=== PATIENT | female | born 1960 | race Caucasian/White ===

== ENCOUNTER → 2018-02-08 07:39 | Day surgery (SDC) | payer OTHER, SELFPAY ==
[2018-02-01 17:03] VITALS: BMI 24.2
[2018-02-08] VITALS (11 sets, daily range): BP systolic 112–144; BP diastolic 71–84; PULSE 79–89; RESP 12–20; TEMP 36–36.5; O2SAT 89–97; BMI 24.5
--- NOTE | 2018-02-08 | PATH_ITS ---
[facility] Accession Number: [id number] . 01 Material submitted: . PART A: SENTINAL NODE-RIGHT PART B: RIGHT BREAT MASS . 02 Diagnosis: A. Right [place] Lymph Node, Excision: One lymph node, negative for metastatic carcinoma. . B. Right Breast, Mass, Excision: Invasive ductal carcinoma. Please see Summary Cancer Data below. . . CAP CANCER CASE SUMMARY Procedure: Excision. Specimen Laterality: Right. . Tumor Site: 9 o'clock. Tumor Size: 2 mm. Histologic Type: Invasive carcinoma of no special type (ductal, not otherwise specified). Histologic Grade ([place] Histologic Score) Glandular/Tubular Differentiation: Score 1. Nuclear Pleomorphism: Score 1. Mitotic Rate: Score 1. Overall Grade: Grade 1. Tumor Focality: Single focus of invasive carcinoma. Ductal Carcinoma in Situ: Present in biopsy specimen only, per report, negative for extensive intraductal component. Architectural Patterns: Cribriform, per report. Nuclear Grade: Grade 1, per report. Necrosis: Not identified, per report. Margins Invasive carcinoma margins: Uninvolved by invasive carcinoma. Distance from closest margin: 9 mm, anterior margin. Ductal carcinoma in situ margins: Cannot be assessed, see comment. . Regional Lymph Nodes: Uninvolved by tumor cells. Total number of lymph nodes examined: 1. Number of sentinel lymph nodes examined: 1. . Treatment Effect: No known presurgical therapy. Lymph-Vascular Invasion: Not identified. Dermal Lymph-Vascular Invasion: No skin present. . Pathologic Stage Classification (AJCC, 8th ed.) Primary tumor: pT1. Regional lymph nodes: pN0(sn). . Additional pathologic findings: 1. Biopsy site changes. 2. Fibroadenoma with focal atypical ductal hyperplasia adjacent to biopsy site. . Ancillary studies: Performed Previously at Pathology, [place], [place], [id number]: -Estrogen Receptor (ER) Status: Positive (3+, greater than 95%). -Progesterone Receptor (PgR) Status: Negative (0+, 0%). -HER2 (by immunohistochemistry): Negative (1+). MRV/02/13/2018 . 02 Comment: No DCIS is identified in the excisional specimen; however, a small focus of DCIS is described in the [facility] report of the core needle biopsy ([id number]) and is therefore included in the [facility] Summary Data. . As part of routine quality coordinator, Dr. Estes and Dr. Mittal also reviewed selected slides and agree with the diagnosis. . 02 Electronically signed: . Zahira Edwards MD, Pathologist NPI- [id number] . 01 Gross description: . (A) Received in formalin, labeled 1) [place] node-right, is a lymph node (1.0 x 0.9 x 0.6 cm). Serially sectioned and entirely submitted in cassette A1. (B) Received in formalin, labeled 2) Right breast mass, short=superior, double=anterior, wire lateral, is a piece of breast tissue (3.3 cm AP, 3.9 cm SI, 6.1 cm ML) with no overlying skin. The specimen is oriented with two black sutures (short-superior, double-anterior) and the localization wire is lateral. The specimen is serially sectioned ML into 21 slices with the medial and lateral resection margins in slices #1 and #21, respectively. The breast tissue is densely fibrous and contains a colindres-white firm irregular hemorrhagic mass (1.3 x 1.2 x 1.1 cm) located in slices #13-16. The mass is 0.6 cm from the anterior, 0.6 cm from the posterior, 1.5 cm from the superior, 1.1 cm from the inferior, 3.5 cm from the medial, and 1.4 cm from the lateral resection margins. The surrounding densely fibrous tissue makes it difficult to identify the exact border of the mass. The localization wire was located loosely attached to the lateral side, therefore, the exact tissue involving the tip cannot be identified. A pinpoint hemorrhagic area is identified within slices #11 to #18. No other nodules, masses or lesions are identified. Ink code: purple-anterior; yellow-posterior; black-superior; orange-inferior; green-medial; blue-lateral. 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; (B2) slice #6, bisected SI, inferior half submitted; (B3) slice #7, bisected SI, superior half submitted; (B4) slice #8, entirely submitted; (B5) slice #9, bisected SI, inferior half submitted; (B6) slice #10, bisected SI, inferior half submitted; (B7) slice #11, tissue with hemorrhaging, trisected, middle third submitted; (B8-B9) slice #12, tissue adjacent to mass, bisected and submitted SI, entirely submitted; (B10-B12) slice #13, entirely submitted; (B13-B14) slice #14 entirely submitted; (B15-B17) slice #15 entirely submitted; (B18-B20) slice #16 entirely submitted; (B21-B22) slice #17, tissue adjacent to mass, entirely submitted; (B23-B24) slice #18, tissue with hemorrhaging, entirely submitted; (B25) slice #19, livestock sales representative; (B26) slice #20, livestock sales representative; (B27) lateral resection margin, perpendicularly sectioned, livestock sales representative. Note: Approximate total fixation time in formalin-31 hours 30 minutes calculated using a collection date of 02/08/2018 with no collection time given. ([id number]) /[facility] . 02 Microscopic: . Immunohistochemical stains were performed to characterize cells of interest. All control stains showed appropriate reactivity. . RESULTS: Block B14 p63: Present around the cells of interest. Myosin: Present around the cells of interest. . Block B16 and B19: p63: Absent around the cells of interest. Myosin: Absent around the cells of interest. . INTERPRETATION: The absence of p63 and myosin around the cells of interest is compatible with the diagnosis of invasive carcinoma. The presence of p63 and myosin surrounding cells of interest in block B14 are consistent with sclerosing adenosis. . * This test was developed and its performance characteristics determined by [employer]. It has not been cleared or approved by the U.S. Food and Drug Administration. The FDA has determined that such clearance or approval is not necessary. This test is used for clinical purposes. It should not be regarded as investigational or for research. . 02 Pathologist provided ICD-10: C50.911 . 02 CPT . 753249, 951096, M93827, K60937 Performed at: 01 [facility] [address] [id number] MD Francisco Peacock MD Phone: [phone] Performed at: 02 [facility] [address] [address] [place], [place] [id number] MD Chetan Fuller MD Phone: [phone]
--- NOTE | 2018-02-08 08:00 | DI.NM.S_ITS ---
PROCEDURE: NM SENTINEL NODE W IMAGING RADIOPHARMACEUTICAL: 0.5-1.0 mCi Millipore filtered Tc-99m sulfur colloid. INDICATIONS: 57 year-old female with right breast invasive ductal carcinoma, for sentinel lymph node localization. TECHNIQUE: The area around the nipple was prepped and draped in a sterile fashion. Tc-99m sulfur colloid was injected intra-dermally in the outer edge of the areola in the right breast. Images were obtained subsequently. FINDINGS: There are up to 4 lymph node(s) in the ipsilateral axilla demonstrating tracer uptake, one of which demonstrates initial and more intense tracer uptake consistent with sentinel lymph node. IMPRESSION: Administration of radiotracer into the right breast periareolar region for intra-operative sentinel lymph node localization. Dictated by: Xavi Dickson M.D. on 02/08/2018 at 11:14 Approved by: Xavi Dickson M.D. on 02/08/2018 at 11:17
--- NOTE | 2018-02-08 08:08 | DI.MG.S_ITS ---
PROCEDURE: MM NEEDLE LOC RT COMPARISON: [facility], , ADDITIONAL 1 VIEW, 12/26/2017, 9:34. INDICATIONS: RIGHT BREAST CANCER RIGHT WIRE LOCALIZATION FINDINGS: IMPRESSION: Dictated by: Maikel Blue M.D. on 02/08/2018 at 10:20 Approved by: Maikel Blue M.D. on 02/08/2018 at 10:25
--- NOTE | 2018-02-08 08:08 | DI.MG.S_ITS ---
SPECIMEN: 02/08/2018 CLINICAL: Breast specimen right. Correlation is made to exams dated: [facility]08[facility]2018 [facility]. IMPRESSION: SPECIMEN Post biopsy marker is within the specimen radiograph. This exam was interpreted at Station ID: [id number]. Maikel Blue M.D. cj/:02/08/2018 11:22:40
--- NOTE | 2018-02-08 09:10 | DI.MG.S_ITS ---
Patient Name: ROHAN FAULKNER date: 1960 Sex: F Attending Physician: Yanick Indications: Date: 02/08/2018 09:43 At the request of: JUANITO BARKER Procedure: MM needle loc RT UNILATERAL RIGHT: 02/08/2018 CLINICAL: Pre-op wire localization. Right breast cancer. Comparison is made to exams dated: 01/05/2018 mammogram - [facility], 12/26 mammogram, and 12/08/2017 mammogram - [facility]. The post biopsy marker in the upper outer right breast was identified under mammography and the overlying skin cleaned. 1% lidocaine was infiltrated into the tissues and a 7 cm kopans needle was placed adjacent to the marker. Location was verified with further mammographic images. A kopans wire was was placed via the needle and the needle removed. Post image mammography demonstrates the thick potion of the wire to be adjacent to the biopsy marker. IMPRESSION: Successful wire localization of the upper outer right breast abnormality marked with a post biopsy marker. This exam was interpreted at Station ID: [id number]. NOTE: For mammograms, a report in lay terms will be sent to the patient. Approximately 15% of breast malignancies will not be visualized mammographically. In the management of a palpable breast mass, a negative mammogram must not discourage biopsy of a clinically suspicious lesion. Electronically Signed By: Maikel Blue M.D. cj/:02/09/2018 08:04:56 Entry: - 02/09/2018 08:04:56 ACR BI-RADS Category n/a
[2018-02-08] MEDS: LACTATED RINGERS 1,000 ML 42 ML IV (09:40)
[2018-02-08] MEDS: CEFAZOLIN 2 GM/100 ML FROZ.PIGGY IV (10:24)
[2018-02-08] MEDS: BUPIVACAINE 0.5% (PF) 30 ML VIAL INJ (10:57)
[2018-02-08] MEDS: LIDOCAINE 1% W/EPI INJ 20 ML INJ (10:59)
--- NOTE | 2018-02-08 11:13 | SUR.OPER ---
Supine on padded OR bed, head on pillow, arms secured on padded arm boards at <90 degrees abduction, legs uncrossed, safety belt at thigh, tape over blanket over lower legs.
--- NOTE | 2018-02-08 11:23 | PM.OP.1 ---
Operative Date/Time/Diagnoses - Date of procedure: 02/08/18 Time of procedure: 11:23 Pre-op diagnosis: Biopsy proven right breast cancer Post-op diagnosis: same Procedure & Clinicians Procedure: Right breast lumpectomy and sentinel node biopsy after needle localization and sentinel node mapping Same procedure as scheduled: Yes Indications: Biopsy-proven right breast malignancy Anesthesia Type: General ([place]) and Local Operative Notes Findings: 1. A single sentinel node with a 10 sec count of greater than 20,000 2. Clip, lesion, and wire well centered within the specimen Closure Type: primary Specimen(s): other (1. [place] node, 2. Right breast lump) Estimated Blood Loss (mL): 10 Procedure in detail: After obtaining informed consent, the patient was brought to the operating room and placed in the supine position on the operating table. Following successful induction of general endotracheal anesthesia, appropriate padding of all bony prominences, and placement of appropriate monitors, the right chest and axilla were prepped and draped in the standard surgical fashion. A timeout was held per SCOAP protocol. Following injection of a mixture of local anesthetics into the axillary fold on the right side, an incision was created and carried down through the skin and subcutaneous tissue to enter the axillary fat pad below. The sentinel node was identified with the help of the navigator. All afferent and efferent lymphatics and vasculature were ligated. The sentinel node was then liberated from the surrounding structures. It was noted to have a 10 second count of greater than 20,000. The background in the axilla was less than 10 and background in the room was 0. The wound was carefully checked for hemostasis and aspirated free of all fluid and particulate matter. It was closed in 2 layers with Vicryl and Monocryl suture. We continued with lumpectomy on the right side. A curvilinear incision was created to include the localizing wire in the outer quadrant of the right breast. Using traction and counter-traction the mass and localizing wire carefully dissected free from the underlying muscle, and surrounding breast tissue. The mass was delivered into the field and marked appropriately. It was sent for specimen x-ray. The wound was checked for hemostasis and irrigated with water. The radiologist called back into the room noting that the mass, wire, and clip were all located well within the specimen. The wound was checked once again for hemostasis. It was irrigated copiously with warm water and aspirated free of all fluid. The wound was checked once again for hemostasis and then closed in layers with Vicryl and Monocryl suture. Dermabond was applied to the skin incisions. Fluffs and a breast binder were applied. The patient tolerated the procedure very well. She was allowed to awaken from anesthesia and taken to the post-anesthesia care unit in good condition. Complications: none Condition: stable Disposition: PACU Plan for aftercare: Follow up with [facility] in 2 weeks
--- NOTE | 2018-02-08 11:31 | PM.PREOP ---
Pre-operative Note Interval Note Pre-op Check: History & Physical Reviewed and Exam Performed
[2018-02-08] MEDS: fentaNYL 100 MCG/2 ML INJ 50 MCG IV ×2 (11:45→12:04)
[2018-02-08] MEDS: OXYCODONE/ACETAMINOPHEN 5/325 TABLET 1 TAB PO (12:14)
== END | disposition home or self-care (01) ==
PROVIDERS: Visit Provider Surgery
PROC: (CPT 19301; principal; 2018-02-08 10:00)
DX: C50.911 Malignant neoplasm of unspecified site of right female breast (principal); Z17.0 Estrogen receptor positive status [ER+]; I10 Essential (primary) hypertension; F17.210 Nicotine dependence, cigarettes, uncomplicated
CPT/HCPCS: 19301; 38500; 19281; 76098; 78195; A9541; G0279; J0690; J1100; J2405; J2704; J3010

== ENCOUNTER → 2018-06-19 13:58 | Outpatient (CLI) | payer OTHER, SELFPAY ==
--- NOTE | 2018-06-19 | DI.ECHO.S_ITS ---
[facility] +---------+ : : [address] : : : [place], [place] : : : : [id number] : : : : Phone: [phone]---------+ Echocardiogram Report + + :Name: ROHAN FAULKNER Study Date: 06/19/2018 Height: 65 in : :[facility] Weight: 155 lb : : Gender: Female BSA: 1.8 m2 : :: 1960 Age: 57 yrs BP: 120/76 mmHg: :Reason For Study: Abnormal ECG, Pre-surgical clearance : :Ordering Physician: Skye : :Vern Performed By: Cinda Anaya : + + Interpretation Summary The study quality was technically difficult. A contrast injection of Definity was performed to improve assessment of LV function. The ejection fraction is estimated to be 60-65%. There is no significant valvular heart disease. Procedure: A two-dimensional transthoracic echocardiogram with color flow and Doppler was performed. The study quality was technically difficult. There is no prior echocardiogram noted for this patient. A contrast injection of Definity was performed to improve assessment of LV function. The patient was in normal sinus rhythm during the exam. Left Ventricle: The left ventricle is normal in size. There is normal left ventricular wall thickness. The ejection fraction is estimated to be 60-65%. There are no obvious focal wall motion abnormalities noted but poor endocardial definition reduces the sensitivity for the detection of such. Right Ventricle: The right ventricle grossly appears normal in size with probable normal systolic function. Atria: The left atrium grossly appears normal in size. Right atrium not well visualized. There is no Doppler evidence for an interatrial shunt. Mitral Valve: The mitral valve is normal in structure and function. There is no mitral regurgitation noted. Aortic Valve: The aortic valve is grossly normal. There is no aortic valve stenosis. No aortic regurgitation is present. Tricuspid Valve: The tricuspid valve is not well visualized. Pulmonary artery pressures cannot be estimated because of the lack of a measurable TR jet velocity. Pulmonic Valve: The pulmonic valve is not well visualized. Great Vessels: The aortic root is normal size. The ascending aorta is normal in size. The IVC is of normal diameter and collapses greater than 50% with a sniff. This suggests a low right atrial pressure of 3 mm Hg. Pericardium/ Pleura There is no pericardial effusion. MMode/2D Measurements & Calculations LVIDd: 4.1 cm LVOT diam: 2.1 cm LVIDs: 2.7 cm Ao root diam: 3.0 cm FS: 33.6 % asc Aorta Diam: 3.3 cm IVSd: 0.87 cm LVPWd: 0.92 cm LV leonardo. diameter/BSA (cm/m^2): 2.3 LV sys. diameter/BSA (cm/m^2): 1.5 LA A2 area: 14.5 cm2 IVC diam: 1.1 cm LA A4 area: 15.8 cm2 LA length (vol): 4.8 cm LA vol: 40.5 ml LA vol index: 22.8 ml/m2 TAPSE: 2.1 cm Doppler Measurements & Calculations Ao V2 max: 108.5 cm/sec LVOT Max Eric: 84.1 cm/sec Ao V2 mean: 82.0 cm/sec LV V1 max P.8 mmHg Ao max P.7 mmHg LV V1 VTI: 16.4 cm Ao mean P.9 mmHg SHEYLA(I,D): 2.6 cm2 Ao V2 VTI: 21.8 cm SHEYLA(V,D): 2.7 cm2 sev ratio: 0.75 SHEYLA indexed to BSA (cm^2/m^2): 1.5 MV E max eric: 71.5 cm/sec PA V2 max: 74.6 cm/sec MV A max eric: 77.3 cm/sec PA V2 mean: 56.3 cm/sec MV E/A: 0.93 PA mean P.4 mmHg Med Peak E' Eric: 5.5 cm/sec PA Accel Time: 0.11 sec E/E' med: 13.1 Lat Peak E' Eric: 4.6 cm/sec E/E' lat: 15.4 E/e' average: 14.3 MV dec time: 0.21 sec MV P1/2t: 60.7 msec MV P1/2t max eric: 71.6 cm/sec MVA(P1/2t): 3.6 cm2 Reading Physician:03:52 PM
== END ==
PROVIDERS: Visit Provider Internal Medicine
DX: Z01.810 Encounter for preprocedural cardiovascular examination (principal); R94.31 Abnormal electrocardiogram [ECG] [EKG]
CPT/HCPCS: 93306; Q9957

== ENCOUNTER → 2018-07-03 11:51 | Outpatient (CLI) | payer OTHER, SELFPAY ==
[2018-07-03 12:42] LABS: Add Manual Diff / Slide Review NO; Basophils Percent Auto 0.7 % (0-2); Eosinophils Percent Auto 1.1 % (2-4); Hematocrit 37.2 % (36-46); Hemoglobin 12.7 g/dL (12.0-16.0); Lymphocytes Percent Auto 21.8 % (25-40); Mean Corpuscular Hemoglobin 32.3 PG (26-34); Monocytes Percent Auto 10.3 % (3-14); Neutrophils Absolute Auto 4700 /uL (3000-5900); Neutrophils Percent Auto 66.1 % (50-75); Platelet Count 234 X10^3/uL (150-400); Red Blood Cell Count 3.92 X10^6/uL (4.0-5.2); Red Cell Distribution Width 13.5 % (11.6-14.8); White Blood Cell Count 7.1 X10^3/uL (4.5-11.0)
[2018-07-03 12:58] LABS: Hemoglobin A1C% w Est Avg Glu 5.2 % (4.0-6.0)
[2018-07-03 13:05] LABS: BUN Creatinine Ratio 16.3 (6-22); Blood Urea Nitrogen 13 mg/dL (7-17); Calcium 10.2 mg/dL (8.4-10.2); Carbon Dioxide 34 mmol/L (22-32); Chloride 100 mmol/L (98-107); Estimated Glomerular Filt Rate > 60.0 mL/min (>60); Glucose 102 mg/dL (70-100); HEMOLYSIS < 15 (0-50); Potassium 4.4 mmol/L (3.4-5.1); Sodium 143 mmol/L (137-145)
[2018-07-03 13:17] LABS: Appearance Urine UA CLOUDY; Bilirubin Urine UA NEGATIVE (NEGATIVE); Color Urine UA YELLOW; Glucose Urine UA NEGATIVE (Normal); Ketones Urine UA NEGATIVE (NEGATIVE); Leukocyte Esterase Urine UA 1+ (NEGATIVE); Nitrite Urine UA Negative (Negative); Occult Blood Urine UA 1+ (Negative); Protein Urine UA NEGATIVE (Negative); Urobilinogen Urine UA 0.2 E.U./dL (0.2)
[2018-07-03 14:17] LABS: Bacteria Urine Moderate (10-30); RBC Urine 1-5/HPF (0-5/HPF); Squamous Epithelial Cell Urine 0-1 /HPF; WBC Urine 10-30/HPF (0-5/HPF)
== END ==
PROVIDERS: Visit Provider Orthopaedic Surgery
DX: M16.0 Bilateral primary osteoarthritis of hip (principal)
CPT/HCPCS: 36415; 80048; 81001; 83036; 85025

== ENCOUNTER 2018-07-13 10:02 | Inpatient (IN) | payer OTHER, SELFPAY ==
[2018-06-28 10:47] VITALS: BMI 25.0
[2018-07-13] VITALS (15 sets, daily range): BP systolic 105–140; BP diastolic 59–89; PULSE 73–81; RESP 13–20; TEMP 36.1–36.9; O2SAT 92–96; BMI 25.3
--- NOTE | 2018-07-13 | DI.RAD.S_ITS ---
PROCEDURE: XR HIP W PEL IF DONE LT 2V INDICATIONS: LEFT TOTAL HIP TECHNIQUE: AP pelvis and lateral view of the left hip acquired. COMPARISON: [facility], [place], XR HIP W PEL IF DONE LT 2V, 07/13/2018, 12:27. FINDINGS: Bones: Patient is status post left hip arthroplasty, with hardware components in expected positions. The hip joint appears congruent. The visualized bony structures appear intact. Soft tissues: Overlying postoperative changes are noted. No suspicious soft tissue densities. A right pelvis clip can be seen. IMPRESSION: Normal postoperative examination. Dictated by: Wiley Azar M.D. on 07/13/2018 at 16:04 Approved by: Wiley Azar M.D. on 07/13/2018 at 16:05
--- NOTE | 2018-07-13 09:56 | DI.RAD.S_ITS ---
PROCEDURE: XR HIP W PEL IF DONE LT 2V INDICATIONS: INTEROPERATIVE LEFT TOTAL HIP FINDINGS: 2 limited intraoperative fluoroscopically stored images of the left hip were obtained for intraoperative hardware localization purposes. These images are not meant for diagnostic purposes. Intraoperative findings related to a left hip arthroplasty procedure are present. IMPRESSION: Intraoperative images obtained in the patient's left hip arthroplasty. Dictated by: Colton Kwon M.D. on 07/13/2018 at 15:00 Approved by: Colton Kwon M.D. on 07/13/2018 at 15:01
[2018-07-13] MEDS: LACTATED RINGERS 1,000 ML 42 ML IV ×2 (10:50→15:47)
[2018-07-13] MEDS: ACETAMINOPHEN 325 MG TABLET 975 MG PO ×2 (10:51→20:30)
[2018-07-13] MEDS: PREGABALIN 75 MG CAPSULE PO (10:51)
[2018-07-13] MEDS: MELOXICAM 7.5 MG TABLET 15 MG PO (10:51)
[2018-07-13] MEDS: VANCOMYCIN 1,000 MG/200 ML FROZ.PIGGY 200 MG IV (11:00)
--- NOTE | 2018-07-13 11:26 | PM.PREOP ---
Pre-operative Note Interval Note Pre-op Check: Yes History & Physical Reviewed by Physician and Yes Exam Performed Changes: No
--- NOTE | 2018-07-13 11:28 | P.OP_ITS ---
Operative Date/Time/Diagnoses Date of procedure: 07/13/18 Time of procedure: 12:07 Pre-op diagnosis: Left hip avascular necrosis Post-op diagnosis: same Procedure & Clinicians Procedure: Left total hip arthroplasty Same procedure as scheduled: Yes Indications: The patient has had progressively worsening left hip pain with radiographic changes consistent with arthritis. Non-operative management has failed and the patient has requested total hip replacement. The risks, benefits and alternatives to surgery were discussed with the patient prior to proceeding. Risks discussed included, but were not limited to, failure to relieve pain, leg length discrepancy, dislocation, stiffness, infection, nerve damage, deep venous thrombosis, pulmonary embolism, stroke, coma, heart attack, permanent paralysis and , as well as the potential need for eventual revision of the prosthetic. Surgeon: Rula Suarez Restorative Care Technician: Cuco Mendez Anesthesia Type: General and Spinal Operative Notes Findings: Severe left hip arthritis and avascular necrosis Closure Type: primary Specimen(s): none sent Implants & Drains: [employer] R3 50 cup, a 32 x 50 neutral liner, size 7 standard offset anthology, -3 neck Estimated Blood Loss (mL): 250 Blood products transfused: none Procedure in detail: The patient was brought to the operating room. Patient was carefully positioned in the supine position. Time-out was performed and antibiotics were given. Anesthesia was induced. She was positioned in the on the table in order to allow hyperextension of the hip. Bilateral lower extremities were prepped and draped in a standard sterile fashion. An anterior left hip incision was made 1 fingerbreadth lateral to the anterior superior iliac spine and extended distally towards the greater trochanter. Dissection was carried out through skin and subcutaneous tissues. The skin and subcutaneous tissues were carefully injected with Lidocaine with epi. Superficial hemostasis was achieved. The fascia over the tensor fascia klaudia was defined and incised with a knife. Two Allis clamps were used to grasp the fascia. Tensor fascia klaudia was retracted laterally. A gelpi retractor was placed. Dissection was carried out down along the neck. The circumflex vessels were carefully identified and cauterized with the Aqua Mantis. There was good visualization of the femoral neck. A Cobra was placed superior to the neck and the gluteus fibers were carefully stripped from that superior aspect of the capsule. A 2nd retractor was placed along the inferior aspect of the neck. The rectus insertion along the capsule was partially released. A 3rd retractor that was then gently placed over the rim of the acetabulum under the rectus. Capsule was carefully incised and released from the intertrochanteric line circumferentially superior to the mid sagittal line and inferiorly to the mid sagittal line until the lesser trochanter was palpable. A tag stitch was placed both in the superior and inferior limb of the capsular insertion. Along the acetabulum capsule was also released up to the mid sagittal 12:00 position. A portion of the labrum was resected. A saw was used to perform an osteotomy at the level of the intertrochanteric line and the junction of the superior femoral neck leaving approximately 1 finger breath of residual inferior neck above the lesser trochanter. A 2nd cut was made along the femoral neck at the base of the head and a napkin ring of neck was removed. Corkscrew was placed in the femoral head and the head was removed without difficulty. Retractors were then repositioned around the acetabulum. Residual labrum was resected and additional osteophytes were removed. A reamer that was 4 mm below the templated size was placed by hand in the acetabulum and it was reamed to centralize the acetabulum. It was then reamed up to 2 under the templated size and fluoroscopy was brought in to confirm the position of the reaming and depth of reaming. I reamed 1 under the anticipated size and touched the rim with line to line reaming. A trial cup was placed and noted that it was appropriately sized and fluoroscopy confirmed position and depth. The component was open and inserted without difficulty fluoroscopic imaging was used to confirm that the cup had been adequately seated and was well positioned. Neutral poly trial liner was placed. The cup was tested and noted to be stable. Attention was then directed to the femur. The femur was gently hyperextended additional capsular release was performed as needed in order to allow adequate visualization of the proximal femur with elevation of the femur. Patient was placed in a hyperextended slightly abducted position with maximum external rotation. Box osteotome was used to check for any residual neck as well as sclerotic bone along the trochanter. Neavitt pepper was placed in the femur. Additional broaching was performed. Canal finder was used to determine the alignment of the canal and position. Size 1 broach was placed. The canal was then appropriately broached up to the templated size as long as there was adequate stability of the broach and serial advancement of the broach without excessive impingement. Specific attention was directed at avoiding varus attempting to direct the distal aspect of the broach more anteriorly and avoiding excessive anteversion. Trial reduction showed acceptable range of motion, good stability, no posterior impingement, confucianism of leg length and appropriate lateral shuck. I also hyperflexed the hip and checked that there was no impingement anteriorly and there was good stability with flexion, abduction and internal rotation. Final neutral poly was placed without difficulty. Marcaine and Exparel were injected.. The stem was placed without difficulty. Repeat trial reduction and x-ray showed acceptable overall position, length, and no evidence of the femoral fracture. Final head was placed. Wound was meticulously irrigated with normal saline. The hip was reduced and additional Exparel and Marcaine were injected. The capsule was closed with interrupted nonabsorbable sutures. The fascia of the tensor was closed with interrupted and running Vicryl. No drain was placed. Any tensor fascia klaudia muscle that appeared to be contused or injured which was a minimal amount was carefully resected. Capsule around the tensor was injected with Exparel and Marcaine. The skin was closed with barbed stitches for the subcutaneous tissue and skin. We also used surgical glue. The wound was dressed sterilely. Brief Betadine soak was also used and was meticulously irrigated with normal saline. Patient was transferred to recovery room in satisfactory condition. Complications: none Condition: stable Disposition: Acute Care Plan for aftercare: The patient will be maintained on a standard total hip replacement protocol with weight bearing as tolerated and anterior hip precautions. The patient will receive Aspirin and sequential compression devices for DVT prophylaxis. The patient will be discharged home when safe for the home environment.
[2018-07-13] MEDS: CEFAZOLIN 2 GM/100 ML FROZ.PIGGY IV ×2 (12:20→20:24)
--- NOTE | 2018-07-13 12:51 | SUR.OPER ---
Supine, head on pillow, torso on pink pad positioner. Iliac crest at flex of foot end of table. Gel roll under operative hip. Both arms secured on arm boards <90 degrees abduction. Foam wraps to bilateral arms
[2018-07-13] MEDS: BUPIVACAINE LIPOSOME 266 MG/20 ML VIAL INJ (12:54)
[2018-07-13] MEDS: BUPIVACAINE 0.25% W/ EPI VIAL 50 ML INJ (12:54)
[2018-07-13] MEDS: POVIDONE-IODINE 15 ML, SODIUM CHLORIDE 0.9% 250 ML TOP (12:55)
[2018-07-13] MEDS: LIDOCAINE 1% W/EPI INJ 20 ML INJ (12:55)
--- NOTE | 2018-07-13 15:52 | SUR.PHASEI ---
Report called to Raul Owen on acute care floor. Pt in stable condition, vss. pt sitting up and talking to rn. Pt being transferred to acute care at this time.
--- NOTE | 2018-07-13 16:05 | SUR.PHASEI ---
Bedside report given to Raul Owen on acute care floor. pt at bedside upon arrival to room. Transferred care of pt to raul Owen at that time.
[2018-07-13] MEDS: OXYCODONE IR 5 MG TABLET PO (16:43)
[2018-07-13] MEDS: LACTATED RINGERS 1,000 ML 125 ML IV (17:25)
[2018-07-13] MEDS: IBUPROFEN 200 MG TABLET PO (17:27)
[2018-07-13] MEDS: ALVESCO 1 EACH INHALATION (18:09)
--- NOTE | 2018-07-13 18:22 | PC.NURSE ---
Patient up to floor from PACU, A&OX3, 93% on RA, denies pain during initial assessment. Pain in left hip increased to 3/10 and was medicated as ordered appropriately. Patient oriented to call light and its use, verbalizes will call for help and not try to get out of bed by herself. Patient denies nausea, but after dinner had emesis; patient agreed to sip on viola tracy for now, will continue to reassess. Patient has not voided as of this time, will continue to reassess. Pulses are equal to BLE but are difficult to palpate. Skin color is pink and temperature is warm. Dressing to anterior hip is c/d/i. call light is in reach, BA active, will continue to monitor.
[2018-07-13] MEDS: HYDROMORPHONE 2 MG TABLET PO (19:43)
[2018-07-13] MEDS: hydrOXYzine pamoate 25 MG CAPSULE PO (19:44)
[2018-07-13] MEDS: HYDROMORPHONE 4 MG TABLET PO (20:29)
[2018-07-13] MEDS: ASPIRIN EC 81 MG TABLET PO (20:30)
[2018-07-13] MEDS: TRAZODONE 100 MG TABLET 200 MG PO (20:30)
[2018-07-13] MEDS: DOCUSATE 100 MG CAPSULE PO (20:30)
[2018-07-13] MEDS: SODIUM CHLORIDE 0.9% FLUSH 10 ML IV (20:31)
[2018-07-13] MEDS: ALPRAZolam 0.5 MG TABLET PO (21:32)
[2018-07-14] VITALS (8 sets, daily range): BP systolic 98–141; BP diastolic 50–78; PULSE 82–97; RESP 14–20; TEMP 36.3–37.2; O2SAT 90–96
[2018-07-14] MEDS: hydrOXYzine pamoate 25 MG CAPSULE PO ×2 (00:49→08:32)
[2018-07-14] MEDS: HYDROMORPHONE 2 MG TABLET PO ×2 (00:49→05:37)
[2018-07-14] MEDS: LACTATED RINGERS 1,000 ML 125 ML IV (01:59)
[2018-07-14] MEDS: CEFAZOLIN 2 GM/100 ML FROZ.PIGGY IV (04:03)
[2018-07-14 05:46] LABS: Hemoglobin 9.8 g/dL (12.0-16.0)
[2018-07-14] MEDS: PANTOPRAZOLE 20 MG TABLET PO (05:51)
[2018-07-14] MEDS: ACETAMINOPHEN 325 MG TABLET 975 MG PO ×2 (08:32→20:32)
[2018-07-14] MEDS: TELMISARTAN 40 MG TABLET 80 MG PO (08:33)
[2018-07-14] MEDS: SPIRONOLACTONE 25 MG TABLET PO (08:33)
[2018-07-14] MEDS: ASPIRIN EC 81 MG TABLET PO ×2 (08:34→20:31)
[2018-07-14] MEDS: DOCUSATE 100 MG CAPSULE PO ×2 (08:34→20:31)
[2018-07-14] MEDS: ANASTROZOLE 1 MG TABLET PO (08:35)
[2018-07-14] MEDS: NICOTINE 21 MG PATCH TOP (08:35)
[2018-07-14] MEDS: FLUoxetine 20 MG CAPSULE 80 MG PO (08:35)
[2018-07-14] MEDS: ATORVASTATIN 10 MG TABLET PO (08:35)
[2018-07-14] MEDS: ALVESCO 1 EACH INHALATION ×2 (08:38→20:31)
[2018-07-14] MEDS: HYDROMORPHONE 4 MG TABLET PO (09:34)
--- NOTE | 2018-07-14 10:05 | PC.NURSE ---
Day Shift- report given to PRAMOD Alaniz at 0935.
--- NOTE | 2018-07-14 10:28 | PT.IPTN ---
Current Diagnoses Bilateral primary osteoarthritis of hip (07/13/18) Idiopathic aseptic necrosis of left femur (07/13/18) Other sprain of left hip, initial encounter (07/13/18) Surgery Performed Operation Date: 07/13/18 12:00 Actual Procedures p Left Total Hip Arthroplasty-Anterior Approach(Left) - Rula Suarez MD Physical Therapy Treatment Note M3 PT-IP Subjective Start: 07/14/18 10:27 Freq: NEEDED Status: Active Protocol: Document 07/14/18 10:27 AB (Rec: 07/14/18 10:28 AB [id number]) Subjective Physical Therapy Visit Type Type Patient Refusal Notes pt stated that she has a lot of pain 05/12 and refused PT. educated pt on importance of mobility and pt understood but continues to refused but stated that she can try in the afternoon. nurse present. will f/u in the afternoon.
--- NOTE | 2018-07-14 10:40 | PM.PNPO.1 ---
Subjective Date Patient Seen: 07/14/18 Time Patient Seen: 10:40 Interval history: POD #1 status post left total hip arthroplasty with Dr. Suarez. Patient is having significant pain and is limited. She states she has an allergy to naproxen with hives. She is able to take ibuprofen and aspirin without any reactions. She has no kidney disease, and urine function labs are normal. Exam Vital Signs (past 8 hours): - 07/14/18 04:10 07/14/18 07:34 07/14/18 08:51 Temperature 97.9 F 98.8 F Pulse Rate 82 87 84 Respiratory Rate 18 18 14 Blood Pressure 141/74 H 127/78 Pulse Oximetry 92 91 96 Fraction of Inspired Oxygen 21 Oxygen Delivery Method Room Air Oxygen Flow Rate 0 Narrative Exam Narrative: Patient lying in bed in no acute distress. She is alert and oriented x3. She is having a lot of pain and discomfort. Calves are soft, compressible, nontender bilaterally. Sensation intact light touch throughout bilateral lower extremities. She is able to actively dorsiflex and plantar flex. Objective Labs Result Diagrams: 07/14/18 05:30 Labs: Laboratory Results - last 24 hr 07/14/18 05:30 Hgb 9.8 L Hct 29.0 L Assessment & Plan Post-op (1) Obstructive sleep apnea of adult: Problem details: . Current Visit: No Status: Chronic (2) S/P total hip arthroplasty: Current Visit: Yes Status: Acute Postoperative Procedures Operation Date: 07/13/18 12:00 Actual Procedures Side Surgeon p Left Total Hip Arthroplasty-Anterior Approach Left Rula Suarez MD POD #1 s/p left total hip arthroplasty anterior approach with Dr. Suarez. Patient will likely need Dilaudid 4 mg, Vistaril, Valium for severe muscle spasms, and Lyrica. We will give 1 time dose of Toradol 30 mg IV. Patient will need to mobilize with physical therapy today. Will continue to monitor patient's pain. Plan to discharge in next 1-2 days once mobilizing safely and pain is adequately controlled. Quality VTE Deep Vein Thrombosis/Pulmonary Embolism Present on Admission: No
[2018-07-14] MEDS: KETOROLAC 30 MG/ML VIAL IV (10:42)
[2018-07-14] MEDS: diazePAM 5 MG TABLET PO ×2 (10:45→18:40)
--- NOTE | 2018-07-14 12:49 | PT.IIE ---
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) Other sprain of left hip, initial encounter (07/13/18) Presence of unspecified artificial hip joint (07/13/18) Surgery Performed Operation Date: 07/13/18 12:00 Actual Procedures p Left Total Hip Arthroplasty-Anterior Approach(Left) - Rula Suarez MD Surgical History (Last Updated 06/28/18 @ 11:19 by Simran Kraft RN) H/O colonoscopy (Acute) History of appendectomy (Acute) History of cholecystectomy (Acute) S/P arthroscopy of right shoulder (Acute) Status post arthroscopy of hip (Acute) Medical History (Last Updated 06/28/18 @ 11:39 by Simran Kraft RN) Primary insomnia (Chronic) Nocturnal hypoxemia (Chronic) Obstructive sleep apnea of adult (Chronic) Excessive daytime sleepiness (Chronic) Anxiety (Acute) Breast cancer, right (Acute) COPD (chronic obstructive pulmonary disease) (Acute) 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) Depression (Acute) Edema (Acute) GERD (gastroesophageal reflux disease) (Acute) HTN (hypertension) (Acute) Hyperlipidemia (Acute) Low back pain (Acute) Neck pain (Acute) Osteoarthritis (Acute) Overactive bladder (Acute) Tobacco abuse disorder (Acute) Physical Therapy Inpatient Evaluation/Re-Eval M1 PT/OT-IP Prior Functional Status Start: 07/14/18 10:27 Freq: NEEDED Status: Active Protocol: Document 07/14/18 12:49 AB (Rec: 07/14/18 13:42 AB [id number]) Medical Review Prior Functional Status Medical History Reviewed Yes Communication able to make needs known Mobility and Gait pt stated that she is independent with all mobilities and ambulation using SPC but occasionally ambulated without AD indoors Social History Household Members spouse Living Arrangements House Number of Floors (Floors) One Floor Number of Stairs To Enter/Railing? 2 steps without rails Home Environment Walk in Shower Home Equipment Four Wheel Walker Straight Cane Raised Toilet Seat w/Armrests Shower Seat without Backrest Employment Status Retired Additional Social History Comment stated that spouse is off work until tuesday and can assist her at home but after that, her friend will stay with her to assist her M2 PT-IP Current Condition Start: 07/14/18 10:27 Freq: NEEDED Status: Active Protocol: Document 07/14/18 12:49 AB (Rec: 07/14/18 13:42 AB [id number]) Physical Therapy Current Condition Current Condition Evaluation Date 07/14/18 Treatment Diagnosis s/p L JANE anterior approach; difficulty in walking Onset Date 07/13/18 Precautions Anterior Hip Precautions No Hip Extension No Hip External Rotation Weight Bearing Status Weight Bearing Status Weight Bear as Tolerated M3 PT-IP Subjective Start: 07/14/18 10:27 Freq: NEEDED Status: Active Protocol: Document 07/14/18 12:49 AB (Rec: 07/14/18 13:42 AB [id number]) Subjective Physical Therapy Visit Type Type Initial Evaluation Visit Start Time 12:49 Visit Stop Time 13:09 Total Visit Minutes 20 Number of CREDIT CHARGE AUTHORIZER Visits 0 Physical Therapy Visit Comments Patient Comments pt requesting to go back to bed Patient Goals to go home Therapy Pain Assessment Pain When Pain Assessed At Rest Pain Present Pain Present Pain Reported Location Hip Intensity 5 Scale Used Numeric (1 - 10) Pain Management Techniques Apply Cold Re-positioning Timing of Activity with Medications M4 PT-IP Mobility and Gait Start: 07/14/18 10:27 Freq: NEEDED Status: Active Protocol: Document 07/14/18 12:49 AB (Rec: 07/14/18 13:42 AB [id number]) PT-Bed Mobility Assessment Sit to Supine Sit to Supine Contact Guard Assistance PT-Transfer Assessment Sit to and From Stand Sit to and from Stand Minimal Assistance 1 Person Assistance Use of Upper Extremities Equipment Transfer Assistive Device Gait Belt Front Wheeled Walker Orthotic/Prosthetic Devices or Brace: No Transfers Transfer Destination Bed Transfer Technique pt ambulated to the bed using FWW Comments Mobility Comments pt completed sit to supine CGA ; demontrates difficulty with elevating LLE up to bed and requiring increase time to complete task Gait Assessment Gait Gait Assistance Required: Minimum Assistance Distance (Feet) 12 Able to Maintain Weight Bearing Status Yes During Gait Assistive Devices Assistive Device Gait Belt Front Wheeled Walker Orthotic/Prosthetic Devices or Brace: No Gait Deviations General Gait Pattern Antalgic Decreased Stride Length Decreased Feet Clearance Factors Limiting Gait Function Factors Limiting Gait Function Decreased Activity Tolerance Decreased Strength Limited Range of Motion Pain Poor Balance Poor Safety Awareness Comments Gait Comments pt requires assist with weight shifting and presents with difficulty moving LLE forward during ambulation. PT-Balance Assessment Sitting Balance and Reactions Static Sitting Balance Ability Good Dynamic Sitting Balance Ability Good Standing Balance and Reactions Static Standing Balance Ability Fair Dynamic Standing Balance Ability Fair Device Used FWW M5 PT-IP Objective Assessments Start: 07/14/18 10:27 Freq: NEEDED Status: Active Protocol: Document 07/14/18 12:49 AB (Rec: 07/14/18 13:42 AB [id number]) Orientation Orientation/Cognition Level of Alertness Alert Orientation Name Age Place Situation Safety Awareness Decreased Safety Awareness Strength Lower Extremity Strength Assessment Left Impaired Hip 3-/5 Knee 3+/5 Sensation Assessment Sensation Gross Sensation WNL M6 PT-IP Treatment Start: 07/14/18 10:27 Freq: NEEDED Status: Active Protocol: Document 07/14/18 12:49 AB (Rec: 07/14/18 13:42 AB [id number]) Physical Therapy Treatment Education Education Provided Precautions Weight Bearing Status Post-Op Packet Safety Other Treatments Other Treatment Performed informed pt regarding need for FWW since pt only has a 4WW and SPC for home use and asked if her spouse can obtain one for her. M7 PT-IP Assessment and Plan Start: 07/14/18 10:27 Freq: NEEDED Status: Active Protocol: Document 07/14/18 12:49 AB (Rec: 07/14/18 13:42 AB [id number]) PT Summary Assessment and Plan Potential Rehabilitation Potential Fair Status of Condition at Evaluation Evolving Summary Impairments Pain ROM Strength Balance Coordination Sensation Tone Cognition Bed Mobility Transfers Gait Activity Tolerance Assessment Summary pt with c/o increase pain and unable to tolerate much activity. initially refusing PT but nurse stated that they chaned her pain meds. checked on pt again and requesting to go back to bed and completed but unable to do much activity . will continue to assess. caregiver training and stair training needs to be conducted prior to d/c. Goals Bed Mobility Goal Standby Assistance Transfer Goal Standby Assistance Gait Goal Standby Assistance Gait Distance 150 Other Goals up/down 2 steps without rails CGA using SPC or FWW Days to Meet Goals 3 Frequency of Treatment Frequency Of Treatment Twice a Day Treatment Plan Physical Therapy Treatment Plan Bed Mobility Training Transfer Training Gait Training Therapeutic Exercise Balance Retraining Post Op Education Discharge Planning Hot or Cold Pack Neuromuscular Re-ed Coordination Retraining Manual Therapy Other Recommendations and Next Treatment caregiver training, stair Focus training Recommendations To Nursing Amount of Assist Needed 1 Person Assist Discharge Recommendations PT Discharge Recommendations Home with 24/ Assist Outpatient PT Equipment Needed for Home Before FWW if pt was unable to obtain Discharge one
[2018-07-14] MEDS: HYDROMORPHONE 2 MG TABLET 4 MG PO ×2 (13:44→18:39)
[2018-07-14] MEDS: TRAZODONE 100 MG TABLET 200 MG PO (20:31)
[2018-07-14] MEDS: PREGABALIN 75 MG CAPSULE PO (20:31)
[2018-07-14] MEDS: SODIUM CHLORIDE 0.9% FLUSH 10 ML IV (20:32)
[2018-07-15] VITALS (8 sets, daily range): BP systolic 94–123; BP diastolic 51–64; PULSE 75–92; RESP 14–16; TEMP 36.6–37.6; O2SAT 90–99
[2018-07-15] MEDS: HYDROMORPHONE 2 MG TABLET 4 MG PO ×2 (00:35→05:03)
[2018-07-15] MEDS: diazePAM 5 MG TABLET PO (00:45)
[2018-07-15] MEDS: hydrOXYzine pamoate 25 MG CAPSULE PO (05:05)
[2018-07-15] MEDS: PANTOPRAZOLE 20 MG TABLET PO (05:54)
--- NOTE | 2018-07-15 08:28 | PM.PNPO.1 ---
Subjective Date Patient Seen: 07/15/18 Time Patient Seen: 08:29 Interval history: The patient reports significant increase in pain with physical therapy yesterday. This limited her progress. Exam Vital Signs (past 8 hours): - 07/15/18 04:45 Temperature 99.7 F H Pulse Rate 92 H Respiratory Rate 16 Blood Pressure 123/57 L Pulse Oximetry 90 L Fraction of Inspired Oxygen 21 Oxygen Delivery Method Room Air Oxygen Flow Rate 0 Narrative Exam Narrative: On physical examination the left hip wound is dressed with no significant drainage on the bandage. Calf is soft. Light touch and motion are intact in the left lower extremity. Length and rotation of the left lower extremity appear to be appropriate. Objective Labs Result Diagrams: 07/14/18 05:30 Assessment & Plan Post-op Postoperative Procedures Operation Date: 07/13/18 12:00 Actual Procedures Side Surgeon p Left Total Hip Arthroplasty-Anterior Approach Left Rula Suarez MD Postoperative day: 2 Postoperative status: doing well, marginal pain control and anemia Postoperative status narrative: The patient is stable postoperative day 2 after total hip replacement. She has an acute blood-loss anemia which is within the expected range Of the scarred of surgery. She is having difficulty with mobilization likely due to the long acting numbing medication wearing off. Postoperative plan: routine post-op care and ambulate Time Spent With Patient less than 15 minutes Quality VTE Deep Vein Thrombosis/Pulmonary Embolism Present on Admission: No
--- NOTE | 2018-07-15 09:29 | PT.IPTN ---
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) Other sprain of left hip, initial encounter (07/13/18) Presence of unspecified artificial hip joint (07/13/18) Surgery Performed Operation Date: 07/13/18 12:00 Actual Procedures p Left Total Hip Arthroplasty-Anterior Approach(Left) - Rula Suarez MD Physical Therapy Treatment Note M2 PT-IP Current Condition Start: 07/14/18 10:27 Freq: NEEDED Status: Active Protocol: Document 07/14/18 12:49 AB (Rec: 07/14/18 13:42 AB [id number]) Physical Therapy Current Condition Current Condition Evaluation Date 07/14/18 Treatment Diagnosis s/p L JANE anterior approach; difficulty in walking Onset Date 07/13/18 Precautions Anterior Hip Precautions No Hip Extension No Hip External Rotation Weight Bearing Status Weight Bearing Status Weight Bear as Tolerated M3 PT-IP Subjective Start: 07/14/18 10:27 Freq: NEEDED Status: Active Protocol: Document 07/15/18 09:29 AB (Rec: 07/15/18 13:26 AB [id number]) Subjective Physical Therapy Visit Type Type Treatment Note Visit Start Time 09:29 Visit Stop Time 10:08 Total Visit Minutes 39 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 of 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 0 Physical Therapy Visit Comments Patient Comments pt requested to use the toilet and change her gown Therapy Pain Assessment Pain When Pain Assessed At Rest Pain Present Pain Present Pain Reported Location Hip Intensity 4 Scale Used Numeric (1 - 10) Pain Management Techniques Timing of Activity with Medications M4 PT-IP Mobility and Gait Start: 07/14/18 10:27 Freq: NEEDED Status: Active Protocol: Document 07/15/18 09:29 AB (Rec: 07/15/18 13:26 AB [id number]) PT-Bed Mobility Assessment Supine to Sit Supine to Sit Minimal Assistance PT-Transfer Assessment Sit to and From Stand Sit to and from Stand Contact Guard Assistance Equipment Transfer Assistive Device Gait Belt Front Wheeled Walker Orthotic/Prosthetic Devices or Brace: No Transfers Transfer Destination Toilet Transfer Technique pt ambulated to the toilet Gait Assessment Gait Gait Assistance Required: Contact Guard Assist Distance (Feet) 25 Able to Maintain Weight Bearing Status Yes During Gait Assistive Devices Assistive Device Gait Belt Front Wheeled Walker Orthotic/Prosthetic Devices or Brace: No Gait Deviations General Gait Pattern Antalgic Decreased Stride Length Decreased Feet Clearance Flexed Trunk Factors Limiting Gait Function Factors Limiting Gait Function Decreased Activity Tolerance Decreased Strength Difficulty Following Directions Limited Range of Motion Pain Poor Balance Poor Safety Awareness Comments Gait Comments pt ambulated to the toilet using FWW ~ 25 ft requiring CGA and cues. continues to present with antalgic gait and difficulty advancing LLE. pt completed sit to stand from the toilet using grab bar CGA and cues and ambulated towards the sink using FWW CGA. pt was able to maintain standing bal/joann leaning on counter SBA while completing ADLs. pt agreed to sit up on chair afterwards. Spouse present towards end of tx session anad agreed with caregiver training this afternoon at 130 p.m. M5 PT-IP Objective Assessments Start: 07/14/18 10:27 Freq: NEEDED Status: Active Protocol: Document 07/14/18 12:49 AB (Rec: 07/14/18 13:42 AB [id number]) Orientation Orientation/Cognition Level of Alertness Alert Orientation Name Age Place Situation Safety Awareness Decreased Safety Awareness Strength Lower Extremity Strength Assessment Left Impaired Hip 3-/5 Knee 3+/5 Sensation Assessment Sensation Gross Sensation WNL M6 PT-IP Treatment Start: 07/14/18 10:27 Freq: NEEDED Status: Active Protocol: Document 07/15/18 09:29 AB (Rec: 07/15/18 13:26 AB [id number]) Physical Therapy Treatment Education Education Provided Precautions Safety M7 PT-IP Assessment and Plan Start: 07/14/18 10:27 Freq: NEEDED Status: Active Protocol: Document 07/15/18 09:29 AB (Rec: 07/15/18 13:26 AB [id number]) PT Summary Assessment and Plan Potential Rehabilitation Potential Good Summary Impairments Pain ROM Strength Balance Coordination Cognition Bed Mobility Transfers Gait Activity Tolerance Progress Towards Goals Slow Progress due to Pain Slow Progress due to Activity Tolerance Assessment Summary pt continues to require 1 person assist with mobility. caregiver training set up for this afternoon's session. If spouse will be able to assist pt safely and if pt able to complete stair climbing safely , pt may go home when medically stable. OT eval order also requested and informed insurance case manager. pt has difficulty with putting and managing clothes on and was assisted during toileting. Goals Bed Mobility Goal Standby Assistance Transfer Goal Standby Assistance Gait Goal Standby Assistance Gait Distance 150 Other Goals up/down 2 steps without rails CGA using SPC or FWW Days to Meet Goals 3 Frequency of Treatment Frequency Of Treatment Twice a Day Treatment Plan Physical Therapy Treatment Plan Bed Mobility Training Transfer Training Gait Training Therapeutic Exercise Balance Retraining Post Op Education Discharge Planning Hot or Cold Pack Neuromuscular Re-ed Coordination Retraining Manual Therapy Other Recommendations and Next Treatment caregiver training, stair Focus training Recommendations To Nursing Amount of Assist Needed 1 Person Assist Discharge Recommendations PT Discharge Recommendations Home with 25/04 Assist Outpatient PT Equipment Needed for Home Before FWW if pt was unable to obtain Discharge one
[2018-07-15] MEDS: ALVESCO 1 EACH INHALATION ×2 (10:20→20:06)
[2018-07-15] MEDS: POLYETHYLENE GLYCOL 3350 17 GM POWD.PACK PO (10:39)
[2018-07-15] MEDS: IBUPROFEN 200 MG TABLET PO ×3 (10:39→21:54)
[2018-07-15] MEDS: ACETAMINOPHEN 325 MG TABLET 975 MG PO ×3 (10:41→21:55)
[2018-07-15] MEDS: ASPIRIN EC 81 MG TABLET PO ×2 (10:41→21:55)
[2018-07-15] MEDS: ATORVASTATIN 10 MG TABLET PO (10:41)
[2018-07-15] MEDS: FLUoxetine 20 MG CAPSULE 80 MG PO (10:41)
[2018-07-15] MEDS: PREGABALIN 75 MG CAPSULE PO ×2 (10:41→21:55)
[2018-07-15] MEDS: DOCUSATE 100 MG CAPSULE PO ×2 (10:42→21:55)
[2018-07-15] MEDS: SODIUM CHLORIDE 0.9% FLUSH 10 ML IV ×2 (10:42→21:57)
[2018-07-15] MEDS: ANASTROZOLE 1 MG TABLET PO (10:42)
[2018-07-15] MEDS: CHOLECALCIFEROL (VITAMIN D3) 1,000 UNIT TABLET 1000 UNIT PO (10:42)
[2018-07-15] MEDS: NICOTINE 21 MG PATCH TOP (10:42)
--- NOTE | 2018-07-15 13:40 | PT.IPTN ---
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) Other sprain of left hip, initial encounter (07/13/18) Presence of unspecified artificial hip joint (07/13/18) Surgery Performed Operation Date: 07/13/18 12:00 Actual Procedures p Left Total Hip Arthroplasty-Anterior Approach(Left) - Rula Suarez MD Physical Therapy Treatment Note M2 PT-IP Current Condition Start: 07/14/18 10:27 Freq: NEEDED Status: Active Protocol: Document 07/14/18 12:49 AB (Rec: 07/14/18 13:42 AB [id number]) Physical Therapy Current Condition Current Condition Evaluation Date 07/14/18 Treatment Diagnosis s/p L JANE anterior approach; difficulty in walking Onset Date 07/13/18 Precautions Anterior Hip Precautions No Hip Extension No Hip External Rotation Weight Bearing Status Weight Bearing Status Weight Bear as Tolerated M3 PT-IP Subjective Start: 07/14/18 10:27 Freq: NEEDED Status: Active Protocol: Document 07/15/18 15:40 AB (Rec: 07/15/18 16:25 AB [id number]) Subjective Physical Therapy Visit Type Type Treatment Note Visit Start Time 15:40 Visit Stop Time 16:00 Total Visit Minutes 20 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 spouse present for caregiver training . Therapy Pain Assessment Pain When Pain Assessed During Mobility Pain Present Pain Present Pain Reported Location Hip Intensity 5 Scale Used Numeric (1 - 10) Description With Movement Pain Management Techniques Apply Cold Timing of Activity with Medications M4 PT-IP Mobility and Gait Start: 07/14/18 10:27 Freq: NEEDED Status: Active Protocol: Document 07/15/18 15:40 AB (Rec: 07/15/18 16:25 AB [id number]) PT-Bed Mobility Assessment Supine to Sit Supine to Sit Moderate Assistance Maximum Assistance 1 Person Assistance Sit to Supine Sit to Supine Moderate Assistance Maximum Assistance 1 Person Assistance Scooting Scooting to Edge of Bed Moderate Assistance PT-Transfer Assessment Sit to and From Stand Sit to and from Stand Minimal Assistance 1 Person Assistance Equipment Transfer Assistive Device Gait Belt Front Wheeled Walker Comments Mobility Comments caregiver training conducted. educated spouse on how to use safety belt and how to assist pt with bed mobility and transfers. spouse was able to counter demonstrate and assist pt safely. Gait Assessment Gait Gait Assistance Required: Contact Guard Assist Minimum Assistance Distance (Feet) 50 Able to Maintain Weight Bearing Status Yes During Gait Assistive Devices Assistive Device Gait Belt Front Wheeled Walker Orthotic/Prosthetic Devices or Brace: No Gait Deviations General Gait Pattern Antalgic Decreased Stride Length Decreased Feet Clearance Flexed Trunk Factors Limiting Gait Function Factors Limiting Gait Function Decreased Activity Tolerance Decreased Strength Difficulty Following Directions Pain Poor Balance Poor Safety Awareness Comments Gait Comments caregivr training completed for ambulation training and spouse was able to assist pt safely. pt continues to have difficulty with advancing LLE forwards during ambulation and required assist for weight shifting and cues for techniques. Stair Climbing Assessment Comments Stair Climbing Comments spouse stated that if they go from the garage, they only have one step to enter the house. attempted stair climbing training but pt with c/o lightheadedness during ambulation going towards the stair. BP 91/58. Brought pt back to room and BP checked again after ~ 2 min of rest break. BP: 92/57. informed nurse regarding BP and c/o lightheadedness and stated that pt will be receiving an IV bolus. M5 PT-IP Objective Assessments Start: 07/14/18 10:27 Freq: NEEDED Status: Active Protocol: Document 07/14/18 12:49 AB (Rec: 07/14/18 13:42 AB [id number]) Orientation Orientation/Cognition Level of Alertness Alert Orientation Name Age Place Situation Safety Awareness Decreased Safety Awareness Strength Lower Extremity Strength Assessment Left Impaired Hip 3-/5 Knee 3+/5 Sensation Assessment Sensation Gross Sensation WNL M6 PT-IP Treatment Start: 07/14/18 10:27 Freq: NEEDED Status: Active Protocol: Document 07/15/18 15:40 AB (Rec: 07/15/18 16:25 AB [id number]) Physical Therapy Treatment Education Education Provided Precautions Weight Bearing Status Post-Op Packet Safety M7 PT-IP Assessment and Plan Start: 07/14/18 10:27 Freq: NEEDED Status: Active Protocol: Document 07/15/18 15:40 AB (Rec: 07/15/18 16:25 AB [id number]) PT Summary Assessment and Plan Potential Rehabilitation Potential Good Summary Impairments Pain ROM Strength Balance Coordination Sensation Tone Cognition Bed Mobility Transfers Gait Activity Tolerance Progress Towards Goals Slow Progress due to Pain Slow Progress due to Medical Issues Slow Progress due to Activity Tolerance Assessment Summary caregiver training conducted but will still require further training for stair climbing. pt was unable to tolerate tx session due to c/o lightheadedness with BP of 91/ 58. d/c plan is home with spouse to assist but will need homehealth PT. spouse was able to get a FWW for pt to use at home. Goals Bed Mobility Goal Standby Assistance Transfer Goal Standby Assistance Gait Goal Standby Assistance Gait Distance 150 Other Goals up/down 1 step using FWW Days to Meet Goals 3 Frequency of Treatment Frequency Of Treatment Twice a Day Treatment Plan Physical Therapy Treatment Plan Bed Mobility Training Transfer Training Gait Training Therapeutic Exercise Balance Retraining Post Op Education Discharge Planning Hot or Cold Pack Neuromuscular Re-ed Coordination Retraining Manual Therapy Recommendations To Nursing Amount of Assist Needed 1 Person Assist Discharge Recommendations PT Discharge Recommendations Home with 25/04 Assist Home Health
[2018-07-15] MEDS: SODIUM CHLORIDE 0.9% 500 ML IV (14:36)
--- NOTE | 2018-07-15 15:40 | PT.IPTN ---
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) Other sprain of left hip, initial encounter (07/13/18) Presence of unspecified artificial hip joint (07/13/18) Surgery Performed Operation Date: 07/13/18 12:00 Actual Procedures p Left Total Hip Arthroplasty-Anterior Approach(Left) - Rula Suarez MD Physical Therapy Treatment Note M2 PT-IP Current Condition Start: 07/14/18 10:27 Freq: NEEDED Status: Active Protocol: Document 07/14/18 12:49 AB (Rec: 07/14/18 13:42 AB [id number]) Physical Therapy Current Condition Current Condition Evaluation Date 07/14/18 Treatment Diagnosis s/p L JANE anterior approach; difficulty in walking Onset Date 07/13/18 Precautions Anterior Hip Precautions No Hip Extension No Hip External Rotation Weight Bearing Status Weight Bearing Status Weight Bear as Tolerated M3 PT-IP Subjective Start: 07/14/18 10:27 Freq: NEEDED Status: Active Protocol: Document 07/15/18 15:40 AB (Rec: 07/15/18 16:25 AB [id number]) Subjective Physical Therapy Visit Type Type Treatment Note Visit Start Time 15:40 Visit Stop Time 16:00 Total Visit Minutes 20 Number of DUMB WAITER OPERATOR Visits 0 Physical Therapy Visit Comments Patient Comments pt seems sleepy. spouse present for caregiver training . Therapy Pain Assessment Pain When Pain Assessed During Mobility Pain Present Pain Present Pain Reported Location Hip Intensity 5 Scale Used Numeric (1 - 10) Description With Movement Pain Management Techniques Apply Cold Timing of Activity with Medications M4 PT-IP Mobility and Gait Start: 07/14/18 10:27 Freq: NEEDED Status: Active Protocol: Document 07/15/18 15:40 AB (Rec: 07/15/18 16:25 AB [id number]) PT-Bed Mobility Assessment Supine to Sit Supine to Sit Moderate Assistance Maximum Assistance 1 Person Assistance Sit to Supine Sit to Supine Moderate Assistance Maximum Assistance 1 Person Assistance Scooting Scooting to Edge of Bed Moderate Assistance PT-Transfer Assessment Sit to and From Stand Sit to and from Stand Minimal Assistance 1 Person Assistance Equipment Transfer Assistive Device Gait Belt Front Wheeled Walker Comments Mobility Comments caregiver training conducted. educated spouse on how to use safety belt and how to assist pt with bed mobility and transfers. spouse was able to counter demonstrate and assist pt safely. Gait Assessment Gait Gait Assistance Required: Contact Guard Assist Minimum Assistance Distance (Feet) 50 Able to Maintain Weight Bearing Status Yes During Gait Assistive Devices Assistive Device Gait Belt Front Wheeled Walker Orthotic/Prosthetic Devices or Brace: No Gait Deviations General Gait Pattern Antalgic Decreased Stride Length Decreased Feet Clearance Flexed Trunk Factors Limiting Gait Function Factors Limiting Gait Function Decreased Activity Tolerance Decreased Strength Difficulty Following Directions Pain Poor Balance Poor Safety Awareness Comments Gait Comments caregivr training completed for ambulation training and spouse was able to assist pt safely. pt continues to have difficulty with advancing LLE forwards during ambulation and required assist for weight shifting and cues for techniques. Stair Climbing Assessment Comments Stair Climbing Comments spouse stated that if they go from the garage, they only have one step to enter the house. attempted stair climbing training but pt with c/o lightheadedness during ambulation going towards the stair. BP 91/58. Brought pt back to room and BP checked again after ~ 2 min of rest break. BP: 92/57. informed nurse regarding BP and c/o lightheadedness and stated that pt will be receiving an IV bolus. M5 PT-IP Objective Assessments Start: 07/14/18 10:27 Freq: NEEDED Status: Active Protocol: Document 07/14/18 12:49 AB (Rec: 07/14/18 13:42 AB [id number]) Orientation Orientation/Cognition Level of Alertness Alert Orientation Name Age Place Situation Safety Awareness Decreased Safety Awareness Strength Lower Extremity Strength Assessment Left Impaired Hip 3-/5 Knee 3+/5 Sensation Assessment Sensation Gross Sensation WNL M6 PT-IP Treatment Start: 07/14/18 10:27 Freq: NEEDED Status: Active Protocol: Document 07/15/18 15:40 AB (Rec: 07/15/18 16:25 AB [id number]) Physical Therapy Treatment Education Education Provided Precautions Weight Bearing Status Post-Op Packet Safety M7 PT-IP Assessment and Plan Start: 07/14/18 10:27 Freq: NEEDED Status: Active Protocol: Document 07/15/18 15:40 AB (Rec: 07/15/18 16:25 AB [id number]) PT Summary Assessment and Plan Potential Rehabilitation Potential Good Summary Impairments Pain ROM Strength Balance Coordination Sensation Tone Cognition Bed Mobility Transfers Gait Activity Tolerance Progress Towards Goals Slow Progress due to Pain Slow Progress due to Medical Issues Slow Progress due to Activity Tolerance Assessment Summary caregiver training conducted but will still require further training for stair climbing. pt was unable to tolerate tx session due to c/o lightheadedness with BP of 91/ 58. d/c plan is home with spouse to assist but will need homehealth PT. spouse was able to get a FWW for pt to use at home. Goals Bed Mobility Goal Standby Assistance Transfer Goal Standby Assistance Gait Goal Standby Assistance Gait Distance 150 Other Goals up/down 1 step using FWW Days to Meet Goals 3 Frequency of Treatment Frequency Of Treatment Twice a Day Treatment Plan Physical Therapy Treatment Plan Bed Mobility Training Transfer Training Gait Training Therapeutic Exercise Balance Retraining Post Op Education Discharge Planning Hot or Cold Pack Neuromuscular Re-ed Coordination Retraining Manual Therapy Other Recommendations and Next Treatment caregiver training set up at [facility] 930 am for 07/16/18 Recommendations To Nursing Amount of Assist Needed 1 Person Assist Discharge Recommendations PT Discharge Recommendations Home with 25/04 Assist Home Health
--- NOTE | 2018-07-15 15:53 | PC.NURSE ---
Pt in bed and then up to chair with PT this AM. Arrived in room and pt states she is feeling a little lightheaded sitting up. Checked BP and it was 82/46 HR 91 sitting in chair. Returned pt to bed and rechecked, BP was 81/48 and HR-93 however she stated she was no longer light headed. notified MD and order for 500 ml NS bolus obtained which was given. BP increased to 90s/50s later in the shift. In addition pt states pain is controlled around a 1-2/10. Tolerable when not moving and doing well. Did not give pt any narcotics today, she was comfortable and did not want to make her any more lightheaded. just received sched tylenol and PRN ibuprofen. hourly rounding provided, call light within reach.
--- NOTE | 2018-07-15 16:50 | OT.IP.TRT ---
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) Other sprain of left hip, initial encounter (07/13/18) Presence of unspecified artificial hip joint (07/13/18) Surgery Performed Operation Date: 07/13/18 12:00 Actual Procedures p Left Total Hip Arthroplasty-Anterior Approach(Left) - Rula Suarez MD Occupational Therapy Treatment Note M3 OT- IP Subjective and Pain Start: 07/15/18 16:46 Freq: Status: Active Protocol: Document 07/15/18 16:46 [facility] (Rec: 07/15/18 16:50 [facility] [id number]) OT- Subjective Occupational Therapy Visit Type Type Patient Refusal Notes Attempted OT eval with pt, pt states still feeling very tired BP 104/61 in supine. Pt refusing OT eval at thsi time. Pt also having concerns if OT eval covered by her insurance and wanting to know before being seen as well. Billing not available to ask as the weekend.
[2018-07-15] MEDS: TRAZODONE 100 MG TABLET 200 MG PO (22:03)
--- NOTE | 2018-07-16 01:09 | PC.NURSE ---
Pt. sound asleep when checked @ 0040, will monitor & assess when she wakes up.
[2018-07-16 01:25] VITALS: BP 104/69; PULSE 81; RESP 16; TEMP 36.2; O2SAT 94
[2018-07-16] MEDS: PANTOPRAZOLE 20 MG TABLET PO (05:39)
[2018-07-16 05:40] VITALS: BP 117/71; PULSE 75; RESP 16; TEMP 36.1; O2SAT 97
[2018-07-16 07:24] VITALS: BP 109/68; PULSE 78; RESP 14; TEMP 36.4; O2SAT 96
[2018-07-16 08:45] VITALS: O2SAT 97
[2018-07-16] MEDS: OXYCODONE IR 5 MG TABLET PO (08:53)
[2018-07-16] MEDS: POLYETHYLENE GLYCOL 3350 17 GM POWD.PACK PO (08:53)
[2018-07-16] MEDS: FLUoxetine 20 MG CAPSULE 80 MG PO (08:54)
[2018-07-16] MEDS: CHOLECALCIFEROL (VITAMIN D3) 1,000 UNIT TABLET 1000 UNIT PO (08:54)
[2018-07-16] MEDS: NICOTINE 21 MG PATCH TOP (08:54)
[2018-07-16] MEDS: ASPIRIN EC 81 MG TABLET PO (08:54)
[2018-07-16] MEDS: PREGABALIN 75 MG CAPSULE PO (08:54)
[2018-07-16] MEDS: DOCUSATE 100 MG CAPSULE PO (08:54)
[2018-07-16] MEDS: ANASTROZOLE 1 MG TABLET PO (08:54)
[2018-07-16] MEDS: ATORVASTATIN 10 MG TABLET PO (08:54)
[2018-07-16] MEDS: IBUPROFEN 200 MG TABLET PO (08:54)
[2018-07-16] MEDS: ACETAMINOPHEN 325 MG TABLET 975 MG PO (08:54)
[2018-07-16] MEDS: SODIUM CHLORIDE 0.9% FLUSH 10 ML IV (08:55)
--- NOTE | 2018-07-16 09:34 | PM.DS.1 ---
History of Present Illness Date Patient Seen: 07/16/18 Time Patient Seen: 09:34 Chief complaint: total hip arthroplasty 39063 Narrative: The history of present illness and physical examination is contained in the chart in a previously completed note. Please refer to that note for this information. Discharge Providers Date of admission: 07/13/18 10:02 Primary care physician: Skye Porras MD Consults: 06/28/18 11:38 Consult to Respiratory Therapy Evaluate & Treat Comment: Physician Instructions: Evaluate and treat Consult to Patient Care Secretary Routine Comment: 07/13/18 09:56 Consult to Anesthesiology Routine Comment: Consulting Provider: Anesthesiologist Reason for consultation: Regional block for post operative pain control 07/13/18 11:42 Consult to Respiratory Therapy Evaluate & Treat Comment: Physician Instructions: Evaluate and treat 07/13/18 16:25 Consult to Discharge Planning Routine Comment: Consult to Physical Therapy Evaluate & Treat Comment: Physician Instructions: post op JANE protocol Consult to Respiratory Therapy Evaluate & Treat Comment: Physician Instructions: Evaluate and treat 07/15/18 10:42 Consult to Occupational Therapy Evaluate & Treat Comment: Physician Instructions: Evaluate and treat 07/16/18 09:28 Consult to Home Health Routine Comment: Physical Therapy 3 times weekly for 2-3 weeks Reason For Exam: L total hip Discharge provider: Doe Peralta MD Discharge Date: 07/16/18 Summary Discharge Diagnosis: 1. Left hip avascular necrosis 2. Acute post hemorrhagic anemia Exam Vital Signs (past 8 hours): - 07/16/18 05:40 07/16/18 07:24 07/16/18 08:45 Temperature 97.0 F L 97.5 F L Pulse Rate 75 78 Respiratory Rate 16 14 Blood Pressure 117/71 109/68 Pulse Oximetry 97 96 97 Fraction of Inspired Oxygen 21 Oxygen Delivery Method Room Air Oxygen Flow Rate 2 Narrative Exam Narrative: Left hip wound is dressed with no drainage on the bandage. Calf is soft. Light touch and motion are intact in the right lower extremity. Right lower extremity rotation and length appear appropriate. Objective Labs Result Diagrams: 07/14/18 05:30 Discharge Plan Discharge Plan Patient Disposition: Home Health Service Discharge Med Rec/Prescriptions Prescriptions: New oxycodone 5 mg Tablet 5 mg PO Q3HR PRN (Reason: Pain, Moderate (4-6)) Qty: 60 RF: 0 aspirin 81 mg Tablet,Delayed Release (Dr/Ec) 81 mg PO BID 42 Days Qty: 84 RF: 0 hydroxyzine pamoate 25 mg Capsule 25 mg PO Q4HR PRN (Reason: Nausea) Qty: 60 RF: 0 Continue anastrozole 1 mg Tablet 1 mg PO DAILY RF: 0 ibuprofen 200 mg Capsule 200 mg PO TID-QID PRN (Reason: pain) RF: 0 alprazolam 0.5 mg Tablet 0.5 mg PO DAILY PRN (Reason: Anxiety) RF: 0 varenicline [Chantix] 1 mg Tablet 1 mg PO BID RF: 0 trospium 60 mg Capsule,Extended Release 24hr 60 mg PO BEDTIME RF: 0 fluoxetine 40 mg Capsule 80 mg PO DAILY RF: 0 atorvastatin 10 mg Tablet 10 mg PO DAILY RF: 0 spironolactone 25 mg Tablet 25 mg PO DAILY RF: 0 calcium carbonate [Calcium 600] 600 mg calcium (1,500 mg) Tablet 600 mg PO DAILY RF: 0 telmisartan 80 mg Tablet 80 mg PO DAILY RF: 0 trazodone 300 mg Tablet 200 mg PO BEDTIME RF: 0 omeprazole 20 mg Capsule,Delayed Release(Dr/Ec) 20 mg PO DAILY RF: 0 cholecalciferol (vitamin D3) [Vitamin D3] 1,000 unit Capsule 1,000 unit PO DAILY RF: 0 ciclesonide [Alvesco] 160 mcg/actuation Hfa Aerosol Inhaler 1 puff INHALATION BID RF: 0 No Action nicotine 21 mg Topical DAILY RF: 0 Follow up/Referrals: Rula Suarez MD [Physician] - 2 Weeks Provider Discharge Instructions Diet: Diet as Tolerated and Regular Activity: You may walk as tolerated. We would prefer you walk for short periods of time frequently rather than concentrating all of your walking at 1 time. Cold/Heat Therapy: Apply ice to the left hip for 15 min of every hour as needed. Skin/Wound/Dressing Care Report to your healthcare provider any signs of infection, such as:: chills, fever, night sweats, increased pain and unusual drainage Dressing: Leave the surgical dressing intact until follow-up. If the central strip of the dressing becomes saturated with either water or blood contact the office. You may shower with the dressing in place. Discharge Data Primary Care Provider: Skye Porras Attending Provider: Rula Suarez Admit Date/Time: 07/13/18 10:02 Quality VTE Deep Vein Thrombosis/Pulmonary Embolism Present on Admission: No
[2018-07-16] MEDS: ALVESCO 1 EACH INHALATION (09:41)
[2018-07-16 09:42] VITALS: O2SAT 95
--- NOTE | 2018-07-16 11:35 | PT.IPTN ---
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) Other sprain of left hip, initial encounter (07/13/18) Presence of unspecified artificial hip joint (07/13/18) Surgery Performed Operation Date: 07/13/18 12:00 Actual Procedures p Left Total Hip Arthroplasty-Anterior Approach(Left) - Rula Suarez MD Physical Therapy Treatment Note M2 PT-IP Current Condition Start: 07/14/18 10:27 Freq: NEEDED Status: Active Protocol: Document 07/14/18 12:49 AB (Rec: 07/14/18 13:42 AB [id number]) Physical Therapy Current Condition Current Condition Evaluation Date 07/14/18 Treatment Diagnosis s/p L JANE anterior approach; difficulty in walking Onset Date 07/13/18 Precautions Anterior Hip Precautions No Hip Extension No Hip External Rotation Weight Bearing Status Weight Bearing Status Weight Bear as Tolerated M3 PT-IP Subjective Start: 07/14/18 10:27 Freq: NEEDED Status: Active Protocol: Document 07/16/18 09:59 CLB (Rec: 07/16/18 11:35 CLB [id number]) Subjective Physical Therapy Visit Type Type Treatment Note Visit Start Time 09:59 Visit Stop Time 10:22 Total Visit Minutes 23 Number of STATIONARY STEAM ENGINEER Visits 1 Physical Therapy Visit Comments Patient Comments Pt willing to do caregiver training with . Patient Goals to go home Therapy Pain Assessment Pain When Pain Assessed During Mobility Pain Present Pain Present Pain Reported Location Hip Intensity 2 Scale Used Numeric (1 - 10) Pain Management Techniques Timing of Activity with Medications M4 PT-IP Mobility and Gait Start: 07/14/18 10:27 Freq: NEEDED Status: Active Protocol: Document 07/16/18 09:59 CLB (Rec: 07/16/18 11:35 CLB [id number]) PT-Bed Mobility Assessment Supine to Sit Supine to Sit Minimal Assistance 1 Person Assistance Scooting Scooting to Edge of Bed Standby Assistance PT-Transfer Assessment Sit to and From Stand Sit to and from Stand Contact Guard Assistance Equipment Transfer Assistive Device Gait Belt Front Wheeled Walker Orthotic/Prosthetic Devices or Brace: No Transfers Transfer Destination Toilet Transfer Technique pt ambulated to the toilet Comments Mobility Comments caregiver training to assist pt in/out of bed for safe transfers. was able to successfully assist pt. Gait Assessment Gait Gait Assistance Required: Contact Guard Assist 1 Person Assist Distance (Feet) 100 Able to Maintain Weight Bearing Status Yes During Gait Assistive Devices Assistive Device Gait Belt Front Wheeled Walker Orthotic/Prosthetic Devices or Brace: No Gait Deviations General Gait Pattern Antalgic Decreased Stride Length Decreased Feet Clearance Factors Limiting Gait Function Factors Limiting Gait Function Decreased Activity Tolerance Decreased Strength Pain Comments Gait Comments caregiver training completed for ambulation with assisting pt during ambulation w/FWW/CGA. Pt is able to advance LLE forward and increased ambulation distance. Stair Climbing Assessment Evaluation Level of Assist On Stairs Contact Guard Assistance Devices Stair Climbing Assistive Devices Front Wheel Walker Technique/Endurance Stair Climbing Direction Ascend and Descend Stair Climbing Technique Step to Step Number of Steps Climbed 1 Query Text: Stair Climbing Set # Repetitions (reps) 2 Comments Stair Climbing Comments assisted pt up/down platform stair after demonstration. Pt performed stair training with STATIONARY STEAM ENGINEER for demonstration then with . able to give pt proper cues for sequencing. M5 PT-IP Objective Assessments Start: 07/14/18 10:27 Freq: NEEDED Status: Active Protocol: Document 07/14/18 12:49 AB (Rec: 07/14/18 13:42 AB [id number]) Orientation Orientation/Cognition Level of Alertness Alert Orientation Name Age Place Situation Safety Awareness Decreased Safety Awareness Strength Lower Extremity Strength Assessment Left Impaired Hip 3-/5 Knee 3+/5 Sensation Assessment Sensation Gross Sensation WNL M6 PT-IP Treatment Start: 07/14/18 10:27 Freq: NEEDED Status: Active Protocol: Document 07/16/18 09:59 CLB (Rec: 07/16/18 11:35 CLB [id number]) Physical Therapy Treatment Education Education Provided Precautions Weight Bearing Status Post-Op Packet Safety M7 PT-IP Assessment and Plan Start: 07/14/18 10:27 Freq: NEEDED Status: Active Protocol: Document 07/16/18 09:59 CLB (Rec: 07/16/18 11:35 CLB [id number]) PT Summary Assessment and Plan Summary Impairments Pain ROM Strength Balance Coordination Sensation Tone Cognition Bed Mobility Transfers Gait Activity Tolerance Progress Towards Goals Progressing Toward Goals Assessment Summary caregiver training completed, able to assist pt OOB, CGA with gait and up/down 1 [address] stair[address] able to properly cue pt and will be with pt 25/04. Pt seems able to d/c home with to assist when medically stable. Goals Bed Mobility Goal Standby Assistance Transfer Goal Standby Assistance Gait Goal Standby Assistance Gait Distance 150 Other Goals up/down 1 step using FWW Days to Meet Goals 3 Frequency of Treatment Frequency Of Treatment Twice a Day Treatment Plan Physical Therapy Treatment Plan Bed Mobility Training Transfer Training Gait Training Therapeutic Exercise Balance Retraining Post Op Education Discharge Planning Hot or Cold Pack Neuromuscular Re-ed Coordination Retraining Manual Therapy Other Recommendations and Next Treatment Pt to d/c all training Focus completed. Recommendations To Nursing Amount of Assist Needed 1 Person Assist Discharge Recommendations PT Discharge Recommendations Home with 25/04 Assist Home Health Equipment Needed for Home Before obtained walker Discharge
--- NOTE | 2018-07-16 11:47 | PC.NURSE ---
Discharge pt did c/o pain in left hip this AM and requested pain medication. Provided pt with 5mg oxycodone which is what she has at home for pain. Stated pain went from 3/10 to 2/10 with oxy as well as with tylenol and ibuprofen. PIV removed prior to d/c. D/c instructions provided to pt and her . Notified of f/u apt with MD and to contact MD with any additional questions or concerns. Pt had 2 medications from home, inhaler and pills in pharmacy, which were returned to her. States she took all her belongings with her. Pt has Rx at home already, no additional Rx given to pt. Pt left in w/c with RN [employer] escort.
--- NOTE | 2018-07-16 11:53 | CM.DANOTE ---
DCP/Assessment: Reviewed chart. Patient is a 57yr old female admitted to [facility].. for left JANE performed on 07-13-[address] Suarez. Primary payor is 1)[employer]?. PCP is Dr. Zan Porras. Met with patient explained CM/SW role. Patient alert and oriented at time of visit. Patient seen by therapy throughout hospitalization. Initially, it was thought patient may need SNF. Patient seen today and cleared to return home with supportive family. Patient aware and agreeable to d/c plan. Patient reports that after surgery she felt overmedicated which she believes is why her progress has been slow. Patient feeling much better today and reports being on less medications which she believes has helped. Patient reports that she has all needed DME in the home and plans to call Orthopedic office this upcoming week to get referral for outpatient therapy. No additional needs identified. P: Home today. Discharge Planning/Care Management CM Discharge Assessment Start: 07/16/18 11:50 Freq: Status: Active Protocol: Document 07/16/18 11:50 KJS (Rec: 07/16/18 11:53 KJS [id number]) Discharge Planning Assessment Assigned Battery Technician LENCHO Guillory Contact Information Al Nixon (spouse) [phone] Advance Directives? Yes Advance Directives on File No History Provided By Patient Has Patient been admitted in last 30 No days? Prior Living Arrangements House Household Members spouse Type of transporation used prior to Drives own vehicle admit Independent with ADL's Yes Is patient alert and oriented? Yes Caregiver for Another No DME Already Rented / Owned FWW / Walker Patient/Family Preference OP PT Therapy Barriers to Discharge No Discharge Plan Home Transportation Arrangement Family to provide transportation home. Referrals Initiated None needed Whiteboard Updated in Patient Room with Yes name and ext. # of Battery Technician Review Status In Process Next Review Type Continued Stay Review Pre-Anesthesia Assessment Start: 06/28/18 10:47 Freq: Status: Complete Protocol: Document 06/28/18 10:47 CAB (Rec: 06/28/18 11:37 CAB [id number]) Pre-Anesthesia Assessment Patient Also Known As (AKA) Latanya Patient Information Reviewed Via Phone Assessment Assessment Completed With Patient Lab Results BMP/CMP CBC EKG Urinalysis Primary Care Provider Skye Porras Seen Specialist in Last 12 Months Yes Specialist Seen Oncologist Orthopedist Primary Language Persian Database Report Writer Required No Height 167.64 cm Weight 70.307 kg Body Mass Index (BMI) 25.0 Hearing Ability Normal Visual Assist Glasses Dentition Type Teeth, Natural Present Teeth, Missing Barriers to Learning None Hx Anesthesia Reactions No Hx Family Anesthesia Reaction No Hx Malignant Hyperthermia No Hx Blood Transfusions No Anesthesia Review Requested No Bee Tender No alcohol intake frequency 3 or more drinks per day Smoking Status Current every day smoker Tobacco type cigarettes Smoking cigarettes per day 5 how long ago did patient quit smoking In process of quitting, smoked x 45 years, using Chantix Substance Use Type marijuana Comment Advised not to smoke marijuana 24 hours prior Pain Present Pain Reported Musculoskeletal Symptoms Abnormal Gait Back Pain Difficulty Walking Joint Pain Muscle Spasms Neck Pain History of Falling (Recent or History of No ) Patient is completely paralyzed or No completely immobile Prosthesis or Orthotic Device Cane Mental Status Oriented to own ability Is patient on oxygen? No Does patient have MACIAS/SOB No Hx Sleep Apnea Yes: Second sleep study Will Bring CPAP/BIPAP DOS Yes: Will bring CPAP if available prior to surgery Currently Taking a Beta Tila No Can You Climb a Flight of Stairs Without No SOB Hx Chest Pain No Hx SOB No Hx Syncope or Dizziness No Anti-Coagulant Therapy No Has a Case Finishing Machine Adjuster No Cardiac Testing Yes: ECHO and Stress tests at 2018 Hx Pacemaker/ICD No Pacemaker Rep Required? No Cardiac Clearance Received Not Applicable Diet Type At Home Regular dysphagia No Bladder Pattern Urgency Urinary Catheter Present No Hx Urinary Self Catheterization No Diabetes No Patient No Lactating No Hx Drug Resistant Organism No Presence of External or Internal Medical No Devices Have you traveled outside the [facility] in the last 30 days? Marital Status Lives With spouse Prior Living Arrangements House Number of Floors (Floors) Two Floors Number of Stairs To Enter/Railing? 2 stairs, no railing Support System Child/Children Friend(s) Spouse Does the Patient Have Assistance After Yes Surgery Patient Discharge Plan Description Return Home Comment Pt not advised length of stay per surgeon's office Feels Safe in Current Environment Yes Been Physically Hurt or Threatened By a No Person in Current Environment Do you have thoughts of harming yourself None or others? Are you currently considering suicide? No Do you have a plan to hurt yourself or No Plan others? Do You Have Any Spiritual Beliefs That No May Affect Your HC Choices? Do You Have Any Cultural Practices That No May Affect Your HC Choices? Spiritual Referral None Who Can We Speak to About Patient's Care Family, friends Identifying Code for Release of Patient Declines to issue Information Health Care Proxy/Next of Kin Al () Health Care Proxy Emergency Contact Name Al () Emergency Contact Advance Directives? Yes Advance Directives on File No Requested Patient Bring Advanced Yes Directives DOS Power of Superintendent Oil Field Drilling Yes Power of Superintendent Oil Field Drilling Name Al () Power of Superintendent Oil Field Drilling PAC Instructions Bring CPAP/BIPAP Do not shave/clip surgical site Durable medical equipment Medications to take/avoid Nasal antibiotic No ETOH/petroleum product on skin DOS NPO Post-op transportation Pre-surgical wash Sturdy shoes/comfortable clothes Do not bring valuables and remove jewelry
--- NOTE | 2018-07-21 13:27 | CM.SWNOTE ---
Received call from Kailyn stating she had understood from the nurse on her way out the door on 07.16 that she would received home health PT. This EDGE ROLLER reviewed notes and explained home health could likely still be arranged if she felt she would not be able to make it to an outpt appt. Kailyn was appreciative and had no agency preference, she was concerned her insurance [employer] would not be covered. Placed call to Deb w/ [facility] to check on pt's insurance and availability. parking assistant Arsh and Deb were able to coordinate HH for Kailyn once a signed F2F and HH order were in place. LOUISA
== END 2018-07-16 11:40 | disposition home or self-care (01) | DRG 470 ==
PROVIDERS: Admitting Provider Orthopaedic Surgery; PCP Internal Medicine; Visit Provider Orthopaedic Surgery
PROC: 0SRB02Z Replacement of Left Hip Joint with Metal on Polyethylene Synthetic Substitute, Open Approach (ICD-10-PCS; CPT 27130; principal; 2018-07-13 12:00)
DX: M16.12 Unilateral primary osteoarthritis, left hip (principal); M87.052 Idiopathic aseptic necrosis of left femur; S73.192A Other sprain of left hip, initial encounter; I10 Essential (primary) hypertension; F17.210 Nicotine dependence, cigarettes, uncomplicated; G47.33 Obstructive sleep apnea (adult) (pediatric)
CPT/HCPCS: 36415; 73502; 76001; 85014; 85018; 94640; 94760; 94762; 97116; 97162; 97530; C1776; C9290; J0690; J1885; J2250; J2704; J3010; J3370

== ENCOUNTER 2018-10-10 14:15 | Emergency (ER) | payer OTHER, SELFPAY ==
[2018-07-13 11:43] VITALS: BMI 25.3
[2018-10-10 14:27] VITALS: BP 135/80; PULSE 80; RESP 13; TEMP 36.8; O2SAT 96
--- NOTE | 2018-10-10 14:41 | DI.CT.S_ITS ---
PROCEDURE: CT HEAD/BRAIN WO CON INDICATIONS: fall/ head injury Oct 03, continual headache TECHNIQUE: Noncontrast 4.5 mm thick angled axial sections acquired from the foramen magnum to the vertex, with coronal and sagittal reformats. For radiation dose reduction, the following was used: automated exposure control, adjustment of mA and/or kV according to patient size. COMPARISON: None. FINDINGS: Image quality: Excellent. CSF spaces: Basal cisterns are patent. No extra-axial fluid collections. Ventricles are normal in size and shape. Brain: No midline shift. No intracranial masses or hemorrhage. Aceves-white matter interface is normal. Skull and face: Calvarium and visualized facial bones are intact, without suspicious lesions. Sinuses: Visualized sinuses and mastoids are clear. IMPRESSION: Unremarkable head CT. No acute intracranial hemorrhage. Dictated by: Colton Kwon M.D. on 10/10/2018 at 13:58 Approved by: Colton Kwon M.D. on 10/10/2018 at 13:59
--- NOTE | 2018-10-10 14:41 | PC.NURSE ---
states l thigh pain/ will see primary tomorrow, has appt. is ambulatory/ has artificial hip.
--- NOTE | 2018-10-10 16:10 | ED.HEATRA ---
HPI - Head Injury <Lisa Liu PA-C - Last Filed: 10/10/18 22:17> General Chief complaint: Head Injury Stated complaint: fell, head hit, has headache Time Seen by Provider: 10/10/18 16:09 Source: patient Mode of arrival: ambulatory Limitations: no limitations History of Present Illness HPI Narrative: This 57-year-old female comes to ED due to head contusion that occurred 9 days ago. She states that she was sitting on a barstool, pushing it to move it and the scalp tipped over. She hit her left posterior scalp area on a cabinet, breaking the wood. She iced the area. She states that since then, she has had a constant headache which can get worse with activities where she has to concentrate such as reading. She states that she has not had any acute vision changes, nausea or vomiting. She states that she had a bump on the back of her scalp which is getting smaller. Headaches are not acutely worse, however they are not going away. She finds that Tylenol does help temporarily. She has been going about her usual activities despite the headaches. She does not know of any neck contusion, states her neck muscles are sore but no bone pain. She states that she also hit her tailbone area which is sore, but she is walking fine, denies any weakness or paresthesia in the extremities, denies any bowel or bladder changes. She has had a considerable amount of emotional stress within this time period (her father right around the time she hit her head). Related Data Home Medications Medication Instructions Recorded Confirmed atorvastatin 10 mg PO DAILY 02/01/18 10/10/18 calcium carbonate [Calcium 600] 600 mg PO DAILY 02/01/18 07/13/18 cholecalciferol (vitamin D3) 1,000 unit PO DAILY 02/01/18 07/13/18 [Vitamin D3] ciclesonide [Alvesco] 1 puff INHALATION BID 02/01/18 10/10/18 fluoxetine 80 mg PO DAILY 02/01/18 10/10/18 omeprazole 20 mg PO DAILY 02/01/18 10/10/18 spironolactone 25 mg PO DAILY 02/01/18 10/10/18 telmisartan 80 mg PO DAILY 02/01/18 07/13/18 alprazolam 0.5 mg PO DAILY PRN 06/28/18 07/13/18 anastrozole 1 mg PO DAILY 06/28/18 10/10/18 ibuprofen 200 mg PO TID-QID PRN 06/28/18 07/13/18 trospium 60 mg PO BEDTIME 06/28/18 10/10/18 nicotine 21 mg TOPICAL DAILY 07/13/18 07/13/18 beclomethasone dipropionate [Qvar 1 puff INHALATION DIRECTED 10/10/18 10/10/18 RediHaler] meloxicam 15 mg PO DAILY 10/10/18 10/10/18 trazodone 200 mg PO BEDTIME 10/10/18 10/10/18 Allergies Allergy/AdvReac Type Severity Reaction Status Date / Time naproxen Allergy Severe Hives Verified 10/10/18 13:54 Penicillins Allergy Severe Hives Verified 10/10/18 13:54 Sulfa (Sulfonamide Allergy Severe Hives Verified 10/10/18 13:54 Antibiotics) Review of Systems <Lisa Liu PA-C - Last Filed: 10/10/18 22:17> Review of Systems All systems reviewed & are unremarkable except as noted in HPI and below Exam <Lisa Liu PA-C - Last Filed: 10/10/18 22:17> Narrative Exam Narrative: GENERAL APPEARANCE: Patient sitting comfortably, in no distress. HEENT: Small left posterir parietal hematoma which is mildly tender, PERRL, EOMI, normal ear canals, nasal and oral mucosa NECK: Supple LUNGS: Clear to auscultation bilaterally. HEART: Rate and rhythm regular without murmur, normal S1 and S2, no S3 or S4. NEUROLOGIC: Alert and oriented, normal speech, and coordination. MUSCULOSKELETAL: No point tenderness over the cervical spine. Moderate tenderness over the lateral strap musculature and proximal trapezius insertion, none over the paraspinal musculature. Full Csp AROM Initial Vital Signs Initial Vital Signs: Vital Signs Temperature 98.3 F 10/10/18 14:27 Pulse Rate 80 10/10/18 14:27 Respiratory Rate 13 10/10/18 14:27 Blood Pressure 135/80 10/10/18 14:27 Pulse Oximetry 96 10/10/18 14:27 <Minna Astudillo DO - Last Filed: 10/11/18 07:25> Initial Vital Signs Initial Vital Signs: Vital Signs Temperature 98.3 F 10/10/18 14:27 Pulse Rate 80 10/10/18 14:27 Respiratory Rate 13 10/10/18 14:27 Blood Pressure 135/80 10/10/18 14:27 Pulse Oximetry 96 10/10/18 14:27 Course <Lisa Liu PA-C - Last Filed: 10/10/18 22:17> Orders Ordered: ED Orders 10/10/18 14:41 CT head/brain wo con Stat Vital Signs - 8 hr 10/10/18 14:27 Temperature 98.3 F Pulse Rate 80 Respiratory Rate 13 Blood Pressure 135/80 Pulse Oximetry 96 <Minna Astudillo DO - Last Filed: 10/11/18 07:25> Orders Ordered: ED Orders 10/10/18 14:41 CT head/brain wo con Stat Vital Signs - 8 hr 10/10/18 14:27 Temperature 98.3 F Pulse Rate 80 Respiratory Rate 13 Blood Pressure 135/80 Pulse Oximetry 96 MDM - Head Injury <Lisa Liu PA-C - Last Filed: 10/10/18 22:17> Imaging Data CT scan - head: Radiologist's impression: [place] [address] CT Scan Report Signed Patient: Kailyn Nixon MR#: [id number] : 1960 Acct:[id number] Age/Sex: 57 / F Date of Service: 10/10/18 Loc: ED Accession Number: [id number] Procedure: CT head/brain wo con Ordering Provider: Lisa Liu P.A-C PROCEDURE: CT HEAD/BRAIN WO CON INDICATIONS: fall/ head injury Oct 03, continual headache TECHNIQUE: Noncontrast 4.5 mm thick angled axial sections acquired from the foramen magnum to the vertex, with coronal and sagittal reformats. For radiation dose reduction, the following was used: automated exposure control, adjustment of mA and/or kV according to patient size. COMPARISON: None. FINDINGS: Image quality: Excellent. CSF spaces: Basal cisterns are patent. No extra-axial fluid collections. Ventricles are normal in size and shape. Brain: No midline shift. No intracranial masses or hemorrhage. Aceves-white matter interface is normal. Skull and face: Calvarium and visualized facial bones are intact, without suspicious lesions. Sinuses: Visualized sinuses and mastoids are clear. IMPRESSION: Unremarkable head CT. No acute intracranial hemorrhage. Dictated by: Colton Kwon M.D. on 10/10/2018 at 13:58 Approved by: Colton Kwon M.D. on 10/10/2018 at 13:59 Discharge Plan Departure Patient Disposition: Home Clinical Impression: Post-concussion headache Discharge Date/Time: 10/10/18 16:54 Interventions: ED Discharge Assessment Last Done: 10/10/18 16:54 Instructions: DI for Postconcussion Syndrome Activity Restrictions/Additional Instructions: It is very common to have headaches following a head injury and concussion. Your head scan does not show any acute bleeding or problem today, so I think your headaches are related to this and may take some time to get better. You may need to limit your activities where you need to concentrate, or exposed to a lot of light or noise until you are better. Since you have found Tylenol to be helpful, please try taking Tylenol arthritis strength or 8 hr (650 mg extended release acetaminophen, asked the pharmacist to help find this if you are not able), which is longer lasting and easier to keep up with. Please return as we talked about if you have acutely worsening symptoms, or new symptoms such as vision changes or vomiting. We have scheduled you for a follow-up appointment with Jessica Duff on October 17 at 1030 a.m. she is not able to take you as a permanent patient now since she will be going on maternity leave again, however you may wish to meet Dr. Espinoza who will be joining the clinic in November Prescriptions: No Action anastrozole 1 mg Tablet 1 mg PO DAILY RF: 0 ibuprofen 200 mg Capsule 200 mg PO TID-QID PRN (Reason: pain) RF: 0 alprazolam 0.5 mg Tablet 0.5 mg PO DAILY PRN (Reason: Anxiety) RF: 0 trospium 60 mg Capsule,Extended Release 24hr 60 mg PO BEDTIME RF: 0 nicotine 21 mg Topical DAILY RF: 0 fluoxetine 40 mg Capsule 80 mg PO DAILY RF: 0 atorvastatin 10 mg Tablet 10 mg PO DAILY RF: 0 spironolactone 25 mg Tablet 25 mg PO DAILY RF: 0 calcium carbonate [Calcium 600] 600 mg calcium (1,500 mg) Tablet 600 mg PO DAILY RF: 0 telmisartan 80 mg Tablet 80 mg PO DAILY RF: 0 omeprazole 20 mg Capsule,Delayed Release(Dr/Ec) 20 mg PO DAILY RF: 0 cholecalciferol (vitamin D3) [Vitamin D3] 1,000 unit Capsule 1,000 unit PO DAILY RF: 0 ciclesonide [Alvesco] 160 mcg/actuation Hfa Aerosol Inhaler 1 puff INHALATION BID RF: 0 meloxicam 15 mg tablet 15 mg PO DAILY RF: 0 trazodone 100 mg tablet 200 mg PO BEDTIME RF: 0 beclomethasone dipropionate [Qvar RediHaler] 80 mcg/actuation HFA aerosol breath activated 1 puff Inhalation DIRECTED RF: 0 Referrals: Jessica Duff PA-C [[facility]] - <Minna Astudillo DO - Last Filed: 10/11/18 07:25> Cosign ED Attending Cosignature Attestation: I was immediately available in the department for consultation. This documentation has been reviewed and I agree with assessment and plan. Supervised by Minna Astudillo DO
== END 2018-10-10 16:54 | disposition home or self-care (01) ==
PROVIDERS: Emergency Provider Internal Medicine
DX: G44.309 Post-traumatic headache, unspecified, not intractable (principal)
CPT/HCPCS: 70450; 99282; 99283

== ENCOUNTER → 2018-12-11 10:57 | Outpatient (CLI) | payer OTHER, SELFPAY ==
[2018-07-13 11:43] VITALS: BMI 25.3
--- NOTE | 2018-12-11 | DI.MG.S_ITS ---
BILATERAL DIGITAL SCREENING MAMMOGRAM 3D/2D WITH CAD: 12/11/2018 CLINICAL: Routine screening. Personal history of breast cancer. Family history of breast cancer. Comparison is made to exams dated: 01/05/2018 mammogram - [facility], 12/26/2017 mammogram, 12/08/2017 mammogram - [facility], and 09/29/2016 mammogram - [facility]. The tissue of both breasts is heterogeneously dense. This may lower the sensitivity of mammography. Current study was also evaluated with a Computer Aided Detection (CAD) system. There are benign post operative findings in the right breast. There also are benign calcifications in both breasts. No significant masses, calcifications, or other findings are seen in either breast. There has been no significant interval change. IMPRESSION: There is no mammographic evidence of malignancy. A 1 year screening mammogram is recommended. This exam was interpreted at Station ID: [id number]. NOTE: For mammograms, a report in lay terms will be sent to the patient. Approximately 15% of breast malignancies will not be visualized mammographically. In the management of a palpable breast mass, a negative mammogram must not discourage biopsy of a clinically suspicious lesion. Electronically Signed By: Tj dunbar/jay:12/11/2018 12:50:58 letter sent: Normal Exam ACR BI-RADS Category 2: Benign Finding(s) [id number]
== END ==
PROVIDERS: Visit Provider Surgery
DX: Z12.31 Encounter for screening mammogram for malignant neoplasm of breast (principal); Z85.3 Personal history of malignant neoplasm of breast; Z80.3 Family history of malignant neoplasm of breast
CPT/HCPCS: 77063; 77067

== ENCOUNTER → 2019-02-12 15:19 | Outpatient (CLI) | payer OTHER, SELFPAY ==
[2018-07-13 11:43] VITALS: BMI 25.3
== END ==
PROVIDERS: Visit Provider Internal Medicine Hematology & Oncology
DX: M85.88 Other specified disorders of bone density and structure, other site (principal); Z78.0 Asymptomatic menopausal state; C50.411 Malignant neoplasm of upper-outer quadrant of right female breast; F17.200 Nicotine dependence, unspecified, uncomplicated; Z17.0 Estrogen receptor positive status [ER+]; Z79.811 Long term (current) use of aromatase inhibitors
CPT/HCPCS: 77080; 77081

== ENCOUNTER → 2019-03-16 12:51 | Outpatient (CLI) | payer OTHER, SELFPAY ==
[2018-07-13 11:43] VITALS: BMI 25.3
--- NOTE | 2019-03-16 15:50 | PM.PFT.1 ---
Pulmonary Function Test Referral & Results Date Patient Seen: 03/16/19 Requesting provider: Christy Espinoza Results: The spirometry demonstrates an FVC of 3.40 L which is 97% of predicted. The FEV1 was measured at 2.25 L which is 83% of predicted. The FEV1/FVC ratio was 66 which is 84% of predicted. Following the administration of bronchodilator there was no significant change. Lung volumes show an SVC of 3.27 L which is 102% of predicted. The diffusing capacity was measured at 18.36 which is 69% of predicted. No hemoglobin value was provided, so no correction for potential anemia could be made, if appropriate. The maximum voluntary ventilation was normal Interpretation: This study demonstrates perhaps minimal obstructive lung disease based on very minimal reduction in FEV1. There is no evidence benefit following bronchodilator Lung volumes are normal Diffusing capacity is slightly reduced suggesting an element of disease at the capillary alveolar level Clinical correlation suggested
== END ==
PROVIDERS: PCP Internal Medicine; Visit Provider Internal Medicine
DX: J44.9 Chronic obstructive pulmonary disease, unspecified (principal)
CPT/HCPCS: 94060; 94726; 94729

== ENCOUNTER 2019-05-19 14:54 | Emergency (ER) | payer OTHER, SELFPAY ==
[2018-07-13 11:43] VITALS: BMI 25.3
[2019-05-19 15:00] VITALS: BP 119/78; PULSE 89; RESP 18; TEMP 36.2; O2SAT 98; BMI 26.6
--- NOTE | 2019-05-19 15:43 | ED_ITS ---
HPI - Wound/Laceration <ROCKY Galvan - Last Filed: 05/19/19 22:32> General Chief Complaint: Wound/Laceration Stated Complaint: Surgery 3 wks ago, infection, antib not working Time Seen by Provider: 05/19/19 15:14 Source: patient Mode of arrival: ambulatory Limitations: no limitations History of Present Illness HPI narrative: This is a 58-year-old female, smoker, who presents to ED with right breast pain, swelling, redness, warmth. She has right breast reconstruction surgery on04/25/[address] Clements and [facility]. She has history of breast cancer. She had a follow-up appointment about 10 days ago and she was doing well at this time. However after 2 days later she notice drainage from the surgical site on right breast. She has been taking clindamycin for last 6 days. She reports still continues to have a prulent drainage, chills and night sweats and night, the breast feels warm to touch and painful. She has a follow-up appointment in 2 days with her surgeon. Related Data Home Medications Medication Instructions Recorded Confirmed calcium carbonate [Calcium 600] 600 mg PO DAILY 02/01/18 03/20/19 cholecalciferol (vitamin D3) 1,000 unit PO DAILY 02/01/18 03/20/19 [Vitamin D3] ciclesonide [Alvesco] 1 puff INHALATION BID 02/01/18 03/20/19 omeprazole 20 mg PO DAILY 02/01/18 03/20/19 spironolactone 25 mg PO DAILY 02/01/18 03/20/19 telmisartan 80 mg PO DAILY 02/01/18 03/20/19 alprazolam 0.5 mg PO DAILY PRN 06/28/18 03/20/19 anastrozole 1 mg PO DAILY 06/28/18 03/20/19 ibuprofen 200 mg PO TID-QID PRN 06/28/18 03/20/19 trospium 60 mg PO BEDTIME 06/28/18 03/20/19 nicotine 21 mg TOPICAL DAILY 07/13/18 03/20/19 beclomethasone dipropionate [Qvar 1 puff INHALATION DIRECTED 10/10/18 03/20/19 RediHaler] trazodone 200 mg PO BEDTIME 10/10/18 03/20/19 citalopram 40 mg tablet 40 mg PO DAILY tab 03/20/19 03/20/19 Previous Rx's Medication Instructions Recorded doxycycline monohydrate 100 mg PO BID 7 Days #14 cap 05/19/19 hydrocodone-acetaminophen [[place]] 1 tab PO Q6H PRN #5 tab 05/19/19 Allergies Allergy/AdvReac Type Severity Reaction Status Date / Time naproxen Allergy Severe Hives Verified 05/19/19 15:06 Penicillins Allergy Severe Hives Verified 05/19/19 15:06 Sulfa (Sulfonamide Allergy Severe Hives Verified 05/19/19 15:06 Antibiotics) Review of Systems <ROCKY Galvan - Last Filed: 05/19/19 22:32> Review of Systems General: See HPI HEENT: Denies sinus pain, ear pain, sore throat, difficulty swallowing, dizziness. Respiratory: Denies dyspnea, cough, wheezing, hemoptysis, sputum. Cardiovascular: Denies chest pain, palpitations, orthopnea, edema. Gastrointestinal: Denies nausea, vomiting, abdominal pain, diarrhea, constipation, melena. : Denies dysuria, frequency, incontinence, hematuria, urinary retention. Musculoskeletal: Denies weakness, joint pain or bony pain. Skin: See HPI Neurologic: Denies weakness, headache, numbness, change in speech, confusion, seizures, incoordination. Psychiatric: No concerning psychosocial issues. 12-point review of systems is negative except for those stated above. 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) Depression (Acute) Edema (Acute) GERD (gastroesophageal reflux disease) (Acute) HTN (hypertension) (Acute) Hyperlipidemia (Acute) Low back pain (Acute) Neck pain (Acute) Osteoarthritis (Acute) Overactive bladder (Acute) Tobacco abuse disorder (Acute) Surgical History H/O colonoscopy (Acute) History of appendectomy (Acute) History of cholecystectomy (Acute) S/P arthroscopy of right shoulder (Acute) Status post arthroscopy of hip (Acute) Family History Other Family history non-contributory Social History household members: spouse Smoking Status: Current every day smoker Family History Other Family history non-contributory Social History household members: spouse Smoking Status: Current every day smoker Exam <ROCKY Galvan - Last Filed: 05/19/19 22:32> Narrative Exam Narrative: General appearance: well developed, well nourished, in no acute distress. Head: normocephalic, atraumatic, no scalp lesions, non-tender. Eye: pupil equal, round. EOMI. Nose: nares patent. Oral: mucosa moist. Neck/Thyroid: neck supple, full range of motion, no visible masses. Heart: no clubbing, no cyanosis, no edema. Lungs: Breathing even and unlabored. No stridor. No accessory muscles used. Chest: normal shape and expansion. Abdomen: non-obese, non-distended. Neurologic: alert and oriented. Cognitive exam, TIP LENGTH CHECKER and PNS grossly intact on informal exam. Psych: good eye contact, normal affect. Initial Vital Signs Initial Vital Signs: Vital Signs Temperature 97.1 F L 05/19/19 15:00 Pulse Rate 89 05/19/19 15:00 Respiratory Rate 18 05/19/19 15:00 Blood Pressure 119/78 05/19/19 15:00 Pulse Oximetry 98 05/19/19 15:00 Skin General: erythema, excoriation (R lateral breast, a linear approx 2 cm), No fluctuance, induration and warm Lesions: lesion noted (R lateral breast, diffused erythema, sm light yellow clear liquid drainage) and other (hard lesion felt in R lateral breast. A scar tissue per the patient) <Devang Griffith DO - Last Filed: 05/22/19 23:52> Initial Vital Signs Initial Vital Signs: Vital Signs Temperature 97.1 F L 05/19/19 15:00 Pulse Rate 89 05/19/19 15:00 Respiratory Rate 18 05/19/19 15:00 Blood Pressure 119/78 05/19/19 15:00 Pulse Oximetry 98 05/19/19 15:00 Course <ROCKY Galvan - Last Filed: 05/19/19 22:32> Orders Ordered: Discontinued Medications Hydrocodone Bitart/Acetaminophen ([place] 5/325) 1 tab PO NOW ONE Stop: 05/19/19 15:32 Last Admin: 05/19/19 16:09 Dose: 1 tab Doxycycline Hyclate (Vibramycin) 100 mg PO NOW ONE Stop: 05/19/19 15:38 Last Admin: 05/19/19 16:09 Dose: 100 mg Vital Signs - 8 hr 05/19/19 15:00 05/19/19 16:23 Temperature 97.1 F L Pulse Rate 89 80 Respiratory Rate 18 18 Blood Pressure 119/78 Blood Pressure [Left Arm] 110/78 Pulse Oximetry 98 98 <Devang Griffith DO - Last Filed: 05/22/19 23:52> Orders Ordered: Discontinued Medications Hydrocodone Bitart/Acetaminophen ([place] 5/325) 1 tab PO NOW ONE Stop: 05/19/19 15:32 Last Admin: 05/19/19 16:09 Dose: 1 tab Doxycycline Hyclate (Vibramycin) 100 mg PO NOW ONE Stop: 05/19/19 15:38 Last Admin: 05/19/19 16:09 Dose: 100 mg Vital Signs - 8 hr 05/19/19 15:00 05/19/19 16:23 Temperature 97.1 F L Pulse Rate 89 80 Respiratory Rate 18 18 Blood Pressure 119/78 Blood Pressure [Left Arm] 110/78 Pulse Oximetry 98 98 MDM - Wound/Laceration <ROCKY Galvan - Last Filed: 05/19/19 22:32> Differential Diagnosis Differential diagnosis: Likely abscess and other (cellulitis) Medical Records Attestation: I reviewed the patient's medical records. MDM Narrative Medical decision making narrative: This is a 58 or female presents to ED with right breast pain, swelling, warmth for 1 week. She had right breast reconstruction surgery on 04/25/[address] Clements due to history of right breast cancer. She has been taking clindamycin for last 6 days without much improvement. She had some chills, night sweats, purulent discharge from the site. The patient has follow-up appointment with Dr. Clements on Tuesday. Noticed scant serous drainage from ulcerated area on the right lateral breast. Patient was medicated with [place] 1 tab while in the ED for her pain. She has allergies to naproxen and reports has been taking plain Tylenol at home without much effect. Patient was medicated with doxycycline 100 mg prior DC to home due to her existing allergies to penicillin and sulfa. Prescription was provided for 7 additional days for doxycycline. Patient advised to follow with Dr. Clements, the plastic surgeon on Tuesday as scheduled. Return precautions were discussed with patient. No further questions were expressed by patient and agrees with treatment plan. Discharge Plan Departure Patient Disposition: Home Clinical Impression: Cellulitis Qualifiers: Site of cellulitis: other site Qualified Code(s): L03.818 - Cellulitis of other sites Discharge Date/Time: 05/19/19 16:24 Interventions: ED Discharge Assessment Last Done: 05/19/19 16:24 Instructions: DI for Cellulitis -- Adult Activity Restrictions/Additional Instructions: You have been diagnosed with [right breast cellulitis. Wound culture was obtained today. You will be contacted if we need to change antibiotic medication therapy. Please continue to use warm pack for discomfort and healing.]. What to do: *Take your medications as directed. Please complete a course of antibiotic medication unless this medication give she allergy reaction. Hydrocodone can cause drowsiness so please to not drive, drink alcohol, or operate heavy equipment. Hydrocodone also has 325 mg of Tylenol in a tab. Otherwise he can continue to take [id number] Tylenol as needed. *Follow up with your surgeon on Tuesday as scheduled and with primary care provider in 2-3 days, call for an appointment. Let them know you were seen in the ED and that we asked you to be seen in follow up. *Return to ED if you have any new, worsening, or concerning symptoms, such as [worsening pain, it is spreading redness, worsening fever/chills, warm to touch, nausea/, vomiting, chest pain, breathing difficulty, unable to tolerate fluids, or any acute concerns]. Prescriptions: New hydrocodone-acetaminophen [[place]] 5-325 mg tablet 1 tab PO Q6H PRN (Reason: pain) Qty: 5 RF: 0 doxycycline monohydrate 100 mg capsule 100 mg PO BID 7 Days Qty: 14 RF: 0 No Action anastrozole 1 mg Tablet 1 mg PO DAILY RF: 0 ibuprofen 200 mg Capsule 200 mg PO TID-QID PRN (Reason: pain) RF: 0 alprazolam 0.5 mg Tablet 0.5 mg PO DAILY PRN (Reason: Anxiety) RF: 0 trospium 60 mg Capsule,Extended Release 24hr 60 mg PO BEDTIME RF: 0 nicotine 21 mg Topical DAILY RF: 0 spironolactone 25 mg Tablet 25 mg PO DAILY RF: 0 calcium carbonate [Calcium 600] 600 mg calcium (1,500 mg) Tablet 600 mg PO DAILY RF: 0 telmisartan 80 mg Tablet 80 mg PO DAILY RF: 0 omeprazole 20 mg Capsule,Delayed Release(Dr/Ec) 20 mg PO DAILY RF: 0 cholecalciferol (vitamin D3) [Vitamin D3] 1,000 unit Capsule 1,000 unit PO DAILY RF: 0 ciclesonide [Alvesco] 160 mcg/actuation Hfa Aerosol Inhaler 1 puff INHALATION BID RF: 0 trazodone 100 mg tablet 200 mg PO BEDTIME RF: 0 beclomethasone dipropionate [Qvar RediHaler] 80 mcg/actuation HFA aerosol breath activated 1 puff Inhalation DIRECTED RF: 0 citalopram 40 mg tablet 40 mg PO DAILY RF: 0 Referrals: Christy Espinoza MD [Primary Care Provider] - <Devang Griffith DO - Last Filed: 05/22/19 23:52> Cosign ED Attending Praveen Attestation: I was available for consultation during this patient's emergency department encounter
[2019-05-19] MEDS: HYDROCODONE/ACET 5/325 TABLET 1 TAB PO (16:09)
[2019-05-19] MEDS: DOXYCYCLINE HYCLATE 100 MG TABLET PO (16:09)
[2019-05-19 16:23] VITALS: BP 110/78; PULSE 80; RESP 18; O2SAT 98
== END 2019-05-19 16:24 | disposition home or self-care (01) ==
PROVIDERS: Emergency Provider Nurse Practitioner Family; PCP Internal Medicine
DX: T81.49XA Infection following a procedure, other surgical site, initial encounter (principal)
CPT/HCPCS: 87070; 87075; 87205; 99283

== ENCOUNTER 2019-07-19 21:36 | Emergency (ER) | payer OTHER, SELFPAY ==
[2018-07-13 11:43] VITALS: BMI 25.3
[2019-07-19 21:45] VITALS: BP 110/70; PULSE 68; RESP 18; TEMP 37.1; O2SAT 94
--- NOTE | 2019-07-19 21:49 | ED_ITS ---
HPI - Recheck/Abnormal Lab/Rx General Chief Complaint: Recheck/Abnormal Lab/Rx Stated Complaint: wound vac check Time Seen by Provider: 07/19/19 21:36 Source: patient Mode of arrival: Ambulatory Limitations: no limitations History of Present Illness HPI narrative: 58-year-old female daily smoker with history of breast cancer presents with a chief complaint of a problem with her wound VAC. She had surgery as an outpatient today at [facility] with Dr. Clements to address postoperative infection from a wound revision earlier this year. She was discharged a few hours ago with a wound VAC and after getting home accidentally stepped on the tubing and felt a tug at the right side of her chest. The VAC started making abnormal sounds and did not seem to be working appropriately, as the result she came to see us for evaluation. MD complaint: wound re-check Returns today for: wound recheck Symptoms since prior visit: no new symptoms Associated symptoms: none Related Data Home Medications Medication Instructions Recorded Confirmed calcium carbonate [Calcium 600] 600 mg PO DAILY 02/01/18 03/20/19 cholecalciferol (vitamin D3) 1,000 unit PO DAILY 02/01/18 03/20/19 [Vitamin D3] ciclesonide [Alves[place]] 1 puff INHALATION BID 02/01/18 03/20/19 omeprazole 20 mg PO DAILY 02/01/18 03/20/19 spironolactone 25 mg PO DAILY 02/01/18 03/20/19 telmisartan 80 mg PO DAILY 02/01/18 03/20/19 alprazolam 0.5 mg PO DAILY PRN 06/28/18 03/20/19 anastrozole 1 mg PO DAILY 06/28/18 03/20/19 ibuprofen 200 mg PO TID-QID PRN 06/28/18 03/20/19 trospium 60 mg PO BEDTIME 06/28/18 03/20/19 nicotine 21 mg TOPICAL DAILY 07/13/18 03/20/19 beclomethasone dipropionate [Qvar 1 puff INHALATION DIRECTED 10/10/18 03/20/19 RediHaler] trazodone 200 mg PO BEDTIME 10/10/18 03/20/19 citalopram 40 mg tablet 40 mg PO DAILY tab 03/20/19 03/20/19 Previous Rx's Medication Instructions Recorded hydrocodone-acetaminophen [[place]] 1 tab PO Q6H PRN #5 tab 05/19/19 Allergies Allergy/AdvReac Type Severity Reaction Status Date / Time naproxen Allergy Severe Hives Verified 05/19/19 15:06 Penicillins Allergy Severe Hives Verified 05/19/19 15:06 Sulfa (Sulfonamide Allergy Severe Hives Verified 05/19/19 15:06 Antibiotics) Review of Systems Constitutional Constitutional: Denies chills, Denies fatigue, Denies fever(s), Denies frequent falls, Denies lethargy and Denies weakness Eyes Eyes: Denies change in vision, Denies eye discharge, Denies irritation and Denies loss of vision ENT Ears, Nose, Mouth, and Throat: Denies change in voice, Denies dizziness, Denies neck pain, Denies sore throat and Denies throat swelling Cardiovascular Cardiovascular: Denies chest pain, Denies irregular heart rhythm, Denies lightheadedness, Denies palpitations, Denies dyspnea, Denies dyspnea on exertion and Denies orthopnea Respiratory Respiratory: Denies cough, Denies dyspnea, Denies dyspnea on exertion and Denies wheezing Gastrointestinal Gastrointestinal: Denies abdominal pain, Denies change in bowel habits, Denies diarrhea, Denies nausea and Denies vomiting Genitourinary Genitourinary: Denies hematuria, Denies flank pain, Denies urinary incontinence and Denies urinary urgency Musculoskeletal Musculoskeletal: Denies back pain, Denies muscle weakness, Denies neck pain, Denies numbness and Denies tingling Integumentary/Breasts Skin/Breast: Denies pruritus, Denies erythema, Denies rash and Denies wounds Neurologic Neurologic: Denies behavioral changes, Denies confusion, Denies dizziness, Denies frequent falls, Denies loss of vision, Denies numbness, Denies tingling and Denies weakness Psychiatric Psychiatric: Denies anxiety, Denies behavioral changes, Denies confusion, Denies depression, Denies homicidal ideation and Denies suicidal ideation Endocrine Endocrine: Denies fatigue, Denies flushing and Denies palpitations Hematologic/Lymphatic Hematologic/Lymphatic: Denies easy bruising Allergic/Immunologic Allergic/Immunologic: Denies urticaria, Denies throat swelling and Denies wheezing Patient History Medical History Anxiety (Acute) Breast cancer, right (Acute) COPD (chronic obstructive pulmonary disease) (Acute) 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) Depression (Acute) Edema (Acute) Excessive daytime sleepiness (Chronic) GERD (gastroesophageal reflux disease) (Acute) HTN (hypertension) (Acute) Hyperlipidemia (Acute) Low back pain (Acute) Neck pain (Acute) Nocturnal hypoxemia (Chronic) Obstructive sleep apnea of adult (Chronic) Osteoarthritis (Acute) Overactive bladder (Acute) Primary insomnia (Chronic) Tobacco abuse disorder (Acute) Surgical History H/O colonoscopy (Acute) History of appendectomy (Acute) History of cholecystectomy (Acute) S/P arthroscopy of right shoulder (Acute) Status post arthroscopy of hip (Acute) Family History Other Family history non-contributory Social History household members: spouse Smoking Status: Current every day smoker Family History Other Family history non-contributory Social History household members: spouse Smoking Status: Current every day smoker alcohol intake frequency: 0-2 drinks per day Substance Use Type: marijuana Exam Narrative Exam Narrative: GEN: AOx3 and in mild distress EYES: Pupils are equal, round, and reactive to light and accommodation. Extraoccular muscles are intact bilaterally. There is no subconjunctival hemorrhage or exudate. CHEST: Lungs are clear to auscultation bilaterally and free of wheezes, rales, or rhonchi. Heart rate is regular rhythm, there are no murmurs, clicks, rubs, or gallops. Wound VAC in use with R sided surgical site. No active bleeding or air leak. Wound VAC constantly generating 125mmHg suction with small amount of blood moving through tube. Nursing had reset the device and checked all connections and it is working now. ABD: Abdomen is soft and nontender. There is no guarding or rebound. Bowel sounds are normal in all 4 quadrants. There is no mass or organomegaly. EXT: Full painless ROM of all extremities with no loss of sensation or strength. SKIN: Warm, pink, and dry. No erythema or rash Initial Vital Signs Initial Vital Signs: Vital Signs Temperature 98.7 F 07/19/19 21:45 Pulse Rate 68 07/19/19 21:45 Respiratory Rate 18 07/19/19 21:45 Blood Pressure 110/70 07/19/19 21:45 Pulse Oximetry 94 07/19/19 21:45 Course Consultations Consultation #1: call to Dr. Clements ([phone]) Time: 22:00 Vital Signs Vital signs: Vital Signs - 8 hr 07/19/19 21:45 Temperature 98.7 F Pulse Rate 68 Respiratory Rate 18 Blood Pressure 110/70 Pulse Oximetry 94 Discharge Plan Departure Patient Disposition: Home Clinical Impression: Encounter for management of wound VAC Discharge Date/Time: 07/19/19 22:35 Instructions: DI for Postoperative Pain Activity Restrictions/Additional Instructions: *You have been diagnosed with [visit for Wound Vac ] *What to do: *Take medications as directed *Follow up with Dr. Clements as planned, I called him tonight and he is aware that you were here. *Return to ER if you should have any new, worsening or concerning symptoms Prescriptions: No Action anastrozole 1 mg Tablet 1 mg PO DAILY RF: 0 ibuprofen 200 mg Capsule 200 mg PO TID-QID PRN (Reason: pain) RF: 0 alprazolam 0.5 mg Tablet 0.5 mg PO DAILY PRN (Reason: Anxiety) RF: 0 trospium 60 mg Capsule,Extended Release 24hr 60 mg PO BEDTIME RF: 0 nicotine 21 mg Topical DAILY RF: 0 hydrocodone-acetaminophen [[place]] 5-325 mg tablet 1 tab PO Q6H PRN (Reason: pain) Qty: 5 RF: 0 spironolactone 25 mg Tablet 25 mg PO DAILY RF: 0 calcium carbonate [Calcium 600] 600 mg calcium (1,500 mg) Tablet 600 mg PO DAILY RF: 0 telmisartan 80 mg Tablet 80 mg PO DAILY RF: 0 omeprazole 20 mg Capsule,Delayed Release(Dr/Ec) 20 mg PO DAILY RF: 0 cholecalciferol (vitamin D3) [Vitamin D3] 1,000 unit Capsule 1,000 unit PO DAILY RF: 0 ciclesonide [Alvesco] 160 mcg/actuation Hfa Aerosol Inhaler 1 puff INHALATION BID RF: 0 trazodone 100 mg tablet 200 mg PO BEDTIME RF: 0 beclomethasone dipropionate [Qvar RediHaler] 80 mcg/actuation HFA aerosol breath activated 1 puff Inhalation DIRECTED RF: 0 citalopram 40 mg tablet 40 mg PO DAILY RF: 0 Referrals: Christy Espinoza MD [Primary Care Provider] -
== END 2019-07-19 22:35 | disposition home or self-care (01) ==
PROVIDERS: Emergency Provider Emergency Medicine; PCP Internal Medicine
DX: T81.40XA Infection following a procedure, unspecified, initial encounter (principal); Z51.89 Encounter for other specified aftercare
CPT/HCPCS: 99282

== ENCOUNTER → 2019-08-28 19:20 | Outpatient (ROUT) | payer OTHER, SELFPAY ==
[2018-07-13 11:43] VITALS: BMI 25.3
== END ==
PROVIDERS: PCP Internal Medicine; Visit Provider Internal Medicine
DX: T81.49XA Infection following a procedure, other surgical site, initial encounter (principal)
CPT/HCPCS: 87070; 87075; 87077; 87147; 87186; 87205

== ENCOUNTER → 2019-09-06 18:22 | Outpatient (ROUT) | payer OTHER, SELFPAY ==
[2018-07-13 11:43] VITALS: BMI 25.3
== END ==
PROVIDERS: PCP Internal Medicine; Visit Provider Internal Medicine
DX: T81.89XD Other complications of procedures, not elsewhere classified, subsequent encounter (principal); Z22.322 Carrier or suspected carrier of Methicillin resistant Staphylococcus aureus
CPT/HCPCS: 87797

== ENCOUNTER → 2019-09-12 14:55 | Outpatient (CLI) | payer OTHER, SELFPAY ==
[2018-07-13 11:43] VITALS: BMI 25.3
[2019-09-12 16:27] LABS: Erythrocyte Sedimentation Rate 27 MM/HR (0-20)
== END ==
PROVIDERS: PCP Internal Medicine; Referring Provider Internal Medicine
DX: T14.8XXA Other injury of unspecified body region, initial encounter (principal); L08.9 Local infection of the skin and subcutaneous tissue, unspecified
CPT/HCPCS: 36415; 85651; 86140

== ENCOUNTER → 2019-09-13 13:13 | Outpatient (CLI) | payer OTHER, SELFPAY ==
[2018-07-13 11:43] VITALS: BMI 25.3
== END ==
PROVIDERS: PCP Internal Medicine; Visit Provider Family Medicine
DX: L59.9 Disorder of the skin and subcutaneous tissue related to radiation, unspecified (principal); T66.XXXA Radiation sickness, unspecified, initial encounter; Z85.3 Personal history of malignant neoplasm of breast; S21.301A Unspecified open wound of right front wall of thorax with penetration into thoracic cavity, initial encounter; T81.31XA Disruption of external operation (surgical) wound, not elsewhere classified, initial encounter
CPT/HCPCS: 97597; 99203; 99213

== ENCOUNTER → 2019-09-13 14:53 | Outpatient (CLI) | payer OTHER, SELFPAY ==
[2018-07-13 11:43] VITALS: BMI 25.3
--- NOTE | 2019-09-13 | DI.CT.S_ITS ---
PROCEDURE: CT CHEST W CON INDICATIONS: Chest wound following breast surgery on the right, abscess?, osteomyelitis? TECHNIQUE: After the administration of intravenous contrast, 5 mm thick sections acquired from the pulmonary apices to the posterior costophrenic angles. 1 mm axial lung, 5 mm thick coronal and sagittal reformats and 7 mm axial MIP were acquired. For radiation dose reduction, the following was used: automated exposure control, adjustment of mA and/or kV according to patient size. COMPARISON: None. FINDINGS: Image quality: Excellent. Lungs and pleura: No acute air space opacities. No pleural effusions or pneumothorax. Central and peripheral airways are patent and normal in caliber. Mediastinum: Heart size is normal. No pericardial effusion. No mediastinal or hilar adenopathy by size criteria. Thoracic aorta and central pulmonary arteries are normal in size. Esophagus is normal in caliber. No hiatal hernia. Bones and chest wall: Partially healed, mildly displaced right anterolateral fourth through sixth rib fractures on the right. No definite cortical loss or erosive changes to suggest an underlying destructive process. There is overlying tissue loss from a lateral left chest wound with packing visible. Surgical clips are present. There is thickening and slight edema of the chest wall musculature in this location but no discrete fluid collection or significant pleural thickening. Surgical clips are present in the remaining lateral breast tissue. No vertebral body compression fractures. No axillary or supraclavicular adenopathy by size criteria. Thyroid gland is unremarkable. Abdomen: Mild hepatic steatosis. Visualized upper abdominal solid organs appear otherwise normal. Upper abdominal bowel loops are normal in caliber. IMPRESSION: 1. Right lateral chest wall tissue loss with surgical clips and expected mild muscular changes. No discrete fluid collection. 2. There are 3 underlying right mildly displaced anterolateral rib fractures (fourth through sixth). No CT evidence of osteomyelitis. 3. No CT evidence of underlying lung disease. Dictated by: Kristel Dalton M.D. on 09/13/2019 at 17:15 Approved by: Kristel Dalton M.D. on 09/13/2019 at 17:29
== END ==
PROVIDERS: PCP Internal Medicine; Visit Provider Internal Medicine
DX: T81.41XA Infection following a procedure, superficial incisional surgical site, initial encounter (principal)
CPT/HCPCS: 71260; Q9967

== ENCOUNTER → 2019-09-18 14:39 | Outpatient (CLI) | payer OTHER, SELFPAY ==
[2018-07-13 11:43] VITALS: BMI 25.3
== END ==
PROVIDERS: PCP Internal Medicine; Visit Provider Family Medicine
DX: L59.9 Disorder of the skin and subcutaneous tissue related to radiation, unspecified (principal); T66.XXXA Radiation sickness, unspecified, initial encounter; S21.301A Unspecified open wound of right front wall of thorax with penetration into thoracic cavity, initial encounter; T81.31XA Disruption of external operation (surgical) wound, not elsewhere classified, initial encounter; Z85.3 Personal history of malignant neoplasm of breast; Z72.0 Tobacco use
CPT/HCPCS: 97597; 99213

== ENCOUNTER → 2019-09-25 09:37 | Outpatient (CLI) | payer OTHER, SELFPAY ==
[2018-07-13 11:43] VITALS: BMI 25.3
== END ==
PROVIDERS: PCP Internal Medicine; Visit Provider Family Medicine
DX: S41.101D Unspecified open wound of right upper arm, subsequent encounter (principal)
CPT/HCPCS: 99213

== ENCOUNTER → 2019-10-05 12:59 | Outpatient (CLI) | payer OTHER, SELFPAY ==
[2018-07-13 11:43] VITALS: BMI 25.3
== END ==
PROVIDERS: PCP Internal Medicine; Visit Provider Family Medicine
DX: L59.9 Disorder of the skin and subcutaneous tissue related to radiation, unspecified (principal); S21.301A Unspecified open wound of right front wall of thorax with penetration into thoracic cavity, initial encounter; T81.31XA Disruption of external operation (surgical) wound, not elsewhere classified, initial encounter; Z72.0 Tobacco use; C50.011 Malignant neoplasm of nipple and areola, right female breast
CPT/HCPCS: 11042

== ENCOUNTER → 2019-10-05 18:35 | Outpatient (ROUT) | payer OTHER, SELFPAY ==
[2018-07-13 11:43] VITALS: BMI 25.3
== END ==
PROVIDERS: PCP Internal Medicine; Visit Provider Internal Medicine
DX: T81.89XD Other complications of procedures, not elsewhere classified, subsequent encounter (principal); Z22.322 Carrier or suspected carrier of Methicillin resistant Staphylococcus aureus
CPT/HCPCS: 87070; 87075; 87186; 87205

== ENCOUNTER → 2019-10-10 10:50 | Outpatient (CLI) | payer OTHER, SELFPAY ==
[2018-07-13 11:43] VITALS: BMI 25.3
== END ==
PROVIDERS: PCP Internal Medicine; Visit Provider Family Medicine
DX: S21.301A Unspecified open wound of right front wall of thorax with penetration into thoracic cavity, initial encounter (principal); L59.9 Disorder of the skin and subcutaneous tissue related to radiation, unspecified; T66.XXXA Radiation sickness, unspecified, initial encounter; Z85.3 Personal history of malignant neoplasm of breast; T81.31XA Disruption of external operation (surgical) wound, not elsewhere classified, initial encounter; F40.240 Claustrophobia
CPT/HCPCS: 11042; 99212

== ENCOUNTER → 2019-10-11 08:54 | Outpatient (CLI) | payer OTHER, SELFPAY ==
[2018-07-13 11:43] VITALS: BMI 25.3
== END ==
PROVIDERS: PCP Internal Medicine; Visit Provider Family Medicine
DX: L59.9 Disorder of the skin and subcutaneous tissue related to radiation, unspecified (principal); Z85.3 Personal history of malignant neoplasm of breast; S21.301A Unspecified open wound of right front wall of thorax with penetration into thoracic cavity, initial encounter; T81.31XA Disruption of external operation (surgical) wound, not elsewhere classified, initial encounter; Z72.0 Tobacco use
CPT/HCPCS: 99183; G0277

== ENCOUNTER → 2019-10-12 11:16 | Outpatient (CLI) | payer OTHER, SELFPAY ==
[2018-07-13 11:43] VITALS: BMI 25.3
== END ==
PROVIDERS: PCP Internal Medicine; Referring Provider Internal Medicine; Visit Provider Family Medicine
DX: L59.9 Disorder of the skin and subcutaneous tissue related to radiation, unspecified (principal); Z85.3 Personal history of malignant neoplasm of breast; S21.301A Unspecified open wound of right front wall of thorax with penetration into thoracic cavity, initial encounter; T81.31XA Disruption of external operation (surgical) wound, not elsewhere classified, initial encounter; Z72.0 Tobacco use
CPT/HCPCS: 99183; G0277

== ENCOUNTER → 2019-10-15 08:53 | Outpatient (CLI) | payer OTHER, SELFPAY ==
[2018-07-13 11:43] VITALS: BMI 25.3
== END ==
PROVIDERS: PCP Internal Medicine; Visit Provider Family Medicine
DX: L59.9 Disorder of the skin and subcutaneous tissue related to radiation, unspecified (principal); T66.XXXA Radiation sickness, unspecified, initial encounter; Z85.3 Personal history of malignant neoplasm of breast; S21.301A Unspecified open wound of right front wall of thorax with penetration into thoracic cavity, initial encounter; T81.31XA Disruption of external operation (surgical) wound, not elsewhere classified, initial encounter; Z72.0 Tobacco use
CPT/HCPCS: 99183; G0277

== ENCOUNTER → 2019-10-16 09:09 | Outpatient (CLI) | payer OTHER, SELFPAY ==
[2018-07-13 11:43] VITALS: BMI 25.3
== END ==
PROVIDERS: PCP Internal Medicine; Visit Provider Family Medicine
DX: L59.9 Disorder of the skin and subcutaneous tissue related to radiation, unspecified (principal); Z85.3 Personal history of malignant neoplasm of breast; S21.301A Unspecified open wound of right front wall of thorax with penetration into thoracic cavity, initial encounter; T81.31XA Disruption of external operation (surgical) wound, not elsewhere classified, initial encounter; Z72.0 Tobacco use
CPT/HCPCS: 99183; G0277

== ENCOUNTER → 2019-10-18 08:46 | Outpatient (CLI) | payer OTHER, SELFPAY ==
[2018-07-13 11:43] VITALS: BMI 25.3
== END ==
PROVIDERS: PCP Internal Medicine; Visit Provider Family Medicine
DX: L59.9 Disorder of the skin and subcutaneous tissue related to radiation, unspecified (principal); Z85.3 Personal history of malignant neoplasm of breast; S21.301A Unspecified open wound of right front wall of thorax with penetration into thoracic cavity, initial encounter; T81.31XA Disruption of external operation (surgical) wound, not elsewhere classified, initial encounter; Z72.0 Tobacco use
CPT/HCPCS: 11042; 99183; G0277

== ENCOUNTER → 2019-10-19 09:08 | Outpatient (CLI) | payer OTHER, SELFPAY ==
[2018-07-13 11:43] VITALS: BMI 25.3
== END ==
PROVIDERS: PCP Internal Medicine; Visit Provider Family Medicine
DX: L59.9 Disorder of the skin and subcutaneous tissue related to radiation, unspecified (principal); Z85.3 Personal history of malignant neoplasm of breast; S21.301A Unspecified open wound of right front wall of thorax with penetration into thoracic cavity, initial encounter; T81.31XA Disruption of external operation (surgical) wound, not elsewhere classified, initial encounter; Z72.0 Tobacco use
CPT/HCPCS: 99183; G0277

== ENCOUNTER → 2019-10-22 08:58 | Outpatient (CLI) | payer OTHER, SELFPAY ==
[2018-07-13 11:43] VITALS: BMI 25.3
== END ==
PROVIDERS: PCP Internal Medicine; Visit Provider Family Medicine
DX: L59.9 Disorder of the skin and subcutaneous tissue related to radiation, unspecified (principal); S21.301A Unspecified open wound of right front wall of thorax with penetration into thoracic cavity, initial encounter; T81.31XA Disruption of external operation (surgical) wound, not elsewhere classified, initial encounter; T66.XXXA Radiation sickness, unspecified, initial encounter; Z85.3 Personal history of malignant neoplasm of breast; Z72.0 Tobacco use
CPT/HCPCS: 99183; G0277

== ENCOUNTER → 2019-10-23 08:51 | Outpatient (CLI) | payer OTHER, SELFPAY ==
[2018-07-13 11:43] VITALS: BMI 25.3
== END ==
PROVIDERS: PCP Internal Medicine; Visit Provider Family Medicine
DX: L59.9 Disorder of the skin and subcutaneous tissue related to radiation, unspecified (principal); Z85.3 Personal history of malignant neoplasm of breast; S21.301A Unspecified open wound of right front wall of thorax with penetration into thoracic cavity, initial encounter; Z72.0 Tobacco use; T81.31XA Disruption of external operation (surgical) wound, not elsewhere classified, initial encounter
CPT/HCPCS: 99183; G0277

== ENCOUNTER → 2019-10-24 14:38 | Outpatient (CLI) | payer OTHER, SELFPAY ==
[2018-07-13 11:43] VITALS: BMI 25.3
== END ==
PROVIDERS: PCP Internal Medicine; Visit Provider Family Medicine
DX: L59.8 Other specified disorders of the skin and subcutaneous tissue related to radiation (principal); L59.9 Disorder of the skin and subcutaneous tissue related to radiation, unspecified; Z85.3 Personal history of malignant neoplasm of breast; S21.301A Unspecified open wound of right front wall of thorax with penetration into thoracic cavity, initial encounter; T81.31XA Disruption of external operation (surgical) wound, not elsewhere classified, initial encounter; Z72.0 Tobacco use
CPT/HCPCS: 11042; 97605; 99183; G0277

== ENCOUNTER → 2019-10-25 08:46 | Outpatient (CLI) | payer OTHER, SELFPAY ==
[2018-07-13 11:43] VITALS: BMI 25.3
== END ==
PROVIDERS: PCP Internal Medicine; Visit Provider Family Medicine
DX: L59.9 Disorder of the skin and subcutaneous tissue related to radiation, unspecified (principal); Z85.3 Personal history of malignant neoplasm of breast; S21.301A Unspecified open wound of right front wall of thorax with penetration into thoracic cavity, initial encounter; T81.31XA Disruption of external operation (surgical) wound, not elsewhere classified, initial encounter; Z72.0 Tobacco use; L59.8 Other specified disorders of the skin and subcutaneous tissue related to radiation
CPT/HCPCS: 99183; G0277

== ENCOUNTER → 2019-10-26 12:56 | Outpatient (CLI) | payer OTHER, SELFPAY ==
[2018-07-13 11:43] VITALS: BMI 25.3
== END ==
PROVIDERS: PCP Internal Medicine; Visit Provider Family Medicine
DX: L59.8 Other specified disorders of the skin and subcutaneous tissue related to radiation (principal); Z85.3 Personal history of malignant neoplasm of breast; S21.301A Unspecified open wound of right front wall of thorax with penetration into thoracic cavity, initial encounter; T81.31XA Disruption of external operation (surgical) wound, not elsewhere classified, initial encounter; Z72.0 Tobacco use; S41.102A Unspecified open wound of left upper arm, initial encounter
CPT/HCPCS: 97605; 99183; G0277

== ENCOUNTER → 2019-10-29 15:31 | Outpatient (CLI) | payer OTHER, SELFPAY ==
[2018-07-13 11:43] VITALS: BMI 25.3
== END ==
PROVIDERS: PCP Internal Medicine; Referring Provider Internal Medicine; Visit Provider Family Medicine
DX: L59.8 Other specified disorders of the skin and subcutaneous tissue related to radiation (principal); S21.301A Unspecified open wound of right front wall of thorax with penetration into thoracic cavity, initial encounter; T81.31XA Disruption of external operation (surgical) wound, not elsewhere classified, initial encounter; Z72.0 Tobacco use; Z85.3 Personal history of malignant neoplasm of breast
CPT/HCPCS: 99183; G0277

== ENCOUNTER → 2019-10-30 14:35 | Outpatient (CLI) | payer OTHER, SELFPAY ==
[2018-07-13 11:43] VITALS: BMI 25.3
== END ==
PROVIDERS: PCP Internal Medicine; Visit Provider Family Medicine
DX: L59.9 Disorder of the skin and subcutaneous tissue related to radiation, unspecified (principal); Z85.3 Personal history of malignant neoplasm of breast; S21.301A Unspecified open wound of right front wall of thorax with penetration into thoracic cavity, initial encounter; T81.31XA Disruption of external operation (surgical) wound, not elsewhere classified, initial encounter; Z72.0 Tobacco use; L59.8 Other specified disorders of the skin and subcutaneous tissue related to radiation
CPT/HCPCS: 11042; 97605; 99183; G0277

== ENCOUNTER → 2019-10-31 13:42 | Outpatient (CLI) | payer OTHER, SELFPAY ==
[2018-07-13 11:43] VITALS: BMI 25.3
== END ==
PROVIDERS: PCP Internal Medicine; Visit Provider Family Medicine
DX: L59.8 Other specified disorders of the skin and subcutaneous tissue related to radiation (principal); S21.301A Unspecified open wound of right front wall of thorax with penetration into thoracic cavity, initial encounter; T81.31XA Disruption of external operation (surgical) wound, not elsewhere classified, initial encounter; Z85.3 Personal history of malignant neoplasm of breast; Z72.0 Tobacco use
CPT/HCPCS: 99183; G0277

== ENCOUNTER → 2019-11-01 15:43 | Outpatient (CLI) | payer OTHER, SELFPAY ==
[2018-07-13 11:43] VITALS: BMI 25.3
== END ==
PROVIDERS: PCP Internal Medicine; Referring Provider Internal Medicine; Visit Provider Family Medicine
DX: L59.8 Other specified disorders of the skin and subcutaneous tissue related to radiation (principal); S21.301A Unspecified open wound of right front wall of thorax with penetration into thoracic cavity, initial encounter; T81.31XA Disruption of external operation (surgical) wound, not elsewhere classified, initial encounter; Z85.3 Personal history of malignant neoplasm of breast; Z72.0 Tobacco use
CPT/HCPCS: 99183; G0277

== ENCOUNTER → 2019-11-02 11:52 | Outpatient (CLI) | payer OTHER, SELFPAY ==
[2018-07-13 11:43] VITALS: BMI 25.3
== END ==
PROVIDERS: PCP Internal Medicine; Referring Provider Ophthalmology Ophthalmic Plastic and Reconstructive Surgery; Visit Provider Family Medicine
DX: T81.31XA Disruption of external operation (surgical) wound, not elsewhere classified, initial encounter (principal); L59.9 Disorder of the skin and subcutaneous tissue related to radiation, unspecified; L59.8 Other specified disorders of the skin and subcutaneous tissue related to radiation; S21.301A Unspecified open wound of right front wall of thorax with penetration into thoracic cavity, initial encounter; Z85.3 Personal history of malignant neoplasm of breast; Z72.0 Tobacco use
CPT/HCPCS: 97605; 99183; G0277

== ENCOUNTER → 2019-11-05 10:12 | Outpatient (CLI) | payer OTHER, SELFPAY ==
[2018-07-13 11:43] VITALS: BMI 25.3
== END ==
PROVIDERS: PCP Internal Medicine; Referring Provider Internal Medicine; Visit Provider Family Medicine
DX: L59.9 Disorder of the skin and subcutaneous tissue related to radiation, unspecified (principal); T66.XXXA Radiation sickness, unspecified, initial encounter; Z85.3 Personal history of malignant neoplasm of breast; S21.301A Unspecified open wound of right front wall of thorax with penetration into thoracic cavity, initial encounter; T81.31XA Disruption of external operation (surgical) wound, not elsewhere classified, initial encounter; Z72.0 Tobacco use
CPT/HCPCS: 99183; G0277

== ENCOUNTER → 2019-11-06 10:50 | Outpatient (CLI) | payer OTHER, SELFPAY ==
[2018-07-13 11:43] VITALS: BMI 25.3
== END ==
PROVIDERS: PCP Internal Medicine; Referring Provider Internal Medicine; Visit Provider Family Medicine
DX: L59.9 Disorder of the skin and subcutaneous tissue related to radiation, unspecified (principal); S21.301A Unspecified open wound of right front wall of thorax with penetration into thoracic cavity, initial encounter; T81.31XA Disruption of external operation (surgical) wound, not elsewhere classified, initial encounter; Z85.3 Personal history of malignant neoplasm of breast
CPT/HCPCS: 99213

== ENCOUNTER → 2019-11-12 14:13 | Outpatient (CLI) | payer OTHER, SELFPAY ==
[2018-07-13 11:43] VITALS: BMI 25.3
== END ==
PROVIDERS: PCP Internal Medicine; Referring Provider Internal Medicine; Visit Provider Family Medicine
DX: S21.301A Unspecified open wound of right front wall of thorax with penetration into thoracic cavity, initial encounter (principal); T81.31XA Disruption of external operation (surgical) wound, not elsewhere classified, initial encounter; L59.9 Disorder of the skin and subcutaneous tissue related to radiation, unspecified; Z85.3 Personal history of malignant neoplasm of breast; H68.103 Unspecified obstruction of Eustachian tube, bilateral
CPT/HCPCS: 99183; G0277

== ENCOUNTER → 2019-11-13 14:21 | Outpatient (CLI) | payer OTHER, SELFPAY ==
[2018-07-13 11:43] VITALS: BMI 25.3
== END ==
PROVIDERS: Family Provider Family Medicine; PCP Internal Medicine; Referring Provider Internal Medicine; Visit Provider Family Medicine
DX: S21.301A Unspecified open wound of right front wall of thorax with penetration into thoracic cavity, initial encounter (principal); T81.31XA Disruption of external operation (surgical) wound, not elsewhere classified, initial encounter; L59.9 Disorder of the skin and subcutaneous tissue related to radiation, unspecified; Z85.3 Personal history of malignant neoplasm of breast
CPT/HCPCS: 11042; 99183; G0277

== ENCOUNTER → 2019-11-14 09:56 | Outpatient (CLI) | payer OTHER, SELFPAY ==
[2018-07-13 11:43] VITALS: BMI 25.3
== END ==
PROVIDERS: PCP Internal Medicine; Referring Provider Internal Medicine; Visit Provider Family Medicine
DX: L59.8 Other specified disorders of the skin and subcutaneous tissue related to radiation (principal); S21.301A Unspecified open wound of right front wall of thorax with penetration into thoracic cavity, initial encounter; T81.31XA Disruption of external operation (surgical) wound, not elsewhere classified, initial encounter; Z85.3 Personal history of malignant neoplasm of breast
CPT/HCPCS: 99183; G0277

== ENCOUNTER → 2019-11-15 13:51 | Outpatient (CLI) | payer OTHER, SELFPAY ==
[2018-07-13 11:43] VITALS: BMI 25.3
== END ==
PROVIDERS: Family Provider Family Medicine; PCP Internal Medicine; Referring Provider Internal Medicine; Visit Provider Family Medicine
DX: L59.8 Other specified disorders of the skin and subcutaneous tissue related to radiation (principal); S21.301A Unspecified open wound of right front wall of thorax with penetration into thoracic cavity, initial encounter; T81.31XA Disruption of external operation (surgical) wound, not elsewhere classified, initial encounter; Z85.3 Personal history of malignant neoplasm of breast
CPT/HCPCS: 99183; G0277

== ENCOUNTER → 2019-11-16 12:27 | Outpatient (CLI) | payer OTHER, SELFPAY ==
[2018-07-13 11:43] VITALS: BMI 25.3
== END ==
PROVIDERS: PCP Internal Medicine; Referring Provider Internal Medicine; Visit Provider Family Medicine
DX: L59.8 Other specified disorders of the skin and subcutaneous tissue related to radiation (principal); S21.301A Unspecified open wound of right front wall of thorax with penetration into thoracic cavity, initial encounter; T81.31XA Disruption of external operation (surgical) wound, not elsewhere classified, initial encounter; Z85.3 Personal history of malignant neoplasm of breast
CPT/HCPCS: 99183; G0277

== ENCOUNTER → 2019-11-19 12:39 | Outpatient (CLI) | payer OTHER, SELFPAY ==
[2018-07-13 11:43] VITALS: BMI 25.3
== END ==
PROVIDERS: PCP Internal Medicine; Referring Provider Internal Medicine; Visit Provider Family Medicine
DX: L59.8 Other specified disorders of the skin and subcutaneous tissue related to radiation (principal); S21.301A Unspecified open wound of right front wall of thorax with penetration into thoracic cavity, initial encounter; T81.31XA Disruption of external operation (surgical) wound, not elsewhere classified, initial encounter; Z85.3 Personal history of malignant neoplasm of breast
CPT/HCPCS: 99183; G0277

== ENCOUNTER → 2019-11-20 13:43 | Outpatient (CLI) | payer OTHER, SELFPAY ==
[2018-07-13 11:43] VITALS: BMI 25.3
== END ==
PROVIDERS: PCP Internal Medicine; Referring Provider Family Medicine; Visit Provider Family Medicine
DX: L59.8 Other specified disorders of the skin and subcutaneous tissue related to radiation (principal); S21.301A Unspecified open wound of right front wall of thorax with penetration into thoracic cavity, initial encounter; T81.31XA Disruption of external operation (surgical) wound, not elsewhere classified, initial encounter; Z85.3 Personal history of malignant neoplasm of breast
CPT/HCPCS: 11042; 99183; G0277

== ENCOUNTER → 2019-11-21 13:06 | Outpatient (CLI) | payer OTHER, SELFPAY ==
[2018-07-13 11:43] VITALS: BMI 25.3
== END ==
PROVIDERS: PCP Internal Medicine; Visit Provider Family Medicine
DX: L59.9 Disorder of the skin and subcutaneous tissue related to radiation, unspecified (principal); Z85.3 Personal history of malignant neoplasm of breast; S21.301A Unspecified open wound of right front wall of thorax with penetration into thoracic cavity, initial encounter; T81.31XA Disruption of external operation (surgical) wound, not elsewhere classified, initial encounter; Z72.0 Tobacco use; H68.103 Unspecified obstruction of Eustachian tube, bilateral
CPT/HCPCS: 99183; G0277

== ENCOUNTER → 2019-11-22 10:16 | Outpatient (CLI) | payer OTHER, SELFPAY ==
[2018-07-13 11:43] VITALS: BMI 25.3
== END ==
PROVIDERS: PCP Internal Medicine; Referring Provider Internal Medicine; Visit Provider Family Medicine
DX: L59.8 Other specified disorders of the skin and subcutaneous tissue related to radiation (principal); S21.301A Unspecified open wound of right front wall of thorax with penetration into thoracic cavity, initial encounter; T81.31XA Disruption of external operation (surgical) wound, not elsewhere classified, initial encounter; Z85.3 Personal history of malignant neoplasm of breast
CPT/HCPCS: 99183; G0277

== ENCOUNTER → 2019-11-23 12:51 | Outpatient (CLI) | payer OTHER, SELFPAY ==
[2018-07-13 11:43] VITALS: BMI 25.3
== END ==
PROVIDERS: PCP Internal Medicine; Referring Provider Internal Medicine; Visit Provider Family Medicine
DX: L59.8 Other specified disorders of the skin and subcutaneous tissue related to radiation (principal); S21.301A Unspecified open wound of right front wall of thorax with penetration into thoracic cavity, initial encounter; T81.31XA Disruption of external operation (surgical) wound, not elsewhere classified, initial encounter; Z85.3 Personal history of malignant neoplasm of breast
CPT/HCPCS: 99183; G0277

== ENCOUNTER → 2019-11-26 13:27 | Outpatient (CLI) | payer OTHER, SELFPAY ==
[2018-07-13 11:43] VITALS: BMI 25.3
== END ==
PROVIDERS: PCP Internal Medicine; Referring Provider Family Medicine; Visit Provider Family Medicine
DX: L59.8 Other specified disorders of the skin and subcutaneous tissue related to radiation (principal); S21.301A Unspecified open wound of right front wall of thorax with penetration into thoracic cavity, initial encounter; T81.31XA Disruption of external operation (surgical) wound, not elsewhere classified, initial encounter; Z85.3 Personal history of malignant neoplasm of breast
CPT/HCPCS: 99183; G0277

== ENCOUNTER → 2019-11-27 10:32 | Outpatient (CLI) | payer OTHER, SELFPAY ==
[2018-07-13 11:43] VITALS: BMI 25.3
== END ==
PROVIDERS: PCP Internal Medicine; Referring Provider Internal Medicine; Visit Provider Family Medicine
DX: L59.8 Other specified disorders of the skin and subcutaneous tissue related to radiation (principal); S21.301A Unspecified open wound of right front wall of thorax with penetration into thoracic cavity, initial encounter; T81.31XA Disruption of external operation (surgical) wound, not elsewhere classified, initial encounter; Z85.3 Personal history of malignant neoplasm of breast
CPT/HCPCS: 11042; 99183; 99213; G0277

== ENCOUNTER → 2019-11-28 16:02 | Outpatient (CLI) | payer OTHER, SELFPAY ==
[2018-07-13 11:43] VITALS: BMI 25.3
== END ==
PROVIDERS: PCP Internal Medicine; Referring Provider Family Medicine; Visit Provider Family Medicine
DX: L59.9 Disorder of the skin and subcutaneous tissue related to radiation, unspecified (principal); Z85.3 Personal history of malignant neoplasm of breast; S21.301A Unspecified open wound of right front wall of thorax with penetration into thoracic cavity, initial encounter; T81.31XA Disruption of external operation (surgical) wound, not elsewhere classified, initial encounter; Z72.0 Tobacco use; H68.103 Unspecified obstruction of Eustachian tube, bilateral
CPT/HCPCS: 99183; G0277

== ENCOUNTER → 2019-12-05 15:34 | Outpatient (CLI) | payer OTHER, SELFPAY ==
[2018-07-13 11:43] VITALS: BMI 25.3
== END ==
PROVIDERS: PCP Internal Medicine; Referring Provider Family Medicine; Visit Provider Family Medicine
DX: L59.9 Disorder of the skin and subcutaneous tissue related to radiation, unspecified (principal); Z85.3 Personal history of malignant neoplasm of breast; S21.301A Unspecified open wound of right front wall of thorax with penetration into thoracic cavity, initial encounter; Z72.0 Tobacco use; H68.103 Unspecified obstruction of Eustachian tube, bilateral
CPT/HCPCS: 11042; 99183; 99213; G0277

== ENCOUNTER → 2019-12-06 12:57 | Outpatient (CLI) | payer OTHER, SELFPAY ==
[2018-07-13 11:43] VITALS: BMI 25.3
== END ==
PROVIDERS: PCP Internal Medicine; Referring Provider Internal Medicine; Visit Provider Family Medicine
DX: L59.9 Disorder of the skin and subcutaneous tissue related to radiation, unspecified (principal); Z85.3 Personal history of malignant neoplasm of breast; S21.301A Unspecified open wound of right front wall of thorax with penetration into thoracic cavity, initial encounter; T81.31XA Disruption of external operation (surgical) wound, not elsewhere classified, initial encounter; Z72.0 Tobacco use; H68.103 Unspecified obstruction of Eustachian tube, bilateral
CPT/HCPCS: 99183; G0277

== ENCOUNTER → 2019-12-07 11:01 | Outpatient (CLI) | payer OTHER, SELFPAY ==
[2018-07-13 11:43] VITALS: BMI 25.3
== END ==
PROVIDERS: PCP Internal Medicine; Referring Provider Internal Medicine; Visit Provider Family Medicine
DX: S21.301A Unspecified open wound of right front wall of thorax with penetration into thoracic cavity, initial encounter (principal); L59.8 Other specified disorders of the skin and subcutaneous tissue related to radiation
CPT/HCPCS: 99183; 99213; G0277

== ENCOUNTER → 2019-12-10 13:30 | Outpatient (CLI) | payer OTHER, SELFPAY ==
[2018-07-13 11:43] VITALS: BMI 25.3
== END ==
PROVIDERS: PCP Internal Medicine; Referring Provider Internal Medicine; Visit Provider Family Medicine
DX: L59.9 Disorder of the skin and subcutaneous tissue related to radiation, unspecified (principal); Z85.3 Personal history of malignant neoplasm of breast; S21.301A Unspecified open wound of right front wall of thorax with penetration into thoracic cavity, initial encounter; T81.31XA Disruption of external operation (surgical) wound, not elsewhere classified, initial encounter; Z72.0 Tobacco use; H68.103 Unspecified obstruction of Eustachian tube, bilateral
CPT/HCPCS: 99183; G0277

== ENCOUNTER → 2019-12-11 12:58 | Outpatient (CLI) | payer OTHER, SELFPAY ==
[2018-07-13 11:43] VITALS: BMI 25.3
== END ==
PROVIDERS: PCP Internal Medicine; Referring Provider Family Medicine; Visit Provider Family Medicine
DX: L59.8 Other specified disorders of the skin and subcutaneous tissue related to radiation (principal); S21.301A Unspecified open wound of right front wall of thorax with penetration into thoracic cavity, initial encounter; T81.31XA Disruption of external operation (surgical) wound, not elsewhere classified, initial encounter; Z85.3 Personal history of malignant neoplasm of breast
CPT/HCPCS: 99183; G0277

== ENCOUNTER → 2019-12-12 12:27 | Outpatient (CLI) | payer OTHER, SELFPAY ==
[2018-07-13 11:43] VITALS: BMI 25.3
== END ==
PROVIDERS: PCP Internal Medicine; Referring Provider Internal Medicine; Visit Provider Family Medicine
DX: L59.8 Other specified disorders of the skin and subcutaneous tissue related to radiation (principal); S21.301A Unspecified open wound of right front wall of thorax with penetration into thoracic cavity, initial encounter; T81.31XA Disruption of external operation (surgical) wound, not elsewhere classified, initial encounter; Z85.3 Personal history of malignant neoplasm of breast
CPT/HCPCS: 99183; G0277

== ENCOUNTER → 2019-12-13 13:11 | Outpatient (CLI) | payer OTHER, SELFPAY ==
[2018-07-13 11:43] VITALS: BMI 25.3
== END ==
PROVIDERS: PCP Internal Medicine; Referring Provider Family Medicine; Visit Provider Family Medicine
DX: L59.8 Other specified disorders of the skin and subcutaneous tissue related to radiation (principal); S21.301A Unspecified open wound of right front wall of thorax with penetration into thoracic cavity, initial encounter; T81.31XA Disruption of external operation (surgical) wound, not elsewhere classified, initial encounter; Z85.3 Personal history of malignant neoplasm of breast
CPT/HCPCS: 99183; G0277

== ENCOUNTER → 2019-12-14 14:43 | Outpatient (CLI) | payer OTHER, SELFPAY ==
[2018-07-13 11:43] VITALS: BMI 25.3
== END ==
PROVIDERS: PCP Internal Medicine; Referring Provider Internal Medicine; Visit Provider Family Medicine
DX: L59.8 Other specified disorders of the skin and subcutaneous tissue related to radiation (principal); S21.301A Unspecified open wound of right front wall of thorax with penetration into thoracic cavity, initial encounter; T81.31XA Disruption of external operation (surgical) wound, not elsewhere classified, initial encounter; Z85.3 Personal history of malignant neoplasm of breast
CPT/HCPCS: 99183; G0277

== ENCOUNTER → 2019-12-17 14:45 | Outpatient (CLI) | payer OTHER, SELFPAY ==
[2018-07-13 11:43] VITALS: BMI 25.3
== END ==
PROVIDERS: PCP Internal Medicine; Referring Provider Internal Medicine; Visit Provider Family Medicine
DX: L59.8 Other specified disorders of the skin and subcutaneous tissue related to radiation (principal); S21.301A Unspecified open wound of right front wall of thorax with penetration into thoracic cavity, initial encounter; T81.31XA Disruption of external operation (surgical) wound, not elsewhere classified, initial encounter; Z85.3 Personal history of malignant neoplasm of breast
CPT/HCPCS: 99183; G0277

== ENCOUNTER → 2019-12-17 14:59 | Outpatient (CLI) | payer OTHER, SELFPAY ==
[2018-07-13 11:43] VITALS: BMI 25.3
== END ==
PROVIDERS: PCP Internal Medicine; Referring Provider Family Medicine; Visit Provider Family Medicine
DX: L59.9 Disorder of the skin and subcutaneous tissue related to radiation, unspecified (principal); Z85.3 Personal history of malignant neoplasm of breast; S21.301A Unspecified open wound of right front wall of thorax with penetration into thoracic cavity, initial encounter; T81.31XA Disruption of external operation (surgical) wound, not elsewhere classified, initial encounter; Z72.0 Tobacco use; H68.103 Unspecified obstruction of Eustachian tube, bilateral
CPT/HCPCS: 11042; 99183; G0277

== ENCOUNTER → 2020-01-07 13:16 | Outpatient (CLI) | payer OTHER, SELFPAY ==
[2018-07-13 11:43] VITALS: BMI 25.3
== END ==
PROVIDERS: PCP Internal Medicine; Referring Provider Internal Medicine; Visit Provider Family Medicine
DX: L59.8 Other specified disorders of the skin and subcutaneous tissue related to radiation (principal); S21.301A Unspecified open wound of right front wall of thorax with penetration into thoracic cavity, initial encounter; T81.31XA Disruption of external operation (surgical) wound, not elsewhere classified, initial encounter; Z85.3 Personal history of malignant neoplasm of breast; Z72.0 Tobacco use; N64.4 Mastodynia; L23.3 Allergic contact dermatitis due to drugs in contact with skin
CPT/HCPCS: 11042; 99212

== ENCOUNTER → 2020-01-23 13:22 | Outpatient (CLI) | payer OTHER, SELFPAY ==
[2018-07-13 11:43] VITALS: BMI 25.3
[2020-01-23 14:15] LABS: Appearance Urine UA CLOUDY; Bilirubin Urine UA NEGATIVE (NEGATIVE); Color Urine UA YELLOW; Glucose Urine UA NEGATIVE (Negative); Ketones Urine UA NEGATIVE (NEGATIVE); Leukocyte Esterase Urine UA 3+ (NEGATIVE); Nitrite Urine UA POSITIVE (Negative); Occult Blood Urine UA 2+ (Negative); Protein Urine UA TRACE (Negative); Urobilinogen Urine UA 0.2 E.U./dL (0.2)
[2020-01-23 14:20] LABS: RBC Urine 30-100/HPF (0-5/HPF); WBC Urine >100/HPF (0-5/HPF)
[2020-01-23 14:21] LABS: Bacteria Urine Many (>30)
== END ==
PROVIDERS: PCP Internal Medicine; Referring Provider Student in an Organized Health Care Education/Training Program; Visit Provider Student in an Organized Health Care Education/Training Program
DX: N39.0 Urinary tract infection, site not specified (principal)
CPT/HCPCS: 81001; 87077; 87086; 87147; 87186

== ENCOUNTER → 2020-01-28 13:24 | Outpatient (CLI) | payer OTHER, SELFPAY ==
[2018-07-13 11:43] VITALS: BMI 25.3
== END ==
PROVIDERS: PCP Internal Medicine; Referring Provider Internal Medicine; Visit Provider Family Medicine
DX: L59.8 Other specified disorders of the skin and subcutaneous tissue related to radiation (principal); S21.301A Unspecified open wound of right front wall of thorax with penetration into thoracic cavity, initial encounter; T81.31XA Disruption of external operation (surgical) wound, not elsewhere classified, initial encounter; Z85.3 Personal history of malignant neoplasm of breast; N64.4 Mastodynia; L23.3 Allergic contact dermatitis due to drugs in contact with skin
CPT/HCPCS: 11042; 99213

== ENCOUNTER → 2020-02-18 14:00 | Outpatient (CLI) | payer OTHER, SELFPAY ==
[2018-07-13 11:43] VITALS: BMI 25.3
== END ==
PROVIDERS: PCP Internal Medicine; Referring Provider Internal Medicine; Visit Provider Family Medicine
DX: L59.8 Other specified disorders of the skin and subcutaneous tissue related to radiation (principal); S21.301A Unspecified open wound of right front wall of thorax with penetration into thoracic cavity, initial encounter; T81.31XA Disruption of external operation (surgical) wound, not elsewhere classified, initial encounter; N64.4 Mastodynia; L23.3 Allergic contact dermatitis due to drugs in contact with skin; Z85.3 Personal history of malignant neoplasm of breast
CPT/HCPCS: 11042; 99213

== ENCOUNTER → 2020-03-10 13:53 | Outpatient (CLI) | payer OTHER, SELFPAY ==
[2018-07-13 11:43] VITALS: BMI 25.3
== END ==
PROVIDERS: PCP Internal Medicine; Referring Provider Internal Medicine; Visit Provider Family Medicine
DX: L59.8 Other specified disorders of the skin and subcutaneous tissue related to radiation (principal); S21.301A Unspecified open wound of right front wall of thorax with penetration into thoracic cavity, initial encounter; T81.31XA Disruption of external operation (surgical) wound, not elsewhere classified, initial encounter; Z85.3 Personal history of malignant neoplasm of breast; N64.4 Mastodynia
CPT/HCPCS: 97597

== ENCOUNTER → 2020-03-28 13:45 | Outpatient (CLI) | payer OTHER, SELFPAY ==
[2018-07-13 11:43] VITALS: BMI 25.3
[2020-03-28 14:28] LABS: Appearance Urine UA CLOUDY; Bilirubin Urine UA NEGATIVE (NEGATIVE); Color Urine UA YELLOW; Glucose Urine UA NEGATIVE (Negative); Ketones Urine UA NEGATIVE (NEGATIVE); Leukocyte Esterase Urine UA 2+ (NEGATIVE); Nitrite Urine UA NEGATIVE (Negative); Occult Blood Urine UA 3+ (Negative); Protein Urine UA NEGATIVE (Negative); Urobilinogen Urine UA 0.2 E.U./dL (0.2)
[2020-03-28 14:37] LABS: BUN Creatinine Ratio 15.1 (6-22); Blood Urea Nitrogen 18 mg/dL (7-17); Calcium 10.1 mg/dL (8.4-10.2); Carbon Dioxide 25 mmol/L (22-32); Chloride 98 mmol/L (98-107); Estimated Glomerular Filt Rate 46.1 mL/min (>60); Glucose 99 mg/dL (80-110); HEMOLYSIS 16 (0-50); Potassium 4.6 mmol/L (3.4-5.1); Sodium 131 mmol/L (137-145)
[2020-03-28 14:48] LABS: Bacteria Urine Many (>30); RBC Urine 5-10/HPF (0-5/HPF); Squamous Epithelial Cell Urine 1-5 /HPF (0-5/HPF); WBC Urine >100/HPF (0-5/HPF)
== END ==
PROVIDERS: PCP Internal Medicine; Referring Provider Internal Medicine; Visit Provider Internal Medicine
DX: I10 Essential (primary) hypertension (principal); R39.9 Unspecified symptoms and signs involving the genitourinary system
CPT/HCPCS: 36415; 80048; 81001; 87086

== ENCOUNTER → 2020-04-17 07:47 | Outpatient (CLI) | payer OTHER, SELFPAY ==
[2018-07-13 11:43] VITALS: BMI 25.3
[2020-04-17 09:20] LABS: BUN Creatinine Ratio 13.4 (6-22); Blood Urea Nitrogen 13 mg/dL (7-17); Calcium 10.5 mg/dL (8.4-10.2); Carbon Dioxide 26 mmol/L (22-32); Chloride 107 mmol/L (98-107); Cholesterol 275 mg/dL (140-199); Estimated Glomerular Filt Rate 58.4 mL/min (>60); Glucose 78 mg/dL (80-110); HDL Cholesterol 58 mg/dL (40-60); HEMOLYSIS < 15 (0-50); LDL Cholesterol Calculated 160 mg/dL (<100); Potassium 4.8 mmol/L (3.4-5.1); Sodium 139 mmol/L (137-145); Triglycerides 285 mg/dL (35-150)
== END ==
PROVIDERS: PCP Internal Medicine; Referring Provider Internal Medicine; Visit Provider Internal Medicine
DX: I10 Essential (primary) hypertension (principal)
CPT/HCPCS: 36415; 80048; 80061

== ENCOUNTER 2020-06-11 15:22 | Emergency (ER) | payer MEDICARE, BC, SELFPAY ==
[2018-07-13 11:43] VITALS: BMI 25.3
[2020-06-11] VITALS (16 sets, daily range): BP systolic 137–157; BP diastolic 70–90; PULSE 83–96; RESP 18; TEMP 37.1–37.2; O2SAT 94–100; BMI 27.4
--- NOTE | 2020-06-11 16:13 | PC.NURSE ---
PT reports feeling worse over the past week, nausea/vomiting, chills, diarrhea. Reports chronic cough from past smoking history. Denies worsening cough or shortness of breath.
--- NOTE | 2020-06-11 16:14 | ED_ITS ---
HPI - Nausea/Vomiting/Diarrhea <Nurys Jordan PA-C - Last Filed: 06/11/20 21:33> General Chief complaint: Nausea/Vomiting/Diarrhea Stated complaint: nausea past week,chills,sweats,diarrhea Time Seen by Provider: 06/11/20 16:09 Source: patient Mode of arrival: Ambulatory Limitations: no limitations History of Present Illness HPI Narrative: This is a 59-year-old woman with COPD, open breast wound, JAGIDSH who presents to the emergency department complaining of nausea vomiting diarrhea fever and chills and fatigue with productive cough for the past week, she is generally feeling worse and worse and so she presented to the emergency department for evaluation. She states it began initially with her generally feeling unwell and having a sore throat that progressed to nausea and vomiting and then she developed diarrhea. She has been having up to 4 episodes of total water diarrhea per day, vomiting at least 3-4 times per day, having difficulty keeping food and fluids down although she says that she ate some pasta salad last night and kept this down. She has been having fevers and chills on and off for the last 6 days. She states that she quit smoking 1 month ago and since charbel t time has had some increased productive sputum with her coughing, but states that this has not worsened notably in the past week since she has otherwise been ill. She did smoke 1 and half packs a day for 40 years. She also states that she has an open wound under her right armpit that was an unsuccessful skin graft after a breast cancer surgery. She last had a checkup for this a week ago at and they told her that things look fine she is scheduled to have a surgery for this in July, she states that the area is painful and tender although she notes it has not changed recently. She denies abdominal pain, shortness of breath, back pain, flank pain, dysuria or any other symptoms. Related Data Home Medications Medication Instructions Recorded Confirmed calcium carbonate [Calcium 600] 600 mg PO DAILY 02/01/18 12/12/19 cholecalciferol (vitamin D3) 1,000 unit PO DAILY 02/01/18 12/12/19 [Vitamin D3] ciclesonide [[place]ves[place]] 1 puff INHALATION BID 02/01/18 12/12/19 omeprazole 20 mg PO DAILY 02/01/18 12/12/19 spironolactone 25 mg PO DAILY 02/01/18 12/12/19 telmisartan 80 mg PO DAILY 02/01/18 12/12/19 alprazolam 0.5 mg PO DAILY PRN 06/28/18 12/12/19 anastrozole 1 mg PO DAILY 06/28/18 12/12/19 ibuprofen 200 mg PO TID-QID PRN 06/28/18 12/12/19 trospium 60 mg PO BEDTIME 06/28/18 12/12/19 nicotine 21 mg TOPICAL DAILY 07/13/18 12/12/19 beclomethasone dipropionate [Qvar 1 puff INHALATION DIRECTED 10/10/18 12/12/19 RediHaler] trazodone 200 mg PO BEDTIME 10/10/18 12/12/19 citalopram 40 mg tablet 40 mg PO DAILY tab 03/20/19 12/12/19 Previous Rx's Medication Instructions Recorded hydrocodone-acetaminophen [[place]] 1 tab PO Q6H PRN #5 tab 05/19/19 metoclopramide HCl [Reglan] 5 mg PO Q6H #30 tab 06/11/20 Allergies Allergy/AdvReac Type Severity Reaction Status Date / Time naproxen Allergy Severe Hives Verified 06/11/20 15:39 Penicillins Allergy Severe Hives Verified 06/11/20 15:39 Sulfa (Sulfonamide Allergy Severe Hives Verified 06/11/20 15:39 Antibiotics) Review of Systems <Nurys Jordan PA-C - Last Filed: 06/11/20 21:33> Review of Systems Narrative: GENERAL: Positive for chills, fever, negative for fatigue, sweats. HEENT: Denies sinus pain, ear pain, sore throat, difficulty swallowing, dizziness. RESPIRATORY: Denies dyspnea, positive for chronic cough, negative for wheezing, hemoptysis, positive for sputum. CARDIOVASCULAR: Denies chest pain, palpitations, orthopnea, edema GASTROINTESTINAL: Positive for nausea, vomiting, negative for abdominal pain, positive for diarrhea, negative for constipation, melena. : Denies dysuria, frequency, incontinence, hematuria, urinary retention. MUSCULOSKELETAL: denies weakness, joint pain, or bony pain SKIN: Positive for open wound in her right axilla that has been present for months denies recent change to this. Denies other rash, skin lesions, or other NEUROLOGIC: Denies weakness, headache, numbness, change in speech, confusion, seizures, incoordination. PSYCHIATRIC: No concerning psychosocial issues. 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) Depression (Acute) Edema (Acute) Excessive daytime sleepiness (Inactive) GERD (gastroesophageal reflux disease) (Acute) HTN (hypertension) (Acute) Hyperlipidemia (Acute) Low back pain (Acute) Neck pain (Acute) Nocturnal hypoxemia (Chronic) Obstructive sleep apnea of adult (Chronic) Osteoarthritis (Acute) Overactive bladder (Acute) Primary insomnia (Chronic) Tobacco abuse disorder (Acute) Surgical History H/O colonoscopy (Acute) History of appendectomy (Acute) History of cholecystectomy (Acute) S/P arthroscopy of right shoulder (Acute) Status post arthroscopy of hip (Acute) Family History Other Family history non-contributory Social History household members: spouse Smoking Status: Former smoker alcohol intake: current (2-3 drinks nightly) Smoking Status: Former smoker alcohol intake frequency: 3 or more drinks per day Alcohol type: wine Substance Use Type: marijuana Exam <Nurys Jordan PA-C - Last Filed: 06/11/20 21:33> Narrative Exam Narrative: GENERAL: 59 year old patient appears stated age. Well-nourished, well-developed patient, in moderate distress due to nausea and intermittent chills. HEAD: Atraumatic. Normocephalic. EYES: Pupils equal round and reactive. Extraocular motions intact. No scleral icterus. No injection or drainage. ENT: Nose without bleeding, purulent drainage. Throat without erythema, tonsill ar hypertrophy or exudate. Airway patent. NECK: Trachea midline. Non tender CARDIOVASCULAR: Regular rate and rhythm without murmurs, gallops, or rubs. RESPIRATORY: Diffuse coarse rhonchi all santana. Breath sounds equal bilaterally. No wheezes, rales. GASTROINTESTINAL: Abdomen soft, non-tender, nondistended. EXTREMITIES: No edema or joint tenderness. BACK: Nontender without deformity or crepitance. No flank tenderness. NEURO: AOx3. SKIN: There is an approximately 4 cm in diameter annular open wound with granulation tissue at its base, it is approximately 3 cm deep in her right axilla. No other rash or erythema of visible areas Initial Vital Signs Initial Vital Signs: Vital Signs Temperature 98.8 F 06/11/20 15:25 Pulse Rate 94 H 06/11/20 15:25 Respiratory Rate 18 06/11/20 15:25 Blood Pressure 144/90 H 06/11/20 15:25 Pulse Oximetry 97 06/11/20 15:25 <Jennifer Camargo MD - Last Filed: 06/12/20 03:47> Initial Vital Signs Initial Vital Signs: Vital Signs Temperature 98.8 F 06/11/20 15:25 Pulse Rate 94 H 06/11/20 15:25 Respiratory Rate 18 06/11/20 15:25 Blood Pressure 144/90 H 06/11/20 15:25 Pulse Oximetry 97 06/11/20 15:25 Scores <Nurys Jordan PA-C - Last Filed: 06/11/20 21:33> ABCD2 Citation: Lancet. 2006Oct 29;369(5305):283-92. Validation and refinement of scores to predict very early stroke risk after transient ischaemic attack. Luis SC1, Reshma PM, Isaac MN, [place]ari[place] MF, Sebastian JS, Amanda AL, Bony S. CURB-65 Confusion: No BUN >19mg/dL (>7mmol/L): Yes Respiratory rate greater or equal to 30: No SBP <90mmHg or DBP less or equal to 60mmHg: No Age 65 or Older: No CURB-65 Total: 1 Score 0-1 Outpatient care, Score 2 Inpt vs. Obs, Score 3 or over Inpt admit with ICU for score of 4-5 GCS [place] coma scale eye opening: Spontaneous [place] coma scale verbal response: Orientated [place] coma scale motor response: Obey commands Scott coma scale total score: 15 Course <Nurys Jordan PA-C - Last Filed: 06/11/20 21:33> Orders Ordered: ED Orders 06/11/20 19:35 Blood Culture Stat Discontinued Medications Sodium Chloride (Normal Saline 0.9%) 1,000 mls @ 1,000 mls/hr IV BOLUS ONE Stop: 06/11/20 17:09 Last Infusion: 06/11/20 17:49 Dose: 0 mls/hr Documented by: Admin: 06/11/20 16:25 Dose: 1,000 mls/hr Documented by: SIMONA Ceftriaxone Sodium/Dextrose (Rocephin) 2 gm in 50 mls @ 100 mls/hr IV NOW ONE Stop: 06/11/20 19:12 Last Infusion: 06/11/20 20:07 Dose: 0 mls/hr Documented by: Admin: 06/11/20 19:28 Dose: 100 mls/hr Documented by: HUBERT Sodium Chloride (Normal Saline 0.9%) 1,000 mls @ 500 mls/hr IV BOLUS ONE Stop: 06/11/20 20:50 Last Infusion: 06/11/20 20:07 Dose: 0 mls/hr Documented by: Admin: 06/11/20 19:00 Dose: 500 mls/hr Documented by: HUBERT Ondansetron HCl (Zofran) 4 mg IV NOW ONE Stop: 06/11/20 16:11 Last Admin: 06/11/20 16:25 Dose: 4 mg Documented by: SIMONA Ondansetron HCl (Zofran Odt Prepack) 1 bottle MISC SEEINSTR ONE Stop: 06/11/20 20:13 Last Admin: 06/11/20 20:16 Dose: 1 bottle Documented by: HUBERT Promethazine HCl (Phenergan) 25 mg PO NOW ONE Stop: 06/11/20 18:13 Last Admin: 06/11/20 18:20 Dose: 25 mg Documented by: HUBERT Vital Signs Vital signs: Vital Signs - 8 hr 06/11/20 20:00 06/11/20 20:11 Pulse Rate 85 90 Blood Pressure 142/79 H Pulse Oximetry 94 98 <Jennifer Camargo MD - Last Filed: 06/12/20 03:47> Orders Ordered: ED Orders 06/11/20 19:35 Blood Culture Stat Discontinued Medications Sodium Chloride (Normal Saline 0.9%) 1,000 mls @ 1,000 mls/hr IV BOLUS ONE Stop: 06/11/20 17:09 Last Infusion: 06/11/20 17:49 Dose: 0 mls/hr Documented by: Admin: 06/11/20 16:25 Dose: 1,000 mls/hr Documented by: SIMONA Ceftriaxone Sodium/Dextrose (Rocephin) 2 gm in 50 mls @ 100 mls/hr IV NOW ONE Stop: 06/11/20 19:12 Last Infusion: 06/11/20 20:07 Dose: 0 mls/hr Documented by: Admin: 06/11/20 19:28 Dose: 100 mls/hr Documented by: HUBERT Sodium Chloride (Normal Saline 0.9%) 1,000 mls @ 500 mls/hr IV BOLUS ONE Stop: 06/11/20 20:50 Last Infusion: 06/11/20 20:07 Dose: 0 mls/hr Documented by: Admin: 06/11/20 19:00 Dose: 500 mls/hr Documented by: HUBERT Ondansetron HCl (Zofran) 4 mg IV NOW ONE Stop: 06/11/20 16:11 Last Admin: 06/11/20 16:25 Dose: 4 mg Documented by: SIMONA Ondansetron HCl (Zofran Odt Prepack) 1 bottle MISC SEEINSTR ONE Stop: 06/11/20 20:13 Last Admin: 06/11/20 20:16 Dose: 1 bottle Documented by: HUBERT Promethazine HCl (Phenergan) 25 mg PO NOW ONE Stop: 06/11/20 18:13 Last Admin: 06/11/20 18:20 Dose: 25 mg Documented by: HUBERT Vital Signs Vital signs: Vital Signs - 8 hr 06/11/20 20:00 06/11/20 20:11 Pulse Rate 85 90 Blood Pressure 142/79 H Pulse Oximetry 94 98 MDM - Nausea/Vomiting/Diarrhea <Nurys Jordan PA-C - Last Filed: 06/11/20 21:33> Differential Diagnosis Differential diagnosis: Likely gastroenteritis, dehydration and other (viral illness, UTI) Medical Records Attestation: I reviewed the patient's medical records. Lab Data Attestation: I reviewed the patient's lab results. Result diagrams: 06/11/20 16:05 06/11/20 16:05 Labs: Lab Results 06/11/20 06/11/20 06/11/20 Range/Units 16:05 16:05 16:05 WBC 9.1 (4.5-11.0) X10^3/uL RBC 4.12 (4.0-5.2) X10^6/uL Hgb 13.8 (12.0-16.0) g/dL Hct 39.7 (36-46) % MCV 96.4 (80-100) fL MCH 33.4 (26-34) PG MCHC 34.7 (30-36) % RDW 13.1 (11.6-14.8) % Plt Count 219 (150-400) X10^3/uL Neut % (Auto) 61.3 (50-75) % Lymph % (Auto) 28.6 (25-40) % [place] % (Auto) 9.0 (3-14) % Eos % (Auto) 0.4 L (2-4) % Baso % (Auto) 0.7 (0-2) % Neut # (Auto) 5600 (8414-5147) /uL Lymph # (Auto) 2600 (6917-6365) /uL [place] # (Auto) 800 (0-900) /uL Eos # (Auto) 0 (0-450) /uL Baso # (Auto) 100 (0-100) /uL Sodium 135 L (137-145) mmol/L Potassium 4.7 (3.4-5.1) mmol/L Chloride 102 (98-107) mmol/L Carbon Dioxide 24 (22-32) mmol/L BUN 20 H (7-17) mg/dL Creatinine 1.01 (0.52-1.04) mg/dL Estimated GFR 55.7 L (>60) mL/min BUN/Creatinine Ratio 19.8 (6-22) Glucose 90 (80-110) mg/dL Lactate (0.7-2.1) mmol/L Calcium 9.5 (8.4-10.2) mg/dL Total Bilirubin 0.9 (0.2-1.3) mg/dL AST 67 H (14-36) IU/L ALT 42 H (<35) IU/L Alkaline Phosphatase 99 (38-126) U/L Total Protein 8.4 H (6.3-8.2) g/dL Albumin 4.8 (3.5-5.0) g/dL Globulin 3.6 (1.7-4.1) g/dL Albumin/Globulin Ratio 1.3 (1.0-2.8) Lipase 129 (23-300) U/L Procalcitonin < 0.05 (<0.5) ng/mL Urine RBC (0-5/HPF) Urine WBC (0-5/HPF) Ur Squamous Epith Cells (0-5/HPF) Ur Transition Epith Cell (0-5/HPF) Urine Bacteria (None) Hyaline Casts (None) Ur Culture Indicated? Chlamy pneumoniae PCR (Not Detect) Adenovirus (PCR) (Not Detect) B.parapertussis DNA PCR (Not Detect) Coronavirus OC43 (PCR) (Not Detect) Coronavirus HKU1 (PCR) (Not Detect) Coronavirus 229E (PCR) (Not Detect) COVID-19 PCR (Negative) Coronavirus NL63 (PCR) (Not Detect) Human Metapneumovir PCR (Not Detect) Influenza Type A (PCR) (Not Detect) Influenza Type B (PCR) (Not Detect) M. pneumoniae (PCR) (Not Detect) Parainfluenza 1 (PCR) (Not Detect) Parainfluenza 2 (PCR) (Not Detect) Parainfluenza 3 (PCR) (Not Detect) Parainfluenza 4 (PCR) (Not Detect) RSV (PCR) (Not Detect) Entero/Rhino (PCR) (Not Detect) 06/11/20 06/11/20 06/11/20 Range/Units 16:05 16:20 16:50 WBC (4.5-11.0) X10^3/uL RBC (4.0-5.2) X10^6/uL Hgb (12.0-16.0) g/dL Hct (36-46) % MCV (80-100) fL MCH (26-34) PG MCHC (30-36) % RDW (11.6-14.8) % Plt Count (150-400) X10^3/uL Neut % (Auto) (50-75) % Lymph % (Auto) (25-40) % [place] % (Auto) (3-14) % Eos % (Auto) (2-4) % Baso % (Auto) (0-2) % Neut # (Auto) (5591-3473) /uL Lymph # (Auto) (5710-4992) /uL [place] # (Auto) (0-900) /uL Eos # (Auto) (0-450) /uL Baso # (Auto) (0-100) /uL Sodium (137-145) mmol/L Potassium (3.4-5.1) mmol/L Chloride (98-107) mmol/L Carbon Dioxide (22-32) mmol/L BUN (7-17) mg/dL Creatinine (0.52-1.04) mg/dL Estimated GFR (>60) mL/min BUN/Creatinine Ratio (6-22) Glucose (80-110) mg/dL Lactate 2.3 H (0.7-2.1) mmol/L Calcium (8.4-10.2) mg/dL Total Bilirubin (0.2-1.3) mg/dL AST (14-36) IU/L ALT (<35) IU/L Alkaline Phosphatase (38-126) U/L Total Protein (6.3-8.2) g/dL Albumin (3.5-5.0) g/dL Globulin (1.7-4.1) g/dL Albumin/Globulin Ratio (1.0-2.8) Lipase (23-300) U/L Procalcitonin (<0.5) ng/mL Urine RBC (0-5/HPF) Urine WBC (0-5/HPF) Ur Squamous Epith Cells (0-5/HPF) Ur Transition Epith Cell (0-5/HPF) Urine Bacteria (None) Hyaline Casts (None) Ur Culture Indicated? Chlamy pneumoniae PCR Not detected (Not Detect) Adenovirus (PCR) Not detected (Not Detect) B.parapertussis DNA PCR Not detected (Not Detect) Coronavirus OC43 (PCR) Not detected (Not Detect) Coronavirus HKU1 (PCR) Not detected (Not Detect) Coronavirus 229E (PCR) Not detected (Not Detect) COVID-19 PCR Negative (Negative) Coronavirus NL63 (PCR) Not detected (Not Detect) Human Metapneumovir PCR Not detected (Not Detect) Influenza Type A (PCR) Not detected (Not Detect) Influenza Type B (PCR) Not detected (Not Detect) M. pneumoniae (PCR) Not detected (Not Detect) Parainfluenza 1 (PCR) Not detected (Not Detect) Parainfluenza 2 (PCR) Not detected (Not Detect) Parainfluenza 3 (PCR) Not detected (Not Detect) Parainfluenza 4 (PCR) Not detected (Not Detect) RSV (PCR) Not detected (Not Detect) Entero/Rhino (PCR) Not detected (Not Detect) 06/11/20 06/11/20 06/11/20 Range/Units 17:35 19:26 19:26 WBC (4.5-11.0) X10^3/uL RBC (4.0-5.2) X10^6/uL Hgb (12.0-16.0) g/dL Hct (36-46) % MCV (80-100) fL MCH (26-34) PG MCHC (30-36) % RDW (11.6-14.8) % Plt Count (150-400) X10^3/uL Neut % (Auto) (50-75) % Lymph % (Auto) (25-40) % [place] % (Auto) (3-14) % Eos % (Auto) (2-4) % Baso % (Auto) (0-2) % Neut # (Auto) (4517-9664) /uL Lymph # (Auto) (6166-7843) /uL [place] # (Auto) (0-900) /uL Eos # (Auto) (0-450) /uL Baso # (Auto) (0-100) /uL Sodium (137-145) mmol/L Potassium (3.4-5.1) mmol/L Chloride (98-107) mmol/L Carbon Dioxide (22-32) mmol/L BUN (7-17) mg/dL Creatinine (0.52-1.04) mg/dL Estimated GFR (>60) mL/min BUN/Creatinine Ratio (6-22) Glucose (80-110) mg/dL Lactate Cancelled 0.7 (0.7-2.1) mmol/L Calcium (8.4-10.2) mg/dL Total Bilirubin (0.2-1.3) mg/dL AST (14-36) IU/L ALT (<35) IU/L Alkaline Phosphatase (38-126) U/L Total Protein (6.3-8.2) g/dL Albumin (3.5-5.0) g/dL Globulin (1.7-4.1) g/dL Albumin/Globulin Ratio (1.0-2.8) Lipase (23-300) U/L Procalcitonin (<0.5) ng/mL Urine RBC 0-1/hpf (0-5/HPF) Urine WBC 5-10/hpf H (0-5/HPF) Ur Squamous Epith Cells 1-5 /hpf (0-5/HPF) Ur Transition Epith Cell 0-1/hpf (0-5/HPF) Urine Bacteria Moderate (10-30) H (None) Hyaline Casts 1-5/lpf (None) Ur Culture Indicated? Specimen cultured Chlamy pneumoniae PCR (Not Detect) Adenovirus (PCR) (Not Detect) B.parapertussis DNA PCR (Not Detect) Coronavirus OC43 (PCR) (Not Detect) Coronavirus HKU1 (PCR) (Not Detect) Coronavirus 229E (PCR) (Not Detect) COVID-19 PCR (Negative) Coronavirus NL63 (PCR) (Not Detect) Human Metapneumovir PCR (Not Detect) Influenza Type A (PCR) (Not Detect) Influenza Type B (PCR) (Not Detect) M. pneumoniae (PCR) (Not Detect) Parainfluenza 1 (PCR) (Not Detect) Parainfluenza 2 (PCR) (Not Detect) Parainfluenza 3 (PCR) (Not Detect) Parainfluenza 4 (PCR) (Not Detect) RSV (PCR) (Not Detect) Entero/Rhino (PCR) (Not Detect) Urine Dip Bedside Urine Glucose Negative Bedside Urine Bilirubin - Negative Bedside Urine Ketone + 15 Urine Specific [place] 1.020 Bedside Urine Occult Blood +/- Bedside Urine pH 6.0 Bedside Urine Protein + 30 Bedside Urine Urobilinogen - Negative Bedside Urine Nitrite - Negative Bedside Urine Leukocytes + 70 Esterase Imaging Data Chest x-ray: Attestation: I personally reviewed and interpreted this imaging study as follows: Radiologist's Impression: [address] [address] XRay Report Signed Patient: Kailyn Nixon JMR#: [id number] : 9Acct:[id number] Age/Sex: 59 / FDate of Service: 06/11/20 Loc: ED Accession Number: [id number] Procedure: XR chest 2V Ordering Provider: Nurys Jordan P.A-C PROCEDURE: XR CHEST 2V INDICATIONS: suspect pneumonia (COVID/Flu R/O patient) TECHNIQUE: 2 views of the chest were acquired. COMPARISON: [facility], CT, CT CHEST W CON, 09/13/2019, 15:05. FINDINGS: Surgical changes and devices: Stable postoperative changes of likely partial mastectomy with nodular density and surgical clips projecting over the inferior lateral margin of the right breast. Lungs and pleura: Lungs are clear. No pleural effusions or pneumothorax. Mediastinum: Mediastinal contours are normal. Heart size is normal. Bones and chest wall: No suspicious bony abnormalities. Soft tissues appear unremarkable. IMPRESSION: Chest without acute cardiopulmonary abnormalities or focal airspace disease. Dictated by: Tj Barrios M.D. on 06/11/2020 at 17:01 Approved by: Tj Barrios M.D. on 06/11/2020 at 17:04 [facility] Narrative Medical decision making narrative: This is a slightly ill and uncomfortable appearing 59-year-old woman with a history of breast cancer, open wound of breast, JAGDISH and COPD who presents to the emergency department complaining of 1 week of flu-like symptoms including nausea, vomiting, diarrhea chills and fever. She presented to the emergency department because she felt her symptoms were not improving and might be slightly worsening. Her nausea has been significant today. She has not had any abdominal pain or chest pain, has been able to aurea ate some fluids but limited food. Wound of her right axilla was concerning for a possible source of infection however based on patient and 's report this has been unchanged she has been following with Wound Care appointment 1 week ago, I have fairly low concern that this is the source of her symptoms. Blood cultures were obtained prior to antibiotics. Labs and imaging including respiratory panel returned largely unremarkable with exception of slightly elevated lactic, and she also had evidence of a UTI. She was treated with fluid bolus, lactate was reassessed and had improved significantly, she was also treated with ceftriaxone IV for her UTI, and had no evidence of a reaction to this medication (penicillin allergy), nausea was controlled with Phenergan and Zofran. Patient was feeling very much improved after treatment and desired to go home, based on her labs and exam I was comfortable with this, and the significant improvement of her repeat lactate. I suspect she has been suffering from some dehydration, in addition to her UTI, however there was no evidence of urosepsis. Considered pneumonia and COPD exacerbation however I suspect her recent coughing which has been present for a month now is due to her quitting cigarettes a month ago, no evidence of pneumonia on x-ray. Curb 65 score is 1. She remained afebrile at time of discharge. Patient discharged home to the care of her plan for close PCP follow up, return with any new or worsening symptoms or lack of resolution of symptoms, emergency return precautions discussed, all questions answered. <Jennifer Camargo MD - Last Filed: 06/12/20 03:47> Lab Data Labs: Lab Results 06/11/20 06/11/20 06/11/20 Range/Units 16:05 16:05 16:05 WBC 9.1 (4.5-11.0) X10^3/uL RBC 4.12 (4.0-5.2) X10^6/uL Hgb 13.8 (12.0-16.0) g/dL Hct 39.7 (36-46) % MCV 96.4 (80-100) fL MCH 33.4 (26-34) PG MCHC 34.7 (30-36) % RDW 13.1 (11.6-14.8) % Plt Count 219 (150-400) X10^3/uL Neut % (Auto) 61.3 (50-75) % Lymph % (Auto) 28.6 (25-40) % [place] % (Auto) 9.0 (3-14) % Eos % (Auto) 0.4 L (2-4) % Baso % (Auto) 0.7 (0-2) % Neut # (Auto) 5600 (8346-0583) /uL Lymph # (Auto) 2600 (9365-1799) /uL [place] # (Auto) 800 (0-900) /uL Eos # (Auto) 0 (0-450) /uL Baso # (Auto) 100 (0-100) /uL Sodium 135 L (137-145) mmol/L Potassium 4.7 (3.4-5.1) mmol/L Chloride 102 (98-107) mmol/L Carbon Dioxide 24 (22-32) mmol/L BUN 20 H (7-17) mg/dL Creatinine 1.01 (0.52-1.04) mg/dL Estimated GFR 55.7 L (>60) mL/min BUN/Creatinine Ratio 19.8 (6-22) Glucose 90 (80-110) mg/dL Lactate (0.7-2.1) mmol/L Calcium 9.5 (8.4-10.2) mg/dL Total Bilirubin 0.9 (0.2-1.3) mg/dL AST 67 H (14-36) IU/L ALT 42 H (<35) IU/L Alkaline Phosphatase 99 (38-126) U/L Total Protein 8.4 H (6.3-8.2) g/dL Albumin 4.8 (3.5-5.0) g/dL Globulin 3.6 (1.7-4.1) g/dL Albumin/Globulin Ratio 1.3 (1.0-2.8) Lipase 129 (23-300) U/L Procalcitonin < 0.05 (<0.5) ng/mL Urine RBC (0-5/HPF) Urine WBC (0-5/HPF) Ur Squamous Epith Cells (0-5/HPF) Ur Transition Epith Cell (0-5/HPF) Urine Bacteria (None) Hyaline Casts (None) Ur Culture Indicated? Chlamy pneumoniae PCR (Not Detect) Adenovirus (PCR) (Not Detect) B.parapertussis DNA PCR (Not Detect) Coronavirus OC43 (PCR) (Not Detect) Coronavirus HKU1 (PCR) (Not Detect) Coronavirus 229E (PCR) (Not Detect) COVID-19 PCR (Negative) Coronavirus NL63 (PCR) (Not Detect) Human Metapneumovir PCR (Not Detect) Influenza Type A (PCR) (Not Detect) Influenza Type B (PCR) (Not Detect) M. pneumoniae (PCR) (Not Detect) Parainfluenza 1 (PCR) (Not Detect) Parainfluenza 2 (PCR) (Not Detect) Parainfluenza 3 (PCR) (Not Detect) Parainfluenza 4 (PCR) (Not Detect) RSV (PCR) (Not Detect) Entero/Rhino (PCR) (Not Detect) 06/11/20 06/11/20 06/11/20 Range/Units 16:05 16:20 16:50 WBC (4.5-11.0) X10^3/uL RBC (4.0-5.2) X10^6/uL Hgb (12.0-16.0) g/dL Hct (36-46) % MCV (80-100) fL MCH (26-34) PG MCHC (30-36) % RDW (11.6-14.8) % Plt Count (150-400) X10^3/uL Neut % (Auto) (50-75) % Lymph % (Auto) (25-40) % [place] % (Auto) (3-14) % Eos % (Auto) (2-4) % Baso % (Auto) (0-2) % Neut # (Auto) (9498-4078) /uL Lymph # (Auto) (4750-5347) /uL [place] # (Auto) (0-900) /uL Eos # (Auto) (0-450) /uL Baso # (Auto) (0-100) /uL Sodium (137-145) mmol/L Potassium (3.4-5.1) mmol/L Chloride (98-107) mmol/L Carbon Dioxide (22-32) mmol/L BUN (7-17) mg/dL Creatinine (0.52-1.04) mg/dL Estimated GFR (>60) mL/min BUN/Creatinine Ratio (6-22) Glucose (80-110) mg/dL Lactate 2.3 H (0.7-2.1) mmol/L Calcium (8.4-10.2) mg/dL Total Bilirubin (0.2-1.3) mg/dL AST (14-36) IU/L ALT (<35) IU/L Alkaline Phosphatase (38-126) U/L Total Protein (6.3-8.2) g/dL Albumin (3.5-5.0) g/dL Globulin (1.7-4.1) g/dL Albumin/Globulin Ratio (1.0-2.8) Lipase (23-300) U/L Procalcitonin (<0.5) ng/mL Urine RBC (0-5/HPF) Urine WBC (0-5/HPF) Ur Squamous Epith Cells (0-5/HPF) Ur Transition Epith Cell (0-5/HPF) Urine Bacteria (None) Hyaline Casts (None) Ur Culture Indicated? Chlamy pneumoniae PCR Not detected (Not Detect) Adenovirus (PCR) Not detected (Not Detect) B.parapertussis DNA PCR Not detected (Not Detect) Coronavirus OC43 (PCR) Not detected (Not Detect) Coronavirus HKU1 (PCR) Not detected (Not Detect) Coronavirus 229E (PCR) Not detected (Not Detect) COVID-19 PCR Negative (Negative) Coronavirus NL63 (PCR) Not detected (Not Detect) Human Metapneumovir PCR Not detected (Not Detect) Influenza Type A (PCR) Not detected (Not Detect) Influenza Type B (PCR) Not detected (Not Detect) M. pneumoniae (PCR) Not detected (Not Detect) Parainfluenza 1 (PCR) Not detected (Not Detect) Parainfluenza 2 (PCR) Not detected (Not Detect) Parainfluenza 3 (PCR) Not detected (Not Detect) Parainfluenza 4 (PCR) Not detected (Not Detect) RSV (PCR) Not detected (Not Detect) Entero/Rhino (PCR) Not detected (Not Detect) 06/11/20 06/11/20 06/11/20 Range/Units 17:35 19:26 19:26 WBC (4.5-11.0) X10^3/uL RBC (4.0-5.2) X10^6/uL Hgb (12.0-16.0) g/dL Hct (36-46) % MCV (80-100) fL MCH (26-34) PG MCHC (30-36) % RDW (11.6-14.8) % Plt Count (150-400) X10^3/uL Neut % (Auto) (50-75) % Lymph % (Auto) (25-40) % [place] % (Auto) (3-14) % Eos % (Auto) (2-4) % Baso % (Auto) (0-2) % Neut # (Auto) (2610-5661) /uL Lymph # (Auto) (6248-9004) /uL [place] # (Auto) (0-900) /uL Eos # (Auto) (0-450) /uL Baso # (Auto) (0-100) /uL Sodium (137-145) mmol/L Potassium (3.4-5.1) mmol/L Chloride (98-107) mmol/L Carbon Dioxide (22-32) mmol/L BUN (7-17) mg/dL Creatinine (0.52-1.04) mg/dL Estimated GFR (>60) mL/min BUN/Creatinine Ratio (6-22) Glucose (80-110) mg/dL Lactate Cancelled 0.7 (0.7-2.1) mmol/L Calcium (8.4-10.2) mg/dL Total Bilirubin (0.2-1.3) mg/dL AST (14-36) IU/L ALT (<35) IU/L Alkaline Phosphatase (38-126) U/L Total Protein (6.3-8.2) g/dL Albumin (3.5-5.0) g/dL Globulin (1.7-4.1) g/dL Albumin/Globulin Ratio (1.0-2.8) Lipase (23-300) U/L Procalcitonin (<0.5) ng/mL Urine RBC 0-1/hpf (0-5/HPF) Urine WBC 5-10/hpf H (0-5/HPF) Ur Squamous Epith Cells 1-5 /hpf (0-5/HPF) Ur Transition Epith Cell 0-1/hpf (0-5/HPF) Urine Bacteria Moderate (10-30) H (None) Hyaline Casts 1-5/lpf (None) Ur Culture Indicated? Specimen cultured Chlamy pneumoniae PCR (Not Detect) Adenovirus (PCR) (Not Detect) B.parapertussis DNA PCR (Not Detect) Coronavirus OC43 (PCR) (Not Detect) Coronavirus HKU1 (PCR) (Not Detect) Coronavirus 229E (PCR) (Not Detect) COVID-19 PCR (Negative) Coronavirus NL63 (PCR) (Not Detect) Human Metapneumovir PCR (Not Detect) Influenza Type A (PCR) (Not Detect) Influenza Type B (PCR) (Not Detect) M. pneumoniae (PCR) (Not Detect) Parainfluenza 1 (PCR) (Not Detect) Parainfluenza 2 (PCR) (Not Detect) Parainfluenza 3 (PCR) (Not Detect) Parainfluenza 4 (PCR) (Not Detect) RSV (PCR) (Not Detect) Entero/Rhino (PCR) (Not Detect) Urine Dip Bedside Urine Glucose Negative Bedside Urine Bilirubin - Negative Bedside Urine Ketone + 15 Urine Specific [place] 1.020 Bedside Urine Occult Blood +/- Bedside Urine pH 6.0 Bedside Urine Protein + 30 Bedside Urine Urobilinogen - Negative Bedside Urine Nitrite - Negative Bedside Urine Leukocytes + 70 Esterase Discharge Plan Departure Patient Disposition: Home Clinical Impression: Nausea, Chills Urinary tract infection Qualifiers: Urinary tract infection type: acute cystitis Hematuria presence: without hematuria Qualified Code(s): N30.00 - Acute cystitis without hematuria Discharge Date/Time: 06/11/20 20:25 Instructions: DI for Urinary Tract Infection (UTI), DI for Nausea -- Adult Activity Restrictions/Additional Instructions: Thank you for letting us to be part of your care in the emergency department today. Most of your labs look good, however you do have a urinary tract infection we treated this today in the emergency department with IV antibiotics. Your respiratory virus panel was negative, it is possible that you have been dealing with a gastrointestinal bug in addition to your UTI but sometimes UTIs can cause the symptoms you have been experiencing as well. I recommend that you stay hydrated eat small simple meals and I have also prescribed antinausea medicine for you. Please do pay close attention to her symptoms and if you feel that you are not improving or if you are having any new or worsening symptoms please do not hesitate to come back for re-evaluation. There is no evidence of an emergent or life threatening illness at this time, but follow up with your doctor in 1-2 days is recommended nonetheless to continue to rule out serious underlying causes of your symptoms. Please call the office for an appointment. Please return to the Emergency Department for any worsening or persistent symptoms. Please take medications as directed. Prescriptions: New metoclopramide HCl [Reglan] 5 mg tablet 5 mg PO Q6H Qty: 30 RF: 0 No Action anastrozole 1 mg Tablet 1 mg PO DAILY RF: 0 ibuprofen 200 mg Capsule 200 mg PO TID-QID PRN (Reason: pain) RF: 0 alprazolam 0.5 mg Tablet 0.5 mg PO DAILY PRN (Reason: Anxiety) RF: 0 trospium 60 mg Capsule,Extended Release 24hr 60 mg PO BEDTIME RF: 0 nicotine 21 mg Topical DAILY RF: 0 hydrocodone-acetaminophen [[place]] 5-325 mg tablet 1 tab PO Q6H PRN (Reason: pain) Qty: 5 RF: 0 spironolactone 25 mg Tablet 25 mg PO DAILY RF: 0 calcium carbonate [Calcium 600] 600 mg calcium (1,500 mg) Tablet 600 mg PO DAILY RF: 0 telmisartan 80 mg Tablet 80 mg PO DAILY RF: 0 omeprazole 20 mg Capsule,Delayed Release(Dr/Ec) 20 mg PO DAILY RF: 0 cholecalciferol (vitamin D3) [Vitamin D3] 1,000 unit Capsule 1,000 unit PO DAILY RF: 0 ciclesonide [[place]] 160 mcg/actuation Hfa Aerosol Inhaler 1 puff INHALATION BID RF: 0 trazodone 100 mg tablet 200 mg PO BEDTIME RF: 0 beclomethasone dipropionate [Qvar RediHaler] 80 mcg/actuation HFA aerosol breath activated 1 puff Inhalation DIRECTED RF: 0 citalopram 40 mg tablet 40 mg PO DAILY RF: 0 Referrals: Christy Espinoza MD [Primary Care Provider] - <Jennifer Camargo MD - Last Filed: 06/12/20 03:47> Cosign ED Attending Cosignature Attestation: I was immediately available in the department for consultation throughout this patient's visit. I agree with documentation as above. Jennifer Camargo MD
[2020-06-11 16:22] LABS: Add Manual Diff / Slide Review NO; Basophils Absolute Auto 100 /uL (0-100); Basophils Percent Auto 0.7 % (0-2); Eosinophils Absolute Auto 0 /uL (0-450); Eosinophils Percent Auto 0.4 % (2-4); Hematocrit 39.7 % (36-46); Hemoglobin 13.8 g/dL (12.0-16.0); Lymphocytes Absolute Auto 2600 /uL (1100-4500); Lymphocytes Percent Auto 28.6 % (25-40); Mean Corpuscular HGB Conc 34.7 % (30-36); Mean Corpuscular Hemoglobin 33.4 PG (26-34); Mean Corpuscular Volume 96.4 fL (80-100); Monocytes Absolute Auto 800 /uL (0-900); Neutrophils Absolute Auto 5600 /uL (1500-7000); Neutrophils Percent Auto 61.3 % (50-75); Platelet Count 219 X10^3/uL (150-400); Red Blood Cell Count 4.12 X10^6/uL (4.0-5.2); Red Cell Distribution Width 13.1 % (11.6-14.8); White Blood Cell Count 9.1 X10^3/uL (4.5-11.0)
[2020-06-11] MEDS: ONDANSETRON 4 MG/2 ML INJ IV (16:25)
[2020-06-11] MEDS: SODIUM CHLORIDE 0.9% 1,000 ML 1000 ML IV (16:25)
[2020-06-11 16:32] LABS: Alanine Aminotransferase 42 IU/L (<35); Albumin 4.8 g/dL (3.5-5.0); Albumin Globulin Ratio 1.3 (1.0-2.8); Alkaline Phosphatase 99 U/L (38-126); Aspartate Aminotransferase 67 IU/L (14-36); BUN Creatinine Ratio 19.8 (6-22); Bilirubin Total 0.9 mg/dL (0.2-1.3); Blood Urea Nitrogen 20 mg/dL (7-17); Calcium 9.5 mg/dL (8.4-10.2); Carbon Dioxide 24 mmol/L (22-32); Chloride 102 mmol/L (98-107); Estimated Glomerular Filt Rate 55.7 mL/min (>60); Globulin 3.6 g/dL (1.7-4.1); Glucose 90 mg/dL (80-110); HEMOLYSIS < 15 (0-50); Lipase 129 U/L (23-300); Potassium 4.7 mmol/L (3.4-5.1); Sodium 135 mmol/L (137-145); Total Protein 8.4 g/dL (6.3-8.2)
--- NOTE | 2020-06-11 16:42 | DI.RAD.S_ITS ---
PROCEDURE: XR CHEST 2V INDICATIONS: suspect pneumonia (COVID/Flu R/O patient) TECHNIQUE: 2 views of the chest were acquired. COMPARISON: [facility], CT, CT CHEST W CON, 09/13/2019, 15:05. FINDINGS: Surgical changes and devices: Stable postoperative changes of likely partial mastectomy with nodular density and surgical clips projecting over the inferior lateral margin of the right breast. Lungs and pleura: Lungs are clear. No pleural effusions or pneumothorax. Mediastinum: Mediastinal contours are normal. Heart size is normal. Bones and chest wall: No suspicious bony abnormalities. Soft tissues appear unremarkable. IMPRESSION: Chest without acute cardiopulmonary abnormalities or focal airspace disease. Dictated by: Tj Barrios M.D. on 06/11/2020 at 17:01 Approved by: Tj Barrios M.D. on 06/11/2020 at 17:04
[2020-06-11 17:18] LABS: COVID19 -Nasal RAPID Negative (Negative)
[2020-06-11 17:21] LABS: Lactate (Lactic Acid) 2.3 mmol/L (0.7-2.1)
[2020-06-11 17:38] LABS: Procalcitonin < 0.05 ng/mL (<0.5)
--- NOTE | 2020-06-11 17:39 | PC.NURSE ---
Pt reports 1 year history of wound in right axilla related to a failed skin graft. Working with specialist at , states I've had over 40 hyperbaric treatments that didn't do anything. There is some yellow slough present. Pt reports no changes in appearance of wound or pain level. Spouse concurs that it looks the same as well. Axilla is tender to touch above the wound.
[2020-06-11 17:49] LABS: Adenovirus Not Detected (Not Detect); Bordetella pertussis Not Detected (Not Detect); Chlamydophila pneumoniae Not Detected (Not Detect); Coronavirus 229E Not Detected (Not Detect); Coronavirus HKU1 Not Detected (Not Detect); Coronavirus NL 63 Not Detected (Not Detect); Coronavirus OC43 Not Detected (Not Detect); Human Metapneumovirus Not Detected (Not Detect); Human Rhinovirus/Enterovirus Not Detected (Not Detect); Influenza A Not Detected (Not Detect); Influenza B Not Detected (Not Detect); Mycoplasma pneumoniae Not Detected (Not Detect); Parainfluenza Virus 1 Not Detected (Not Detect); Parainfluenza Virus 2 Not Detected (Not Detect); Parainfluenza Virus 3 Not Detected (Not Detect); Parainfluenza Virus 4 Not Detected (Not Detect); Respiratory Syncytial Virus Not Detected (Not Detect)
[2020-06-11 18:20] LABS: Bacteria Urine Moderate (10-30); Culture Indicated Urine Specimen Cultured; Hyaline Casts Urine 1-5/LPF; RBC Urine 0-1/HPF (0-5/HPF); Squamous Epithelial Cell Urine 1-5 /HPF (0-5/HPF); Transitional Epi Cells Urine 0-1/HPF (0-5/HPF); WBC Urine 5-10/HPF (0-5/HPF)
[2020-06-11] MEDS: PROMETHAZINE 25 MG TABLET PO (18:20)
[2020-06-11 19:00] LABS: Reflexed Lactate in 2 Hours Y
[2020-06-11] MEDS: SODIUM CHLORIDE 0.9% 1,000 ML 500 ML IV (19:00)
[2020-06-11] MEDS: CEFTRIAXONE 2 GM/50 ML FROZ.PIGGY IV (19:28)
[2020-06-11 19:55] LABS: Lactate 2HR (Lactic Acid Rflx) 0.7 mmol/L (0.7-2.1)
[2020-06-11] MEDS: ONDANSETRON 4 MG ODT PREPACK 1 BOTTLE MISC (20:16)
== END 2020-06-11 20:25 | disposition home or self-care (01) ==
PROVIDERS: Emergency Provider Student in an Organized Health Care Education/Training Program; PCP Internal Medicine
DX: N30.00 Acute cystitis without hematuria (principal); R11.0 Nausea; R19.7 Diarrhea, unspecified; R50.9 Fever, unspecified; R05 Cough; R68.89 Other general symptoms and signs
CPT/HCPCS: 36415; 71046; 80053; 81003; 81015; 83605; 83690; 84145; 85025; 87040; 87045; 87077; 87086; 87147; 87633; 87635; 87899; 96361; 96365; 96375; 99284; J0696; J2405

== ENCOUNTER → 2020-06-19 11:38 | Outpatient (CLI) | payer MEDICARE, BC, SELFPAY ==
[2018-07-13 11:43] VITALS: BMI 25.3
[2020-06-20 12:08] LABS: Fats, Neutral Normal (.); Fats, Total Normal (.)
== END ==
PROVIDERS: PCP Internal Medicine; Referring Provider Internal Medicine; Visit Provider Internal Medicine
DX: R19.7 Diarrhea, unspecified (principal)
CPT/HCPCS: 82705; 87205

== ENCOUNTER → 2020-07-07 19:15 | Outpatient (ROUT) | payer MEDICARE, BC, SELFPAY ==
[2018-07-13 11:43] VITALS: BMI 25.3
== END ==
PROVIDERS: PCP Internal Medicine; Visit Provider Internal Medicine
DX: R30.0 Dysuria (principal)
CPT/HCPCS: 87086

== ENCOUNTER 2020-08-01 11:10 | Emergency (ER) | payer MEDICARE, BC, SELFPAY ==
[2018-07-13 11:43] VITALS: BMI 25.3
[2020-08-01] VITALS (16 sets, daily range): BP systolic 112–178; BP diastolic 66–96; PULSE 90–114; RESP 13–35; TEMP 36.6; O2SAT 93–99; BMI 25.7
--- NOTE | 2020-08-01 12:41 | ED_ITS ---
HPI - Nausea/Vomiting/Diarrhea <Minna Centeno, CORPORATE CONSULTANT-BC - Last Filed: 08/01/20 19:13> General Chief complaint: Nausea/Vomiting/Diarrhea Stated complaint: vomiting/diarrhea/chills/fever Time Seen by Provider: 08/01/20 12:21 Source: patient Mode of arrival: Ambulatory Limitations: no limitations History of Present Illness HPI Narrative: The patient is a 59-year-old female former smoker with history of nonhealing wound in her right axilla after breast cancer reconstruction that has been present for over a year, history of urinary tract infection who presents with a chief complaint of nausea vomiting and diarrhea ongoing for the past 4 days. Might of initially started 1 week ago, then she 3 to 4 days ago she developed diarrhea shaking and chills. She denies any fevers, but complains of shakes muscle aches and chills. She denies any dysuria urgency or frequency. She states she has been on multiple antibiotics for the nonhealing wound, including is ciprofloxacin, clindamycin. Primary care providers concerned about C diff. she denies any blood in her stool. She states she feels incredibly drained. Denies any chest pain, cough or shortness of breath. Patient states that she is supposed to have surgery regarding her nonhealing wound in a few weeks. Does not believe that this is the cause of her illness as she has had this for over year. Related Data Home Medications Medication Instructions Recorded Confirmed calcium carbonate [Calcium 600] 600 mg PO DAILY 02/01/18 12/12/19 cholecalciferol (vitamin D3) 1,000 unit PO DAILY 02/01/18 12/12/19 [Vitamin D3] ciclesonide [Alvesco] 1 puff INHALATION BID 02/01/18 12/12/19 omeprazole 20 mg PO DAILY 02/01/18 12/12/19 spironolactone 25 mg PO DAILY 02/01/18 12/12/19 telmisartan 80 mg PO DAILY 02/01/18 12/12/19 alprazolam 0.5 mg PO DAILY PRN 06/28/18 12/12/19 anastrozole 1 mg PO DAILY 06/28/18 12/12/19 ibuprofen 200 mg PO TID-QID PRN 06/28/18 12/12/19 trospium 60 mg PO BEDTIME 06/28/18 12/12/19 nicotine 21 mg TOPICAL DAILY 07/13/18 12/12/19 beclomethasone dipropionate [Qvar 1 puff INHALATION DIRECTED 10/10/18 12/12/19 RediHaler] trazodone 200 mg PO BEDTIME 10/10/18 12/12/19 citalopram 40 mg tablet 40 mg PO DAILY tab 03/20/19 12/12/19 Previous Rx's Medication Instructions Recorded hydrocodone-acetaminophen [Bishop] 1 tab PO Q6H PRN #5 tab 05/19/19 metoclopramide HCl [Reglan] 5 mg PO Q6H #30 tab 06/11/20 metoclopramide HCl 10 mg PO Q6H PRN #20 tab 08/01/20 ondansetron 4 mg PO Q6H PRN #20 tab 08/01/20 Allergies Allergy/AdvReac Type Severity Reaction Status Date / Time naproxen Allergy Severe Hives Verified 06/11/20 15:39 Penicillins Allergy Severe Hives Verified 06/11/20 15:39 Sulfa (Sulfonamide Allergy Severe Hives Verified 06/11/20 15:39 Antibiotics) Review of Systems <DAMARIS Durand - Last Filed: 08/01/20 19:13> Review of Systems Narrative: GENERAL: See HPI HEENT: Denies sinus pain, ear pain, sore throat, difficulty swallowing, dizziness. RESPIRATORY: Denies dyspnea, cough, wheezing, hemoptysis, sputum. CARDIOVASCULAR: Denies chest pain, palpitations, orthopnea, edema, GASTROINTESTINAL: See HPI : Denies dysuria, frequency, incontinence, hematuria, urinary retention. MUSCULOSKELETAL: denies weakness, joint pain, or bony pain SKIN: Denies rash, skin lesions, or other NEUROLOGIC: Denies weakness, headache, numbness, change in speech, confusion, seizures, incoordination. PSYCHIATRIC: No concerning psychosocial issues. 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) Depression (Acute) Edema (Acute) Excessive daytime sleepiness (Inactive) GERD (gastroesophageal reflux disease) (Acute) HTN (hypertension) (Acute) Hyperlipidemia (Acute) Low back pain (Acute) Neck pain (Acute) Nocturnal hypoxemia (Chronic) Obstructive sleep apnea of adult (Chronic) Osteoarthritis (Acute) Overactive bladder (Acute) Primary insomnia (Chronic) Tobacco abuse disorder (Acute) Surgical History H/O colonoscopy (Acute) History of appendectomy (Acute) History of cholecystectomy (Acute) S/P arthroscopy of right shoulder (Acute) Status post arthroscopy of hip (Acute) Family History Other Family history non-contributory Social History household members: spouse Smoking Status: Former smoker alcohol intake: current (2-3 drinks nightly) Smoking Status: Former smoker alcohol intake frequency: 3 or more drinks per day Alcohol type: wine Substance Use Type: marijuana Exam <DAMARIS Durand - Last Filed: 08/01/20 19:13> Narrative Exam Narrative: GENERAL: This is a well-nourished, well-developed patient, appears very fatigued HEAD: Atraumatic. Normocephalic. No temporal or scalp tenderness. EYES: Pupils equal round and reactive. Extraocular motions intact. No scleral icterus. No injection or drainage. ENT: Nose without bleeding, purulent drainage or septal hematoma. Throat without erythema, tonsillar hypertrophy or exudate. Uvula midline. Airway patent. Dry mucous membranes. NECK: Trachea midline. No JVD or lymphadenopathy. Supple, nontender, no meningeal signs. CARDIOVASCULAR: Regular rate and rhythm RESPIRATORY: Clear to auscultation. Breath sounds equal bilaterally. No wheezes, rales, or rhonchi. No cough. No increased respiratory effort no accessory muscle use. GASTROINTESTINAL: Abdomen soft, non-tender, nondistended. No hepato- splenomegaly, or palpable masses. No guarding. Active bowel sounds all 4 quadrants. EXTREMITIES: No clubbing, cyanosis, or edema. No joint tenderness, effusion, or edema noted. BACK: Nontender without deformity or crepitance. No flank tenderness. NEURO: AOx3. SKIN: She has a 2 x 3 cm nonhealing wound in her right axilla, no surrounding erythema, granulation tissue noted. Initial Vital Signs Initial Vital Signs: Vital Signs Temperature 97.8 F 08/01/20 11:45 Pulse Rate 114 H 08/01/20 11:45 Respiratory Rate 08/01/20 11:45 Blood Pressure 134/95 H 08/01/20 11:45 Pulse Oximetry 97 08/01/20 11:45 <Cindy Rivers DO - Last Filed: 08/02/20 07:33> Initial Vital Signs Initial Vital Signs: Vital Signs Temperature 97.8 F 08/01/20 11:45 Pulse Rate 114 H 08/01/20 11:45 Respiratory Rate 08/01/20 11:45 Blood Pressure 134/95 H 08/01/20 11:45 Pulse Oximetry 97 08/01/20 11:45 Scores <DAMARIS Durand - Last Filed: 08/01/20 19:13> GCS [place] coma scale eye opening: Spontaneous [place] coma scale verbal response: Orientated [place] coma scale motor response: Obey commands [place] coma scale total score: 15 Course <DAMARIS Durand - Last Filed: 08/01/20 19:13> Orders Ordered: Discontinued Medications Sodium Chloride (Normal Saline 0.9%) 1,000 mls @ 1,000 mls/hr IV BOLUS ONE Stop: 08/01/20 13:35 Last Infusion: 08/01/20 15:04 Dose: 0 mls/hr Documented by: AMRY JANE Admin: 08/01/20 13:33 Dose: 1,000 mls/hr Documented by: RMARTIN Sodium Chloride (Normal Saline 0.9%) 1,000 mls @ 1,000 mls/hr IV BOLUS ONE Stop: 08/01/20 14:32 Last Infusion: 08/01/20 15:16 Dose: 0 mls/hr Documented by: MARY JANE Admin: 08/01/20 14:15 Dose: 1,000 mls/hr Documented by: MARY JANE Sodium Chloride (Normal Saline 0.9%) 1,000 mls @ 150 mls/hr IV CONT JOSE Last Admin: 08/01/20 17:36 Dose: 150 mls/hr Documented by: MARY JANE Metoclopramide HCl (Reglan) 10 mg IV NOW ONE Stop: 08/01/20 17:03 Last Admin: 08/01/20 17:36 Dose: 10 mg Documented by: MARY JANE Ondansetron HCl (Zofran) 4 mg IV NOW ONE Stop: 08/01/20 12:37 Last Admin: 08/01/20 13:33 Dose: 4 mg Documented by: FUENTES Ondansetron HCl (Zofran) 4 mg IV NOW ONE Stop: 08/01/20 14:57 Last Admin: 08/01/20 15:05 Dose: 4 mg Documented by: MARY JANE Vital Signs Vital signs: Vital Signs - 8 hr 08/01/20 11:45 08/01/20 13:30 08/01/20 14:00 Temperature 97.8 F Pulse Rate 114 H 102 H 98 H Respiratory Rate 20 16 Blood Pressure 134/95 H 112/73 119/66 Pulse Oximetry 97 98 98 08/01/20 14:30 08/01/20 14:32 08/01/20 15:09 Temperature Pulse Rate 96 H 92 H 101 H Respiratory Rate 21 13 35 H Blood Pressure 142/76 H Pulse Oximetry 94 97 98 08/01/20 15:12 08/01/20 15:30 08/01/20 16:00 Temperature Pulse Rate 95 H 92 H 102 H Respiratory Rate 20 15 22 Blood Pressure 163/96 H 161/83 H Pulse Oximetry 99 93 99 08/01/20 16:01 08/01/20 16:30 08/01/20 17:00 Temperature Pulse Rate 103 H 90 97 H Respiratory Rate 26 H 15 21 Blood Pressure 159/82 H Pulse Oximetry 98 08/01/20 17:30 08/01/20 17:41 08/01/20 18:00 Temperature Pulse Rate 98 H 95 H 113 H Respiratory Rate 17 18 31 H Blood Pressure 141/87 H Pulse Oximetry 98 97 08/01/20 18:01 Temperature Pulse Rate 98 H Respiratory Rate 17 Blood Pressure 178/75 H Pulse Oximetry 96 <Cindy Rivers DO - Last Filed: 08/02/20 07:33> Orders Ordered: Discontinued Medications Sodium Chloride (Normal Saline 0.9%) 1,000 mls @ 1,000 mls/hr IV BOLUS ONE Stop: 08/01/20 13:35 Last Infusion: 08/01/20 15:04 Dose: 0 mls/hr Documented by: MARY JANE Admin: 08/01/20 13:33 Dose: 1,000 mls/hr Documented by: FUENTES Sodium Chloride (Normal Saline 0.9%) 1,000 mls @ 1,000 mls/hr IV BOLUS ONE Stop: 08/01/20 14:32 Last Infusion: 08/01/20 15:16 Dose: 0 mls/hr Documented by: MARY JANE Admin: 08/01/20 14:15 Dose: 1,000 mls/hr Documented by: MARY JANE Sodium Chloride (Normal Saline 0.9%) 1,000 mls @ 150 mls/hr IV CONT JOSE Last Admin: 08/01/20 17:36 Dose: 150 mls/hr Documented by: MARY JANE Metoclopramide HCl (Reglan) 10 mg IV NOW ONE Stop: 08/01/20 17:03 Last Admin: 08/01/20 17:36 Dose: 10 mg Documented by: MARY JANE Ondansetron HCl (Zofran) 4 mg IV NOW ONE Stop: 08/01/20 12:37 Last Admin: 08/01/20 13:33 Dose: 4 mg Documented by: FUENTES Ondansetron HCl (Zofran) 4 mg IV NOW ONE Stop: 08/01/20 14:57 Last Admin: 08/01/20 15:05 Dose: 4 mg Documented by: MARY JANE Vital Signs Vital signs: Vital Signs - 8 hr 08/01/20 11:45 08/01/20 13:30 08/01/20 14:00 Temperature 97.8 F Pulse Rate 114 H 102 H 98 H Respiratory Rate 20 16 Blood Pressure 134/95 H 112/73 119/66 Pulse Oximetry 97 98 98 08/01/20 14:30 08/01/20 14:32 08/01/20 15:09 Temperature Pulse Rate 96 H 92 H 101 H Respiratory Rate 21 13 35 H Blood Pressure 142/76 H Pulse Oximetry 94 97 98 08/01/20 15:12 08/01/20 15:30 08/01/20 16:00 Temperature Pulse Rate 95 H 92 H 102 H Respiratory Rate 20 15 22 Blood Pressure 163/96 H 161/83 H Pulse Oximetry 99 93 99 08/01/20 16:01 08/01/20 16:30 08/01/20 17:00 Temperature Pulse Rate 103 H 90 97 H Respiratory Rate 26 H 15 21 Blood Pressure 159/82 H Pulse Oximetry 98 08/01/20 17:30 08/01/20 17:41 08/01/20 18:00 Temperature Pulse Rate 98 H 95 H 113 H Respiratory Rate 17 18 31 H Blood Pressure 141/87 H Pulse Oximetry 98 97 08/01/20 18:01 Temperature Pulse Rate 98 H Respiratory Rate 17 Blood Pressure 178/75 H Pulse Oximetry 96 MDM - Nausea/Vomiting/Diarrhea <Minna Centeno, CORPORATE CONSULTANT- - Last Filed: 08/01/20 19:13> Lab Data Result diagrams: 08/01/20 12:30 08/01/20 12:30 Labs: Lab Results 08/01/20 08/01/20 08/01/20 Range/Units 12:30 12:30 12:36 WBC 8.0 (4.5-11.0) X10^3/uL RBC 3.83 L (4.0-5.2) X10^6/uL Hgb 12.8 (12.0-16.0) g/dL Hct 38.0 (36-46) % MCV 99.3 (80-100) fL MCH 33.5 (26-34) PG MCHC 33.7 (30-36) % RDW 14.9 H (11.6-14.8) % Plt Count 290 (150-400) X10^3/uL Neut % (Auto) 66.3 (50-75) % Lymph % (Auto) 19.2 L (25-40) % [place] % (Auto) 13.3 (3-14) % Eos % (Auto) 0.3 L (2-4) % Baso % (Auto) 0.9 (0-2) % Neut # (Auto) 5300 (3827-5372) /uL Lymph # (Auto) 1500 (7035-5612) /uL [place] # (Auto) 1100 H (0-900) /uL Eos # (Auto) 0 (0-450) /uL Baso # (Auto) 100 (0-100) /uL Sodium 137 (137-145) mmol/L Potassium 4.0 (3.4-5.1) mmol/L Chloride 104 (98-107) mmol/L Carbon Dioxide 20 L (22-32) mmol/L BUN 16 (7-17) mg/dL Creatinine 1.16 H (0.52-1.04) mg/dL Estimated GFR 47.5 L (>60) mL/min BUN/Creatinine Ratio 13.8 (6-22) Glucose 142 H (80-110) mg/dL Lactate (0.7-2.1) mmol/L Calcium 9.8 (8.4-10.2) mg/dL Total Bilirubin 1.5 H (0.2-1.3) mg/dL AST 65 H (14-36) IU/L ALT 40 H (<35) IU/L Alkaline Phosphatase 100 (38-126) U/L Total Protein 8.7 H (6.3-8.2) g/dL Albumin 5.0 (3.5-5.0) g/dL Globulin 3.7 (1.7-4.1) g/dL Albumin/Globulin Ratio 1.4 (1.0-2.8) Lipase 93 (23-300) U/L Procalcitonin < 0.05 (<0.5) ng/mL Urine RBC (0-5/HPF) Urine WBC (0-5/HPF) Ur Squamous Epith Cells (0-5/HPF) Amorphous Sediment Urine Bacteria (None) Ur Culture Indicated? Stl C. cayetanensis PCR (Not Detect) Stool Rotavirus (PCR) (Not Detect) Stool Adenovirus (PCR) (Not Detect) Stool Astrovirus (PCR) (Not Detect) Stool Cryptosporidium PCR (Not Detect) Stl E.coli Shiga Tox PCR (Not Detect) St Sh/Enteroin Ecoli PCR (Not Detect) Stool E coli O157 PCR Stl Enterotoxigenic E PCR (Not Detect) Stool EPEC (PCR) (Not Detect) Stl E. histolytica PCR (Not Detect) Stool Giardia Lamblia PCR (Not Detect) Stool Sapovirus (PCR) (Not Detect) Stl P. shigelloides PCR (Not Detect) St Y.enterocolitica PCR (Not Detect) Stool Vibrio (PCR) (Not Detect) Stl Vibrio cholerae PCR (Not Detect) Stl Enteroaggr Ecoli PCR (Not Detect) Stl Norovirus GI/GII PCR (Not Detect) Campylobacter (PCR) (Not Detect) C. difficile Tox (PCR) (Not Detect) COVID-19 PCR (Negative) Salmonella (PCR) (Not Detect) 08/01/20 08/01/20 08/01/20 Range/Units 12:36 12:50 13:23 WBC (4.5-11.0) X10^3/uL RBC (4.0-5.2) X10^6/uL Hgb (12.0-16.0) g/dL Hct (36-46) % MCV (80-100) fL MCH (26-34) PG MCHC (30-36) % RDW (11.6-14.8) % Plt Count (150-400) X10^3/uL Neut % (Auto) (50-75) % Lymph % (Auto) (25-40) % [place] % (Auto) (3-14) % Eos % (Auto) (2-4) % Baso % (Auto) (0-2) % Neut # (Auto) (4388-1743) /uL Lymph # (Auto) (3604-9465) /uL [place] # (Auto) (0-900) /uL Eos # (Auto) (0-450) /uL Baso # (Auto) (0-100) /uL Sodium (137-145) mmol/L Potassium (3.4-5.1) mmol/L Chloride (98-107) mmol/L Carbon Dioxide (22-32) mmol/L BUN (7-17) mg/dL Creatinine (0.52-1.04) mg/dL Estimated GFR (>60) mL/min BUN/Creatinine Ratio (6-22) Glucose (80-110) mg/dL Lactate 3.8 H (0.7-2.1) mmol/L Calcium (8.4-10.2) mg/dL Total Bilirubin (0.2-1.3) mg/dL AST (14-36) IU/L ALT (<35) IU/L Alkaline Phosphatase (38-126) U/L Total Protein (6.3-8.2) g/dL Albumin (3.5-5.0) g/dL Globulin (1.7-4.1) g/dL Albumin/Globulin Ratio (1.0-2.8) Lipase (23-300) U/L Procalcitonin (<0.5) ng/mL Urine RBC (0-5/HPF) Urine WBC (0-5/HPF) Ur Squamous Epith Cells (0-5/HPF) Amorphous Sediment Urine Bacteria (None) Ur Culture Indicated? Stl C. cayetanensis PCR Not detected (Not Detect) Stool Rotavirus (PCR) Not detected (Not Detect) Stool Adenovirus (PCR) Not detected (Not Detect) Stool Astrovirus (PCR) Not detected (Not Detect) Stool Cryptosporidium PCR Not detected (Not Detect) Stl E.coli Shiga Tox PCR Not detected (Not Detect) St Sh/Enteroin Ecoli PCR Not detected (Not Detect) Stool E coli O157 PCR Not Reportable Stl Enterotoxigenic E PCR Not detected (Not Detect) Stool EPEC (PCR) Not detected (Not Detect) Stl E. histolytica PCR Not detected (Not Detect) Stool Giardia Lamblia PCR Not detected (Not Detect) Stool Sapovirus (PCR) Not detected (Not Detect) Stl P. shigelloides PCR Not detected (Not Detect) St Y.enterocolitica PCR Not detected (Not Detect) Stool Vibrio (PCR) Not detected (Not Detect) Stl Vibrio cholerae PCR Not detected (Not Detect) Stl Enteroaggr Ecoli PCR Not detected (Not Detect) Stl Norovirus GI/GII PCR Not detected (Not Detect) Campylobacter (PCR) Not detected (Not Detect) C. difficile Tox (PCR) Not detected (Not Detect) COVID-19 PCR Negative (Negative) Salmonella (PCR) Not detected (Not Detect) 08/01/20 08/01/20 Range/Units 15:05 17:25 WBC (4.5-11.0) X10^3/uL RBC (4.0-5.2) X10^6/uL Hgb (12.0-16.0) g/dL Hct (36-46) % MCV (80-100) fL MCH (26-34) PG MCHC (30-36) % RDW (11.6-14.8) % Plt Count (150-400) X10^3/uL Neut % (Auto) (50-75) % Lymph % (Auto) (25-40) % [place] % (Auto) (3-14) % Eos % (Auto) (2-4) % Baso % (Auto) (0-2) % Neut # (Auto) (1511-6672) /uL Lymph # (Auto) (2163-0378) /uL [place] # (Auto) (0-900) /uL Eos # (Auto) (0-450) /uL Baso # (Auto) (0-100) /uL Sodium (137-145) mmol/L Potassium (3.4-5.1) mmol/L Chloride (98-107) mmol/L Carbon Dioxide (22-32) mmol/L BUN (7-17) mg/dL Creatinine (0.52-1.04) mg/dL Estimated GFR (>60) mL/min BUN/Creatinine Ratio (6-22) Glucose (80-110) mg/dL Lactate 1.7 (0.7-2.1) mmol/L Calcium (8.4-10.2) mg/dL Total Bilirubin (0.2-1.3) mg/dL AST (14-36) IU/L ALT (<35) IU/L Alkaline Phosphatase (38-126) U/L Total Protein (6.3-8.2) g/dL Albumin (3.5-5.0) g/dL Globulin (1.7-4.1) g/dL Albumin/Globulin Ratio (1.0-2.8) Lipase (23-300) U/L Procalcitonin (<0.5) ng/mL Urine RBC None seen (0-5/HPF) Urine WBC 1-5/hpf (0-5/HPF) Ur Squamous Epith Cells 1-5 /hpf (0-5/HPF) Amorphous Sediment 1+ Urine Bacteria Occasional (0-1) D (None) Ur Culture Indicated? Cult not indicated Stl C. cayetanensis PCR (Not Detect) Stool Rotavirus (PCR) (Not Detect) Stool Adenovirus (PCR) (Not Detect) Stool Astrovirus (PCR) (Not Detect) Stool Cryptosporidium PCR (Not Detect) Stl E.coli Shiga Tox PCR (Not Detect) St Sh/Enteroin Ecoli PCR (Not Detect) Stool E coli O157 PCR Stl Enterotoxigenic E PCR (Not Detect) Stool EPEC (PCR) (Not Detect) Stl E. histolytica PCR (Not Detect) Stool Giardia Lamblia PCR (Not Detect) Stool Sapovirus (PCR) (Not Detect) Stl P. shigelloides PCR (Not Detect) St Y.enterocolitica PCR (Not Detect) Stool Vibrio (PCR) (Not Detect) Stl Vibrio cholerae PCR (Not Detect) Stl Enteroaggr Ecoli PCR (Not Detect) Stl Norovirus GI/GII PCR (Not Detect) Campylobacter (PCR) (Not Detect) C. difficile Tox (PCR) (Not Detect) COVID-19 PCR (Negative) Salmonella (PCR) (Not Detect) Point of Care Testing Glucose POC 118 Urine Dip Bedside Urine Glucose Negative Bedside Urine Bilirubin - Negative Bedside Urine Ketone +/- 5 Urine Specific [place] 1.000 Bedside Urine Occult Blood - Negative Bedside Urine pH 7.0 Bedside Urine Protein +/- 15 Bedside Urine Urobilinogen +/- 1mg Bedside Urine Nitrite - Negative Bedside Urine Leukocytes - Negative Esterase Imaging Data Chest x-ray: Radiologist's Impression: [address] [place] [id number] XRay Report Signed Patient: Kailyn Nixon R#: [id number] : 9Acct:[id number] Age/Sex: 59 / FDate of Service: 08/01/20 Loc: ED Accession Number: [id number] Procedure: XR chest 2V Ordering Provider: Minna Centeno PROCEDURE: XR CHEST 2V INDICATIONS: chills, copd hx TECHNIQUE: 2 views of the chest were acquired. COMPARISON: Outside Film, CT, CT ANGIO CHEST, 07/08/2020, 15:05. [facility], CR, XR CHEST 2V, 06/11/2020, 16:33. FINDINGS: Surgical changes and devices: Right breast changes are seen, with clips, including axillary clips. Cholecystectomy clips are seen. Lungs and pleura: Lungs are clear, yet hyperexpanded. No pleural effusions or pneumothorax. Mediastinum: Mediastinal contours are normal. Heart size is normal. Bones and chest wall: No suspicious bony abnormalities. Age-appropriate bony degenerative changes are seen. Soft tissues appear unremarkable. IMPRESSION: Hyperexpanded lungs, without an acute cardiopulmonary process identified. Postoperative and degenerative changes are seen. Dictated by: Wiley Azar M.D. on 08/01/2020 at 13:02 Approved by: Wiley Azar M.D. on 08/01/2020 at 13:04 CT scan - abdomen/pelvis: Radiologist's Impression: [address] [place] [id number] Scan Report Signed Patient: Kailyn Nixon JMR#: [id number] : 9Acct:[id number] Age/Sex: 59 / FDate of Service: 08/01/20 Loc: ED Accession Number: [id number] Procedure: CT abdomen pelvis w con Ordering Provider: Minna Centeno CORPORATE CONSULTANT- PROCEDURE: CT ABDOMEN PELVIS W CON INDICATIONS: abd pain, n/v/d, lactate 3.8 TECHNIQUE: After the administration of intravenous contrast, 5 mm thick sections acquired from the diaphragm to the symphysis. 5 mm coronal and sagittal reformats were acquired. For radiation dose reduction, the following was used: automated exposure control, adjustment of mA and/or kV according to patient size. COMPARISON: [facility], CT, CT [place], 03/16/2018, 14:45. [facility], CR, XR PELVIS WITH LATERAL HIP LEFT, 04/06/2019, 15:54. [facility], CR, XR PELVIS WITH LATERAL HIP LEFT, 09/19/2019, 8:23. [facility], CT, CT CHEST W CON, 09/13/2019, 15:05. Outside Film, CT, CT ANGIO CHEST, 07/08/2020, 15:05. FINDINGS: Image quality: Excellent. ABDOMEN: Lung bases: Lung bases are clear. Heart size is normal. Solid organs: There is hepatic steatosis. Liver is normal in size and enhancement. Gallbladder is surgically absent. Biliary system is non dilated. Pancreas enhances normally. Spleen is normal in size and enhancement. No adrenal nodules. Kidneys demonstrate normal size and enhancement, without hydronephrosis. Peritoneum and bowel: Scattered colonic diverticula. No CT findings to suggest acute diverticulitis. Bowel loops demonstrate normal wall thickness and caliber. No free fluid or air. Nodes and vessels: No retroperitoneal or mesenteric adenopathy by size criteria. Aorta and inferior vena cava are normal in size. Miscellaneous: No ventral hernias. PELVIS: Genitourinary: Bladder wall thickness is normal. Miscellaneous: No inguinal hernias or adenopathy. Bones: Abnormal appearance of the right thomas pelvis with cortical and trabecular thickening. No vertebral body compression fractures. There is a left hip prosthesis. IMPRESSION: 1. No acute intra-abdominal process. 2. Diverticulosis without diverticulitis. 3. Hepatic steatosis. 4. Abnormal appearance of the right hemipelvis with cortical and trabecular thickening. Differential diagnosis include osseous metastatic disease versus Paget's disease. Recommend clinical correlation. Dictated by: Linda Hughes M.D. on 08/01/2020 at 14:15 Approved by: Linda Hughes M.D. on 08/01/2020 at 14:26 [facility] Narrative Medical decision making narrative: Focal the patient is a 59-year-old female who presents with a chief complaint of nausea vomiting and diarrhea. She had 2-3 episodes of diarrhea during her several hour ER stay. She is afebrile, appears fatigued and dehydrated on initial exam. She is given 2 L IV fluid, does noted to have an initial lactate of 3.8, which corrects to 1.7 with fluids. She feels much improved after fluids, and antiemetics. Otherwise her labs are reassuring, no leukocytosis, negative procalcitonin, of renal function normal for patient. Given her recent anti biotic, GI panel was obtained which came back negative for any acute findings such as C diff. Additionally a CT of her abdomen pelvis does not show any acute GI process, is noted to have a irregularity of her right hip and pelvis. Discussed patient, plan of care with Dr Rivers. Discussed with patient encouraged to follow up with primary care provider regarding this. She feels much improved, and is requesting to go home. She is able to tolerate a p.o. trial. Urine has no signs of infection. Chest x-ray is no acute findings. Discussed at length pushing fluids, coming back to the emergency department for any acute concerns such as abdominal pain with fever, inability keep down fluids etcetera. She also test negative for coronavirus in the emergency department. The patient is in accordance with plan of care, has no questions or concerns upon discharge and states understanding of return precautions as well as follow- up care. <Cindy Rivers, DO - Last Filed: 08/02/20 07:33> Lab Data Labs: Lab Results 08/01/20 08/01/20 08/01/20 Range/Units 12:30 12:30 12:36 WBC 8.0 (4.5-11.0) X10^3/uL RBC 3.83 L (4.0-5.2) X10^6/uL Hgb 12.8 (12.0-16.0) g/dL Hct 38.0 (36-46) % MCV 99.3 (80-100) fL MCH 33.5 (26-34) PG MCHC 33.7 (30-36) % RDW 14.9 H (11.6-14.8) % Plt Count 290 (150-400) X10^3/uL Neut % (Auto) 66.3 (50-75) % Lymph % (Auto) 19.2 L (25-40) % [place] % (Auto) 13.3 (3-14) % Eos % (Auto) 0.3 L (2-4) % Baso % (Auto) 0.9 (0-2) % Neut # (Auto) 5300 (3848-3452) /uL Lymph # (Auto) 1500 (5416-9388) /uL [place] # (Auto) 1100 H (0-900) /uL Eos # (Auto) 0 (0-450) /uL Baso # (Auto) 100 (0-100) /uL Sodium 137 (137-145) mmol/L Potassium 4.0 (3.4-5.1) mmol/L Chloride 104 (98-107) mmol/L Carbon Dioxide 20 L (22-32) mmol/L BUN 16 (7-17) mg/dL Creatinine 1.16 H (0.52-1.04) mg/dL Estimated GFR 47.5 L (>60) mL/min BUN/Creatinine Ratio 13.8 (6-22) Glucose 142 H (80-110) mg/dL Lactate (0.7-2.1) mmol/L Calcium 9.8 (8.4-10.2) mg/dL Total Bilirubin 1.5 H (0.2-1.3) mg/dL AST 65 H (14-36) IU/L ALT 40 H (<35) IU/L Alkaline Phosphatase 100 (38-126) U/L Total Protein 8.7 H (6.3-8.2) g/dL Albumin 5.0 (3.5-5.0) g/dL Globulin 3.7 (1.7-4.1) g/dL Albumin/Globulin Ratio 1.4 (1.0-2.8) Lipase 93 (23-300) U/L Procalcitonin < 0.05 (<0.5) ng/mL Urine RBC (0-5/HPF) Urine WBC (0-5/HPF) Ur Squamous Epith Cells (0-5/HPF) Amorphous Sediment Urine Bacteria (None) Ur Culture Indicated? Stl C. cayetanensis PCR (Not Detect) Stool Rotavirus (PCR) (Not Detect) Stool Adenovirus (PCR) (Not Detect) Stool Astrovirus (PCR) (Not Detect) Stool Cryptosporidium PCR (Not Detect) Stl E.coli Shiga Tox PCR (Not Detect) St Sh/Enteroin Ecoli PCR (Not Detect) Stool E coli O157 PCR Stl Enterotoxigenic E PCR (Not Detect) Stool EPEC (PCR) (Not Detect) Stl E. histolytica PCR (Not Detect) Stool Giardia Lamblia PCR (Not Detect) Stool Sapovirus (PCR) (Not Detect) Stl P. shigelloides PCR (Not Detect) St Y.enterocolitica PCR (Not Detect) Stool Vibrio (PCR) (Not Detect) Stl Vibrio cholerae PCR (Not Detect) Stl Enteroaggr Ecoli PCR (Not Detect) Stl Norovirus GI/GII PCR (Not Detect) Campylobacter (PCR) (Not Detect) C. difficile Tox (PCR) (Not Detect) COVID-19 PCR (Negative) Salmonella (PCR) (Not Detect) 08/01/20 08/01/20 08/01/20 Range/Units 12:36 12:50 13:23 WBC (4.5-11.0) X10^3/uL RBC (4.0-5.2) X10^6/uL Hgb (12.0-16.0) g/dL Hct (36-46) % MCV (80-100) fL MCH (26-34) PG MCHC (30-36) % RDW (11.6-14.8) % Plt Count (150-400) X10^3/uL Neut % (Auto) (50-75) % Lymph % (Auto) (25-40) % [place] % (Auto) (3-14) % Eos % (Auto) (2-4) % Baso % (Auto) (0-2) % Neut # (Auto) (8023-3494) /uL Lymph # (Auto) (2285-3906) /uL [place] # (Auto) (0-900) /uL Eos # (Auto) (0-450) /uL Baso # (Auto) (0-100) /uL Sodium (137-145) mmol/L Potassium (3.4-5.1) mmol/L Chloride (98-107) mmol/L Carbon Dioxide (22-32) mmol/L BUN (7-17) mg/dL Creatinine (0.52-1.04) mg/dL Estimated GFR (>60) mL/min BUN/Creatinine Ratio (6-22) Glucose (80-110) mg/dL Lactate 3.8 H (0.7-2.1) mmol/L Calcium (8.4-10.2) mg/dL Total Bilirubin (0.2-1.3) mg/dL AST (14-36) IU/L ALT (<35) IU/L Alkaline Phosphatase (38-126) U/L Total Protein (6.3-8.2) g/dL Albumin (3.5-5.0) g/dL Globulin (1.7-4.1) g/dL Albumin/Globulin Ratio (1.0-2.8) Lipase (23-300) U/L Procalcitonin (<0.5) ng/mL Urine RBC (0-5/HPF) Urine WBC (0-5/HPF) Ur Squamous Epith Cells (0-5/HPF) Amorphous Sediment Urine Bacteria (None) Ur Culture Indicated? Stl C. cayetanensis PCR Not detected (Not Detect) Stool Rotavirus (PCR) Not detected (Not Detect) Stool Adenovirus (PCR) Not detected (Not Detect) Stool Astrovirus (PCR) Not detected (Not Detect) Stool Cryptosporidium PCR Not detected (Not Detect) Stl E.coli Shiga Tox PCR Not detected (Not Detect) St Sh/Enteroin Ecoli PCR Not detected (Not Detect) Stool E coli O157 PCR Not Reportable Stl Enterotoxigenic E PCR Not detected (Not Detect) Stool EPEC (PCR) Not detected (Not Detect) Stl E. histolytica PCR Not detected (Not Detect) Stool Giardia Lamblia PCR Not detected (Not Detect) Stool Sapovirus (PCR) Not detected (Not Detect) Stl P. shigelloides PCR Not detected (Not Detect) St Y.enterocolitica PCR Not detected (Not Detect) Stool Vibrio (PCR) Not detected (Not Detect) Stl Vibrio cholerae PCR Not detected (Not Detect) Stl Enteroaggr Ecoli PCR Not detected (Not Detect) Stl Norovirus GI/GII PCR Not detected (Not Detect) Campylobacter (PCR) Not detected (Not Detect) C. difficile Tox (PCR) Not detected (Not Detect) COVID-19 PCR Negative (Negative) Salmonella (PCR) Not detected (Not Detect) 08/01/20 08/01/20 Range/Units 15:05 17:25 WBC (4.5-11.0) X10^3/uL RBC (4.0-5.2) X10^6/uL Hgb (12.0-16.0) g/dL Hct (36-46) % MCV (80-100) fL MCH (26-34) PG MCHC (30-36) % RDW (11.6-14.8) % Plt Count (150-400) X10^3/uL Neut % (Auto) (50-75) % Lymph % (Auto) (25-40) % [place] % (Auto) (3-14) % Eos % (Auto) (2-4) % Baso % (Auto) (0-2) % Neut # (Auto) (8528-4032) /uL Lymph # (Auto) (3186-2698) /uL [place] # (Auto) (0-900) /uL Eos # (Auto) (0-450) /uL Baso # (Auto) (0-100) /uL Sodium (137-145) mmol/L Potassium (3.4-5.1) mmol/L Chloride (98-107) mmol/L Carbon Dioxide (22-32) mmol/L BUN (7-17) mg/dL Creatinine (0.52-1.04) mg/dL Estimated GFR (>60) mL/min BUN/Creatinine Ratio (6-22) Glucose (80-110) mg/dL Lactate 1.7 (0.7-2.1) mmol/L Calcium (8.4-10.2) mg/dL Total Bilirubin (0.2-1.3) mg/dL AST (14-36) IU/L ALT (<35) IU/L Alkaline Phosphatase (38-126) U/L Total Protein (6.3-8.2) g/dL Albumin (3.5-5.0) g/dL Globulin (1.7-4.1) g/dL Albumin/Globulin Ratio (1.0-2.8) Lipase (23-300) U/L Procalcitonin (<0.5) ng/mL Urine RBC None seen (0-5/HPF) Urine WBC 1-5/hpf (0-5/HPF) Ur Squamous Epith Cells 1-5 /hpf (0-5/HPF) Amorphous Sediment 1+ Urine Bacteria Occasional (0-1) D (None) Ur Culture Indicated? Cult not indicated Stl C. cayetanensis PCR (Not Detect) Stool Rotavirus (PCR) (Not Detect) Stool Adenovirus (PCR) (Not Detect) Stool Astrovirus (PCR) (Not Detect) Stool Cryptosporidium PCR (Not Detect) Stl E.coli Shiga Tox PCR (Not Detect) St Sh/Enteroin Ecoli PCR (Not Detect) Stool E coli O157 PCR Stl Enterotoxigenic E PCR (Not Detect) Stool EPEC (PCR) (Not Detect) Stl E. histolytica PCR (Not Detect) Stool Giardia Lamblia PCR (Not Detect) Stool Sapovirus (PCR) (Not Detect) Stl P. shigelloides PCR (Not Detect) St Y.enterocolitica PCR (Not Detect) Stool Vibrio (PCR) (Not Detect) Stl Vibrio cholerae PCR (Not Detect) Stl Enteroaggr Ecoli PCR (Not Detect) Stl Norovirus GI/GII PCR (Not Detect) Campylobacter (PCR) (Not Detect) C. difficile Tox (PCR) (Not Detect) COVID-19 PCR (Negative) Salmonella (PCR) (Not Detect) Point of Care Testing Glucose POC 118 Urine Dip Bedside Urine Glucose Negative Bedside Urine Bilirubin - Negative Bedside Urine Ketone +/- 5 Urine Specific [place] 1.000 Bedside Urine Occult Blood - Negative Bedside Urine pH 7.0 Bedside Urine Protein +/- 15 Bedside Urine Urobilinogen +/- 1mg Bedside Urine Nitrite - Negative Bedside Urine Leukocytes - Negative Esterase Discharge Plan Departure Patient Disposition: Home Clinical Impression: Nausea, Vomiting, and Diarrhea, Dehydration Discharge Date/Time: 08/01/20 18:52 Instructions: Diarrhea (Alternative Therapy), DI for Dehydration -- Adult, DI for Diarrhea and Traveler's Diarrhea -- Adult, DI for Nausea -- Adult, DI for Vomiting -- Adult Activity Restrictions/Additional Instructions: Thank you for trusting us with your care today. Today we treated you for dehydration with IV fluids, nausea medication etcetera Your CT did not show any acute GI abnormality. Your GI panel came back negative, helping rule out Clostridium difficile. Urine did not show any signs of infection. I sent prescriptions of 2 different nausea medication to [facility]. Please follow-up with primary care provider in the next few days. Please push fluids. Take small frequent sips of fluids. As discussed, your CT did show some irregularity of your right hip, I encouraged following up with primary care provider regarding this help evaluate the cause. Your chest x-ray had no acute findings. Your coronavirus test came back negative. Please come back to emergency department for any acute concerns as discussed, including inability keep down fluids. Prescriptions: New ondansetron 4 mg tablet,disintegrating 4 mg PO Q6H PRN (Reason: nausea and vomiting) Qty: 20 RF: 0 metoclopramide HCl 10 mg tablet 10 mg PO Q6H PRN (Reason: nausea and vomiting) Qty: 20 RF: 0 No Action anastrozole 1 mg Tablet 1 mg PO DAILY RF: 0 ibuprofen 200 mg Capsule 200 mg PO TID-QID PRN (Reason: pain) RF: 0 alprazolam 0.5 mg Tablet 0.5 mg PO DAILY PRN (Reason: Anxiety) RF: 0 trospium 60 mg Capsule,Extended Release 24hr 60 mg PO BEDTIME RF: 0 nicotine 21 mg Topical DAILY RF: 0 hydrocodone-acetaminophen [Bishop] 5-325 mg tablet 1 tab PO Q6H PRN (Reason: pain) Qty: 5 RF: 0 spironolactone 25 mg Tablet 25 mg PO DAILY RF: 0 calcium carbonate [Calcium 600] 600 mg calcium (1,500 mg) Tablet 600 mg PO DAILY RF: 0 telmisartan 80 mg Tablet 80 mg PO DAILY RF: 0 omeprazole 20 mg Capsule,Delayed Release(Dr/Ec) 20 mg PO DAILY RF: 0 cholecalciferol (vitamin D3) [Vitamin D3] 1,000 unit Capsule 1,000 unit PO DAILY RF: 0 ciclesonide [Alvesco] 160 mcg/actuation Hfa Aerosol Inhaler 1 puff INHALATION BID RF: 0 trazodone 100 mg tablet 200 mg PO BEDTIME RF: 0 beclomethasone dipropionate [Qvar RediHaler] 80 mcg/actuation HFA aerosol breath activated 1 puff Inhalation DIRECTED RF: 0 metoclopramide HCl [Reglan] 5 mg tablet 5 mg PO Q6H Qty: 30 RF: 0 citalopram 40 mg tablet 40 mg PO DAILY RF: 0 Referrals: Christy Espinoza MD [Primary Care Provider] - <Cindy Rivers DO - Last Filed: 08/02/20 07:33> Cosign ED Attending Cosignature Attestation: I was immediately available in the department for consultation. Documentation has been reviewed. I agree with assessment and plan.
[2020-08-01 12:45] LABS: Add Manual Diff / Slide Review NO; Basophils Absolute Auto 100 /uL (0-100); Basophils Percent Auto 0.9 % (0-2); Eosinophils Absolute Auto 0 /uL (0-450); Eosinophils Percent Auto 0.3 % (2-4); Hemoglobin 12.8 g/dL (12.0-16.0); Lymphocytes Absolute Auto 1500 /uL (1100-4500); Lymphocytes Percent Auto 19.2 % (25-40); Mean Corpuscular HGB Conc 33.7 % (30-36); Mean Corpuscular Hemoglobin 33.5 PG (26-34); Mean Corpuscular Volume 99.3 fL (80-100); Monocytes Absolute Auto 1100 /uL (0-900); Monocytes Percent Auto 13.3 % (3-14); Neutrophils Absolute Auto 5300 /uL (1500-7000); Neutrophils Percent Auto 66.3 % (50-75); Platelet Count 290 X10^3/uL (150-400); Red Blood Cell Count 3.83 X10^6/uL (4.0-5.2); Red Cell Distribution Width 14.9 % (11.6-14.8)
[2020-08-01 12:57] LABS: Lactate (Lactic Acid) 3.8 mmol/L (0.7-2.1)
[2020-08-01 12:58] LABS: Alanine Aminotransferase 40 IU/L (<35); Albumin Globulin Ratio 1.4 (1.0-2.8); Alkaline Phosphatase 100 U/L (38-126); Aspartate Aminotransferase 65 IU/L (14-36); BUN Creatinine Ratio 13.8 (6-22); Bilirubin Total 1.5 mg/dL (0.2-1.3); Blood Urea Nitrogen 16 mg/dL (7-17); Calcium 9.8 mg/dL (8.4-10.2); Carbon Dioxide 20 mmol/L (22-32); Chloride 104 mmol/L (98-107); Estimated Glomerular Filt Rate 47.5 mL/min (>60); Globulin 3.7 g/dL (1.7-4.1); Glucose 142 mg/dL (80-110); HEMOLYSIS 24 (0-50); Lipase 93 U/L (23-300); Sodium 137 mmol/L (137-145); Total Protein 8.7 g/dL (6.3-8.2)
[2020-08-01 13:12] LABS: Procalcitonin < 0.05 ng/mL (<0.5)
[2020-08-01 13:13] LABS: COVID19 -Nasal RAPID Negative (Negative)
--- NOTE | 2020-08-01 13:32 | DI.RAD.S_ITS ---
PROCEDURE: XR CHEST 2V INDICATIONS: chills, copd hx TECHNIQUE: 2 views of the chest were acquired. COMPARISON: [facility], CT, CT ANGIO CHEST, 07/08/2020, 15:05. [facility], CR, XR CHEST 2V, 06/11/2020, 16:33. FINDINGS: Surgical changes and devices: Right breast changes are seen, with clips, including axillary clips. Cholecystectomy clips are seen. Lungs and pleura: Lungs are clear, yet hyperexpanded. No pleural effusions or pneumothorax. Mediastinum: Mediastinal contours are normal. Heart size is normal. Bones and chest wall: No suspicious bony abnormalities. Age-appropriate bony degenerative changes are seen. Soft tissues appear unremarkable. IMPRESSION: Hyperexpanded lungs, without an acute cardiopulmonary process identified. Postoperative and degenerative changes are seen. Dictated by: Wiley Azar M.D. on 08/01/2020 at 13:02 Approved by: Wiley Azar M.D. on 08/01/2020 at 13:04
--- NOTE | 2020-08-01 13:32 | DI.CT.S_ITS ---
PROCEDURE: CT ABDOMEN PELVIS W CON INDICATIONS: abd pain, n/v/d, lactate 3.8 TECHNIQUE: After the administration of intravenous contrast, 5 mm thick sections acquired from the diaphragm to the symphysis. 5 mm coronal and sagittal reformats were acquired. For radiation dose reduction, the following was used: automated exposure control, adjustment of mA and/or kV according to patient size. COMPARISON: [facility], CT, CT WASSERMAN, 03/16/2018, 14:45. [facility], CR, XR PELVIS WITH LATERAL HIP LEFT, 04/06/2019, 15:54. [facility], CR, XR PELVIS WITH LATERAL HIP LEFT, 09/19/2019, 8:23. [facility], CT, CT CHEST W CON, 09/13/2019, 15:05. [facility], CT, CT ANGIO CHEST, 07/08/2020, 15:05. FINDINGS: Image quality: Excellent. ABDOMEN: Lung bases: Lung bases are clear. Heart size is normal. Solid organs: There is hepatic steatosis. Liver is normal in size and enhancement. Gallbladder is surgically absent. Biliary system is non dilated. Pancreas enhances normally. Spleen is normal in size and enhancement. No adrenal nodules. Kidneys demonstrate normal size and enhancement, without hydronephrosis. Peritoneum and bowel: Scattered colonic diverticula. No CT findings to suggest acute diverticulitis. Bowel loops demonstrate normal wall thickness and caliber. No free fluid or air. Nodes and vessels: No retroperitoneal or mesenteric adenopathy by size criteria. Aorta and inferior vena cava are normal in size. Miscellaneous: No ventral hernias. PELVIS: Genitourinary: Bladder wall thickness is normal. Miscellaneous: No inguinal hernias or adenopathy. Bones: Abnormal appearance of the right thomas pelvis with cortical and trabecular thickening. No vertebral body compression fractures. There is a left hip prosthesis. IMPRESSION: 1. No acute intra-abdominal process. 2. Diverticulosis without diverticulitis. 3. Hepatic steatosis. 4. Abnormal appearance of the right hemipelvis with cortical and trabecular thickening. Differential diagnosis include osseous metastatic disease versus Paget's disease. Recommend clinical correlation. Dictated by: Linda Hughes M.D. on 08/01/2020 at 14:15 Approved by: Linda Hughes M.D. on 08/01/2020 at 14:26
[2020-08-01] MEDS: SODIUM CHLORIDE 0.9% 1,000 ML 1000 ML IV ×2 (13:33→14:15)
[2020-08-01] MEDS: ONDANSETRON 4 MG/2 ML INJ IV ×2 (13:33→15:05)
[2020-08-01 14:50] LABS: Reflexed Lactate in 2 Hours Y
[2020-08-01 14:52] LABS: Adenovirus F 40/41 Not Detected (Not Detect); Astrovirus Not Detected (Not Detect); Campylobacter Not Detected (Not Detect); Clostridium difficile toxin AB Not Detected (Not Detect); Cryptosporidium Not Detected (Not Detect); Cyclospora cayetanensis Not Detected (Not Detect); Entamoeba histolytica Not Detected (Not Detect); Enteroaggregative E.coli Not Detected (Not Detect); Enteropathogenic E.coli Not Detected (Not Detect); Enterotoxigenic E.coli It/st Not Detected (Not Detect); Giardia lamblia Not Detected (Not Detect); Norovirus GI/GII Not Detected (Not Detect); Plesiomonsa shigelloides Not Detected (Not Detect); Rotavirus A Not Detected (Not Detect); Salmonella Not Detected (Not Detect); Sapovirus Not Detected (Not Detect); Shiga-like toxin-prod E.coli Not Detected (Not Detect); Shigella/Enteroinvasive E.coli Not Detected (Not Detect); Vibrio Not Detected (Not Detect); Vibrio cholerae Not Detected (Not Detect); Yersinia enterocolitica Not Detected (Not Detect)
[2020-08-01 15:24] LABS: Lactate 2HR (Lactic Acid Rflx) 1.7 mmol/L (0.7-2.1)
[2020-08-01] MEDS: SODIUM CHLORIDE 0.9% 1,000 ML 150 ML IV (17:36)
[2020-08-01] MEDS: METOCLOPRAMIDE 10 MG/2 ML INJ IV (17:36)
[2020-08-01 17:41] LABS: RBC Urine None Seen (0-5/HPF)
[2020-08-01 17:51] LABS: Amorphous Sediment Urine 1+; Squamous Epithelial Cell Urine 1-5 /HPF (0-5/HPF); WBC Urine 1-5/HPF (0-5/HPF)
[2020-08-01 17:52] LABS: Bacteria Urine Occasional (0-1); Culture Indicated Urine Cult Not Indicated
--- NOTE | 2020-08-27 17:56 | PC.NURSE ---
Bag # 3, Normal saline 300 cc infused without difficulty at discharge. pt received 2liters of normal saline that infused without incident prior to discharge
== END 2020-08-01 18:52 | disposition home or self-care (01) ==
PROVIDERS: Emergency Provider Nurse Practitioner Family; PCP Internal Medicine
DX: R11.2 Nausea with vomiting, unspecified (principal); R19.7 Diarrhea, unspecified; R10.9 Unspecified abdominal pain; E86.0 Dehydration
CPT/HCPCS: 36415; 71046; 74177; 80053; 81003; 81015; 82962; 83605; 83690; 84145; 85025; 87040; 87070; 87077; 87205; 87507; 87635; 96361; 96374; 96375; 96376; 99284; 99285; J2405; J2765

== ENCOUNTER → 2020-08-08 18:45 | Outpatient (ROUT) | payer MEDICARE, BC, SELFPAY ==
[2018-07-13 11:43] VITALS: BMI 25.3
== END ==
PROVIDERS: PCP Internal Medicine; Visit Provider Internal Medicine
DX: T81.89XD Other complications of procedures, not elsewhere classified, subsequent encounter (principal)
CPT/HCPCS: 87070; 87077; 87205

== ENCOUNTER → 2020-08-11 09:47 | Outpatient (CLI) | payer MEDICARE, BC, SELFPAY ==
[2018-07-13 11:43] VITALS: BMI 25.3
== END ==
PROVIDERS: PCP Internal Medicine; Referring Provider Internal Medicine; Visit Provider Internal Medicine Infectious Disease
DX: T81.89XA Other complications of procedures, not elsewhere classified, initial encounter (principal); Z53.8 Procedure and treatment not carried out for other reasons

== ENCOUNTER → 2020-08-11 12:13 | Oncology outpatient (ONC) | payer MEDICARE, BC, SELFPAY ==
[2018-07-13 11:43] VITALS: BMI 25.3
[2020-08-11] MEDS: CEFTRIAXONE 2 GM/50 ML FROZ.PIGGY IV (12:25)
[2020-08-11 12:29] LABS: Add Manual Diff / Slide Review NO; Basophils Absolute Auto 100 /uL (0-100); Eosinophils Absolute Auto 0 /uL (0-450); Eosinophils Percent Auto 0.6 % (2-4); Hematocrit 31.3 % (36-46); Hemoglobin 10.4 g/dL (12.0-16.0); Lymphocytes Absolute Auto 1900 /uL (1100-4500); Lymphocytes Percent Auto 32.3 % (25-40); Mean Corpuscular HGB Conc 33.4 % (30-36); Mean Corpuscular Hemoglobin 33.7 PG (26-34); Monocytes Absolute Auto 500 /uL (0-900); Monocytes Percent Auto 8.5 % (3-14); Neutrophils Absolute Auto 3400 /uL (1500-7000); Neutrophils Percent Auto 57.6 % (50-75); Platelet Count 247 X10^3/uL (150-400); Red Cell Distribution Width 15.3 % (11.6-14.8)
--- NOTE | 2020-08-11 12:56 | PC.NURSE ---
IVAB cancelled due to PICC not placed. This RN called Yobani RN at Dr. Shaw's office and notified PICC not started due to pt vasal vagal for PICC nurse. Per Dr. Shaw, Yobani stated to hold off on administering antibiotic and pt will be scheduled at for PICC placement. Peripherial IV dc'd and pt ambulated off unit. Explained all this to pt and that Yobani will call pt with PICC placement day and time.
[2020-08-11 19:16] LABS: Alanine Aminotransferase 22 IU/L (<35); Albumin 4.2 g/dL (3.5-5.0); Albumin Globulin Ratio 1.5 (1.0-2.8); Alkaline Phosphatase 58 U/L (38-126); Aspartate Aminotransferase 37 IU/L (14-36); BUN Creatinine Ratio 15.3 (6-22); Bilirubin Total 0.5 mg/dL (0.2-1.3); Blood Urea Nitrogen 18 mg/dL (7-17); Calcium 9.1 mg/dL (8.4-10.2); Carbon Dioxide 25 mmol/L (22-32); Chloride 99 mmol/L (98-107); Estimated Glomerular Filt Rate 46.6 mL/min (>60); Globulin 2.8 g/dL (1.7-4.1); Glucose 105 mg/dL (80-110); HEMOLYSIS < 15 (0-50); Potassium 4.4 mmol/L (3.4-5.1); Sodium 134 mmol/L (137-145)
== END ==
LOC: ONC 12:14
PROVIDERS: PCP Internal Medicine; Referring Provider Internal Medicine Infectious Disease; Visit Provider Internal Medicine Infectious Disease
DX: Z45.2 Encounter for adjustment and management of vascular access device (principal)
CPT/HCPCS: 36415; 80053; 85025; J0696

== ENCOUNTER → 2020-08-13 11:11 | Outpatient (CLI) | payer MEDICARE, BC, SELFPAY ==
[2018-07-13 11:43] VITALS: BMI 25.3
--- NOTE | 2020-08-13 | DI.NM.S_ITS ---
PROCEDURE: NM BONE SCAN WHOLE BODY RADIOPHARMACEUTICAL: 21.7 mCi Tc-99m MDP IV. INDICATIONS: BREAST CANCER TECHNIQUE: Delayed whole-body scintigrams were obtained approximately 3-4 hours after intravenous injection of radiotracer. Anterior and posterior views were acquired from vertex to feet. Additional left and right oblique views of the thoracic cage and bony pelvis were obtained. COMPARISON: [facility], CT, CT ABDOMEN PELVIS W CON, 08/01/2020, 13:36. [facility], CT, CT CHEST W CON, 09/13/2019, 15:05. [facility], CT, CT ANGIO CHEST, 07/08/2020, 15:05. [facility], CR, XR CHEST 2V, 08/01/2020, 13:45. FINDINGS: Abnormal appearance of right hemipelvis demonstrate no detained scintigraphic correlate. There are foci of increased uptake in the lateral aspect of the right 6th, 7th and 8th ribs consecutively, most likely posttraumatic in nature. The comparison CT dated 07/08/2020 demonstrates rib fractures with callus. There is a focal uptake projecting to the right femoral neck. There is a small round osseous density anterior to the femoral neck, which is most likely a small osteochondroma. Increased activity in mandible is most likely related to dental disease. No lesions are identified in skull, sternum, clavicles, scapulae, bony pelvis and visualized shafts of the long bones. There is low level increased uptake in cervical, thoracic and lumbar spine with distribution indistinguishable from degenerative disc and facet disease; early metastasis to spine could be obscured by degenerative changes. There are foci of increased periarticular activity involving shoulders, sternoclavicular joints, wrists, hands, right hip and knees, compatible with degenerative/arthritic changes. There is a left hip arthroplasty. IMPRESSION: 1. Abnormal CT appearance of the right hemipelvis demonstrates no definitive scintigraphic correlate on bone scan. A diagnosis possibility is treated metastatic disease. Paget disease felt unlikely. Recommend clinical correlation and close imaging follow-up. 2. Right 6, 7th and 8th rib fractures. 3. Focal uptake in the right femoral neck may be caused by a small ostial chondroma. Dictated by: Linda Hughes M.D. on 08/13/2020 at 17:56 Approved by: Linda Hughes M.D. on 08/13/2020 at 18:10
== END ==
PROVIDERS: PCP Internal Medicine; Referring Provider Internal Medicine; Visit Provider Internal Medicine
DX: C50.919 Malignant neoplasm of unspecified site of unspecified female breast (principal); R93.5 Abnormal findings on diagnostic imaging of other abdominal regions, including retroperitoneum; S22.41XA Multiple fractures of ribs, right side, initial encounter for closed fracture; Z96.642 Presence of left artificial hip joint
CPT/HCPCS: 78306; A9503

== ENCOUNTER → 2020-08-29 09:29 | Outpatient (CLI) | payer MEDICARE, BC, SELFPAY ==
[2018-07-13 11:43] VITALS: BMI 25.3
--- NOTE | 2020-08-29 | DI.MRI.S_ITS ---
PROCEDURE: MR PELVIS WO/W CON COMPARISON: [facility], CT, CT WASSERMAN, 03/16/2018, 14:45. [facility], CR, XR PELVIS WITH BILATERAL LATERAL HIPS, 04/07/2018, 15:22. [facility], MR, MR HIP LEFT WITHOUT CONTRAST, 04/11/2018, 14:00. [facility], CR, XR HIP W PEL IF DONE LT 2V, 07/13/2018, 15:21. [facility], CR, XR HIP W PEL IF DONE LT 2V, 07/13/2018, 12:27. [facility], CR, XR PELVIS WITH LATERAL HIP LEFT, 07/28/2018, 14:38. [facility], CR, XR PELVIS WITH LATERAL HIP LEFT, 04/06/2019, 15:54. [facility], CR, XR PELVIS WITH LATERAL HIP LEFT, 09/19/2019, 8:23. [facility], NM, NM BONE SCAN WHOLE BODY, 08/13/2020, 15:58. [facility], CT, CT ABDOMEN PELVIS W CON, 08/01/2020, 13:36. INDICATIONS: Abnormal findings on diagnostic imaging, possible bone marrow abnormality at the right hemipelvis, in a patient with prior history of breast carcinoma. Possible Paget's disease. FINDINGS: On review of all available plain film and advanced imaging studies which include the right hemipelvis it is noted that a relatively subtle but definite asymmetric increased radiodensity with associated trabecular thickening and cortical thickening at the right hemipelvis has been present from the earliest available study 04/07/18 and subsequently. This area has not shown appreciable change management analyst time on pelvis plain film imaging, and was evaluated by nuclear medicine bone scanning recently, identifying no abnormal elevated isotope deposition through the right hemipelvis. The current MR imaging shows mild trabecular thickening involving the acetabulum, ischium, and portions of the visualized right medial anterior iliac bone, without marrow signal abnormality that would indicate underlying infection or active inflammatory process. No adenopathy is seen. There is expected metal artifact related to a previously placed left total hip arthroplasty. IMPRESSION: Currently there is no evidence for presence of infection or neoplasm as cause of the mild increased trabecular thickening and cortical prominence involving the right hemipelvis, present without change management analyst time over an extended period of time open (from earliest available imaging that includes this region of the right hemipelvis close) 04/07/18. 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 Given the stability of appearance over time and the absence of MR evidence and nuclear medicine evidence of metastatic disease as the underlying cause no specific follow-up is recommended at this time. Dictated by: Colten Polanco M.D. on 08/29/2020 at 11:38 Approved by: Colten Polanco M.D. on 08/29/2020 at 12:32
[2020-08-29 12:39] LABS: Reticulocyte Count, Percent 3.4 % (1.06-2.63)
[2020-08-29 12:45] LABS: Hematocrit 28.4 % (36-46); Hemoglobin 9.4 g/dL (12.0-16.0); Mean Corpuscular HGB Conc 33.1 % (30-36); Mean Corpuscular Hemoglobin 34.1 PG (26-34); Platelet Count 354 X10^3/uL (150-400); Red Blood Cell Count 2.76 X10^6/uL (4.0-5.2); White Blood Cell Count 7.3 X10^3/uL (4.5-11.0)
[2020-08-29 12:52] LABS: Neutrophils Absolute Manual 4526 /uL (3000-5900); Rouleaux 1+; Total Cells Counted 100
[2020-08-29 13:17] LABS: HEMOLYSIS < 15 (0-50); Iron 72 ug/dL (37-170)
[2020-08-29 13:22] LABS: Alanine Aminotransferase 14 IU/L (<35); Albumin 3.8 g/dL (3.5-5.0); Albumin Globulin Ratio 1.4 (1.0-2.8); Alkaline Phosphatase 70 U/L (38-126); Aspartate Aminotransferase 21 IU/L (14-36); BUN Creatinine Ratio 15.3 (6-22); Bilirubin Total 0.3 mg/dL (0.2-1.3); Blood Urea Nitrogen 13 mg/dL (7-17); Calcium 9.7 mg/dL (8.4-10.2); Carbon Dioxide 28 mmol/L (22-32); Chloride 104 mmol/L (98-107); Estimated Glomerular Filt Rate > 60.0 mL/min (>60); Globulin 2.7 g/dL (1.7-4.1); Glucose 98 mg/dL (80-110); HEMOLYSIS < 15 (0-50); Potassium 5.3 mmol/L (3.4-5.1); Sodium 137 mmol/L (137-145); Total Protein 6.5 g/dL (6.3-8.2)
[2020-08-29 13:29] LABS: Percent Iron Saturation 23 % (15-50); Total Iron Binding Capacity 316 ug/dL (265-497); Transferrin 257 mg/dL (206-381)
[2020-09-01 12:36] LABS: Albumin 3.3 g/dL (2.9-4.4); Alpha 1 Globulin 0.2 g/dL (0.0-0.4); Alpha 2 Globulin 0.9 g/dL (0.4-1.0); Beta 1 Globulin 1.1 g/dL (0.7-1.3); Gamma Globulin 0.8 g/dL (0.4-1.8); Protein, Total 6.3 g/dL (6.0-8.5)
[2020-09-01 15:05] LABS: Albumin 23.6 % (.); Immunoglobulin A, Serum 260 mg/dL (87-352); Immunoglobulin G,Serum 703 mg/dL (586-1602); Immunoglobulin M, Serum 66 mg/dL (26-217); M-Spike % Not Observed % (Not Observed); Total Urine Protein 10.8 mg/dL (Not Estab.)
== END ==
PROVIDERS: PCP Internal Medicine; Referring Provider Internal Medicine; Visit Provider Internal Medicine
DX: R93.5 Abnormal findings on diagnostic imaging of other abdominal regions, including retroperitoneum (principal); C50.919 Malignant neoplasm of unspecified site of unspecified female breast; D64.9 Anemia, unspecified
CPT/HCPCS: 72197; 80053; 82784; 83540; 83550; 84155; 84156; 84165; 84166; 85025; 85045; 86334

== ENCOUNTER → 2020-09-09 19:12 | Outpatient (ROUT) | payer MEDICARE, BC, SELFPAY ==
[2018-07-13 11:43] VITALS: BMI 25.3
== END ==
PROVIDERS: PCP Internal Medicine; Visit Provider Internal Medicine
DX: T14.8XXA Other injury of unspecified body region, initial encounter (principal)
CPT/HCPCS: 87070; 87075; 87077; 87205

== ENCOUNTER → 2020-09-17 13:51 | Outpatient (CLI) | payer MEDICARE, BC, SELFPAY ==
[2018-07-13 11:43] VITALS: BMI 25.3
[2020-09-17 14:31] LABS: Reticulocyte Count, Percent 1.7 % (1.06-2.63)
[2020-09-17 14:31] LABS: Hematocrit 35.3 % (36-46); Hemoglobin 11.4 g/dL (12.0-16.0); Mean Corpuscular HGB Conc 32.2 % (30-36); Mean Corpuscular Hemoglobin 33.4 PG (26-34); Mean Corpuscular Volume 103.5 fL (80-100); Platelet Count 250 X10^3/uL (150-400); Red Blood Cell Count 3.41 X10^6/uL (4.0-5.2); Red Cell Distribution Width 14.8 % (11.6-14.8); White Blood Cell Count 6.8 X10^3/uL (4.5-11.0)
[2020-09-17 15:18] LABS: Lactate Dehydrogenase 416 U/L (313-618)
[2020-09-17 15:29] LABS: Neutrophils Absolute Manual 4488 /uL (3000-5900); Total Cells Counted 100
[2020-09-17 15:30] LABS: Anisocytosis 1+; Macrocytosis 2+; Platelet Estimate Adequate on smear
[2020-09-17 16:17] LABS: Folate 8.1 ng/mL (2.76-20.0); Vitamin B12 458 pg/mL (239-931)
[2020-09-18 04:36] LABS: Haptoglobin 238 mg/dL (37-355)
[2020-09-21 10:09] LABS: C-Telopeptide, Serum 188 pg/mL (.)
[2020-09-23 14:58] LABS: N-Telopeptide 5.4 nmol BCE/L (6.2-19.0)
== END ==
PROVIDERS: PCP Internal Medicine; Referring Provider Internal Medicine; Visit Provider Internal Medicine
DX: M89.8X9 Other specified disorders of bone, unspecified site (principal); D64.9 Anemia, unspecified
CPT/HCPCS: 36415; 82523; 82607; 82746; 83010; 83615; 85025; 85045

== ENCOUNTER → 2020-09-24 14:29 | Outpatient (CLI) | payer MEDICARE, BC, SELFPAY ==
[2018-07-13 11:43] VITALS: BMI 25.3
[2020-09-24 16:03] LABS: Clostridium Difficile Tox PCR Negative for C. diff
== END ==
PROVIDERS: PCP Internal Medicine; Referring Provider Internal Medicine; Visit Provider Internal Medicine
DX: R19.7 Diarrhea, unspecified (principal); D64.9 Anemia, unspecified
CPT/HCPCS: 87493

== ENCOUNTER → 2020-11-17 13:36 | Outpatient (CLI) | payer MEDICARE, BC, SELFPAY ==
[2018-07-13 11:43] VITALS: BMI 25.3
[2020-11-17 14:27] LABS: COVID19 -Nasal RAPID Negative (Negative)
== END ==
PROVIDERS: PCP Internal Medicine; Visit Provider Nurse Practitioner
DX: Z20.822 Contact with and (suspected) exposure to COVID-19 (principal); Z01.812 Encounter for preprocedural laboratory examination
CPT/HCPCS: 87635; C9803

== ENCOUNTER 2020-11-18 09:26 | Day surgery (SDC) | payer MEDICARE, BC, SELFPAY ==
[2018-07-13 11:43] VITALS: BMI 25.3
[2020-11-18] MEDS: PROPARACAINE 0.5% OPHTH SOL 2 DROPS EYE-OP (10:31)
[2020-11-18] MEDS: CATARACT EYE COMPOUND (10 DROPS/SYRINGE) 3 DROPS EYE-OP (10:38)
[2020-11-18 10:46] VITALS: BP 91/67; PULSE 87; RESP 16; TEMP 36.6; O2SAT 96; BMI 27.4
--- NOTE | 2020-11-18 11:10 | PM.PREOP ---
Pre-operative Note Interval Note History & Physical reviewed/Exam performed by Physician: Yes Changes to H&P: No
--- NOTE | 2020-11-18 11:11 | P.OP_ITS ---
Operative Date/Time/Diagnoses Pre-op diagnosis: Nuclear Cataract Left eye Post-op diagnosis: same Procedure & Clinicians Same procedure as scheduled: Yes Surgeon: Doe Mckeon Anesthesia Type: MAC +/- and Sedation Operative Notes Procedure in detail: Patient brought to the operating suite. Tetracaine drops placed in the left eye. Patient was prepped and draped in sterile manner. Wire lid speculum was placed in the eye. Betadine drops were placed on the eye. This was irrigated. Lidocaine jelly was placed on the eye. A paracentesis port was created with a side-port blade. 0.1 mL 1% preservative free lidocaine was injected into the anterior chamber. The anterior chamber was deepened with viscoelastic. 2.6 mm keratome was used to create a temporal clear corneal incision. Cystotome and Utrata forceps were used to create continuous tear capsulorrhexis. Balanced salt solution was used to hydro dissect the nucleus. The phacoemulsification handpiece was inserted and the nucleus was removed using the stop and chop technique. The irrigation aspiration handpiece was inserted and the remaining cortex was removed. Anterior chamber was deepened with viscoe lastic. An Shannon ZCB00 intraocular lens with a power of 23.5 was injected into the capsular bag. Irrigation aspiration handpiece was inserted and the remaining viscoelastic was removed. Incision was hydrated with balanced salt solution and found to be leak free with pressure with Weck-Vilma sponges. 0.1 mL Vigamox injected anterior chamber. 0.3 mL Kenalog 10 mg was injected subconjunctivally. Lid speculum was removed. The patient left the operating room in excellent condition. Complications: none Post-operative Condition: stable Disposition: same day surgery
[2020-11-18] MEDS: CHONDROIDTIN/SOD HYALURONATE 1.05 ML SYRINGE INTRAOCULA (11:23)
[2020-11-18] MEDS: LIDOCAINE JELLY 2% 5 ML 1 APPLIC TOP (11:23)
[2020-11-18] MEDS: PHENYLEPHRINE/LIDOCAINE VIAL (OR) 0.2 ML EYE-OP (11:23)
[2020-11-18] MEDS: MOXIFLOXACIN INJ 5 MG/ML VIAL EYE-OP (11:23)
[2020-11-18] MEDS: TETRACAINE 0.5% OPHTH DROPS 4 ML 2 DROPS EYE-OP (11:23)
[2020-11-18] MEDS: TRIAMCINOLONE 50 MG/5 ML VIAL INJ (11:24)
[2020-11-18] MEDS: BALANCED SALT IRRIG SOLN NO.2 500 ML, EPINEPHrine 1 MG IRR (11:24)
[2020-11-18 11:39] VITALS: BP 108/74; PULSE 85; RESP 16; TEMP 36.8; O2SAT 98
== END 2020-11-18 11:48 | disposition home or self-care (01) ==
PROVIDERS: PCP Physician Assistant; Referring Provider Ophthalmology; Visit Provider Ophthalmology
PROC: (CPT 66984; principal; 2020-11-18 11:15)
DX: H25.12 Age-related nuclear cataract, left eye (principal); I10 Essential (primary) hypertension; J44.9 Chronic obstructive pulmonary disease, unspecified; G47.33 Obstructive sleep apnea (adult) (pediatric)
CPT/HCPCS: 66984; J0171; J2250; J3010; J3301

== ENCOUNTER 2020-11-22 00:05 | Emergency (ER) | payer MEDICARE, BC, SELFPAY ==
[2018-07-13 11:43] VITALS: BMI 25.3
--- NOTE | 2020-11-22 00:09 | DI.RAD.S_ITS ---
PROCEDURE: XR ANKLE LT MIN 3V INDICATIONS: fall with deformity to ankle TECHNIQUE: 3 views of the ankle were acquired. COMPARISON: [facility], CT, CT LE LT WO CON, 11/22/2020, 0:44. [facility], CR, XR ANKLE LT 2V, 11/22/2020, 0:27. FINDINGS: Bones: A trimalleolar fracture is seen. There is a moderately displaced medial malleolar fracture seen, with rotation of the fracture fragment. There is a prominently displaced lateral malleolar fracture. A comminuted, moderately displaced posterior malleolar fracture can be seen. There is posterior subluxation of the talus in relation to the distal tibia. Plantar and Achilles calcaneal spurs are seen. Soft tissues: Associated soft tissue swelling is seen. IMPRESSION: Comminuted trimalleolar fracture. Note: No significant discrepancy from the preliminary report. Dictated by: Wiley Azar M.D. on 11/22/2020 at 7:44 Approved by: Wiley Azar M.D. on 11/22/2020 at 7:45
[2020-11-22 00:10] VITALS: BP 128/76; PULSE 81; RESP 16; TEMP 35.6; O2SAT 96; BMI 26.6
--- NOTE | 2020-11-22 00:19 | ED.LOWEXIN ---
HPI - Extremity Injury (Lower) General Chief Complaint: Extremity Injury, Lower Stated Complaint: L ankle Injury Time Seen by Provider: 11/22/20 00:11 Source: patient and EMS Mode of arrival: EMS Limitations: no limitations History of Present Illness HPI Narrative: Patient is a 60-year-old female who last evening was partaking in alcoholic drinks when she walked out back to slat pickler some dog toys and slipped down a incline in her yard twisting her left ankle. Has been unable to bear weight on it since then. Has a deformity and swelling to the area. She states she did not hit her head and had no other injuries from the event. She has no neck pain. Arrived by EMS for evaluation of her left ankle injury. Related Data Home Medications Medication Instructions Recorded Confirmed calcium carbonate [Calcium 600] 600 mg PO DAILY 02/01/18 11/18/20 cholecalciferol (vitamin D3) 1,000 unit PO DAILY 02/01/18 11/18/20 [Vitamin D3] omeprazole 20 mg PO DAILY 02/01/18 11/18/20 spironolactone 25 mg PO DAILY 02/01/18 11/18/20 telmisartan 80 mg PO DAILY 02/01/18 11/18/20 alprazolam 0.5 mg PO DAILY PRN 06/28/18 12/12/19 anastrozole 1 mg PO DAILY 06/28/18 11/18/20 ibuprofen 200 mg PO TID-QID PRN 06/28/18 11/18/20 trospium 60 mg PO BEDTIME 06/28/18 12/12/19 nicotine 21 mg TOPICAL DAILY 07/13/18 12/12/19 trazodone 200 mg PO BEDTIME 10/10/18 11/18/20 citalopram 40 mg tablet 40 mg PO DAILY tab 03/20/19 11/18/20 Previous Rx's Medication Instructions Recorded metoclopramide HCl 10 mg PO Q6H PRN #20 tab 08/01/20 ondansetron 4 mg PO Q6H PRN #20 tab 08/01/20 hydrocodone-acetaminophen [[place]] 1 tab PO Q4-6H PRN #10 tab 11/22/20 Allergies Allergy/AdvReac Type Severity Reaction Status Date / Time Cephalosporins Allergy Severe Hives Verified 11/22/20 00:12 naproxen Allergy Severe Hives Verified 11/22/20 00:12 Review of Systems Constitutional Constitutional: Denies fatigue and Denies headache(s) ENT Ears, Nose, Mouth, and Throat: Denies vertigo, Denies dizziness and Denies headache(s) Cardiovascular Cardiovascular: Denies chest pain and Denies dyspnea Respiratory Respiratory: Denies dyspnea Gastrointestinal Gastrointestinal: Denies abdominal pain Musculoskeletal Musculoskeletal: Denies tingling Comments: Left ankle injury Integumentary/Breasts Comments: Bruising around the left ankle Neurologic Neurologic: Denies behavioral changes, Denies vertigo, Denies dizziness, Denies headache(s) and Denies tingling Psychiatric Psychiatric: Denies behavioral changes Endocrine Endocrine: Denies fatigue Hematologic/Lymphatic On Anticoagulants: No Allergic/Immunologic Allergic/Immunologic: Denies urticaria Patient History Medical History Anxiety Breast cancer, right COPD (chronic obstructive pulmonary disease) 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 Depression Edema Excessive daytime sleepiness GERD (gastroesophageal reflux disease) HTN (hypertension) Hyperlipidemia Low back pain Neck pain Nocturnal hypoxemia Obstructive sleep apnea of adult Osteoarthritis Overactive bladder Primary insomnia Tobacco abuse disorder Surgical History H/O colonoscopy History of appendectomy History of cholecystectomy S/P arthroscopy of right shoulder Status post arthroscopy of hip Family History Other Family history non-contributory Social History household members: spouse Smoking Status: Former smoker alcohol intake: current Smoking Status: Former smoker alcohol intake frequency: 3 or more drinks per day Alcohol type: wine Substance Use Type: marijuana Exam Initial Vital Signs Initial Vital Signs: Vital Signs Temperature 96.0 F L 11/22/20 00:10 Pulse Rate 81 11/22/20 00:10 Respiratory Rate 16 11/22/20 00:10 Blood Pressure 128/76 11/22/20 00:10 Pulse Oximetry 96 11/22/20 00:10 Const General: cooperative and well developed Limitations: other limitations (Intoxicated) HENMT Head: normal to inspection and normocephalic Resp Effort & Inspection: normal respiratory effort Cardio Rate: regular rate Pulses: dorsalis pedis present on the left Skin Other: Bruising around the left ankle however no breaks in the skin. Neuro General: patient alert, patient awake and patient oriented x3 Speech: speech normal Sensory Exam: no sensory deficits noted Other: Sensation intact to light touch left lower extremity Extrem Other: Patient has brisk cap refill left lower extremity. Has tenderness to palpation an obvious deformity to the left ankle. She has no proximal fibula tenderness. Has no knee tenderness. Left hip unremarkable. Psych Appearance: grossly normal and well kempt Procedures Orthopedic Fracture Reduction Fracture #1: Time Out Performed: Yes Side: left Fracture Reduction Location: tibia and fibula Technique: direct manipulation Post Reduction X-rays Demonstrate: acceptable reduction Post-reduction neuro exam: intact Post-reduction vascular exam: intact Splint Applied: Yes Patient Tolerated Procedure: Well and No complications Orthopedic Joint Reduction Joint #1: Time Out Performed: Yes Side: left Joint Reduction Location: ankle Technique used: direct manipulation Post-reduction neuro exam: intact Post-reduction vascular: intact Post Reduction X-Ray Obtained: Yes Post Reduction X-Ray Results: reduced Splint Applied: Yes Patient Tolerated Procedure: Well and No complications Orthopedic Splinting/Casting Injury #1: Side: left Lower Extremity Injury Location: ankle Lower Extremity Immobilizer: posterior splint and stirrup splint Other Orthopedic Equipment: crutches Post splinting neuro exam: intact Post splinting vascular exam: intact Placed by: Provider Course Orders Ordered: ED Orders 11/22/20 00:09 XR ankle LT min 3V Stat 11/22/20 00:35 CT LE LT wo con Stat XR ankle LT 2V Stat Discontinued Medications Hydrocodone Bitart/Acetaminophen (Hydrocodone/Acet 5/325 Tablet) 1 tab PO NOW ONE Stop: 11/22/20 01:05 Last Admin: 11/22/20 01:18 Dose: 1 tab Documented by: KEAGAN Hydrocodone Bitart/Acetaminophen (Hydrocodone/Acet 5/325 Prepack) 1 bottle MISC SEEINSTR ONE Stop: 11/22/20 01:44 Last Admin: 11/22/20 01:48 Dose: 1 bottle Documented by: SREE Vital Signs Vital signs: Vital Signs - 8 hr 11/22/20 00:10 11/22/20 02:09 Temperature 96.0 F L Pulse Rate 81 89 Respiratory Rate 16 16 Blood Pressure 128/76 117/72 Pulse Oximetry 96 96 MDM - Extremity Injury (Lower) Imaging Data Extremity x-ray #1: Radiologist's Impression: Preliminary read Fracture of the distal tibia and the medial malleolus and posterior aspect of the distal fibula with disruption of the tibiotalar joint Postreduction x-rays: Radiologist's Impression: Successful reduction with a normal articulation of the tibia and talus and no displacement of the fracture of the distal fibula Persistent angulation of the medial malleolus Decrease displacement of the fracture the posterior aspect of the distal tibia CT ankle: Radiologist's Impression: Trimalleolar fracture [facility] [place] Narrative Medical decision making narrative: Patient is neurovascularly intact. She had strong DP pulses and brisk cap refill. She has soft compartments. She was placed in a posterior and stirrup splint. Fairly obvious trimalleolar fracture. CT scan ordered for probable surgical intervention. Patient has crutches at home. Will send home with pain medication. She was given information to contact the Orthopedic Department at the beginning of next week for follow-up. She was given care instructions and return precautions. She expressed understanding and agreement. Discharge Plan Departure Patient Disposition: Home Clinical Impression: Trimalleolar fracture of left ankle Instructions: How to Use Crutches, DI for Ankle Fracture, How to Take Care of Your Splint Activity Restrictions/Additional Instructions: You do have a left ankle fracture. The splint that was placed here in the emergency department and needs to be treated like a cast. You need to keep it on and keep it clean and keep it dry. Do not walk on your left foot. Use the crutches that you have at home. When you base you do need to keep this splint clean. On Tuesday contact the [facility] group at [phone]. Dr. Fitzpatrick is a orthopedic physician who was on-call this weekend. Also contact your primary provider for a follow-up. Return to the emergency department for any new or worsening symptoms Prescriptions: New hydrocodone-acetaminophen [[place]] 5-325 mg tablet 1 tab PO Q4-6H PRN (Reason: pain) Qty: 10 RF: 0 No Action anastrozole 1 mg Tablet 1 mg PO DAILY RF: 0 ibuprofen 200 mg Capsule 200 mg PO TID-QID PRN (Reason: pain) RF: 0 alprazolam 0.5 mg Tablet 0.5 mg PO DAILY PRN (Reason: Anxiety) RF: 0 trospium 60 mg Capsule,Extended Release 24hr 60 mg PO BEDTIME RF: 0 nicotine 21 mg Topical DAILY RF: 0 ondansetron 4 mg tablet,disintegrating 4 mg PO Q6H PRN (Reason: nausea and vomiting) Qty: 20 RF: 0 metoclopramide HCl 10 mg tablet 10 mg PO Q6H PRN (Reason: nausea and vomiting) Qty: 20 RF: 0 spironolactone 25 mg Tablet 25 mg PO DAILY RF: 0 calcium carbonate [Calcium 600] 600 mg calcium (1,500 mg) Tablet 600 mg PO DAILY RF: 0 telmisartan 80 mg Tablet 80 mg PO DAILY RF: 0 omeprazole 20 mg Capsule,Delayed Release(Dr/Ec) 20 mg PO DAILY RF: 0 cholecalciferol (vitamin D3) [Vitamin D3] 1,000 unit Capsule 1,000 unit PO DAILY RF: 0 trazodone 100 mg tablet 200 mg PO BEDTIME RF: 0 citalopram 40 mg tablet 40 mg PO DAILY RF: 0 Referrals: Gretel Fitzpatrick MD [Physician] - Jessica Duff PA-C [Primary Care Provider] -
--- NOTE | 2020-11-22 00:35 | DI.CT.S_ITS ---
PROCEDURE: CT LE LT W CON INDICATIONS: Trimalleolar fracture TECHNIQUE: Noncontrast 1-1.5 mm axial sections acquired from above the tibiotalar joint to the bottom of the calcaneus, with coronal and sagittal reformats. COMPARISON: None. FINDINGS: Image quality: Excellent. Bones: There is a moderately displaced fracture of the medial malleolus, with rotation of the primary fracture fragment. Mild comminution can be seen. There is a moderately displaced distal fibular fracture. A moderately displaced, comminuted posterior malleolar fracture can be seen. There is a comminuted fracture fragment seen interposed between the main fracture fragments superiorly, as on series 6, image 107. No talar dome fracture is seen. Plantar and Achilles calcaneal spurs are seen. No fractures of the bones of foot can be seen. No suspicious lytic or blastic lesions are seen. Soft tissues: There is associated soft tissue swelling seen. No significant abnormality of the Achilles tendon is seen. No radiopaque foreign bodies are seen. IMPRESSION: Moderately displaced trimalleolar fracture. The posterior malleolar fracture demonstrates a comminuted fracture fragment interposed between the main fracture components. The medial malleolar fracture fragment demonstrates rotation. Note: No significant discrepancy from the preliminary report. Dictated by: Wiley Azar M.D. on 11/22/2020 at 7:32 Approved by: Wiley Azar M.D. on 11/22/2020 at 7:36
--- NOTE | 2020-11-22 00:35 | DI.RAD.S_ITS ---
PROCEDURE: XR ANKLE LT 2V INDICATIONS: post reduction TECHNIQUE: 2 views of the ankle were acquired. COMPARISON: [facility], CT, CT LE LT WO CON, 11/22/2020, 0:44. [facility], CR, XR ANKLE LT MIN 3V, 11/22/2020, 0:10. FINDINGS: Bones: A trimalleolar fracture is seen. On this post reduction study, the anatomic alignment is improved. The medial malleolar fracture remains rotated. The overlying casting material limits evaluation of fine detail. Soft tissues: Soft tissue swelling is seen. IMPRESSION: Improved anatomic alignment. Note: No significant discrepancy from the preliminary report. Dictated by: Wiley Azar M.D. on 11/22/2020 at 7:36 Approved by: Wiley Azar M.D. on 11/22/2020 at 7:43
[2020-11-22] MEDS: HYDROCODONE/ACET 5/325 TABLET 1 TAB PO (01:18)
[2020-11-22] MEDS: HYDROCODONE/ACET 5/325 PREPACK 1 BOTTLE MISC (01:48)
[2020-11-22 02:09] VITALS: BP 117/72; PULSE 89; RESP 16; O2SAT 96
== END 2020-11-22 02:11 | disposition home or self-care (01) ==
PROVIDERS: Emergency Provider Emergency Medicine; PCP Physician Assistant
DX: S82.852A Displaced trimalleolar fracture of left lower leg, initial encounter for closed fracture (principal); W01.0XXA Fall on same level from slipping, tripping and stumbling without subsequent striking against object, initial encounter; I10 Essential (primary) hypertension; E78.5 Hyperlipidemia, unspecified; J44.9 Chronic obstructive pulmonary disease, unspecified
CPT/HCPCS: 27818; 29515; 73600; 73610; 73700; 99284

== ENCOUNTER → 2020-11-26 11:54 | Outpatient (CLI) | payer MEDICARE, BC, SELFPAY ==
[2018-07-13 11:43] VITALS: BMI 25.3
[2020-11-26 12:59] LABS: COVID19 -Nasal RAPID Negative (Negative)
== END ==
PROVIDERS: PCP Physician Assistant; Visit Provider Physician Assistant
DX: Z01.812 Encounter for preprocedural laboratory examination (principal); Z20.822 Contact with and (suspected) exposure to COVID-19
CPT/HCPCS: 87635

== ENCOUNTER 2020-11-28 09:47 | Day surgery (SDC) | payer MEDICARE, BC, SELFPAY ==
[2018-07-13 11:43] VITALS: BMI 25.3
[2020-11-28] VITALS (8 sets, daily range): BP systolic 112–122; BP diastolic 51–72; PULSE 75–82; RESP 10–14; TEMP 37.2–37.8; O2SAT 90–96; BMI 26.8
--- NOTE | 2020-11-28 | DI.RAD.S_ITS ---
PROCEDURE: XR ANKLE LT MIN 3V INDICATIONS: TRIMOLALAR FRACTURE REPAIR TECHNIQUE: 3 views of the ankle were acquired. COMPARISON: [facility], CR, XR ANKLE LT MIN 3V, 11/22/2020, 0:10. FINDINGS: Intraoperative images demonstrate postsurgical changes compatible with ORIF of left ankle trimalleolar fracture. There is anatomic alignment of the fracture fragments following ORIF. IMPRESSION: Anatomic alignment of trimalleolar fracture following ORIF. Dictated by: Anneliese Gaytan MD, PhD on 11/28/2020 at 17:48 Approved by: Anneliese Gaytan MD, PhD on 11/28/2020 at 17:50
[2020-11-28] MEDS: LACTATED RINGERS 1,000 ML 42 ML IV (10:41)
--- NOTE | 2020-11-28 11:20 | PM.PREOP ---
Pre-operative Note COVID-19 COVID-19 status: Negative Interval Note History & Physical reviewed/Exam performed by Physician: Yes Changes to H&P: No
--- NOTE | 2020-11-28 11:42 | SUR.PREOP ---
Block start time [1120] . Monitoring initiated and maintained throughout procedure. Oxygen and medications given by anesthesiologist. Patient remained stable throughout procedure, no adverse reactions noted. Block end time [1136]. Pt left for the OR in stable condition.
[2020-11-28] MEDS: CEFAZOLIN 2 GM/100 ML FROZ.PIGGY IV (11:44)
--- NOTE | 2020-11-28 12:12 | SUR.OPER ---
Supine on padded OR bed, head on pillow, arms secured on padded arm boards at <90 degrees abduction, legs uncrossed, safety belt at lower torso, bump under left hip, tape over blanket over right lower leg, left leg sterile draped and in control of the surgeon.
[2020-11-28] MEDS: BUPIVACAINE 0.5% W/ EPI (PF) 30 ML VIAL INJ (12:21)
[2020-11-28] MEDS: OXYCODONE/ACETAMINOPHEN 5/325 TABLET 1 TAB PO (14:44)
--- NOTE | 2020-11-28 15:32 | P.OP_ITS ---
Operative Date/Time/Diagnoses Date of procedure: 11/28/20 Time of procedure: 12:00 Pre-op diagnosis: left trimalleolar ankle fracture S82. 852A Post-op diagnosis: same Procedure & Clinicians Procedure: open reduction internal fixation left trimalleolar ankle fracture with fixation of posterior lip CPT code 06068 Same procedure as scheduled: Yes Indications: the patient is a 60-year-old female that sustained a fall and left trimalleolar ankle fracture dislocation to her left ankle this was a closed injury. She was seen in the [facility] Emergency Room. A reduction was performed and splinting. She was referred to Orthopedics. A skin check was completed earlier this week with appropriate swelling. She was indicated for open reduction internal fixation to restore alignment and decrease the risk of posttraumatic arthritis. The risks and benefits of the procedure have been discussed with the patient even opportunity to ask questions. The risks of surgery include but are not limited to infection, malunion, nonunion, persistence of pain, damage to nerves and blood vessels, posttraumatic arthritis, DVT, PE, cardiopulmonary complications and . The patient expressed a thorough understanding of the risks and benefits of surgery and has elected to proceed. Consent was signed. Surgeon: Gretel Fitzpatrick Click Yes if Unassisted: Yes Anesthesia Type: General, Peripheral nerve block and Local Operative Notes Findings: displaced trimalleolar ankle fracture. Short oblique distal fibula fracture at the level of the joint. Large posterior malleolus fracture with ext ension medially to the medial malleolus splitting just anterior to the posterior tibial tendon groove separate transverse anterior medial malleolus fragment piece rotated 90? fibular fracture was stabilized with a 5 hole 1/3 tubular plate from the Arthrex set with locking screws distally and cortical screws proximally. Posterior malleolus fracture was reduced and stabilized with 2 a to P parti ally-threaded cannulated 406 screws from the Arthrex set and a posterior medially placed the buttress plate 4 hole 1/3 tubular plate with cortical screws. medial malleolus was fixed with 2x4.0 cannulated screws from the Arthrex set Closure Type: primary Specimen(s): none sent Prosthetic devices, grafts, tissues, transplants, or devices: Arthrex 5 hole 1/3 tubular plate. cortical and locking screws 3.5 Arthrex 4 hole 1/3 tubular plate. cortical screws, 3.5 Arthrex 4.0 cannulated screws ( 4 screws total) 2 screws anterior to posterior for posterior malleolus and 2 screws for the medial malleolus fixation Applied: other ( splint) Estimated Blood Loss (mL): 20 Blood products transfused: none Tourniquet time (min): 90 Procedure in detail: In the preoperative holding area, the appropriate limb and sites were marked, consent was again reviewed with the patient and all questions answered. patient underwent a preoperative regional anesthetic block for postoperative pain control by the anesthesia team. The patient was brought to the operating room, placed on the operating table and given anesthetic. Following successful levels of anesthesia, the patient was appropriately padded, position secured to the table. An SCD was placed on the contralateral leg. All bony prominences were well padded. A well-padded thigh tourniquet was placed. The surgical leg was then prepped and draped in the usual sterile fashion. A formal time-out procedure was completed confirming the patient, site and side of surgery and administration of appropriate preoperative antibiotics. All were in agreement. Patient received 2 g of cefazolin for antibiotic. An Esmarch bandage was utilized to exsanguinate the limb and the tourniquet was raised on the thigh to 250 mmHg. Posterior malleolus fixation: Lateral incision was made over the fibula. Dissection was carried through the skin and subcutaneous tissue to the level of the fibula. The fracture was exposed and cleaned of debris. displaced fracture was used as a working access to the posterior malleolus fracture which was accessed through the fibula fracture and a [place] elevator was used to sweep proximally to remove the interposed cortical fragment the apex of the posterior malleolar fragment. then through the same incision the large pointed reduction clamps were utilized to reduce the posterior malleolus fracture and fix it. additionally a posterior medial incision was made curved along the course of the posterior tibialis tendon and then curving anteriorly distally. This exposed t he medial malleolus fracture which was rotated 90? and the medial extension of the posterior malleolus fracture that came out medially on the medial malleolus anterior to the posterior tibialis tendon groove. There was some comminution in this area. Again the [place] was used to mobilize this. At the posterior tibialis tendon was removed from its groove and retracted anteriorly to protect it. The Hohmann retractors protected the neurovascular bundle retracting the FHL posterior. This exposed the posterior malleolus fracture. Working from the lateral and medial incisions the point reduction clamps were used to reduce the posterior malleolus fracture fragment. This was confirmed under intraoperative fluoroscopy and then to 4.0 cannulated partially-threaded screws from the Arthrex set were placed in an anterior to posterior fashion across the posterior malleolus fracture fixing it. These were placed through small anterior incisions were anguiano it was used to bluntly dissect down to the bone and care was taken placing these not to interpose any soft tissues. Once this was completed the comminution posterior medially was buttressed with a posterior plate. A 4 hole 1/3 tubular plate from the Arthrex set was selected for this and was positioned posteriorly clear of the posterior tibialis tendon groove and angled laterally to the to buttress the posterior malleolus fragment. This was provisionally fixed using the BB tacks and then to cortical screws were were placed. And again final AP and lateral x-rays were obtained regarding fixation of the posterior malleolus fragment confirming appropriate alignment of the joint and hardware placement. Medial malleolus fixation: the anterior more standard medial malleolar transverse fracture was then exposed and this was rotated 90?. The fracture hematoma was irrigated and debrided the periosteum removed from the fracture site. The medial malleolus fragment was then reduced With the pointed reduction clamp and pinned in place with 2 parallel K-wires. alignment was checked under fluoroscopy additionally anteriorly of the arthrotomy was visualized and the cartilage was intact and the shoulder reduced. 2x 4 0 partia lly-threaded cannulated screws from the Arthrex set were then placed in this fracture this was a 46 and a 40 mm short thread screws. Lateral malleolus fixation: Once the posterior malleolus and medial malleolus fractures were fixed attention was returned to the lateral incision to the fibula fracture which was then reduced with the reduction clamps, restoring length rotation and anatomic alignment. this was pinned in place with a K-wire. it was a short oblique fracture and the bone was the soft so I opted for a anti glide type plate positioning. a 5 hole Arthrex 1/3 tubular plate was po sitioned in an antiglide fashion posterior laterally. A 1st cortical screw was placed at the apex of the posterior fracture. The plate was secured proximally and distally. Proximal cortical and 1 locking screw placed. Distal 2 locking screws were placed to decrease prominence. the ankle was stressed under fluoroscopy in external rotation and the syndesmosis was stable. Stability Appropriate hardware placement was confirmed under fluoro. The wounds were irrigated. We were quite satisfied with result clinically and radiographically. The tourniquet was released, and hemostasis achieved. The deep tissue was closed with 2 O Vicryl. Subcutaneous tissue was closed with 4 0 Monocryl in the skin with 3 O nylon. A sterile bulky Gonzalez dressing and splint were applied. All counts were correct. The patient was then awoken and transported to recovery room in good condition. There no known immediate complications from this procedure. Complications: none Post-operative Condition: stable Disposition: PACU Plan for aftercare: nonweightbearing left lower extremity. Elevate strictly above the heart level for the 1st 2 weeks after surgery to reduced swelling and promote healing and pain relief. Discharged with oxycodone for pain control. Have a prescription for Zofran as well. Will start taking aspirin 325 mg daily with equivocal and baby aspirin on postop day 1 for DVT prophylaxis. This will continue for 6 weeks or until weight-bearing.
== END 2020-11-28 15:28 | disposition home or self-care (01) ==
PROVIDERS: Referring Provider Orthopaedic Surgery Foot and Ankle Surgery; Visit Provider Orthopaedic Surgery Foot and Ankle Surgery
PROC: (CPT 27823; principal; 2020-11-28 11:15)
DX: S82.852A Displaced trimalleolar fracture of left lower leg, initial encounter for closed fracture (principal); I10 Essential (primary) hypertension; J44.9 Chronic obstructive pulmonary disease, unspecified; W10.9XXA Fall (on) (from) unspecified stairs and steps, initial encounter; Y92.009 Unspecified place in unspecified non-institutional (private) residence as the place of occurrence of the external cause; F17.210 Nicotine dependence, cigarettes, uncomplicated
CPT/HCPCS: 27823; 64450; 73610; 76000; J0690; J1100; J1885; J2250; J2405; J2704; J3010

== ENCOUNTER → 2020-12-08 11:47 | Outpatient (CLI) | payer MEDICARE, BC, SELFPAY ==
[2018-07-13 11:43] VITALS: BMI 25.3
[2020-12-08 12:51] LABS: COVID19 -Nasal RAPID Negative (Negative)
== END ==
PROVIDERS: Visit Provider Physician Assistant
DX: Z01.812 Encounter for preprocedural laboratory examination (principal); Z20.822 Contact with and (suspected) exposure to COVID-19
CPT/HCPCS: 87635; C9803

== ENCOUNTER 2020-12-09 09:34 | Day surgery (SDC) | payer MEDICARE, BC, SELFPAY ==
[2018-07-13 11:43] VITALS: BMI 25.3
[2020-12-09 10:16] VITALS: BP 113/75; PULSE 75; RESP 16; TEMP 36.4; O2SAT 95; BMI 27.1
[2020-12-09] MEDS: PROPARACAINE 0.5% OPHTH SOL 2 DROPS EYE-OP (10:29)
[2020-12-09] MEDS: CATARACT EYE COMPOUND (10 DROPS/SYRINGE) 3 DROPS EYE-OP (10:29)
--- NOTE | 2020-12-09 11:09 | PM.PREOP ---
Pre-operative Note Interval Note History & Physical reviewed/Exam performed by Physician: Yes Changes to H&P: No
--- NOTE | 2020-12-09 11:09 | PM.OP.1 ---
Operative Date/Time/Diagnoses Pre-op diagnosis: Nuclear cataract right eye Procedure & Clinicians Procedure: Cataract Surgery Same procedure as scheduled: Yes Surgeon: Doe Mckeon Anesthesia Type: MAC +/- and Sedation Operative Notes Procedure in detail: Patient brought to the operating suite. Tetracaine drops placed in the right eye. Patient was prepped and draped in sterile manner. Wire lid speculum was placed in the eye. Betadine drops were placed on the eye. This was irrigated. Lidocaine jelly was placed on the eye. A paracentesis port was created with a side-port blade. 0.1 mL 1% preservative free lidocaine was injected into the anterior chamber. The anterior chamber was deepened with viscoelastic. 2.6 mm keratome was used to create a temporal clear corneal incision. Cystotome and Utrata forceps were used to create continuous tear capsulorrhexis. Balanced salt solution was used to hydro dissect the nucleus. The phacoemulsification handpiece was inserted and the nucleus was removed using the stop and chop technique. The irrigation aspiration handpiece was inserted and the remaining cortex was removed. Anterior chamber was deepened with viscoelastic. An Shannon [id number] intraocular lens with a power of 23.0 was injected into the capsular bag. Irrigation aspiration handpiece was inserted and the remaining viscoelastic was removed. Incision was hydrated with balanced salt solution and found to be leak free with pressure with Weck-Vilma sponges. 0.1 mL Vigamox injected anterior chamber. 0.3 mL Kenalog 10 mg was injected subconjunctivally. Lid speculum was removed. The patient left the operating room in excellent condition. Complications: none Post-operative Condition: stable Disposition: same day surgery
[2020-12-09] MEDS: MOXIFLOXACIN INJ 5 MG/ML VIAL EYE-OP (11:42)
[2020-12-09] MEDS: LIDOCAINE JELLY 2% 5 ML 1 APPLIC TOP (11:42)
[2020-12-09] MEDS: TRIAMCINOLONE 50 MG/5 ML VIAL INJ (11:42)
[2020-12-09] MEDS: CHONDROIDTIN/SOD HYALURONATE 1.05 ML SYRINGE INTRAOCULA (11:43)
[2020-12-09] MEDS: BALANCED SALT IRRIG SOLN NO.2 500 ML, EPINEPHrine 1 MG IRR (11:43)
[2020-12-09] MEDS: PHENYLEPHRINE/LIDOCAINE VIAL (OR) 0.2 ML EYE-OP (11:43)
[2020-12-09] MEDS: TETRACAINE 0.5% OPHTH DROPS 4 ML 2 DROPS EYE-OP (11:44)
[2020-12-09 12:05] VITALS: BP 130/89; PULSE 75; RESP 14; TEMP 36.6; O2SAT 94
== END 2020-12-09 12:27 | disposition home or self-care (01) ==
PROVIDERS: PCP Physician Assistant; Referring Provider Ophthalmology; Visit Provider Ophthalmology
PROC: (CPT 66984; principal; 2020-12-09 11:15)
DX: H25.11 Age-related nuclear cataract, right eye (principal); F41.9 Anxiety disorder, unspecified; F32.9 Major depressive disorder, single episode, unspecified; I10 Essential (primary) hypertension; E78.00 Pure hypercholesterolemia, unspecified; J44.9 Chronic obstructive pulmonary disease, unspecified; G47.33 Obstructive sleep apnea (adult) (pediatric); K21.9 Gastro-esophageal reflux disease without esophagitis; F17.200 Nicotine dependence, unspecified, uncomplicated
CPT/HCPCS: 66984; J0171; J2250; J3010; J3301

== ENCOUNTER → 2021-02-05 11:20 | Outpatient (CLI) | payer MEDICARE, BC, SELFPAY ==
[2018-07-13 11:43] VITALS: BMI 25.3
--- NOTE | 2021-02-05 11:45 | DI.CT.S_ITS ---
PROCEDURE: CT CHEST WO CON INDICATIONS: Solitary pulmonary nodule* TECHNIQUE: Noncontrast 2.0-2.5 mm thick sections acquired from the pulmonary apices to the posterior costophrenic angles. 7 mm thick axial MIP and 5 mm coronal and sagittal reformats were then acquired. A low radiation dose technique was utilized. COMPARISON: Outside Film, CT, CT ANGIO CHEST, 07/08/2020, 15:05. [facility], CT, CT ABDOMEN PELVIS W CON, 08/01/2020, 13:36. FINDINGS: Image quality: Diagnostic, given the low radiation dose technique. Lungs and pleura: The prior CT report from the [facility] from 07/08/20 had described a punctate pulmonary nodule at the right upper lobe. There is a 1 point 5 mm nodule seen in this area, measuring also 1.5 mm, and seen best on series 3, image 91. Mediastinum: Heart size is normal. No pericardial effusion. No mediastinal adenopathy by size criteria. Thoracic aorta and central pulmonary arteries are normal in size. Esophagus is normal in caliber. No hiatal hernia. Study. Bones and chest wall: No suspicious bony lesions. No vertebral body compression fractures. No axillary or supraclavicular adenopathy by size criteria. Thyroid gland is not well seen by this noncontrast. Prior chest wall reconstruction surgery on the right. Abdomen: Visualized upper abdomen solid organs and bowel loops appear normal in the absence of contrast. IMPRESSION: Lateral right upper lobe 1.5 mm benign appearing pulmonary nodule requiring no follow-up. No additional finding of concern elsewhere.. Dictated by: Colten Polanco M.D. on 02/05/2021 at 17:43 Approved by: Colten Polanco M.D. on 02/05/2021 at 17:49
== END ==
PROVIDERS: PCP Physician Assistant; Referring Provider Internal Medicine Hematology & Oncology; Visit Provider Internal Medicine Hematology & Oncology
DX: R91.1 Solitary pulmonary nodule
CPT/HCPCS: 71250

== ENCOUNTER 2021-03-26 13:45 | Outpatient (RCR) | payer MEDICARE, BC, SELFPAY ==
[2018-07-13 11:43] VITALS: BMI 25.3
--- NOTE | 2021-01-19 18:09 | PT.OIE ---
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 Depression Edema Excessive daytime sleepiness GERD (gastroesophageal reflux disease) HTN (hypertension) Hyperlipidemia Low back pain Neck pain Nocturnal hypoxemia Obstructive sleep apnea of adult Osteoarthritis Overactive bladder Primary insomnia Tobacco abuse disorder Past Surgical History (Last Reviewed 08/01/20 @ 19:06 by TAWANDA DurandP-) H/O colonoscopy History of appendectomy History of cholecystectomy S/P arthroscopy of right shoulder Status post arthroscopy of hip Visit Care Team Role Provider Type Jessica Duff PA-C Primary Care Provider Non-Staff Specialty: Internal Medicine Address: [address] [place] [address], [id number] Email: [email or web address] Provider Physician Referring Provider Specialty: Orthopedics Address: [address] [place] [address], [id number] Email: [email or web address] Physical Therapy Initial Evaluation PT-OP-A Visit Information Start: 01/12/21 07:28 Freq: Status: Active Protocol: Document 01/19/21 16:03 [facility] (Rec: 01/19/21 16:49 [facility] [id number]) Out-Patient Physical Therapy Visit Information Visit Information Visit Type Initial Evaluation Visit Note 10/12 Visit Start Time 16:04 Visit Stop Time 16:47 Total Visit Minutes 43 Visit Number 1 Number of CAPITAL EQUIPMENT SPECIALIST Visits 0 PT-OP-B Current Condition Start: 01/12/21 07:28 Freq: Status: Active Protocol: Document 01/19/21 16:03 [facility] (Rec: 01/19/21 16:49 [facility] [id number]) Current Condition History of Current Condition Onset Date 11/22/20 injury 11/28/20 surgery ORIF Current Complaints R ankle pain s/p R ankle ORIF History of Current Condition Pt slipped and fell outside around the end of Nov but has no history of falls. Has had a couple little falls w/scooter but no injuries. Has been using scooter since injury. Pt was taken out of boot on Tue and is wearing air cast but pt cannot get a shoe over it. Pt able to go in through garage and it is one step and she uses the scooter to get in/out of the house. SLH otherwise. Pt lives with her who helps. She frank snot have a walker. She has a walk in shower with a curb & 2 glass doors w/a seat. helps w/in/out and pt is indep w/ showering otherwise. Pt is actively being treated for breast cancer and is currently being treated w/chemo and is getting shots for bone density . Prior Treatments and Tests none Future Testing and Treatments Planned Return follow up w/ Dr. Fitzpatrick February 25 Treatment Goals Patient/Caregiver Goals be able to do daily chores, be able to walk, be able to get back gardening, driving , cooking PT-OP-C Subjective Start: 01/12/21 07:28 Freq: Status: Active Protocol: Document 01/19/21 16:03 [facility] (Rec: 01/19/21 16:49 [facility] [id number]) Patient Questionnaires Foot & Ankle Ability Measure- ADL and Sports FAAM-ADL Score 30 FAAM-ADL Impairment 60 to 79% Impaired (Score 16- 32) Lower Extremity Functional Scale LEFS Score 20 LEFS Impairment 60 to 79% Impaired (Score 17- 31) OP-PT Pain Assessment Location L ankle Pain Location Details B malleoli Intensity 5 Scale Used gets twinges 10/10 Description Aching,Dull Description- Other electrical shock Frequency Constant Variations/Patterns occ ant ankle & lat foot Other Pain Aggravating Factors unknown Pain Alleviating Factors Cold Other Pain Alleviating Factors had oxy but stopped-occ tylenol PT-OP-F Manual Assessment Start: 01/12/21 07:28 Freq: Status: Active Protocol: Document 01/19/21 16:03 [facility] (Rec: 01/19/21 16:49 [facility] [id number]) Manual Assessments Soft Tissue Assessment Soft Tissue Mobility Assessment scars heeling but still have some red scabbing med, lat some yellow tissue. PT-OP-K Range of Motion Start: 01/12/21 07:28 Freq: Status: Active Protocol: Document 01/19/21 16:03 [facility] (Rec: 01/19/21 16:49 [facility] [id number]) Ankle and Foot Goniometric Range of Motion Ankle and Foot Right Active Dorsiflexion with Knee Flexed 16 Plantarflexion 55 Inversion 33 Eversion 21 Comments malleoli [id number] cm figure 8 49cm Left Active Dorsiflexion with Knee Flexed 20 Plantarflexion 44 Inversion 12 Eversion 8 Comments lacking to neutral w/DF Figure 8 52.5 cm malleoi: 26.5cm PT-OP-M Strength Start: 01/12/21 07:28 Freq: Status: Active Protocol: Document 01/19/21 16:03 [facility] (Rec: 01/19/21 16:49 [facility] [id number]) Hip Strength Hip Manual Muscle Testing Right Flexion (L2) 4 Good Extension (S1) 3+ Fair+ Abduction 4- Good- External Rotation 4 Good Internal Rotation 4 Good Left Flexion (L2) 4 Good Extension (S1) 3+ Fair+ Abduction 3+ Fair+ External Rotation 4- Good- Internal Rotation 4- Good- Knee Strength Knee Manual Muscle Testing Right Flexion (S2) 4+ Good+ Extension (L3) 5 Normal Left Flexion (S2) 4- Good- Extension (L3) 4+ Good+ Ankle/Foot Strength Ankle and Foot Manual Muscle Testing Right Dorsiflexion (L4) 5 Normal Plantarflexion (S1) 5 Normal Inversion 5 Normal Eversion (S1) 5 Normal Comments PF tested seated Left Dorsiflexion (L4) 2+ Poor+ Plantarflexion (S1) 3+ Fair+ Inversion 3- Fair- Eversion (S1) 3- Fair- PT-OP-Q Treatments Start: 01/12/21 07:28 Freq: Status: Active Protocol: Document 01/19/21 16:03 [facility] (Rec: 01/19/21 16:49 [facility] [id number]) Therapeutic Exercises Sitting Exercises calf stretch Side left Equipment Used towel Reps/Minutes 30 sec , 20 sec Plantar fascia stretch Side left Reps/Minutes 30 sec ROM Sitting Exercise Name 1. PF/DF 2. inversion/eversion 3. circles Side left Reps/Minutes 10 ea Gait Training Gait Activity WB Description scale for 25% edu w/walker Comments edu of what type of walker to get PT-OP-T Assessment and Plan Start: 01/12/21 07:28 Freq: Status: Active Protocol: Document 01/19/21 16:03 [facility] (Rec: 01/19/21 16:49 [facility] [id number]) Physical Therapy Assessment Rehab Potential Rehabilitation Potential Good Evaluation Complexity Number of Personal Factors/Comorbidities 3 or More Number of Body Systems Impaired 4 or More Clinical Presentation at Evaluation Evolving Impairments Impairments Activity Tolerance,Balance, Functional Activities, Functional Mobility,Gait,Pain, Posture,ROM,Soft Tissue Mobility,Strength Goals activities Short Term Goal (STG) Pt will be able to complete all housework with min inc in pain in L ankle. STG Duration 03/21/21 Ambulance Mechanic Goal (LTG) Pt will be able to do all gardening and house work without inc L ankle pain LTG Duration 04/20/21 gait Short Term Goal (STG) Pt will be able to amb without AD with min deviations STG Duration 03/21/21 Ambulance Mechanic Goal (LTG) Pt will be able to ambulate without AD with good mechanics and no pain for as long as she needs. LTG Duration 04/20/21 ROM Short Term Goal (STG) Pt will have AROM DF to neutral to improve gait and mboility. STG Duration 03/01/21 Ambulance Mechanic Goal (LTG) Pt will have AROM DF to at least 5 deg to improve gait and mobility. LTG Duration 04/20/21 strength Short Term Goal (STG) Pt will be indep w/HEP STG Duration 02/18/21 Ambulance Mechanic Goal (LTG) Pt will have 5/5 BLE strength in all planes w/o pain in order to allow pt back to typical activities. LTG Duration 04/20/21 LEFS Impairment 20/80 Short Term Goal (STG) Pt will imrpove score of LEFS to 35/80 to show improved functional ability. STG Duration 03/01/21 Ambulance Mechanic Goal (LTG) Pt will imrpove score of LEFS to 60/80 to show improved functional ability. LTG Duration 04/20/21 Assessment Summary Assessment Pt presents after trimalleolar fracture on 11/22 with ORIF completed on 11/28. Pt has been NWB since the surgery and is now cleared to start WB with 25% inc per week. She is currently wearing an aircast d /t MD recommendation but referral notes WB in boot so clarification from MD will be required. Pt has very limited ROM and decreased overall LE strength at this time along w/ difficulty with gait d/t limited WB. She would beneift from skilled PT to work on these deficits and progress her back to her normal level of function. Physical Therapy Plan Frequency and Duration Frequency of Treatment 2x/Week Duration of Treatment 3 months Plan of Care Start Date 01/19/21 Plan of Care End Date 04/20/21 Therapeutic Interventions Therapeutic Interventions Aquatic Therapy,Balance Training,Gait Training,Home Exercise Program,Joint Mobilizations,Manual Therapy, Neuromuscular Re-education, Patient/Caregiver Education, Self-Care/Home Management,Soft Tissue Mobilization,Taping, Therapeutic Activities, Therapeutic Exercises Modalities Cold Pack/Ice Massage,Electric Stimulation,Hot Packs, Infrared Therapy,Ultrasound Next Visit Focus/Plan Next Note Type Treatment Note Next Visit Plan progress to 50% WB 01/26, 02/02 75% WB,02/09 full WB with cast on, to call MD re: referral saying pt in boot vs cast pt is currently in d/t MD instruction, review HEP, BAPs board for ROM, manual work for ROM, scar tissue mobs once incision 100% healed, SLR for hip stability/strength
--- NOTE | 2021-01-19 18:09 | PT.OPPOC ---
Physical, Occupational & Speech Therapy At [facility] Current Diagnoses Difficulty in walking, not elsewhere classified (01/19/21) Weakness (01/19/21) Displaced trimalleolar fracture of left lower leg, subsequent encounter for closed fracture with routine healing (01/19/21) Visit Care Team Role Provider Type Jessica Duff PA-C Primary Care Provider Non-Staff Specialty: Internal Medicine Address: [address] [place] [address], [phone] Email: [email or web address] Fitzpatrick MD Attending Provider Physician Referring Provider Specialty: Orthopedics Address: [address] [place] [address], [id number] Email: [email or web address] Plan Of Care PT-OP-T Assessment and Plan Start: 01/12/21 07:28 Freq: Status: Active Protocol: Document 01/19/21 16:03 [facility] (Rec: 01/19/21 16:49 [facility] [id number]) Physical Therapy Assessment Rehab Potential Rehabilitation Potential Good Evaluation Complexity Number of Personal Factors/Comorbidities 3 or More Number of Body Systems Impaired 4 or More Clinical Presentation at Evaluation Evolving Impairments Impairments Activity Tolerance,Balance, Functional Activities, Functional Mobility,Gait,Pain, Posture,ROM,Soft Tissue Mobility,Strength Goals activities Short Term Goal (STG) Pt will be able to complete all housework with min inc in pain in L ankle. STG Duration 03/21/21 Labor Economics Professor Goal (LTG) Pt will be able to do all gardening and house work without inc L ankle pain LTG Duration 04/20/21 gait Short Term Goal (STG) Pt will be able to amb without AD with min deviations STG Duration 03/21/21 Labor Economics Professor Goal (LTG) Pt will be able to ambulate without AD with good mechanics and no pain for as long as she needs. LTG Duration 04/20/21 ROM Short Term Goal (STG) Pt will have AROM DF to neutral to improve gait and mboility. STG Duration 03/01/21 Labor Economics Professor Goal (LTG) Pt will have AROM DF to at least 5 deg to improve gait and mobility. LTG Duration 04/20/21 strength Short Term Goal (STG) Pt will be indep w/HEP STG Duration 02/18/21 Labor Economics Professor Goal (LTG) Pt will have 5/5 BLE strength in all planes w/o pain in order to allow pt back to typical activities. LTG Duration 04/20/21 LEFS Impairment 20/80 Short Term Goal (STG) Pt will imrpove score of LEFS to 35/80 to show improved functional ability. STG Duration 03/01/21 Labor Economics Professor Goal (LTG) Pt will imrpove score of LEFS to 60/80 to show improved functional ability. LTG Duration 04/20/21 Assessment Summary Assessment Pt presents after trimalleolar fracture on 11/22 with ORIF completed on 11/28. Pt has been NWB since the surgery and is now cleared to start WB with 25% inc per week. She is currently wearing an aircast d /t MD recommendation but referral notes WB in boot so clarification from MD will be required. Pt has very limited ROM and decreased overall LE strength at this time along w/ difficulty with gait d/t limited WB. She would beneift from skilled PT to work on these deficits and progress her back to her normal level of function. Physical Therapy Plan Frequency and Duration Frequency of Treatment 2x/Week Duration of Treatment 3 months Plan of Care Start Date 01/19/21 Plan of Care End Date 04/20/21 Therapeutic Interventions Therapeutic Interventions Aquatic Therapy,Balance Training,Gait Training,Home Exercise Program,Joint Mobilizations,Manual Therapy, Neuromuscular Re-education, Patient/Caregiver Education, Self-Care/Home Management,Soft Tissue Mobilization,Taping, Therapeutic Activities, Therapeutic Exercises Modalities Cold Pack/Ice Massage,Electric Stimulation,Hot Packs, Infrared Therapy,Ultrasound Next Visit Focus/Plan Next Note Type Treatment Note Next Visit Plan progress to 50% WB 01/26, 02/02 75% WB,02/09 full WB with cast on, to call MD re: referral saying pt in boot vs cast pt is currently in d/t MD instruction, review HEP, BAPs board for ROM, manual work for ROM, scar tissue mobs once incision 100% healed, SLR for hip stability/strength Plan of Care Dates Plan of Care Start Date 01/19/21 Plan of Care End Date 04/20/21 Electronically Signed by: Nita Veliz, PT 01/19/21 1809 Please Sign and Return: I have reviewed this Plan of Care and certify that the skilled therapy services above are required to meet the patient?s needs. Physician Signature Date Printed Name and Credentials Clinical Instructor Signature Printed Name and Credentials
--- NOTE | 2021-01-20 08:15 | PT-OP ANOTE ---
Called MD office and talked to nurse who reviewed patient's chart and noted she was allowed to go to stirup brace (air cast by description nurse provided) and start WB d/t boot bothering her. Informed nurse that brace pt found was too large to fit into a shoe, which is an issue. Nurse to call pt re: finding appropriate brace
--- NOTE | 2021-01-22 11:29 | PT.OTN ---
Current Diagnoses Difficulty in walking, not elsewhere classified (01/22/21) Weakness (01/22/21) Displaced trimalleolar fracture of left lower leg, subsequent encounter for closed fracture with routine healing (01/22/21) Physical Therapy Treatment Note PT-OP-A Visit Information Start: 01/12/21 07:28 Freq: Status: Active Protocol: Document 01/22/21 10:42 [facility] (Rec: 01/22/21 11:29 [facility] [id number]) Out-Patient Physical Therapy Visit Information Visit Information Visit Type Treatment Note Visit Note 11/12 Visit Start Time 10:36 Visit Stop Time 11:17 Total Visit Minutes 41 Visit Number 2 Number of PIECE MARKER SMALL ARMS Visits 0 PT-OP-B Current Condition Start: 01/12/21 07:28 Freq: Status: Active Protocol: Document 01/19/21 16:03 [facility] (Rec: 01/19/21 16:49 [facility] [id number]) Current Condition History of Current Condition Onset Date 11/22/20 injury 11/28/20 surgery ORIF Current Complaints R ankle pain s/p R ankle ORIF History of Current Condition Pt slipped and fell outside around the end of Nov but has no history of falls. Has had a couple little falls w/scooter but no injuries. Has been using scooter since injury. Pt was taken out of boot on Tue and is wearing air cast but pt cannot get a shoe over it. Pt able to go in through garage and it is one step and she uses the scooter to get in/out of the house. SLH otherwise. Pt lives with her who helps. She frank snot have a walker. She has a walk in shower with a curb & 2 glass doors w/a seat. helps w/in/out and pt is indep w/ showering otherwise. Pt is actively being treated for breast cancer and is currently being treated w/chemo and is getting shots for bone density . Prior Treatments and Tests none Future Testing and Treatments Planned Return follow up w/ Dr. Fitzpatrick February 25 Treatment Goals Patient/Caregiver Goals be able to do daily chores, be able to walk, be able to get back gardening, driving , cooking PT-OP-C Subjective Start: 01/12/21 07:28 Freq: Status: Active Protocol: Document 01/22/21 10:42 [facility] (Rec: 01/22/21 11:29 [facility] [id number]) OP-PT Subjective Patient Comments Patient Comments Pt reports not hearing from MD office since last PT appt. Notes she is feeling a little more soreness since WB. She got a walker PT-OP-F Manual Assessment Start: 01/12/21 07:28 Freq: Status: Active Protocol: Document 01/19/21 16:03 [facility] (Rec: 01/19/21 16:49 [facility] [id number]) Manual Assessments Soft Tissue Assessment Soft Tissue Mobility Assessment scars heeling but still have some red scabbing med, lat some yellow tissue. PT-OP-K Range of Motion Start: 01/12/21 07:28 Freq: Status: Active Protocol: Document 01/19/21 16:03 [facility] (Rec: 01/19/21 16:49 [facility] [id number]) Ankle and Foot Goniometric Range of Motion Ankle and Foot Right Active Dorsiflexion with Knee Flexed 16 Plantarflexion 55 Inversion 33 Eversion 21 Comments malleoli [id number] cm figure 8 49cm Left Active Dorsiflexion with Knee Flexed 20 Plantarflexion 44 Inversion 12 Eversion 8 Comments lacking to neutral w/DF Figure 8 52.5 cm malleoi: 26.5cm PT-OP-M Strength Start: 01/12/21 07:28 Freq: Status: Active Protocol: Document 01/19/21 16:03 [facility] (Rec: 01/19/21 16:49 [facility] [id number]) Hip Strength Hip Manual Muscle Testing Right Flexion (L2) 4 Good Extension (S1) 3+ Fair+ Abduction 4- Good- External Rotation 4 Good Internal Rotation 4 Good Left Flexion (L2) 4 Good Extension (S1) 3+ Fair+ Abduction 3+ Fair+ External Rotation 4- Good- Internal Rotation 4- Good- Knee Strength Knee Manual Muscle Testing Right Flexion (S2) 4+ Good+ Extension (L3) 5 Normal Left Flexion (S2) 4- Good- Extension (L3) 4+ Good+ Ankle/Foot Strength Ankle and Foot Manual Muscle Testing Right Dorsiflexion (L4) 5 Normal Plantarflexion (S1) 5 Normal Inversion 5 Normal Eversion (S1) 5 Normal Comments PF tested seated Left Dorsiflexion (L4) 2+ Poor+ Plantarflexion (S1) 3+ Fair+ Inversion 3- Fair- Eversion (S1) 3- Fair- PT-OP-Q Treatments Start: 01/12/21 07:28 Freq: Status: Active Protocol: Document 01/22/21 10:42 [facility] (Rec: 01/22/21 11:29 [facility] [id number]) Therapeutic Exercises Supine Exercises SLR Side left Reps/Minutes 15 Comments core focus Prone Exercises ext Prone Exercise Name alt Side bilateral Reps/Minutes 10 Sidelying Exercises hip add Side bilateral Reps/Minutes 5 Comments stopped d/t pain hip abd Side bilateral Reps/Minutes 10 Sitting Exercises ENDY Side left Reps/Minutes 2 min BAPS Sitting Exercise Name PF/DF, inv/ev, circles B Side left Reps/Minutes 15 ea Comments AAROm occ calf stretch Side left Equipment Used towel Reps/Minutes 30 sec , 20 sec Plantar fascia stretch Side left Reps/Minutes 30 sec ROM Sitting Exercise Name 1. PF/DF 2. inversion/eversion 3. circles Side left Reps/Minutes 10 ea Manual Therapy Treatment Soft Tissue Mobilization calf Mobilization Type Rolling,Strumming Intensity/Depth Moderate Body Position Hooklying PT-OP-T Assessment and Plan Start: 01/12/21 07:28 Freq: Status: Active Protocol: Document 01/22/21 10:42 [facility] (Rec: 01/22/21 11:29 [facility] [id number]) Physical Therapy Assessment Goals activities Short Term Goal (STG) Pt will be able to complete all housework with min inc in pain in L ankle. STG Duration 03/21/21 Mcfp Goal (LTG) Pt will be able to do all gardening and house work without inc L ankle pain LTG Duration 04/20/21 gait Short Term Goal (STG) Pt will be able to amb without AD with min deviations STG Duration 03/21/21 Mcfp Goal (LTG) Pt will be able to ambulate without AD with good mechanics and no pain for as long as she needs. LTG Duration 04/20/21 ROM Short Term Goal (STG) Pt will have AROM DF to neutral to improve gait and mboility. STG Duration 03/01/21 Shoe Parts Molder Goal (LTG) Pt will have AROM DF to at least 5 deg to improve gait and mobility. LTG Duration 04/20/21 strength Short Term Goal (STG) Pt will be indep w/HEP STG Duration 02/18/21 Mcfp Goal (LTG) Pt will have 5/5 BLE strength in all planes w/o pain in order to allow pt back to typical activities. LTG Duration 04/20/21 LEFS Impairment 20/80 Short Term Goal (STG) Pt will imrpove score of LEFS to 35/80 to show improved functional ability. STG Duration 03/01/21 Mcfp Goal (LTG) Pt will imrpove score of LEFS to 60/80 to show improved functional ability. LTG Duration 04/20/21 Assessment Summary Assessment Pt did well with exericses and had improved DF after session but is still very limited. She was encouraged to work on DF with stretching a lot at home. Physical Therapy Plan Frequency and Duration Frequency of Treatment 2x/Week Duration of Treatment 3 months Plan of Care Start Date 01/19/21 Plan of Care End Date 04/20/21 Next Visit Focus/Plan Next Note Type Treatment Note Next Visit Plan progress to 50% WB 01/26, 02/02 75% WB,02/09 full WB with cast on, review HEP, BAPs board for ROM, manual work for ROM, scar tissue mobs once incision 100% healed, SLR for hip stability/strength
--- NOTE | 2021-01-26 16:04 | PT.OTN ---
Current Diagnoses Difficulty in walking, not elsewhere classified (01/26/21) Weakness (01/26/21) Displaced trimalleolar fracture of left lower leg, subsequent encounter for closed fracture with routine healing (01/26/21) Physical Therapy Treatment Note PT-OP-A Visit Information Start: 01/12/21 07:28 Freq: Status: Active Protocol: Document 01/26/21 15:30 [facility] (Rec: 01/26/21 16:02 [facility] [id number]) Out-Patient Physical Therapy Visit Information Visit Information Visit Type Treatment Note Visit Note 12/10 Visit Start Time 15:20 Visit Stop Time 15:59 Total Visit Minutes 39 Visit Number 3 Number of HIV PREVENTION SPECIALIST Visits 0 PT-OP-B Current Condition Start: 01/12/21 07:28 Freq: Status: Active Protocol: Document 01/19/21 16:03 [facility] (Rec: 01/19/21 16:49 [facility] [id number]) Current Condition History of Current Condition Onset Date 11/22/20 injury 11/28/20 surgery ORIF Current Complaints R ankle pain s/p R ankle ORIF History of Current Condition Pt slipped and fell outside around the end of Nov but has no history of falls. Has had a couple little falls w/scooter but no injuries. Has been using scooter since injury. Pt was taken out of boot on Tue and is wearing air cast but pt cannot get a shoe over it. Pt able to go in through garage and it is one step and she uses the scooter to get in/out of the house. SLH otherwise. Pt lives with her who helps. She frank snot have a walker. She has a walk in shower with a curb & 2 glass doors w/a seat. helps w/in/out and pt is indep w/ showering otherwise. Pt is actively being treated for breast cancer and is currently being treated w/chemo and is getting shots for bone density . Prior Treatments and Tests none Future Testing and Treatments Planned Return follow up w/ Dr. Fitzpatrick February 25 Treatment Goals Patient/Caregiver Goals be able to do daily chores, be able to walk, be able to get back gardening, driving , cooking PT-OP-C Subjective Start: 01/12/21 07:28 Freq: Status: Active Protocol: Document 01/26/21 15:30 [facility] (Rec: 01/26/21 16:02 [facility] [id number]) OP-PT Subjective Patient Comments Patient Comments pt called re: cont swelling and pain in lat foot and is set to go in on 02/05. Notes got a new brace (aircast w/straps from office.) PT-OP-F Manual Assessment Start: 01/12/21 07:28 Freq: Status: Active Protocol: Document 01/19/21 16:03 [facility] (Rec: 01/19/21 16:49 [facility] [id number]) Manual Assessments Soft Tissue Assessment Soft Tissue Mobility Assessment scars heeling but still have some red scabbing med, lat some yellow tissue. PT-OP-K Range of Motion Start: 01/12/21 07:28 Freq: Status: Active Protocol: Document 01/19/21 16:03 [facility] (Rec: 01/19/21 16:49 [facility] [id number]) Ankle and Foot Goniometric Range of Motion Ankle and Foot Right Active Dorsiflexion with Knee Flexed 16 Plantarflexion 55 Inversion 33 Eversion 21 Comments malleoli [id number] cm figure 8 49cm Left Active Dorsiflexion with Knee Flexed 20 Plantarflexion 44 Inversion 12 Eversion 8 Comments lacking to neutral w/DF Figure 8 52.5 cm malleoi: 26.5cm PT-OP-M Strength Start: 01/12/21 07:28 Freq: Status: Active Protocol: Document 01/19/21 16:03 [facility] (Rec: 01/19/21 16:49 [facility] [id number]) Hip Strength Hip Manual Muscle Testing Right Flexion (L2) 4 Good Extension (S1) 3+ Fair+ Abduction 4- Good- External Rotation 4 Good Internal Rotation 4 Good Left Flexion (L2) 4 Good Extension (S1) 3+ Fair+ Abduction 3+ Fair+ External Rotation 4- Good- Internal Rotation 4- Good- Knee Strength Knee Manual Muscle Testing Right Flexion (S2) 4+ Good+ Extension (L3) 5 Normal Left Flexion (S2) 4- Good- Extension (L3) 4+ Good+ Ankle/Foot Strength Ankle and Foot Manual Muscle Testing Right Dorsiflexion (L4) 5 Normal Plantarflexion (S1) 5 Normal Inversion 5 Normal Eversion (S1) 5 Normal Comments PF tested seated Left Dorsiflexion (L4) 2+ Poor+ Plantarflexion (S1) 3+ Fair+ Inversion 3- Fair- Eversion (S1) 3- Fair- PT-OP-Q Treatments Start: 01/12/21 07:28 Freq: Status: Active Protocol: Document 01/26/21 15:30 [facility] (Rec: 01/26/21 16:02 [facility] [id number]) Therapeutic Exercises Supine Exercises SLR Side bilateral Reps/Minutes 15 Comments core focus Prone Exercises ext Prone Exercise Name alt Side bilateral Reps/Minutes 10 Sidelying Exercises clamshell Sidelying Exercise Name clamshell Side bilateral Reps/Minutes 10 ea hip abd Side bilateral Reps/Minutes 10 Sitting Exercises BAPS Sitting Exercise Name PF/DF, inv/ev, circles B Side left Reps/Minutes 10 ea Comments AAROm occ to get motion started calf stretch Side left Equipment Used L5 tband Reps/Minutes 1 minx2 Manual Therapy Treatment Soft Tissue Mobilization scar Body Location ant ankle only Mobilization Type Myofascial Release Intensity/Depth Superficial Body Position Hooklying Comments w/APs calf Mobilization Type Rolling,Strumming Intensity/Depth Moderate Body Position Hooklying PT-OP-T Assessment and Plan Start: 01/12/21 07:28 Freq: Status: Active Protocol: Document 01/26/21 15:30 [facility] (Rec: 01/26/21 16:02 [facility] [id number]) Physical Therapy Assessment Goals activities Short Term Goal (STG) Pt will be able to complete all housework with min inc in pain in L ankle. STG Duration 03/21/21 Mcfp Goal (LTG) Pt will be able to do all gardening and house work without inc L ankle pain LTG Duration 04/20/21 gait Short Term Goal (STG) Pt will be able to amb without AD with min deviations STG Duration 03/21/21 Mcfp Goal (LTG) Pt will be able to ambulate without AD with good mechanics and no pain for as long as she needs. LTG Duration 04/20/21 ROM Short Term Goal (STG) Pt will have AROM DF to neutral to improve gait and mboility. STG Duration 03/01/21 Physicians And Surgeons Goal (LTG) Pt will have AROM DF to at least 5 deg to improve gait and mobility. LTG Duration 04/20/21 strength Short Term Goal (STG) Pt will be indep w/HEP STG Duration 02/18/21 Mcfp Goal (LTG) Pt will have 5/5 BLE strength in all planes w/o pain in order to allow pt back to typical activities. LTG Duration 04/20/21 LEFS Impairment 20/80 Short Term Goal (STG) Pt will imrpove score of LEFS to 35/80 to show improved functional ability. STG Duration 03/01/21 Physicians And Surgeons Goal (LTG) Pt will imrpove score of LEFS to 60/80 to show improved functional ability. LTG Duration 04/20/21 Assessment Summary Assessment Pt cont to slowly improve with ROM. Difficulty with BAPs board with circles especially transitionf rom eversion to PF . Ant ankle scar is healing well Physical Therapy Plan Frequency and Duration Frequency of Treatment 2x/Week Duration of Treatment 3 months Plan of Care Start Date 01/19/21 Plan of Care End Date 04/20/21 Next Visit Focus/Plan Next Note Type Treatment Note Next Visit Plan progress 5/ to 75% WB,02/09 full WB with cast on, review HEP, BAPs board for ROM, manual work for ROM, scar tissue mobs once incision 100% healed, SLR for hip stability /strength
--- NOTE | 2021-01-28 16:14 | PT.OTN ---
Current Diagnoses Difficulty in walking, not elsewhere classified (01/28/21) Weakness (01/28/21) Displaced trimalleolar fracture of left lower leg, subsequent encounter for closed fracture with routine healing (01/28/21) Physical Therapy Treatment Note PT-OP-A Visit Information Start: 01/12/21 07:28 Freq: Status: Active Protocol: Document 01/28/21 15:28 [facility] (Rec: 01/28/21 15:46 [facility] [id number]) Out-Patient Physical Therapy Visit Information Visit Information Visit Type Treatment Note Visit Note 01/10 Visit Start Time 15:20 Visit Stop Time 15:58 Total Visit Minutes 38 Visit Number 4 Number of JOB PUTTER UP AND TICKET PREPARER Visits 0 PT-OP-B Current Condition Start: 01/12/21 07:28 Freq: Status: Active Protocol: Document 01/19/21 16:03 [facility] (Rec: 01/19/21 16:49 [facility] [id number]) Current Condition History of Current Condition Onset Date 11/22/20 injury 11/28/20 surgery ORIF Current Complaints R ankle pain s/p R ankle ORIF History of Current Condition Pt slipped and fell outside around the end of Nov but has no history of falls. Has had a couple little falls w/scooter but no injuries. Has been using scooter since injury. Pt was taken out of boot on Tue and is wearing air cast but pt cannot get a shoe over it. Pt able to go in through garage and it is one step and she uses the scooter to get in/out of the house. SLH otherwise. Pt lives with her who helps. She frank snot have a walker. She has a walk in shower with a curb & 2 glass doors w/a seat. helps w/in/out and pt is indep w/ showering otherwise. Pt is actively being treated for breast cancer and is currently being treated w/chemo and is getting shots for bone density . Prior Treatments and Tests none Future Testing and Treatments Planned Return follow up w/ Dr. Fitzpatrick February 25 Treatment Goals Patient/Caregiver Goals be able to do daily chores, be able to walk, be able to get back gardening, driving , cooking PT-OP-C Subjective Start: 01/12/21 07:28 Freq: Status: Active Protocol: Document 01/28/21 15:28 [facility] (Rec: 01/28/21 15:46 [facility] [id number]) OP-PT Subjective Patient Comments Patient Comments Pt started wearing boot and feels much better. She feels like it pokes her less and has had less sharp pains but lat foot is still very painful. PT-OP-F Manual Assessment Start: 01/12/21 07:28 Freq: Status: Active Protocol: Document 01/19/21 16:03 [facility] (Rec: 01/19/21 16:49 [facility] [id number]) Manual Assessments Soft Tissue Assessment Soft Tissue Mobility Assessment scars heeling but still have some red scabbing med, lat some yellow tissue. PT-OP-K Range of Motion Start: 01/12/21 07:28 Freq: Status: Active Protocol: Document 01/19/21 16:03 [facility] (Rec: 01/19/21 16:49 [facility] [id number]) Ankle and Foot Goniometric Range of Motion Ankle and Foot Right Active Dorsiflexion with Knee Flexed 16 Plantarflexion 55 Inversion 33 Eversion 21 Comments malleoli [id number] cm figure 8 49cm Left Active Dorsiflexion with Knee Flexed 20 Plantarflexion 44 Inversion 12 Eversion 8 Comments lacking to neutral w/DF Figure 8 52.5 cm malleoi: 26.5cm PT-OP-M Strength Start: 01/12/21 07:28 Freq: Status: Active Protocol: Document 01/19/21 16:03 [facility] (Rec: 01/19/21 16:49 [facility] [id number]) Hip Strength Hip Manual Muscle Testing Right Flexion (L2) 4 Good Extension (S1) 3+ Fair+ Abduction 4- Good- External Rotation 4 Good Internal Rotation 4 Good Left Flexion (L2) 4 Good Extension (S1) 3+ Fair+ Abduction 3+ Fair+ External Rotation 4- Good- Internal Rotation 4- Good- Knee Strength Knee Manual Muscle Testing Right Flexion (S2) 4+ Good+ Extension (L3) 5 Normal Left Flexion (S2) 4- Good- Extension (L3) 4+ Good+ Ankle/Foot Strength Ankle and Foot Manual Muscle Testing Right Dorsiflexion (L4) 5 Normal Plantarflexion (S1) 5 Normal Inversion 5 Normal Eversion (S1) 5 Normal Comments PF tested seated Left Dorsiflexion (L4) 2+ Poor+ Plantarflexion (S1) 3+ Fair+ Inversion 3- Fair- Eversion (S1) 3- Fair- PT-OP-Q Treatments Start: 01/12/21 07:28 Freq: Status: Active Protocol: Document 01/28/21 15:28 [facility] (Rec: 01/28/21 15:46 [facility] [id number]) Therapeutic Exercises Sidelying Exercises clamshell Sidelying Exercise Name clamshell Side bilateral Reps/Minutes 10 ea hip abd Side bilateral Reps/Minutes 10 Sitting Exercises towel Sitting Exercise Name scrunches Side left Reps/Minutes attempts 1 min marbles Sitting Exercise Name pickups Side left Reps/Minutes 15 ENDY Side left Reps/Minutes 2 min BAPS Sitting Exercise Name PF/DF, inv/ev, circles B Side left Reps/Minutes 10 ea Comments AAROm occ to get motion started ROM Sitting Exercise Name 1. ext of all toes 2. DF big toe only attempts 3. abd of toes 4.2-4 ext Side left Reps/Minutes 10 ea Manual Therapy Treatment Soft Tissue Mobilization scar Body Location ant & med ankle scars only Mobilization Type Myofascial Release Intensity/Depth Superficial Body Position Hooklying Comments w/APs calf Mobilization Type Rolling,Strumming Intensity/Depth Moderate Body Position Hooklying PT-OP-T Assessment and Plan Start: 01/12/21 07:28 Freq: Status: Active Protocol: Document 01/28/21 15:28 [facility] (Rec: 01/28/21 15:46 [facility] [id number]) Physical Therapy Assessment Goals activities Short Term Goal (STG) Pt will be able to complete all housework with min inc in pain in L ankle. STG Duration 03/21/21 Half-Way Goal (LTG) Pt will be able to do all gardening and house work without inc L ankle pain LTG Duration 04/20/21 gait Short Term Goal (STG) Pt will be able to amb without AD with min deviations STG Duration 03/21/21 Cloth Packer Goal (LTG) Pt will be able to ambulate without AD with good mechanics and no pain for as long as she needs. LTG Duration 04/20/21 ROM Short Term Goal (STG) Pt will have AROM DF to neutral to improve gait and mboility. STG Duration 03/01/21 Half-Way Goal (LTG) Pt will have AROM DF to at least 5 deg to improve gait and mobility. LTG Duration 04/20/21 strength Short Term Goal (STG) Pt will be indep w/HEP STG Duration 02/18/21 Cloth Packer Goal (LTG) Pt will have 5/5 BLE strength in all planes w/o pain in order to allow pt back to typical activities. LTG Duration 04/20/21 LEFS Impairment 20/80 Short Term Goal (STG) Pt will imrpove score of LEFS to 35/80 to show improved functional ability. STG Duration 03/01/21 Half-Way Goal (LTG) Pt will imrpove score of LEFS to 60/80 to show improved functional ability. LTG Duration 04/20/21 Assessment Summary Assessment Swelling appears to cont to improve in ankle along w/ROM. Pt med scar is now fully closed. She has difficulty with BAPs board rotations. Improved performance fo s/l abd & clamshells with min cuieng needed only. Physical Therapy Plan Next Visit Focus/Plan Next Note Type Treatment Note Next Visit Plan progress 02/02 to 75% WB,02/09 full WB with cast on, review HEP, BAPs board for ROM, manual work for ROM, scar tissue mobs once incision 100% healed, SLR for hip stability /strength
--- NOTE | 2021-02-02 12:50 | PT.OTN ---
Current Diagnoses Difficulty in walking, not elsewhere classified (02/02/21) Weakness (02/02/21) Displaced trimalleolar fracture of left lower leg, subsequent encounter for closed fracture with routine healing (02/02/21) Physical Therapy Treatment Note PT-OP-A Visit Information Start: 01/12/21 07:28 Freq: Status: Active Protocol: Document 02/02/21 12:07 [facility] (Rec: 02/02/21 12:49 [facility] [id number]) Out-Patient Physical Therapy Visit Information Visit Information Visit Type Treatment Note Visit Start Time 12:00 Visit Stop Time 12:40 Total Visit Minutes 40 Visit Number 5 Number of CHILDCARE DIRECTOR Visits 1 PT-OP-B Current Condition Start: 01/12/21 07:28 Freq: Status: Active Protocol: Document 01/19/21 16:03 [facility] (Rec: 01/19/21 16:49 [facility] [id number]) Current Condition History of Current Condition Onset Date 11/22/20 injury 11/28/20 surgery ORIF Current Complaints R ankle pain s/p R ankle ORIF History of Current Condition Pt slipped and fell outside around the end of Nov but has no history of falls. Has had a couple little falls w/scooter but no injuries. Has been using scooter since injury. Pt was taken out of boot on Tue and is wearing air cast but pt cannot get a shoe over it. Pt able to go in through garage and it is one step and she uses the scooter to get in/out of the house. SLH otherwise. Pt lives with her who helps. She frank snot have a walker. She has a walk in shower with a curb & 2 glass doors w/a seat. helps w/in/out and pt is indep w/ showering otherwise. Pt is actively being treated for breast cancer and is currently being treated w/chemo and is getting shots for bone density . Prior Treatments and Tests none Future Testing and Treatments Planned Return follow up w/ Dr. Fitzpatrick February 25 Treatment Goals Patient/Caregiver Goals be able to do daily chores, be able to walk, be able to get back gardening, driving , cooking PT-OP-C Subjective Start: 01/12/21 07:28 Freq: Status: Active Protocol: Document 02/02/21 12:07 [facility] (Rec: 02/02/21 12:49 [facility] [id number]) OP-PT Subjective Patient Comments Patient Comments Pt's L lateral ankle is still healing but she states they cut something off of it to help it heal. PT-OP-F Manual Assessment Start: 01/12/21 07:28 Freq: Status: Active Protocol: Document 01/19/21 16:03 [facility] (Rec: 01/19/21 16:49 [facility] [id number]) Manual Assessments Soft Tissue Assessment Soft Tissue Mobility Assessment scars heeling but still have some red scabbing med, lat some yellow tissue. PT-OP-K Range of Motion Start: 01/12/21 07:28 Freq: Status: Active Protocol: Document 01/19/21 16:03 [facility] (Rec: 01/19/21 16:49 [facility] [id number]) Ankle and Foot Goniometric Range of Motion Ankle and Foot Right Active Dorsiflexion with Knee Flexed 16 Plantarflexion 55 Inversion 33 Eversion 21 Comments malleoli [id number] cm figure 8 49cm Left Active Dorsiflexion with Knee Flexed 20 Plantarflexion 44 Inversion 12 Eversion 8 Comments lacking to neutral w/DF Figure 8 52.5 cm malleoi: 26.5cm PT-OP-M Strength Start: 01/12/21 07:28 Freq: Status: Active Protocol: Document 01/19/21 16:03 [facility] (Rec: 01/19/21 16:49 [facility] [id number]) Hip Strength Hip Manual Muscle Testing Right Flexion (L2) 4 Good Extension (S1) 3+ Fair+ Abduction 4- Good- External Rotation 4 Good Internal Rotation 4 Good Left Flexion (L2) 4 Good Extension (S1) 3+ Fair+ Abduction 3+ Fair+ External Rotation 4- Good- Internal Rotation 4- Good- Knee Strength Knee Manual Muscle Testing Right Flexion (S2) 4+ Good+ Extension (L3) 5 Normal Left Flexion (S2) 4- Good- Extension (L3) 4+ Good+ Ankle/Foot Strength Ankle and Foot Manual Muscle Testing Right Dorsiflexion (L4) 5 Normal Plantarflexion (S1) 5 Normal Inversion 5 Normal Eversion (S1) 5 Normal Comments PF tested seated Left Dorsiflexion (L4) 2+ Poor+ Plantarflexion (S1) 3+ Fair+ Inversion 3- Fair- Eversion (S1) 3- Fair- PT-OP-Q Treatments Start: 01/12/21 07:28 Freq: Status: Active Protocol: Document 02/02/21 12:07 [facility] (Rec: 02/02/21 12:49 [facility] [id number]) Therapeutic Exercises Sitting Exercises marbles Sitting Exercise Name pickups Side left Reps/Minutes 15 ENDY Side left Reps/Minutes 2 min BAPS Sitting Exercise Name PF/DF, inv/ev, circles B Side left Equipment Used BAPS lvl 2-3 Reps/Minutes 10 ea Comments AAROm occ to get motion started Gait Training Gait Activity WB Description scale for 75% edu w/walker Device Used FWW Surface level Comments .75*166= 124.5# Manual Therapy Treatment Soft Tissue Mobilization scar Body Location ant & med ankle scars only Mobilization Type Myofascial Release Intensity/Depth Superficial Body Position Hooklying Comments w/APs calf Mobilization Type Rolling,Strumming Intensity/Depth Moderate Body Position Hooklying Self-Care/Home Management Treatment Education Patient Education Home Exercise Program,Pain Management Other Education Added gentle self-scar massage on L medial ankle to HEP to help with pt's scar sensitivity. PT-OP-T Assessment and Plan Start: 01/12/21 07:28 Freq: Status: Active Protocol: Document 02/02/21 12:07 [facility] (Rec: 02/02/21 12:49 [facility] [id number]) Physical Therapy Assessment Goals activities Short Term Goal (STG) Pt will be able to complete all housework with min inc in pain in L ankle. STG Duration 03/21/21 Pulp Plant Supervisor Goal (LTG) Pt will be able to do all gardening and house work without inc L ankle pain LTG Duration 04/20/21 gait Short Term Goal (STG) Pt will be able to amb without AD with min deviations STG Duration 03/21/21 Residential Goal (LTG) Pt will be able to ambulate without AD with good mechanics and no pain for as long as she needs. LTG Duration 04/20/21 ROM Short Term Goal (STG) Pt will have AROM DF to neutral to improve gait and mboility. STG Duration 03/01/21 Pulp Plant Supervisor Goal (LTG) Pt will have AROM DF to at least 5 deg to improve gait and mobility. LTG Duration 04/20/21 strength Short Term Goal (STG) Pt will be indep w/HEP STG Duration 02/18/21 Residential Goal (LTG) Pt will have 5/5 BLE strength in all planes w/o pain in order to allow pt back to typical activities. LTG Duration 04/20/21 LEFS Impairment 20/80 Short Term Goal (STG) Pt will imrpove score of LEFS to 35/80 to show improved functional ability. STG Duration 03/01/21 Residential Goal (LTG) Pt will imrpove score of LEFS to 60/80 to show improved functional ability. LTG Duration 04/20/21 Assessment Summary Assessment Pt continues to have swelling in L ankle both medially and laterally. Educated pt on massaging into her medial scar to help with her increased sensativity, but to hold off on the lateral scar as it is still an open wound. Worked on taking steps at 75% WB (124.5 #) using FWW and scale under LLE. Pt will be able to fully WB with boot donned per drs orders on 02/09/21. Physical Therapy Plan Frequency and Duration Frequency of Treatment 2x/Week Duration of Treatment 3 months Plan of Care Start Date 01/19/21 Plan of Care End Date 04/20/21 Therapeutic Interventions Therapeutic Interventions Aquatic Therapy,Balance Training,Gait Training,Home Exercise Program,Joint Mobilizations,Manual Therapy, Neuromuscular Re-education, Patient/Caregiver Education, Self-Care/Home Management,Soft Tissue Mobilization,Taping, Therapeutic Activities, Therapeutic Exercises Modalities Cold Pack/Ice Massage,Electric Stimulation,Hot Packs, Infrared Therapy,Ultrasound Next Visit Focus/Plan Next Note Type Treatment Note Next Visit Plan Pt is 75% WB 5/10 full WB with cast on, review HEP, BAPs board for ROM , manual work for ROM, scar tissue mobs once incision 100% healed, SLR for hip stability /strength
--- NOTE | 2021-02-04 12:04 | PT.OTN ---
Current Diagnoses Difficulty in walking, not elsewhere classified (02/04/21) Weakness (02/04/21) Displaced trimalleolar fracture of left lower leg, subsequent encounter for closed fracture with routine healing (02/04/21) Physical Therapy Treatment Note PT-OP-A Visit Information Start: 01/12/21 07:28 Freq: Status: Active Protocol: Document 02/04/21 11:23 [facility] (Rec: 02/04/21 12:04 [facility] [id number]) Out-Patient Physical Therapy Visit Information Visit Information Visit Type Treatment Note Visit Note 03/12 Visit Start Time 11:18 Visit Stop Time 11:59 Total Visit Minutes 41 Visit Number 6 Number of ASSISTANT DIRECTOR OF PUBLIC WORKS Visits 0 PT-OP-B Current Condition Start: 01/12/21 07:28 Freq: Status: Active Protocol: Document 01/19/21 16:03 [facility] (Rec: 01/19/21 16:49 [facility] [id number]) Current Condition History of Current Condition Onset Date 11/22/20 injury 11/28/20 surgery ORIF Current Complaints R ankle pain s/p R ankle ORIF History of Current Condition Pt slipped and fell outside around the end of Nov but has no history of falls. Has had a couple little falls w/scooter but no injuries. Has been using scooter since injury. Pt was taken out of boot on Tue and is wearing air cast but pt cannot get a shoe over it. Pt able to go in through garage and it is one step and she uses the scooter to get in/out of the house. SLH otherwise. Pt lives with her who helps. She frank snot have a walker. She has a walk in shower with a curb & 2 glass doors w/a seat. helps w/in/out and pt is indep w/ showering otherwise. Pt is actively being treated for breast cancer and is currently being treated w/chemo and is getting shots for bone density . Prior Treatments and Tests none Future Testing and Treatments Planned Return follow up w/ Dr. Fitzpatrick February 25 Treatment Goals Patient/Caregiver Goals be able to do daily chores, be able to walk, be able to get back gardening, driving , cooking PT-OP-C Subjective Start: 01/12/21 07:28 Freq: Status: Active Protocol: Document 02/04/21 11:23 [facility] (Rec: 02/04/21 12:04 [facility] [id number]) OP-PT Subjective Patient Comments Patient Comments Pt saw ortho this AM who said she wants PT to work her harder. Cleared her out of the boot and out of the brace and to work on gait without either WBAT. Xray showed good healing PT-OP-F Manual Assessment Start: 01/12/21 07:28 Freq: Status: Active Protocol: Document 01/19/21 16:03 [facility] (Rec: 01/19/21 16:49 [facility] [id number]) Manual Assessments Soft Tissue Assessment Soft Tissue Mobility Assessment scars heeling but still have some red scabbing med, lat some yellow tissue. PT-OP-K Range of Motion Start: 01/12/21 07:28 Freq: Status: Active Protocol: Document 01/19/21 16:03 [facility] (Rec: 01/19/21 16:49 [facility] [id number]) Ankle and Foot Goniometric Range of Motion Ankle and Foot Right Active Dorsiflexion with Knee Flexed 16 Plantarflexion 55 Inversion 33 Eversion 21 Comments malleoli [id number] cm figure 8 49cm Left Active Dorsiflexion with Knee Flexed 20 Plantarflexion 44 Inversion 12 Eversion 8 Comments lacking to neutral w/DF Figure 8 52.5 cm malleoi: 26.5cm PT-OP-M Strength Start: 01/12/21 07:28 Freq: Status: Active Protocol: Document 01/19/21 16:03 [facility] (Rec: 01/19/21 16:49 [facility] [id number]) Hip Strength Hip Manual Muscle Testing Right Flexion (L2) 4 Good Extension (S1) 3+ Fair+ Abduction 4- Good- External Rotation 4 Good Internal Rotation 4 Good Left Flexion (L2) 4 Good Extension (S1) 3+ Fair+ Abduction 3+ Fair+ External Rotation 4- Good- Internal Rotation 4- Good- Knee Strength Knee Manual Muscle Testing Right Flexion (S2) 4+ Good+ Extension (L3) 5 Normal Left Flexion (S2) 4- Good- Extension (L3) 4+ Good+ Ankle/Foot Strength Ankle and Foot Manual Muscle Testing Right Dorsiflexion (L4) 5 Normal Plantarflexion (S1) 5 Normal Inversion 5 Normal Eversion (S1) 5 Normal Comments PF tested seated Left Dorsiflexion (L4) 2+ Poor+ Plantarflexion (S1) 3+ Fair+ Inversion 3- Fair- Eversion (S1) 3- Fair- PT-OP-Q Treatments Start: 01/12/21 07:28 Freq: Status: Active Protocol: Document 02/04/21 11:23 [facility] (Rec: 02/04/21 12:04 [facility] [id number]) Cardio Equipment Recumbent Elliptical (Biodex) Duration (Minutes) 6 Resistance 2 Seat Position 8 Therapeutic Exercises Sitting Exercises DF Side left Equipment Used L1 Reps/Minutes 20 Standing Exercises hip ext Standing Exercise Name cues for neutral spine Side bilateral Equipment Used FWW Reps/Minutes 15 hip abd Standing Exercise Name cues for neutral spine Side bilateral Equipment Used rail Reps/Minutes 10 stretch Standing Exercise Name 1.ENDY 2. leg back Side left Equipment Used holding walker Reps/Minutes 1 min ea Manual Therapy Treatment Soft Tissue Mobilization scar Body Location ant & med ankle scars only Mobilization Type Myofascial Release Intensity/Depth Superficial Body Position Hooklying Comments w/APs calf Mobilization Type Rolling,Strumming Intensity/Depth Moderate Body Position Hooklying PT-OP-T Assessment and Plan Start: 01/12/21 07:28 Freq: Status: Active Protocol: Document 02/04/21 11:23 [facility] (Rec: 02/04/21 12:04 [facility] [id number]) Physical Therapy Assessment Goals activities Short Term Goal (STG) Pt will be able to complete all housework with min inc in pain in L ankle. STG Duration 03/21/21 Help Desk Assistant Goal (LTG) Pt will be able to do all gardening and house work without inc L ankle pain LTG Duration 04/20/21 gait Short Term Goal (STG) Pt will be able to amb without AD with min deviations STG Duration 03/21/21 Custodial Goal (LTG) Pt will be able to ambulate without AD with good mechanics and no pain for as long as she needs. LTG Duration 04/20/21 ROM Short Term Goal (STG) Pt will have AROM DF to neutral to improve gait and mboility. STG Duration 03/01/21 Help Desk Assistant Goal (LTG) Pt will have AROM DF to at least 5 deg to improve gait and mobility. LTG Duration 04/20/21 strength Short Term Goal (STG) Pt will be indep w/HEP STG Duration 02/18/21 Custodial Goal (LTG) Pt will have 5/5 BLE strength in all planes w/o pain in order to allow pt back to typical activities. LTG Duration 04/20/21 LEFS Impairment 20/80 Short Term Goal (STG) Pt will imrpove score of LEFS to 35/80 to show improved functional ability. STG Duration 03/01/21 Custodial Goal (LTG) Pt will imrpove score of LEFS to 60/80 to show improved functional ability. LTG Duration 04/20/21 Assessment Summary Assessment Pt did well with standing exercises but required max cuieng for posture to avoid back ext or leaning. She is slowly impoving with DF and was encouraged to do prolonged stretch. Physical Therapy Plan Frequency and Duration Frequency of Treatment 2x/Week Duration of Treatment 3 months Plan of Care Start Date 01/19/21 Plan of Care End Date 04/20/21 Next Visit Focus/Plan Next Note Type Treatment Note Next Visit Plan work ROM focusing on inc DF, work manually on scar and work on achilles/calf for improved mobility, slowly inc balance & WB
--- NOTE | 2021-02-09 12:51 | PT.OTN ---
Current Diagnoses Difficulty in walking, not elsewhere classified (02/09/21) Weakness (02/09/21) Displaced trimalleolar fracture of left lower leg, subsequent encounter for closed fracture with routine healing (02/09/21) Physical Therapy Treatment Note PT-OP-A Visit Information Start: 01/12/21 07:28 Freq: Status: Active Protocol: Document 02/09/21 12:03 [facility] (Rec: 02/09/21 12:51 [facility] [id number]) Out-Patient Physical Therapy Visit Information Visit Information Visit Type Treatment Note Visit Note 04/11 Visit Start Time 12:00 Visit Stop Time 12:43 Total Visit Minutes 43 Visit Number 7 Number of INSTALLATION ENGINEER Visits 1 PT-OP-B Current Condition Start: 01/12/21 07:28 Freq: Status: Active Protocol: Document 01/19/21 16:03 [facility] (Rec: 01/19/21 16:49 [facility] [id number]) Current Condition History of Current Condition Onset Date 11/22/20 injury 11/28/20 surgery ORIF Current Complaints R ankle pain s/p R ankle ORIF History of Current Condition Pt slipped and fell outside around the end of Nov but has no history of falls. Has had a couple little falls w/scooter but no injuries. Has been using scooter since injury. Pt was taken out of boot on Tue and is wearing air cast but pt cannot get a shoe over it. Pt able to go in through garage and it is one step and she uses the scooter to get in/out of the house. [facility]H otherwise. Pt lives with her who helps. She frank snot have a walker. She has a walk in shower with a curb & 2 glass doors w/a seat. helps w/in/out and pt is indep w/ showering otherwise. Pt is actively being treated for breast cancer and is currently being treated w/chemo and is getting shots for bone density . Prior Treatments and Tests none Future Testing and Treatments Planned Return follow up w/ Dr. Fitzpatrick February 25 Treatment Goals Patient/Caregiver Goals be able to do daily chores, be able to walk, be able to get back gardening, driving , cooking PT-OP-C Subjective Start: 01/12/21 07:28 Freq: Status: Active Protocol: Document 02/09/21 12:03 [facility] (Rec: 02/09/21 12:51 [facility] [id number]) OP-PT Subjective Patient Comments Patient Comments Pt was sore after last session . She states she accidentally walked without her walker from the bathroom back to her bed before she realized she wasn't even using it. PT-OP-F Manual Assessment Start: 01/12/21 07:28 Freq: Status: Active Protocol: Document 01/19/21 16:03 [facility] (Rec: 01/19/21 16:49 [facility] [id number]) Manual Assessments Soft Tissue Assessment Soft Tissue Mobility Assessment scars heeling but still have some red scabbing med, lat some yellow tissue. PT-OP-K Range of Motion Start: 01/12/21 07:28 Freq: Status: Active Protocol: Document 01/19/21 16:03 [facility] (Rec: 01/19/21 16:49 [facility] [id number]) Ankle and Foot Goniometric Range of Motion Ankle and Foot Right Active Dorsiflexion with Knee Flexed 16 Plantarflexion 55 Inversion 33 Eversion 21 Comments malleoli [id number] cm figure 8 49cm Left Active Dorsiflexion with Knee Flexed 20 Plantarflexion 44 Inversion 12 Eversion 8 Comments lacking to neutral w/DF Figure 8 52.5 cm malleoi: 26.5cm PT-OP-M Strength Start: 01/12/21 07:28 Freq: Status: Active Protocol: Document 01/19/21 16:03 [facility] (Rec: 01/19/21 16:49 [facility] [id number]) Hip Strength Hip Manual Muscle Testing Right Flexion (L2) 4 Good Extension (S1) 3+ Fair+ Abduction 4- Good- External Rotation 4 Good Internal Rotation 4 Good Left Flexion (L2) 4 Good Extension (S1) 3+ Fair+ Abduction 3+ Fair+ External Rotation 4- Good- Internal Rotation 4- Good- Knee Strength Knee Manual Muscle Testing Right Flexion (S2) 4+ Good+ Extension (L3) 5 Normal Left Flexion (S2) 4- Good- Extension (L3) 4+ Good+ Ankle/Foot Strength Ankle and Foot Manual Muscle Testing Right Dorsiflexion (L4) 5 Normal Plantarflexion (S1) 5 Normal Inversion 5 Normal Eversion (S1) 5 Normal Comments PF tested seated Left Dorsiflexion (L4) 2+ Poor+ Plantarflexion (S1) 3+ Fair+ Inversion 3- Fair- Eversion (S1) 3- Fair- PT-OP-Q Treatments Start: 01/12/21 07:28 Freq: Status: Active Protocol: Document 02/09/21 12:03 [facility] (Rec: 02/09/21 12:51 [facility] [id number]) Therapeutic Exercises Sitting Exercises ENDY Side left Reps/Minutes 2 min ROM Sitting Exercise Name PF/DF, circles CW/CWW Side left Reps/Minutes 10 ea Standing Exercises Marching Standing Exercise Name for weight acceptance Side bilateral Reps/Minutes x20 hip ext Standing Exercise Name cues for neutral spine Side bilateral Equipment Used FWW Reps/Minutes x10 hip abd Standing Exercise Name cues for neutral spine Side bilateral Equipment Used rail Reps/Minutes 10 stretch Standing Exercise Name 1.ENDY Side left Equipment Used holding walker Reps/Minutes 1 min ea Gait Training Gait Activity WB Description WBAT Device Used FWW Distance/Duration 2x100 ft Treatment Focus L heel strike Manual Therapy Treatment Soft Tissue Mobilization scar Body Location med ankle scar only Mobilization Type Myofascial Release Intensity/Depth Superficial Body Position Hooklying calf Mobilization Type Rolling,Strumming Intensity/Depth Moderate Body Position Prone PT-OP-T Assessment and Plan Start: 01/12/21 07:28 Freq: Status: Active Protocol: Document 02/09/21 12:03 [facility] (Rec: 02/09/21 12:51 [facility] [id number]) Physical Therapy Assessment Goals activities Short Term Goal (STG) Pt will be able to complete all housework with min inc in pain in L ankle. STG Duration 03/21/21 Longterm Goal (LTG) Pt will be able to do all gardening and house work without inc L ankle pain LTG Duration 04/20/21 gait Short Term Goal (STG) Pt will be able to amb without AD with min deviations STG Duration 03/21/21 Automation Lead Goal (LTG) Pt will be able to ambulate without AD with good mechanics and no pain for as long as she needs. LTG Duration 04/20/21 ROM Short Term Goal (STG) Pt will have AROM DF to neutral to improve gait and mboility. STG Duration 03/01/21 Longterm Goal (LTG) Pt will have AROM DF to at least 5 deg to improve gait and mobility. LTG Duration 04/20/21 strength Short Term Goal (STG) Pt will be indep w/HEP STG Duration 02/18/21 Longterm Goal (LTG) Pt will have 5/5 BLE strength in all planes w/o pain in order to allow pt back to typical activities. LTG Duration 04/20/21 LEFS Impairment 20/80 Short Term Goal (STG) Pt will imrpove score of LEFS to 35/80 to show improved functional ability. STG Duration 03/01/21 Longterm Goal (LTG) Pt will imrpove score of LEFS to 60/80 to show improved functional ability. LTG Duration 04/20/21 Assessment Summary Assessment Pt arrived limping off LLE, stating I haven't gotten up to do anything yet today and am very stiff. She continues to need cues during LE extension and abduction to keep a neutral spine. After STM and stretching of L calf pt was able to improve her gait with increased stance time on LLE. She requires cues to focus on L heel strike due to limited DF after being in a boot for 6+ weeks. Physical Therapy Plan Frequency and Duration Frequency of Treatment 2x/Week Duration of Treatment 3 months Plan of Care Start Date 01/19/21 Plan of Care End Date 04/20/21 Therapeutic Interventions Therapeutic Interventions Aquatic Therapy,Balance Training,Gait Training,Home Exercise Program,Joint Mobilizations,Manual Therapy, Neuromuscular Re-education, Patient/Caregiver Education, Self-Care/Home Management,Soft Tissue Mobilization,Taping, Therapeutic Activities, Therapeutic Exercises Modalities Cold Pack/Ice Massage,Electric Stimulation,Hot Packs, Infrared Therapy,Ultrasound Next Visit Focus/Plan Next Note Type Treatment Note Next Visit Plan work ROM focusing on inc DF, work manually on scar and work on achilles/calf for improved mobility, slowly inc balance & WB
--- NOTE | 2021-02-13 15:26 | PT.OTN ---
Current Diagnoses Difficulty in walking, not elsewhere classified (02/13/21) Weakness (02/13/21) Displaced trimalleolar fracture of left lower leg, subsequent encounter for closed fracture with routine healing (02/13/21) Physical Therapy Treatment Note PT-OP-A Visit Information Start: 01/12/21 07:28 Freq: Status: Active Protocol: Document 02/13/21 14:38 MA (Rec: 02/13/21 15:19 MA [id number]) Out-Patient Physical Therapy Visit Information Visit Information Visit Type Treatment Note Visit Note 05/12 Visit Start Time 14:30 Visit Stop Time 15:25 Total Visit Minutes 55 Visit Number 8 Number of CHARGE RN Visits 2 PT-OP-B Current Condition Start: 01/12/21 07:28 Freq: Status: Active Protocol: Document 01/19/21 16:03 [facility] (Rec: 01/19/21 16:49 LR [id number]) Current Condition History of Current Condition Onset Date 11/22/20 injury 11/28/20 surgery ORIF Current Complaints R ankle pain s/p R ankle ORIF History of Current Condition Pt slipped and fell outside around the end of Nov but has no history of falls. Has had a couple little falls w/scooter but no injuries. Has been using scooter since injury. Pt was taken out of boot on Tue and is wearing air cast but pt cannot get a shoe over it. Pt able to go in through garage and it is one step and she uses the scooter to get in/out of the house. SLH otherwise. Pt lives with her who helps. She frank snot have a walker. She has a walk in shower with a curb & 2 glass doors w/a seat. helps w/in/out and pt is indep w/ showering otherwise. Pt is actively being treated for breast cancer and is currently being treated w/chemo and is getting shots for bone density . Prior Treatments and Tests none Future Testing and Treatments Planned Return follow up w/ Dr. Fitzpatrick February 25 Treatment Goals Patient/Caregiver Goals be able to do daily chores, be able to walk, be able to get back gardening, driving , cooking PT-OP-C Subjective Start: 01/12/21 07:28 Freq: Status: Active Protocol: Document 05/14/21 14:38 MA (Rec: 02/13/21 15:19 MA [id number]) OP-PT Subjective Patient Comments Patient Comments Pt's arch of her L foot has been really bothering her. It feels like something stabs my arch. She would also like to know if she can walk with a cane in her house. PT-OP-F Manual Assessment Start: 01/12/21 07:28 Freq: Status: Active Protocol: Document 01/19/21 16:03 [facility] (Rec: 01/19/21 16:49 [facility] [id number]) Manual Assessments Soft Tissue Assessment Soft Tissue Mobility Assessment scars heeling but still have some red scabbing med, lat some yellow tissue. PT-OP-K Range of Motion Start: 01/12/21 07:28 Freq: Status: Active Protocol: Document 01/19/21 16:03 [facility] (Rec: 01/19/21 16:49 [facility] [id number]) Ankle and Foot Goniometric Range of Motion Ankle and Foot Right Active Dorsiflexion with Knee Flexed 16 Plantarflexion 55 Inversion 33 Eversion 21 Comments malleoli [id number] cm figure 8 49cm Left Active Dorsiflexion with Knee Flexed 20 Plantarflexion 44 Inversion 12 Eversion 8 Comments lacking to neutral w/DF Figure 8 52.5 cm malleoi: 26.5cm PT-OP-M Strength Start: 01/12/21 07:28 Freq: Status: Active Protocol: Document 01/19/21 16:03 [facility] (Rec: 01/19/21 16:49 [facility] [id number]) Hip Strength Hip Manual Muscle Testing Right Flexion (L2) 4 Good Extension (S1) 3+ Fair+ Abduction 4- Good- External Rotation 4 Good Internal Rotation 4 Good Left Flexion (L2) 4 Good Extension (S1) 3+ Fair+ Abduction 3+ Fair+ External Rotation 4- Good- Internal Rotation 4- Good- Knee Strength Knee Manual Muscle Testing Right Flexion (S2) 4+ Good+ Extension (L3) 5 Normal Left Flexion (S2) 4- Good- Extension (L3) 4+ Good+ Ankle/Foot Strength Ankle and Foot Manual Muscle Testing Right Dorsiflexion (L4) 5 Normal Plantarflexion (S1) 5 Normal Inversion 5 Normal Eversion (S1) 5 Normal Comments PF tested seated Left Dorsiflexion (L4) 2+ Poor+ Plantarflexion (S1) 3+ Fair+ Inversion 3- Fair- Eversion (S1) 3- Fair- PT-OP-Q Treatments Start: 01/12/21 07:28 Freq: Status: Active Protocol: Document 02/13/21 14:38 MA (Rec: 02/13/21 15:19 MA [id number]) Cardio Equipment Recumbent Stepper (Sci-Fit) Duration (Minutes) 6 Resistance 2 Seat Position 9 Therapeutic Exercises Sitting Exercises BAPS Sitting Exercise Name PF/DF, inv/ev, circles B Side left Equipment Used BAPS lvl 3 Reps/Minutes 10 ea Comments AAROm occ to get motion started Plantar fascia stretch Sitting Exercise Name self-STM with tennis ball to plantar fascia Side left Reps/Minutes 2 min ROM Sitting Exercise Name PF/DF, circles CW/CWW Side left Reps/Minutes 10 ea Standing Exercises stretch Standing Exercise Name 1.ENDY Side left Equipment Used holding walker Reps/Minutes 1 min ea Gait Training Gait Activity Cane Device Used NBQC, SPC Surface solid, smooth Distance/Duration 2x50 feet Treatment Focus cane training Manual Therapy Treatment Soft Tissue Mobilization plantar fascia Body Location L Mobilization Type Rolling Intensity/Depth Moderate Body Position Prone calf Mobilization Type Rolling,Strumming Intensity/Depth Moderate Body Position Prone Self-Care/Home Management Treatment Education Other Education Discussed pt using SPC at home instead of FWW but continuing with FWW in public spaces. Added self-STM to plantar fascia with tennis ball PT-OP-R Modalities Start: 01/12/21 07:28 Freq: Status: Active Protocol: Document 02/13/21 15:19 MA (Rec: 02/13/21 15:20 MA [id number]) Hot Pack/Cold Pack Treatment Ice Pack Location L ankle Patient Position Hooklying Treatment Duration (minutes) 10 Patient Tolerance Good PT-OP-T Assessment and Plan Start: 01/12/21 07:28 Freq: Status: Active Protocol: Document 02/13/21 14:38 MA (Rec: 02/13/21 15:19 MA [id number]) Physical Therapy Assessment Goals activities Short Term Goal (STG) Pt will be able to complete all housework with min inc in pain in L ankle. STG Duration 03/21/21 Assisted Goal (LTG) Pt will be able to do all gardening and house work without inc L ankle pain LTG Duration 04/20/21 gait Short Term Goal (STG) Pt will be able to amb without AD with min deviations STG Duration 03/21/21 Senior Gis Analyst Goal (LTG) Pt will be able to ambulate without AD with good mechanics and no pain for as long as she needs. LTG Duration 04/20/21 ROM Short Term Goal (STG) Pt will have AROM DF to neutral to improve gait and mboility. STG Duration 03/01/21 Assisted Goal (LTG) Pt will have AROM DF to at least 5 deg to improve gait and mobility. LTG Duration 04/20/21 strength Short Term Goal (STG) Pt will be indep w/HEP STG Duration 02/18/21 Senior Gis Analyst Goal (LTG) Pt will have 5/5 BLE strength in all planes w/o pain in order to allow pt back to typical activities. LTG Duration 04/20/21 LEFS Impairment 20/80 Short Term Goal (STG) Pt will imrpove score of LEFS to 35/80 to show improved functional ability. STG Duration 03/01/21 Assisted Goal (LTG) Pt will imrpove score of LEFS to 60/80 to show improved functional ability. LTG Duration 04/20/21 Assessment Summary Assessment Pt arrives with decreased stance time again on LLE stating she hasn't moved much today. After warming up on sci -fit to improve DF, pt had increased stance time and improved heel strike during gait training with cane. Pt was safe and preferred SPC for use at home. She has recently been having plantar fascia pain which improved after STM. Taught pt how to perform self-STM with tennis ball to plantar fascia at home. Pt continues to have decreased ROM in L ankle, all planes. She would benefit from therapy to continue improving ROM, decreasing pain, and improving gait. Physical Therapy Plan Frequency and Duration Frequency of Treatment 2x/Week Duration of Treatment 3 months Plan of Care Start Date 01/19/21 Plan of Care End Date 04/20/21 Therapeutic Interventions Therapeutic Interventions Aquatic Therapy,Balance Training,Gait Training,Home Exercise Program,Joint Mobilizations,Manual Therapy, Neuromuscular Re-education, Patient/Caregiver Education, Self-Care/Home Management,Soft Tissue Mobilization,Taping, Therapeutic Activities, Therapeutic Exercises Modalities Cold Pack/Ice Massage,Electric Stimulation,Hot Packs, Infrared Therapy,Ultrasound Next Visit Focus/Plan Next Note Type Treatment Note Next Visit Plan work ROM focusing on inc DF, work manually on scar and work on achilles/calf for improved mobility, slowly inc balance & WB
--- NOTE | 2021-02-16 16:35 | PT.OTN ---
Current Diagnoses Difficulty in walking, not elsewhere classified (02/16/21) Weakness (02/16/21) Displaced trimalleolar fracture of left lower leg, subsequent encounter for closed fracture with routine healing (02/16/21) Physical Therapy Treatment Note PT-OP-A Visit Information Start: 01/12/21 07:28 Freq: Status: Active Protocol: Document 02/16/21 16:02 MA (Rec: 02/16/21 16:07 MA [id number]) Out-Patient Physical Therapy Visit Information Visit Information Visit Type Treatment Note Visit Start Time 14:30 Visit Stop Time 15:25 Total Visit Minutes 55 Visit Number 9 Number of BAG BUILDER Visits 3 PT-OP-B Current Condition Start: 01/12/21 07:28 Freq: Status: Active Protocol: Document 01/19/21 16:03 [facility] (Rec: 01/19/21 16:49 [facility] [id number]) Current Condition History of Current Condition Onset Date 11/22/20 injury 11/28/20 surgery ORIF Current Complaints R ankle pain s/p R ankle ORIF History of Current Condition Pt slipped and fell outside around the end of Nov but has no history of falls. Has had a couple little falls w/scooter but no injuries. Has been using scooter since injury. Pt was taken out of boot on Tue and is wearing air cast but pt cannot get a shoe over it. Pt able to go in through garage and it is one step and she uses the scooter to get in/out of the house. SLH otherwise. Pt lives with her who helps. She frank snot have a walker. She has a walk in shower with a curb & 2 glass doors w/a seat. helps w/in/out and pt is indep w/ showering otherwise. Pt is actively being treated for breast cancer and is currently being treated w/chemo and is getting shots for bone density . Prior Treatments and Tests none Future Testing and Treatments Planned Return follow up w/ Dr. Fitzpatrick February 25 Treatment Goals Patient/Caregiver Goals be able to do daily chores, be able to walk, be able to get back gardening, driving , cooking PT-OP-C Subjective Start: 01/12/21 07:28 Freq: Status: Active Protocol: Document 02/16/21 16:02 [facility]IS[facility] (Rec: 02/16/21 16:07 ID [id number]) OP-PT Subjective Patient Comments Patient Comments Pt states that the top of her foot has been bothering her now but the arch is feeling better after using tennis ball for self-STM PT-OP-F Manual Assessment Start: 01/12/21 07:28 Freq: Status: Active Protocol: Document 01/19/21 16:03 [facility] (Rec: 01/19/21 16:49 [facility] [id number]) Manual Assessments Soft Tissue Assessment Soft Tissue Mobility Assessment scars heeling but still have some red scabbing med, lat some yellow tissue. PT-OP-K Range of Motion Start: 01/12/21 07:28 Freq: Status: Active Protocol: Document 01/19/21 16:03 [facility] (Rec: 01/19/21 16:49 [facility] [id number]) Ankle and Foot Goniometric Range of Motion Ankle and Foot Right Active Dorsiflexion with Knee Flexed 16 Plantarflexion 55 Inversion 33 Eversion 21 Comments malleoli [id number] cm figure 8 49cm Left Active Dorsiflexion with Knee Flexed 20 Plantarflexion 44 Inversion 12 Eversion 8 Comments lacking to neutral w/DF Figure 8 52.5 cm malleoi: 26.5cm PT-OP-M Strength Start: 01/12/21 07:28 Freq: Status: Active Protocol: Document 01/19/21 16:03 [facility] (Rec: 01/19/21 16:49 [facility] [id number]) Hip Strength Hip Manual Muscle Testing Right Flexion (L2) 4 Good Extension (S1) 3+ Fair+ Abduction 4- Good- External Rotation 4 Good Internal Rotation 4 Good Left Flexion (L2) 4 Good Extension (S1) 3+ Fair+ Abduction 3+ Fair+ External Rotation 4- Good- Internal Rotation 4- Good- Knee Strength Knee Manual Muscle Testing Right Flexion (S2) 4+ Good+ Extension (L3) 5 Normal Left Flexion (S2) 4- Good- Extension (L3) 4+ Good+ Ankle/Foot Strength Ankle and Foot Manual Muscle Testing Right Dorsiflexion (L4) 5 Normal Plantarflexion (S1) 5 Normal Inversion 5 Normal Eversion (S1) 5 Normal Comments PF tested seated Left Dorsiflexion (L4) 2+ Poor+ Plantarflexion (S1) 3+ Fair+ Inversion 3- Fair- Eversion (S1) 3- Fair- PT-OP-Q Treatments Start: 01/12/21 07:28 Freq: Status: Active Protocol: Document 02/16/21 16:02 MA (Rec: 02/16/21 16:07 MA [id number]) Cardio Equipment Recumbent Stepper (Sci-Fit) Duration (Minutes) 6 Resistance 2 Seat Position 9 Other for increasing DF Therapeutic Exercises Supine Exercises SLR Side bilateral Reps/Minutes 15 Comments core focus Sidelying Exercises clamshell Sidelying Exercise Name clamshell Side bilateral Reps/Minutes 10 ea hip abd Side bilateral Reps/Minutes 10 Sitting Exercises ROM Sitting Exercise Name PF/DF, circles CW/CWW Side left Reps/Minutes 10 ea Standing Exercises stretch Standing Exercise Name 1.ENDY Side left Equipment Used holding rail Reps/Minutes 1 min Manual Therapy Treatment Soft Tissue Mobilization scar Body Location med ankle scar only Mobilization Type Myofascial Release Intensity/Depth Superficial Body Position Hooklying calf Mobilization Type Rolling,Strumming Intensity/Depth Moderate Body Position Prone Self-Care/Home Management Treatment Education Other Education Discussed not wearing compression sock for the rest of the day to test if that is causing anterior ankle pain. Talked about smoking causing increased healing time with pt agreeing to set date to begin her nicotine patch. Pt's medial ankle continues to have scab over scar. PT-OP-R Modalities Start: 01/12/21 07:28 Freq: Status: Active Protocol: Document 02/16/21 16:02 MA (Rec: 02/16/21 16:07 MA [id number]) Hot Pack/Cold Pack Treatment Ice Pack Location L ankle Patient Position Hooklying Treatment Duration (minutes) 10 Patient Tolerance Good PT-OP-T Assessment and Plan Start: 01/12/21 07:28 Freq: Status: Active Protocol: Document 02/16/21 16:02 MA (Rec: 02/16/21 16:07 MA [id number]) Physical Therapy Assessment Goals activities Short Term Goal (STG) Pt will be able to complete all housework with min inc in pain in L ankle. STG Duration 03/21/21 Longterm Goal (LTG) Pt will be able to do all gardening and house work without inc L ankle pain LTG Duration 04/20/21 gait Short Term Goal (STG) Pt will be able to amb without AD with min deviations STG Duration 03/21/21 Street Superintendent Goal (LTG) Pt will be able to ambulate without AD with good mechanics and no pain for as long as she needs. LTG Duration 04/20/21 ROM Short Term Goal (STG) Pt will have AROM DF to neutral to improve gait and mboility. STG Duration 03/01/21 [address] Superintendent Goal (LTG) Pt will have AROM DF to at least 5 deg to improve gait and mobility. LTG Duration 04/20/21 strength Short Term Goal (STG) Pt will be indep w/HEP STG Duration 02/18/21 [address] Superintendent Goal (LTG) Pt will have 5/5 BLE strength in all planes w/o pain in order to allow pt back to typical activities. LTG Duration 04/20/21 LEFS Impairment 20/80 Short Term Goal (STG) Pt will imrpove score of LEFS to 35/80 to show improved functional ability. STG Duration 03/01/21 Longterm Goal (LTG) Pt will imrpove score of LEFS to 60/80 to show improved functional ability. LTG Duration 04/20/21 Assessment Summary Assessment Pt arrived with dorsal foot pain. Once compression sock was removed, pt had dark indention where sock cuts off. Discussed that the sock may be the cause of pt's foot pain . Pt will try without compressin sock the rest of today and report back if her pain improves. She is using only her cane now vs walker to walk through her house and at friends houses. She has not gone out to the grocery store or any far walks in public. Pt arrived with limited DF and had some discomfort at the beginning of session when stretching R gastroc. Pain always improves after stretching and warm up activities. Stressed the importance of continuing with old HEP exercises/stretches to continue seeing improvement in ROM, balance, and strength. Reviewed hip ER, ABD, and Flex exercises with pt needing frequent cues for positioning and to avoid compensation. Next session will review PF/DF band work. Pt's medial ankle continues to have scab over scar, therefore BAG BUILDER cannot begin scar work on that side. Discussed smoking causing increased recovery time. Pt has picked up nicotine patches but her and her have not yet set a date to start using them. Physical Therapy Plan Frequency and Duration Frequency of Treatment 2x/Week Duration of Treatment 3 months Plan of Care Start Date 01/19/21 Plan of Care End Date 04/20/21 Therapeutic Interventions Therapeutic Interventions Aquatic Therapy,Balance Training,Gait Training,Home Exercise Program,Joint Mobilizations,Manual Therapy, Neuromuscular Re-education, Patient/Caregiver Education, Self-Care/Home Management,Soft Tissue Mobilization,Taping, Therapeutic Activities, Therapeutic Exercises Modalities Cold Pack/Ice Massage,Electric Stimulation,Hot Packs, Infrared Therapy,Ultrasound Next Visit Focus/Plan Next Note Type Treatment Note Next Visit Plan Review theraband HEP for DF/PF . Continue working on increasing R ankle ROM and begin balance work. STM for calf and scar as needed
--- NOTE | 2021-02-25 12:49 | PT.OTN ---
Current Diagnoses Difficulty in walking, not elsewhere classified (02/25/21) Weakness (02/25/21) Displaced trimalleolar fracture of left lower leg, subsequent encounter for closed fracture with routine healing (02/25/21) Physical Therapy Treatment Note PT-OP-A Visit Information Start: 01/12/21 07:28 Freq: Status: Active Protocol: Document 02/25/21 12:25 MA (Rec: 02/25/21 12:48 MA [id number]) Out-Patient Physical Therapy Visit Information Visit Information Visit Type Treatment Note Visit Start Time 12:00 Visit Stop Time 12:55 Total Visit Minutes 55 Visit Number 10 Number of SEAPORT PLANNING MANAGER Visits 4 PT-OP-B Current Condition Start: 01/12/21 07:28 Freq: Status: Active Protocol: Document 01/19/21 16:03 LR (Rec: 01/19/21 16:49 [facility] [id number]) Current Condition History of Current Condition Onset Date 11/22/20 injury 11/28/20 surgery ORIF Current Complaints R ankle pain s/p R ankle ORIF History of Current Condition Pt slipped and fell outside around the end of Nov but has no history of falls. Has had a couple little falls w/scooter but no injuries. Has been using scooter since injury. Pt was taken out of boot on Tue and is wearing air cast but pt cannot get a shoe over it. Pt able to go in through garage and it is one step and she uses the scooter to get in/out of the house. SLH otherwise. Pt lives with her who helps. She frank snot have a walker. She has a walk in shower with a curb & 2 glass doors w/a seat. helps w/in/out and pt is indep w/ showering otherwise. Pt is actively being treated for breast cancer and is currently being treated w/chemo and is getting shots for bone density . Prior Treatments and Tests none Future Testing and Treatments Planned Return follow up w/ Dr. Fitzpatrick February 25 Treatment Goals Patient/Caregiver Goals be able to do daily chores, be able to walk, be able to get back gardening, driving , cooking PT-OP-C Subjective Start: 01/12/21 07:28 Freq: Status: Active Protocol: Document 02/25/21 12:25 MA (Rec: 02/25/21 12:48 [place] [id number]) OP-PT Subjective Patient Comments Patient Comments Pt states that it was the compression sock that caused dorsal foot pain and now that she removed it she has no pain . PT-OP-F Manual Assessment Start: 01/12/21 07:28 Freq: Status: Active Protocol: Document 01/19/21 16:03 [facility] (Rec: 01/19/21 16:49 [facility] [id number]) Manual Assessments Soft Tissue Assessment Soft Tissue Mobility Assessment scars heeling but still have some red scabbing med, lat some yellow tissue. PT-OP-K Range of Motion Start: 01/12/21 07:28 Freq: Status: Active Protocol: Document 01/19/21 16:03 [facility] (Rec: 01/19/21 16:49 [facility] [id number]) Ankle and Foot Goniometric Range of Motion Ankle and Foot Right Active Dorsiflexion with Knee Flexed 16 Plantarflexion 55 Inversion 33 Eversion 21 Comments malleoli [id number] cm figure 8 49cm Left Active Dorsiflexion with Knee Flexed 20 Plantarflexion 44 Inversion 12 Eversion 8 Comments lacking to neutral w/DF Figure 8 52.5 cm malleoi: 26.5cm PT-OP-M Strength Start: 01/12/21 07:28 Freq: Status: Active Protocol: Document 01/19/21 16:03 [facility] (Rec: 01/19/21 16:49 [facility] [id number]) Hip Strength Hip Manual Muscle Testing Right Flexion (L2) 4 Good Extension (S1) 3+ Fair+ Abduction 4- Good- External Rotation 4 Good Internal Rotation 4 Good Left Flexion (L2) 4 Good Extension (S1) 3+ Fair+ Abduction 3+ Fair+ External Rotation 4- Good- Internal Rotation 4- Good- Knee Strength Knee Manual Muscle Testing Right Flexion (S2) 4+ Good+ Extension (L3) 5 Normal Left Flexion (S2) 4- Good- Extension (L3) 4+ Good+ Ankle/Foot Strength Ankle and Foot Manual Muscle Testing Right Dorsiflexion (L4) 5 Normal Plantarflexion (S1) 5 Normal Inversion 5 Normal Eversion (S1) 5 Normal Comments PF tested seated Left Dorsiflexion (L4) 2+ Poor+ Plantarflexion (S1) 3+ Fair+ Inversion 3- Fair- Eversion (S1) 3- Fair- PT-OP-Q Treatments Start: 01/12/21 07:28 Freq: Status: Active Protocol: Document 02/25/21 12:25 MA (Rec: 02/25/21 12:48 MA [id number]) Cardio Equipment Recumbent Stepper (Sci-Fit) Duration (Minutes) 5 Resistance 2 Seat Position 9 Other for increasing DF Therapeutic Exercises Sitting Exercises BAPS Sitting Exercise Name PF/DF, inv/ev, circles B Side left Equipment Used BAPS lvl 3 Reps/Minutes 10 ea Manual Therapy Treatment Soft Tissue Mobilization plantar fascia Body Location L Mobilization Type Rolling Intensity/Depth Moderate Body Position Prone scar Body Location med ankle scar only Mobilization Type Myofascial Release Intensity/Depth Superficial Body Position Hooklying calf Mobilization Type Rolling,Strumming Intensity/Depth Moderate Body Position Prone Neuro Re-Education Treatment Balance Activities Tandem Equipment bar prn Reps/Duration 4x 30 sec Comments alternating fwd LE SLS Details LLE Surface solid Equipment bar Reps/Duration 2x30 sec PT-OP-R Modalities Start: 01/12/21 07:28 Freq: Status: Active Protocol: Document 02/16/21 16:02 MA (Rec: 02/16/21 16:07 MA [id number]) Hot Pack/Cold Pack Treatment Ice Pack Location L ankle Patient Position Hooklying Treatment Duration (minutes) 10 Patient Tolerance Good PT-OP-T Assessment and Plan Start: 01/12/21 07:28 Freq: Status: Active Protocol: Document 02/25/21 12:25 MA (Rec: 02/25/21 12:48 MA [id number]) Physical Therapy Assessment Goals activities Short Term Goal (STG) Pt will be able to complete all housework with min inc in pain in L ankle. STG Duration 03/21/21 Vp Sales Goal (LTG) Pt will be able to do all gardening and house work without inc L ankle pain LTG Duration 04/20/21 gait Short Term Goal (STG) Pt will be able to amb without AD with min deviations STG Duration 03/21/21 Correction Goal (LTG) Pt will be able to ambulate without AD with good mechanics and no pain for as long as she needs. LTG Duration 04/20/21 ROM Short Term Goal (STG) Pt will have AROM DF to neutral to improve gait and mboility. STG Duration 03/01/21 Correction Goal (LTG) Pt will have AROM DF to at least 5 deg to improve gait and mobility. LTG Duration 04/20/21 strength Short Term Goal (STG) Pt will be indep w/HEP STG Duration 02/18/21 Vp Sales Goal (LTG) Pt will have 5/5 BLE strength in all planes w/o pain in order to allow pt back to typical activities. LTG Duration 04/20/21 LEFS Impairment 20/80 Short Term Goal (STG) Pt will imrpove score of LEFS to 35/80 to show improved functional ability. STG Duration 03/01/21 Vp Sales Goal (LTG) Pt will imrpove score of LEFS to 60/80 to show improved functional ability. LTG Duration 04/20/21 Assessment Summary Assessment Pt had improved ROM after starting with STM today. She was able to complete full circles on BAPS board lvl 3 without AAROM for the first time today. Began balance work with pt having difficulty with SLS wihtout holding on to bar so switch to tandem stance with bar prn. Pt will benefit from improved balance to increase LLE stance time during gait. Physical Therapy Plan Frequency and Duration Frequency of Treatment 2x/Week Duration of Treatment 3 months Plan of Care Start Date 01/19/21 Plan of Care End Date 04/20/21 Therapeutic Interventions Therapeutic Interventions Aquatic Therapy,Balance Training,Gait Training,Home Exercise Program,Joint Mobilizations,Manual Therapy, Neuromuscular Re-education, Patient/Caregiver Education, Self-Care/Home Management,Soft Tissue Mobilization,Taping, Therapeutic Activities, Therapeutic Exercises Modalities Cold Pack/Ice Massage,Electric Stimulation,Hot Packs, Infrared Therapy,Ultrasound Next Visit Focus/Plan Next Note Type Treatment Note Next Visit Plan Continue working on increasing R ankle ROM and begin balance work. STM for calf and scar as needed
--- NOTE | 2021-03-11 16:26 | PT.OTN ---
Current Diagnoses Difficulty in walking, not elsewhere classified (03/11/21) Weakness (03/11/21) Displaced trimalleolar fracture of left lower leg, subsequent encounter for closed fracture with routine healing (03/11/21) Physical Therapy Treatment Note PT-OP-A Visit Information Start: 01/12/21 07:28 Freq: Status: Active Protocol: Document 03/11/21 15:24 [facility] (Rec: 03/11/21 16:25 [facility] [id number]) Out-Patient Physical Therapy Visit Information Visit Information Visit Type Progress Note Visit Start Time 15:17 Visit Stop Time 15:59 Total Visit Minutes 42 Visit Number 11 Number of RELATIONSHIP EXECUTIVE Visits 0 PT-OP-B Current Condition Start: 01/12/21 07:28 Freq: Status: Active Protocol: Document 01/19/21 16:03 [facility] (Rec: 01/19/21 16:49 [facility] [id number]) Current Condition History of Current Condition Onset Date 11/22/20 injury 11/28/20 surgery ORIF Current Complaints R ankle pain s/p R ankle ORIF History of Current Condition Pt slipped and fell outside around the end of Nov but has no history of falls. Has had a couple little falls w/scooter but no injuries. Has been using scooter since injury. Pt was taken out of boot on Tue and is wearing air cast but pt cannot get a shoe over it. Pt able to go in through garage and it is one step and she uses the scooter to get in/out of the house. SLH otherwise. Pt lives with her who helps. She frank snot have a walker. She has a walk in shower with a curb & 2 glass doors w/a seat. helps w/in/out and pt is indep w/ showering otherwise. Pt is actively being treated for breast cancer and is currently being treated w/chemo and is getting shots for bone density . Prior Treatments and Tests none Future Testing and Treatments Planned Return follow up w/ Dr. Fitzpatrick February 25 Treatment Goals Patient/Caregiver Goals be able to do daily chores, be able to walk, be able to get back gardening, driving , cooking PT-OP-C Subjective Start: 01/12/21 07:28 Freq: Status: Active Protocol: Document 03/11/21 15:24 [facility] (Rec: 03/11/21 16:25 [facility] [id number]) OP-PT Subjective Patient Comments Patient Comments Pt reprots doing a lot of walking,camped and did okay. Notes she still gets signfiicant pain. Wants to dec limp PT-OP-F Manual Assessment Start: 01/12/21 07:28 Freq: Status: Active Protocol: Document 01/19/21 16:03 [facility] (Rec: 01/19/21 16:49 [facility] [id number]) Manual Assessments Soft Tissue Assessment Soft Tissue Mobility Assessment scars heeling but still have some red scabbing med, lat some yellow tissue. PT-OP-K Range of Motion Start: 01/12/21 07:28 Freq: Status: Active Protocol: Document 03/11/21 15:24 [facility] (Rec: 03/11/21 16:25 [facility] [id number]) Ankle and Foot Goniometric Range of Motion Ankle and Foot Left Active Dorsiflexion with Knee Flexed 0 Plantarflexion 40 Inversion 20 Eversion 12 PT-OP-M Strength Start: 01/12/21 07:28 Freq: Status: Active Protocol: Document 03/11/21 15:24 [facility] (Rec: 03/11/21 16:25 [facility] [id number]) Hip Strength Hip Manual Muscle Testing Right Flexion (L2) 4 Good Extension (S1) 4 Good Abduction 4 Good External Rotation 4+ Good+ Internal Rotation 4+ Good+ Left Flexion (L2) 4 Good Extension (S1) 4- Good- Abduction 4 Good External Rotation 4+ Good+ Internal Rotation 4+ Good+ Knee Strength Knee Manual Muscle Testing Right Flexion (S2) 5 Normal Extension (L3) 5 Normal Left Flexion (S2) 5 Normal Extension (L3) 4+ Good+ Ankle/Foot Strength Ankle and Foot Manual Muscle Testing Right Dorsiflexion (L4) 5 Normal Plantarflexion (S1) 5 Normal Inversion 5 Normal Eversion (S1) 5 Normal Comments PF tested seated Left Dorsiflexion (L4) 4 Good Plantarflexion (S1) 4 Good Inversion 4 Good Eversion (S1) 4 Good PT-OP-Q Treatments Start: 01/12/21 07:28 Freq: Status: Active Protocol: Document 03/11/21 15:24 [facility] (Rec: 03/11/21 16:25 [facility] [id number]) Gym Equipment Sport Cord fwd walk Cord/Resistance green Reps/Duration 6 Comments mirror Gait Training Gait Activity gait Comments 1. wt shfits in mirror 2. walking in mirror w/push off focus Manual Therapy Treatment Soft Tissue Mobilization scar Body Location med ankle scar only Mobilization Type Myofascial Release Intensity/Depth Superficial Body Position Hooklying calf Mobilization Type Rolling,Strumming Intensity/Depth Moderate Body Position Prone PT-OP-R Modalities Start: 01/12/21 07:28 Freq: Status: Active Protocol: Document 02/16/21 16:02 MA (Rec: 02/16/21 16:07 MA [id number]) Hot Pack/Cold Pack Treatment Ice Pack Location L ankle Patient Position Hooklying Treatment Duration (minutes) 10 Patient Tolerance Good PT-OP-T Assessment and Plan Start: 01/12/21 07:28 Freq: Status: Active Protocol: Document 03/11/21 15:24 [facility] (Rec: 03/11/21 16:25 [facility] [id number]) Physical Therapy Assessment Goals activities Short Term Goal (STG) Pt will be able to complete all housework with min inc in pain in L ankle. STG Duration achieved Mcfp Goal (LTG) Pt will be able to do all gardening and house work without inc L ankle pain 03/11- backyard is so steep so does not dare go down it. front yard has been doing things LTG Duration 04/20/21 gait Short Term Goal (STG) Pt will be able to amb without AD with min deviations STG Duration achieved Mcfp Goal (LTG) Pt will be able to ambulate without AD with good mechanics and no pain for as long as she needs. LTG Duration 04/20/21 ROM Short Term Goal (STG) Pt will have AROM DF to neutral to improve gait and mboility. STG Duration achieved Paving And Surfacing Labourer Goal (LTG) Pt will have AROM DF to at least 5 deg to improve gait and mobility. LTG Duration 04/20/21 strength Short Term Goal (STG) Pt will be indep w/HEP STG Duration achieved progressing as needed Paving And Surfacing Labourer Goal (LTG) Pt will have 5/5 BLE strength in all planes w/o pain in order to allow pt back to typical activities. 03/11 improved LTG Duration 04/20/21 LEFS Impairment 20/80 Short Term Goal (STG) Pt will imrpove score of LEFS to 35/80 to show improved functional ability. STG Duration 03/01/21 Mcfp Goal (LTG) Pt will imrpove score of LEFS to 60/80 to show improved functional ability. LTG Duration 04/20/21 Assessment Summary Assessment Pt is making excellent progress with therapy and is cont to improve. Functionally she is doing well but does get pain with inc actviity. She still shows dec balance, impaired gait and dec ROM & strength and would bneeift from cont PT Physical Therapy Plan Frequency and Duration Frequency of Treatment 2x/Week Duration of Treatment 3 months Plan of Care Start Date 01/19/21 Plan of Care End Date 04/20/21 Next Visit Focus/Plan Next Note Type Treatment Note Next Visit Plan work on gait mechanics & work on squats and lunge for LE strength, begin balance
--- NOTE | 2021-03-16 14:31 | PT.OTN ---
Current Diagnoses Difficulty in walking, not elsewhere classified (03/16/21) Weakness (03/16/21) Displaced trimalleolar fracture of left lower leg, subsequent encounter for closed fracture with routine healing (03/16/21) Physical Therapy Treatment Note PT-OP-A Visit Information Start: 01/12/21 07:28 Freq: Status: Active Protocol: Document 03/16/21 13:52 [facility] (Rec: 03/16/21 14:31 [facility] [id number]) Out-Patient Physical Therapy Visit Information Visit Information Visit Type Treatment Note Visit Start Time 13:49 Visit Stop Time 14:28 Total Visit Minutes 39 Visit Number 12 Number of TRAINING DIRECTOR Visits 0 PT-OP-B Current Condition Start: 01/12/21 07:28 Freq: Status: Active Protocol: Document 01/19/21 16:03 [facility] (Rec: 01/19/21 16:49 [facility] [id number]) Current Condition History of Current Condition Onset Date 11/22/20 injury 11/28/20 surgery ORIF Current Complaints R ankle pain s/p R ankle ORIF History of Current Condition Pt slipped and fell outside around the end of Nov but has no history of falls. Has had a couple little falls w/scooter but no injuries. Has been using scooter since injury. Pt was taken out of boot on Tue and is wearing air cast but pt cannot get a shoe over it. Pt able to go in through garage and it is one step and she uses the scooter to get in/out of the house. SLH otherwise. Pt lives with her who helps. She frank snot have a walker. She has a walk in shower with a curb & 2 glass doors w/a seat. helps w/in/out and pt is indep w/ showering otherwise. Pt is actively being treated for breast cancer and is currently being treated w/chemo and is getting shots for bone density . Prior Treatments and Tests none Future Testing and Treatments Planned Return follow up w/ Dr. Fitzpatrick February 25 Treatment Goals Patient/Caregiver Goals be able to do daily chores, be able to walk, be able to get back gardening, driving , cooking PT-OP-C Subjective Start: 01/12/21 07:28 Freq: Status: Active Protocol: Document 03/16/21 13:52 [facility] (Rec: 03/16/21 14:31 [facility] [id number]) OP-PT Subjective Patient Comments Patient Comments Pt reports she did a lot for her mom this weekend d/t visiting her in [place] PT-OP-F Manual Assessment Start: 01/12/21 07:28 Freq: Status: Active Protocol: Document 01/19/21 16:03 [facility] (Rec: 01/19/21 16:49 [facility] [id number]) Manual Assessments Soft Tissue Assessment Soft Tissue Mobility Assessment scars heeling but still have some red scabbing med, lat some yellow tissue. PT-OP-K Range of Motion Start: 01/12/21 07:28 Freq: Status: Active Protocol: Document 03/11/21 15:24 [facility] (Rec: 03/11/21 16:25 [facility] [id number]) Ankle and Foot Goniometric Range of Motion Ankle and Foot Left Active Dorsiflexion with Knee Flexed 0 Plantarflexion 40 Inversion 20 Eversion 12 PT-OP-M Strength Start: 01/12/21 07:28 Freq: Status: Active Protocol: Document 03/11/21 15:24 [facility] (Rec: 03/11/21 16:25 [facility] [id number]) Hip Strength Hip Manual Muscle Testing Right Flexion (L2) 4 Good Extension (S1) 4 Good Abduction 4 Good External Rotation 4+ Good+ Internal Rotation 4+ Good+ Left Flexion (L2) 4 Good Extension (S1) 4- Good- Abduction 4 Good External Rotation 4+ Good+ Internal Rotation 4+ Good+ Knee Strength Knee Manual Muscle Testing Right Flexion (S2) 5 Normal Extension (L3) 5 Normal Left Flexion (S2) 5 Normal Extension (L3) 4+ Good+ Ankle/Foot Strength Ankle and Foot Manual Muscle Testing Right Dorsiflexion (L4) 5 Normal Plantarflexion (S1) 5 Normal Inversion 5 Normal Eversion (S1) 5 Normal Comments PF tested seated Left Dorsiflexion (L4) 4 Good Plantarflexion (S1) 4 Good Inversion 4 Good Eversion (S1) 4 Good PT-OP-Q Treatments Start: 01/12/21 07:28 Freq: Status: Active Protocol: Document 03/16/21 13:52 [facility] (Rec: 03/16/21 14:31 [facility] [id number]) Cardio Equipment Recumbent Elliptical (Biodex) Duration (Minutes) 6 Resistance 6 Seat Position 7 Gym Equipment Shuttle Balance red clips Comments fwd & side: WBOS, NBOS fwd: staggered Sport Cord fwd walk Cord/Resistance green Reps/Duration 10 Comments mirror Therapeutic Exercises Standing Exercises squat Side bilateral Equipment Used over chair Reps/Minutes 15 heel raises Standing Exercise Name on step Side bilateral Reps/Minutes 30 stretch Standing Exercise Name calf on stair Side bilateral Reps/Minutes 30 sec Manual Therapy Treatment Soft Tissue Mobilization plantar fascia Body Location L Mobilization Type Rolling Intensity/Depth Moderate Body Position Prone scar Body Location med ankle scar only Mobilization Type Myofascial Release Intensity/Depth Superficial Body Position Hooklying calf Mobilization Type Rolling,Strumming Intensity/Depth Moderate Body Position Prone Neuro Re-Education Treatment Balance Activities Tandem Details stance trials B SLS Details B balance trials in mirror PT-OP-R Modalities Start: 01/12/21 07:28 Freq: Status: Active Protocol: Document 02/16/21 16:02 MA (Rec: 02/16/21 16:07 MA [id number]) Hot Pack/Cold Pack Treatment Ice Pack Location L ankle Patient Position Hooklying Treatment Duration (minutes) 10 Patient Tolerance Good PT-OP-T Assessment and Plan Start: 01/12/21 07:28 Freq: Status: Active Protocol: Document 03/16/21 13:52 [facility] (Rec: 03/16/21 14:31 [facility] [id number]) Physical Therapy Assessment Goals activities Short Term Goal (STG) Pt will be able to complete all housework with min inc in pain in L ankle. STG Duration achieved Fdc Goal (LTG) Pt will be able to do all gardening and house work without inc L ankle pain 03/11- backyard is so steep so does not dare go down it. front yard has been doing things LTG Duration 04/20/21 gait Short Term Goal (STG) Pt will be able to amb without AD with min deviations STG Duration achieved Fdc Goal (LTG) Pt will be able to ambulate without AD with good mechanics and no pain for as long as she needs. LTG Duration 04/20/21 ROM Short Term Goal (STG) Pt will have AROM DF to neutral to improve gait and mboility. STG Duration achieved Fdc Goal (LTG) Pt will have AROM DF to at least 5 deg to improve gait and mobility. LTG Duration 04/20/21 strength Short Term Goal (STG) Pt will be indep w/HEP STG Duration achieved progressing as needed Fdc Goal (LTG) Pt will have 5/5 BLE strength in all planes w/o pain in order to allow pt back to typical activities. 6 improved LTG Duration 04/20/21 LEFS Impairment 20/80 Short Term Goal (STG) Pt will imrpove score of LEFS to 35/80 to show improved functional ability. STG Duration achieved to 51/80 Fdc Goal (LTG) Pt will imrpove score of LEFS to 60/80 to show improved functional ability. LTG Duration 04/20/21 Assessment Summary Assessment Pt cont to make good progress with activity. Her gait pattern was much improved today with better push off overall. She did have fatigue w/heel raises though. Still gets click w/DF/PF. Physical Therapy Plan Frequency and Duration Frequency of Treatment 2x/Week Duration of Treatment 3 months Plan of Care Start Date 01/19/21 Plan of Care End Date 04/20/21 Next Visit Focus/Plan Next Note Type Treatment Note Next Visit Plan work on gait mechanics & work on squats and lunge for LE strength, work balance
--- NOTE | 2021-03-19 14:33 | PT.OTN ---
Current Diagnoses Difficulty in walking, not elsewhere classified (03/19/21) Weakness (03/19/21) Displaced trimalleolar fracture of left lower leg, subsequent encounter for closed fracture with routine healing (03/19/21) Physical Therapy Treatment Note PT-OP-A Visit Information Start: 01/12/21 07:28 Freq: Status: Active Protocol: Document 03/19/21 13:50 [facility] (Rec: 03/19/21 14:31 [facility] [id number]) Out-Patient Physical Therapy Visit Information Visit Information Visit Type Treatment Note Visit Start Time 13:48 Visit Stop Time 14:29 Total Visit Minutes 41 Visit Number 13 Number of DIET TECH Visits 0 PT-OP-B Current Condition Start: 01/12/21 07:28 Freq: Status: Active Protocol: Document 01/19/21 16:03 [facility] (Rec: 01/19/21 16:49 [facility] [id number]) Current Condition History of Current Condition Onset Date 11/22/20 injury 11/28/20 surgery ORIF Current Complaints R ankle pain s/p R ankle ORIF History of Current Condition Pt slipped and fell outside around the end of Nov but has no history of falls. Has had a couple little falls w/scooter but no injuries. Has been using scooter since injury. Pt was taken out of boot on Tue and is wearing air cast but pt cannot get a shoe over it. Pt able to go in through garage and it is one step and she uses the scooter to get in/out of the house. [facility]H otherwise. Pt lives with her who helps. She frank snot have a walker. She has a walk in shower with a curb & 2 glass doors w/a seat. helps w/in/out and pt is indep w/ showering otherwise. Pt is actively being treated for breast cancer and is currently being treated w/chemo and is getting shots for bone density . Prior Treatments and Tests none Future Testing and Treatments Planned Return follow up w/ Dr. Fitzpatrick February 25 Treatment Goals Patient/Caregiver Goals be able to do daily chores, be able to walk, be able to get back gardening, driving , cooking PT-OP-C Subjective Start: 01/12/21 07:28 Freq: Status: Active Protocol: Document 03/19/21 13:50 [facility] (Rec: 03/19/21 14:31 [facility] [id number]) OP-PT Subjective Patient Comments Patient Comments Pt reports her ankle is a bit stiff. Her ankle swelled up a bit after last session. Pt reports going to the bottom of her property to plant some things. PT-OP-F Manual Assessment Start: 01/12/21 07:28 Freq: Status: Active Protocol: Document 01/19/21 16:03 [facility] (Rec: 01/19/21 16:49 [facility] [id number]) Manual Assessments Soft Tissue Assessment Soft Tissue Mobility Assessment scars heeling but still have some red scabbing med, lat some yellow tissue. PT-OP-K Range of Motion Start: 01/12/21 07:28 Freq: Status: Active Protocol: Document 03/11/21 15:24 [facility] (Rec: 03/11/21 16:25 [facility] [id number]) Ankle and Foot Goniometric Range of Motion Ankle and Foot Left Active Dorsiflexion with Knee Flexed 0 Plantarflexion 40 Inversion 20 Eversion 12 PT-OP-M Strength Start: 01/12/21 07:28 Freq: Status: Active Protocol: Document 03/11/21 15:24 [facility] (Rec: 03/11/21 16:25 [facility] [id number]) Hip Strength Hip Manual Muscle Testing Right Flexion (L2) 4 Good Extension (S1) 4 Good Abduction 4 Good External Rotation 4+ Good+ Internal Rotation 4+ Good+ Left Flexion (L2) 4 Good Extension (S1) 4- Good- Abduction 4 Good External Rotation 4+ Good+ Internal Rotation 4+ Good+ Knee Strength Knee Manual Muscle Testing Right Flexion (S2) 5 Normal Extension (L3) 5 Normal Left Flexion (S2) 5 Normal Extension (L3) 4+ Good+ Ankle/Foot Strength Ankle and Foot Manual Muscle Testing Right Dorsiflexion (L4) 5 Normal Plantarflexion (S1) 5 Normal Inversion 5 Normal Eversion (S1) 5 Normal Comments PF tested seated Left Dorsiflexion (L4) 4 Good Plantarflexion (S1) 4 Good Inversion 4 Good Eversion (S1) 4 Good PT-OP-Q Treatments Start: 01/12/21 07:28 Freq: Status: Active Protocol: Document 03/19/21 13:50 [facility] (Rec: 03/19/21 14:31 [facility] [id number]) Cardio Equipment Recumbent Elliptical (Biodex) Duration (Minutes) 6 Resistance 6 Seat Position 7 Gym Equipment Shuttle Balance red clips Comments fwd & side: WBOS, NBOS fwd: staggered Sport Cord step up Exercise Details 5 in Cord/Resistance green Reps/Duration 10 B fwd walk Cord/Resistance green Reps/Duration 10 Comments mirror Therapeutic Exercises Standing Exercises sidestep Side bilateral Equipment Used yellow Reps/Minutes 20ft squat Side bilateral Equipment Used over chair Reps/Minutes 15 heel raises Standing Exercise Name on step Side bilateral Reps/Minutes 20 stretch Standing Exercise Name calf on stair Side bilateral Reps/Minutes 30 sec Manual Therapy Treatment Soft Tissue Mobilization plantar fascia Body Location L Mobilization Type Rolling Intensity/Depth Moderate Body Position Prone scar Body Location med ankle scar only Mobilization Type Myofascial Release Intensity/Depth Superficial Body Position Hooklying calf Mobilization Type Rolling,Strumming Intensity/Depth Moderate Body Position Prone Neuro Re-Education Treatment Balance Activities head turns Details vertical and horizontal head turns Reps/Duration 50ftx4 backwards Details walk Reps/Duration 50ft EC Details fwd walk Reps/Duration 50ft PT-OP-R Modalities Start: 01/12/21 07:28 Freq: Status: Active Protocol: Document 02/16/21 16:02 [facility] (Rec: 02/16/21 16:07 [facility] [id number]) Hot Pack/Cold Pack Treatment Ice Pack Location L ankle Patient Position Hooklying Treatment Duration (minutes) 10 Patient Tolerance Good PT-OP-T Assessment and Plan Start: 01/12/21 07:28 Freq: Status: Active Protocol: Document 03/19/21 13:50 [facility] (Rec: 03/19/21 14:31 [facility] [id number]) Physical Therapy Assessment Goals activities Short Term Goal (STG) Pt will be able to complete all housework with min inc in pain in L ankle. STG Duration achieved Assurance Manager Goal (LTG) Pt will be able to do all gardening and house work without inc L ankle pain 03/11- backyard is so steep so does not dare go down it. front yard has been doing things LTG Duration 04/20/21 gait Short Term Goal (STG) Pt will be able to amb without AD with min deviations STG Duration achieved Assurance Manager Goal (LTG) Pt will be able to ambulate without AD with good mechanics and no pain for as long as she needs. LTG Duration 04/20/21 ROM Short Term Goal (STG) Pt will have AROM DF to neutral to improve gait and mboility. STG Duration achieved Assurance Manager Goal (LTG) Pt will have AROM DF to at least 5 deg to improve gait and mobility. LTG Duration 04/20/21 strength Short Term Goal (STG) Pt will be indep w/HEP STG Duration achieved progressing as needed Mcfp Goal (LTG) Pt will have 5/5 BLE strength in all planes w/o pain in order to allow pt back to typical activities. 03/11 improved LTG Duration 04/20/21 LEFS Impairment 20/80 Short Term Goal (STG) Pt will imrpove score of LEFS to 35/80 to show improved functional ability. STG Duration achieved to 51/80 Assurance Manager Goal (LTG) Pt will imrpove score of LEFS to 60/80 to show improved functional ability. LTG Duration 04/20/21 Assessment Summary Assessment Pt cont to imrpove with balance and gait with more even gait noted today. She is doing better with strengthening but does still have signficiant PF weakness. Physical Therapy Plan Frequency and Duration Frequency of Treatment 2x/Week Duration of Treatment 3 months Plan of Care Start Date 01/19/21 Plan of Care End Date 04/20/21 Next Visit Focus/Plan Next Note Type Treatment Note Next Visit Plan work on gait mechanics & work on squats and lunge for LE strength, work balance
--- NOTE | 2021-03-23 14:40 | PT.OTN ---
Current Diagnoses Difficulty in walking, not elsewhere classified (03/23/21) Weakness (03/23/21) Displaced trimalleolar fracture of left lower leg, subsequent encounter for closed fracture with routine healing (03/23/21) Physical Therapy Treatment Note PT-OP-A Visit Information Start: 01/12/21 07:28 Freq: Status: Active Protocol: Document 03/23/21 13:48 [facility] (Rec: 03/23/21 14:40 [facility] [id number]) Out-Patient Physical Therapy Visit Information Visit Information Visit Type Treatment Note Visit Start Time 13:47 Visit Stop Time 14:27 Total Visit Minutes 40 Visit Number 14 Number of DINING ROOM COORDINATOR Visits 0 PT-OP-B Current Condition Start: 01/12/21 07:28 Freq: Status: Active Protocol: Document 01/19/21 16:03 [facility] (Rec: 01/19/21 16:49 [facility] [id number]) Current Condition History of Current Condition Onset Date 11/22/20 injury 11/28/20 surgery ORIF Current Complaints R ankle pain s/p R ankle ORIF History of Current Condition Pt slipped and fell outside around the end of Nov but has no history of falls. Has had a couple little falls w/scooter but no injuries. Has been using scooter since injury. Pt was taken out of boot on Tue and is wearing air cast but pt cannot get a shoe over it. Pt able to go in through garage and it is one step and she uses the scooter to get in/out of the house. [facility]H otherwise. Pt lives with her who helps. She frank snot have a walker. She has a walk in shower with a curb & 2 glass doors w/a seat. helps w/in/out and pt is indep w/ showering otherwise. Pt is actively being treated for breast cancer and is currently being treated w/chemo and is getting shots for bone density . Prior Treatments and Tests none Future Testing and Treatments Planned Return follow up w/ Dr. Fitzpatrick February 25 Treatment Goals Patient/Caregiver Goals be able to do daily chores, be able to walk, be able to get back gardening, driving , cooking PT-OP-C Subjective Start: 01/12/21 07:28 Freq: Status: Active Protocol: Document 03/23/21 13:48 [facility] (Rec: 03/23/21 14:40 [facility] [id number]) OP-PT Subjective Patient Comments Patient Comments Pt reprots ankle is a little sore from going up/down stairs mult times and being on her feet a lot PT-OP-F Manual Assessment Start: 01/12/21 07:28 Freq: Status: Active Protocol: Document 01/19/21 16:03 [facility] (Rec: 01/19/21 16:49 [facility] [id number]) Manual Assessments Soft Tissue Assessment Soft Tissue Mobility Assessment scars heeling but still have some red scabbing med, lat some yellow tissue. PT-OP-K Range of Motion Start: 01/12/21 07:28 Freq: Status: Active Protocol: Document 03/11/21 15:24 [facility] (Rec: 03/11/21 16:25 [facility] [id number]) Ankle and Foot Goniometric Range of Motion Ankle and Foot Left Active Dorsiflexion with Knee Flexed 0 Plantarflexion 40 Inversion 20 Eversion 12 PT-OP-M Strength Start: 01/12/21 07:28 Freq: Status: Active Protocol: Document 03/11/21 15:24 [facility] (Rec: 03/11/21 16:25 [facility] [id number]) Hip Strength Hip Manual Muscle Testing Right Flexion (L2) 4 Good Extension (S1) 4 Good Abduction 4 Good External Rotation 4+ Good+ Internal Rotation 4+ Good+ Left Flexion (L2) 4 Good Extension (S1) 4- Good- Abduction 4 Good External Rotation 4+ Good+ Internal Rotation 4+ Good+ Knee Strength Knee Manual Muscle Testing Right Flexion (S2) 5 Normal Extension (L3) 5 Normal Left Flexion (S2) 5 Normal Extension (L3) 4+ Good+ Ankle/Foot Strength Ankle and Foot Manual Muscle Testing Right Dorsiflexion (L4) 5 Normal Plantarflexion (S1) 5 Normal Inversion 5 Normal Eversion (S1) 5 Normal Comments PF tested seated Left Dorsiflexion (L4) 4 Good Plantarflexion (S1) 4 Good Inversion 4 Good Eversion (S1) 4 Good PT-OP-Q Treatments Start: 01/12/21 07:28 Freq: Status: Active Protocol: Document 03/23/21 13:48 [facility] (Rec: 03/23/21 14:40 [facility] [id number]) Cardio Equipment Recumbent Elliptical (Biodex) Duration (Minutes) 6 Resistance 7 Seat Position 7 Gym Equipment Shuttle Balance red clips Comments fwd & side: WBOS, NBOS, wt shifts fwd: staggered Therapeutic Exercises Standing Exercises lunge Side bilateral Reps/Minutes 10 squat Side bilateral Equipment Used over chair Reps/Minutes 15 stretch Standing Exercise Name bossman Side bilateral Reps/Minutes 1 min Manual Therapy Treatment Soft Tissue Mobilization plantar fascia Body Location L Mobilization Type Rolling Intensity/Depth Moderate Body Position Prone scar Body Location med ankle scar only Mobilization Type Myofascial Release Intensity/Depth Superficial Body Position Hooklying calf Mobilization Type Rolling,Strumming Intensity/Depth Moderate Body Position Prone Neuro Re-Education Treatment Balance Activities SLS Details B balance trials in mirror PT-OP-R Modalities Start: 01/12/21 07:28 Freq: Status: Active Protocol: Document 02/16/21 16:02 [facility] (Rec: 02/16/21 16:07 [facility] [id number]) Hot Pack/Cold Pack Treatment Ice Pack Location L ankle Patient Position Hooklying Treatment Duration (minutes) 10 Patient Tolerance Good PT-OP-T Assessment and Plan Start: 01/12/21 07:28 Freq: Status: Active Protocol: Document 03/23/21 13:48 [facility] (Rec: 03/23/21 14:40 [facility] [id number]) Physical Therapy Assessment Goals activities Short Term Goal (STG) Pt will be able to complete all housework with min inc in pain in L ankle. STG Duration achieved Management Trainee Program Stores Goal (LTG) Pt will be able to do all gardening and house work without inc L ankle pain 03/11- backyard is so steep so does not dare go down it. front yard has been doing things LTG Duration 04/20/21 gait Short Term Goal (STG) Pt will be able to amb without AD with min deviations STG Duration achieved Correction Goal (LTG) Pt will be able to ambulate without AD with good mechanics and no pain for as long as she needs. LTG Duration 04/20/21 ROM Short Term Goal (STG) Pt will have AROM DF to neutral to improve gait and mboility. STG Duration achieved Correction Goal (LTG) Pt will have AROM DF to at least 5 deg to improve gait and mobility. LTG Duration 04/20/21 strength Short Term Goal (STG) Pt will be indep w/HEP STG Duration achieved progressing as needed Management Trainee Program Stores Goal (LTG) Pt will have 5/5 BLE strength in all planes w/o pain in order to allow pt back to typical activities. 03/11 improved LTG Duration 04/20/21 LEFS Impairment 20/80 Short Term Goal (STG) Pt will imrpove score of LEFS to 35/80 to show improved functional ability. STG Duration achieved to 51/80 Management Trainee Program Stores Goal (LTG) Pt will imrpove score of LEFS to 60/80 to show improved functional ability. LTG Duration 04/20/21 Assessment Summary Assessment Pt is doing well iwth balance exercises, but has difficulty w/whole body strengthening exercsies d/t L ankle and R hip discomfort. She is improving w/depth w/squat though. Physical Therapy Plan Frequency and Duration Frequency of Treatment 2x/Week Duration of Treatment 3 months Plan of Care Start Date 01/19/21 Plan of Care End Date 04/20/21 Next Visit Focus/Plan Next Note Type Treatment Note Next Visit Plan work on gait mechanics & work on squats and lunge for LE strength, work balance
--- NOTE | 2021-03-26 14:40 | PT.OTN ---
Current Diagnoses Difficulty in walking, not elsewhere classified (03/26/21) Weakness (03/26/21) Displaced trimalleolar fracture of left lower leg, subsequent encounter for closed fracture with routine healing (03/26/21) Physical Therapy Treatment Note PT-OP-A Visit Information Start: 01/12/21 07:28 Freq: Status: Active Protocol: Document 03/26/21 13:49 [facility] (Rec: 03/26/21 14:09 [facility] [id number]) Out-Patient Physical Therapy Visit Information Visit Information Visit Type Treatment Note Visit Start Time 13:47 Visit Stop Time 14:26 Total Visit Minutes 39 Visit Number 15 Number of FISHER HAND LINE Visits 0 PT-OP-B Current Condition Start: 01/12/21 07:28 Freq: Status: Active Protocol: Document 01/19/21 16:03 [facility] (Rec: 01/19/21 16:49 [facility] [id number]) Current Condition History of Current Condition Onset Date 11/22/20 injury 11/28/20 surgery ORIF Current Complaints R ankle pain s/p R ankle ORIF History of Current Condition Pt slipped and fell outside around the end of Nov but has no history of falls. Has had a couple little falls w/scooter but no injuries. Has been using scooter since injury. Pt was taken out of boot on Tue and is wearing air cast but pt cannot get a shoe over it. Pt able to go in through garage and it is one step and she uses the scooter to get in/out of the house. [facility]H otherwise. Pt lives with her who helps. She frank snot have a walker. She has a walk in shower with a curb & 2 glass doors w/a seat. helps w/in/out and pt is indep w/ showering otherwise. Pt is actively being treated for breast cancer and is currently being treated w/chemo and is getting shots for bone density . Prior Treatments and Tests none Future Testing and Treatments Planned Return follow up w/ Dr. Fitzpatrick February 25 Treatment Goals Patient/Caregiver Goals be able to do daily chores, be able to walk, be able to get back gardening, driving , cooking PT-OP-C Subjective Start: 01/12/21 07:28 Freq: Status: Active Protocol: Document 03/26/21 13:49 [facility] (Rec: 03/26/21 14:09 [facility] [id number]) OP-PT Subjective Patient Comments Patient Comments Pt reports she has been doing a lot of watering d/t the heat and is doing okay with that. PT-OP-F Manual Assessment Start: 01/12/21 07:28 Freq: Status: Active Protocol: Document 01/19/21 16:03 [facility] (Rec: 01/19/21 16:49 [facility] [id number]) Manual Assessments Soft Tissue Assessment Soft Tissue Mobility Assessment scars heeling but still have some red scabbing med, lat some yellow tissue. PT-OP-K Range of Motion Start: 01/12/21 07:28 Freq: Status: Active Protocol: Document 03/26/21 13:49 [facility] (Rec: 03/26/21 14:18 [facility] [id number]) Ankle and Foot Goniometric Range of Motion Ankle and Foot Left Active Dorsiflexion with Knee Flexed 0 Dorsiflexion with Knee Extended 5 Comments lacking 5 deg to neutral PT-OP-M Strength Start: 01/12/21 07:28 Freq: Status: Active Protocol: Document 03/26/21 13:49 [facility] (Rec: 03/26/21 14:18 [facility] [id number]) Hip Strength Hip Manual Muscle Testing Right Flexion (L2) 4+ Good+ Extension (S1) 4+ Good+ Abduction 5 Normal External Rotation 5 Normal Internal Rotation 5 Normal Left Flexion (L2) 4+ Good+ Extension (S1) 5 Normal Abduction 5 Normal External Rotation 4+ Good+ Internal Rotation 5 Normal Knee Strength Knee Manual Muscle Testing Right Flexion (S2) 5 Normal Extension (L3) 5 Normal Left Flexion (S2) 5 Normal Extension (L3) 5 Normal Ankle/Foot Strength Ankle and Foot Manual Muscle Testing Right Dorsiflexion (L4) 5 Normal Plantarflexion (S1) 5 Normal Inversion 5 Normal Eversion (S1) 5 Normal Comments PF tested seated Left Dorsiflexion (L4) 4+ Good+ Plantarflexion (S1) 5 Normal Inversion 4+ Good+ Eversion (S1) 5 Normal PT-OP-Q Treatments Start: 01/12/21 07:28 Freq: Status: Active Protocol: Document 03/26/21 13:49 [facility] (Rec: 03/26/21 14:09 [facility] [id number]) Cardio Equipment Recumbent Elliptical (Biodex) Duration (Minutes) 7 Resistance 7 Seat Position 7 Therapeutic Exercises Sitting Exercises ROM Sitting Exercise Name inversion Side left Equipment Used L2 Reps/Minutes 20 Standing Exercises DF Side bilateral Reps/Minutes 15 Comments alt squat Side bilateral Equipment Used over chair Reps/Minutes 15 heel raises Standing Exercise Name on step Side bilateral Reps/Minutes 30 stretch Standing Exercise Name calf on stair Side bilateral Reps/Minutes 30 sec Manual Therapy Treatment Soft Tissue Mobilization plantar fascia Body Location L Mobilization Type Rolling Intensity/Depth Moderate Body Position Prone scar Body Location med ankle scar only Mobilization Type Myofascial Release Intensity/Depth Superficial Body Position Hooklying calf Mobilization Type Rolling,Strumming Intensity/Depth Moderate Body Position Prone Neuro Re-Education Treatment Balance Activities foam Surface blue Comments 1.marching B 2. WBOS & NBOS EC SLS Details B balance trials in mirror PT-OP-R Modalities Start: 01/12/21 07:28 Freq: Status: Active Protocol: Document 02/16/21 16:02 [facility] (Rec: 02/16/21 16:07 [facility] [id number]) Hot Pack/Cold Pack Treatment Ice Pack Location L ankle Patient Position Hooklying Treatment Duration (minutes) 10 Patient Tolerance Good PT-OP-T Assessment and Plan Start: 01/12/21 07:28 Freq: Status: Active Protocol: Document 03/26/21 13:49 [facility] (Rec: 03/26/21 14:09 [facility] [id number]) Physical Therapy Assessment Goals activities Short Term Goal (STG) Pt will be able to complete all housework with min inc in pain in L ankle. STG Duration achieved Painter Helper Sign Goal (LTG) Pt will be able to do all gardening and house work without inc L ankle pain 03/11- backyard is so steep so does not dare go down it. front yard has been doing things LTG Duration achieved gait Short Term Goal (STG) Pt will be able to amb without AD with min deviations STG Duration achieved Fpc Goal (LTG) Pt will be able to ambulate without AD with good mechanics and no pain for as long as she needs. LTG Duration achieved ROM Short Term Goal (STG) Pt will have AROM DF to neutral to improve gait and mboility. STG Duration achieved Painter Helper Sign Goal (LTG) Pt will have AROM DF to at least 5 deg to improve gait and mobility. LTG Duration 04/20/21 strength Short Term Goal (STG) Pt will be indep w/HEP STG Duration achieved progressing as needed Painter Helper Sign Goal (LTG) Pt will have 5/5 BLE strength in all planes w/o pain in order to allow pt back to typical activities. 03/11 improved LTG Duration mostly met LEFS Impairment 20/80 Short Term Goal (STG) Pt will imrpove score of LEFS to 35/80 to show improved functional ability. STG Duration achieved to 51/80 Painter Helper Sign Goal (LTG) Pt will imrpove score of LEFS to 60/80 to show improved functional ability. LTG Duration 53/80 Assessment Summary Assessment Pt did well with exercises and was educated on what to cont on her own for DC. She has met most goals and will cont to progress ROM and strength w/ HEP. She had no further questions after session today and plans to cont HEP on her own as she feels ready to dc therapy. Physical Therapy Plan Discharge Physical Therapy Discharge Reasons Patient Request
== END 2021-03-30 08:10 | disposition home or self-care (01) ==
LOC: PHYS 13:45
PROVIDERS: PCP Physician Assistant; Referring Provider Orthopaedic Surgery Foot and Ankle Surgery; Visit Provider Orthopaedic Surgery Foot and Ankle Surgery
DX: S82.852D Displaced trimalleolar fracture of left lower leg, subsequent encounter for closed fracture with routine healing (principal); R53.1 Weakness; R26.2 Difficulty in walking, not elsewhere classified
CPT/HCPCS: 97010; 97110; 97112; 97116; 97140; 97162

== ENCOUNTER → 2021-04-25 15:07 | Outpatient (CLI) | payer MEDICARE, OTHER, SELFPAY ==
[2018-07-13 11:43] VITALS: BMI 25.3
--- NOTE | 2021-04-25 | DI.MG.S_ITS ---
BILATERAL DIGITAL SCREENING MAMMOGRAM 3D/2D WITH CAD: 04/25/2021 CLINICAL: Routine screening. Personal history of right breast cancer. Family history of breast cancer. Comparison is made to exams dated: 12/11/2018 mammogram, 12/08/2017 mammogram - [facility], and 09/29/2016 mammogram - [facility]. The tissue of both breasts is heterogeneously dense. This may lower the sensitivity of mammography. Current study was also evaluated with a Computer Aided Detection (CAD) system. There are benign calcifications in both breasts. There also are benign post operative findings in the right breast. No significant masses, calcifications, or other findings are seen in either breast. There has been no significant interval change. IMPRESSION: BENIGN There is no mammographic evidence of malignancy. A 1 year screening mammogram is recommended. This exam was interpreted at Station ID: [id number]. NOTE: For mammograms, a report in lay terms will be sent to the patient. Approximately 15% of breast malignancies will not be visualized mammographically. In the management of a palpable breast mass, a negative mammogram must not discourage biopsy of a clinically suspicious lesion. Electronically Signed By: Aroldo carter/jay:04/27/2021 09:41:14 letter sent: Normal Exam ACR BI-RADS Category 2: Benign Finding(s) [id number]
== END ==
PROVIDERS: PCP Physician Assistant; Referring Provider Physician Assistant; Visit Provider Physician Assistant
DX: Z12.31 Encounter for screening mammogram for malignant neoplasm of breast (principal); Z85.3 Personal history of malignant neoplasm of breast; Z80.3 Family history of malignant neoplasm of breast
CPT/HCPCS: 77063; 77067

== ENCOUNTER → 2022-01-03 12:59 | Outpatient (CLI) | payer MEDICARE, OTHER, SELFPAY ==
[2018-07-13 11:43] VITALS: BMI 25.3
--- NOTE | 2022-01-03 13:01 | DI.RAD.S_ITS ---
PROCEDURE: XR ANKLE LT MIN 3V INDICATIONS: L ankle pain/swelling, hx of trimal 1 yr ago TECHNIQUE: 3 views of the ankle were acquired. COMPARISON: [facility], CR, XR ANKLE LT MIN 3V, 11/28/2020, 12:30. FINDINGS: Bones: Postsurgical changes of trimalleolar ORIF repair. There is no obvious lucency surrounding the hardware or other acute complicating hardware feature. The ankle mortise is congruent and maintained. There is ossification across the tibiofibular syndesmosis. Soft tissues: Small to moderate-sized tibiotalar joint effusion. Achilles tendon appears normal. IMPRESSION: Small to moderate-sized ankle joint effusion. No acute finding otherwise. Dictated by: Lukasz Peterson M.D. on 01/03/2022 at 13:47 Approved by: Lukasz Peterson M.D. on 01/03/2022 at 13:48
== END ==
PROVIDERS: PCP Physician Assistant; Referring Provider Physician Assistant; Visit Provider Physician Assistant
DX: M25.472 Effusion, left ankle (principal); M25.572 Pain in left ankle and joints of left foot
CPT/HCPCS: 73610

== ENCOUNTER → 2022-02-18 12:56 | Outpatient (CLI) | payer MEDICARE, OTHER, SELFPAY ==
[2018-07-13 11:43] VITALS: BMI 25.3
--- NOTE | 2022-02-18 13:00 | DI.ECHO.S_ITS ---
[facility] +---------+ : : [address] : : : : [place] : : : : [id number] : : : : Phone: [phone]+ Echocardiogram Report + + :Name: ROHAN FAULKNER Study Date: 02/18/2022 Height: 65 in : :[facility] ReadingLocation: Weight: 140 lb : : Gender: Female BSA: 1.7 m2 : :: 1960 Age: 61 yrs BP: 118/73 mmHg: :Reason For Study: Abnormal ECG : :Ordering Physician: ERIK, : :RUBÉN Performed By: Samuel Florentino : :Referring: RUBÉN VALENCIA : + + Interpretation Summary The left ventricle is normal in size. Left ventricular systolic function is normal. The ejection fraction is estimated to be 60-65%. There are no focal wall motion abnormalities. Diastolic parameters suggest a relaxation abnormality of the left ventricle, consistent with probable normal filling pressures. The right ventricle is normal in size and function. Pulmonary artery pressures cannot be estimated because of the lack of a measurable TR jet velocity. Both atria are normal in size. There is no significant valvular heart disease. The aortic root is normal size. No significant changes since prior study on 06/19/2018. Procedure: A two-dimensional transthoracic echocardiogram with color flow and Doppler was performed. The study quality was technically adequate. Comparison is made with the echocardiogram of 06/19/2018. Left Ventricle: The left ventricle is normal in size. There is mild concentric left ventricular hypertrophy. Left ventricular systolic function is normal. The ejection fraction is estimated to be 60-65%. There are no focal wall motion abnormalities. Diastolic parameters suggest a relaxation abnormality of the left ventricle, consistent with probable normal filling pressures. Right Ventricle: The right ventricle is normal in size and function. Atria: Both atria are normal in size. The interatrial septum grossly appears intact with no obvious evidence for an atrial septal defect. Mitral Valve: The mitral valve is normal in structure and function. There is no mitral regurgitation noted. Aortic Valve: The aortic valve is normal in structure and function. No aortic regurgitation is present. Tricuspid Valve: The tricuspid valve is normal in structure and function. No tricuspid regurgitation. Pulmonary artery pressures cannot be estimated because of the lack of a measurable TR jet velocity. Pulmonic Valve: The pulmonic valve is normal in structure and function. There is no pulmonic valvular regurgitation. There is no significant valvular heart disease. Great Vessels: The aortic root is normal size. The dimensions of the ascending aorta are normal. The IVC is of normal diameter and collapses greater than 50% with a sniff. This suggests a low right atrial pressure of 3 mm Hg. Pericardium/ Pleura There is no pericardial effusion. There is no pleural effusion. MMode/2D Measurements & Calculations LVIDd: 4.2 cm LVOT diam: 2.1 cm LVIDs: 2.4 cm Ao root diam: 3.0 cm FS: 42.9 % asc Aorta Diam: 3.3 cm IVSd: 1.2 cm LVPWd: 1.0 cm LV leonardo. diameter/BSA (cm/m^2): 2.5 LV sys. diameter/BSA (cm/m^2): 1.4 LA dimension: 2.9 cm RA long axis: 4.6 cm LA A2 area: 14.7 cm2 LA A4 area: 16.4 cm2 LA length (vol): 5.1 cm LA vol: 40.0 ml LA vol index: 23.6 ml/m2 TAPSE_phl: 2.3 cm Doppler Measurements & Calculations Ao V2 max: 143.0 cm/sec LVOT Max Eric: 119.0 cm/sec Ao V2 mean: 101.0 cm/sec LV V1 max P.7 mmHg Ao max P.0 mmHg LV V1 VTI: 22.3 cm Ao mean P.0 mmHg SHEYLA(I,D): 3.1 cm2 Ao V2 VTI: 25.1 cm SHEYLA(V,D): 2.9 cm2 sev ratio: 0.89 SHEYLA indexed to BSA (cm^2/m^2): 1.8 MV E max eric: 90.8 cm/sec SV(LVOT): 77.2 ml MV A max eric: 108.0 cm/sec MV E/A: 0.84 Med Peak E' Eric: 5.8 cm/sec E/E' med: 15.7 Lat Peak E' Eric: 6.9 cm/sec E/E' lat: 13.2 E/e' average: 14.4 MV dec time: 0.27 sec AV VR_phl: 0.83 MV P1/2t-pr_phl: 78.0 msec SHEYLA(VTI)/BSA_phl: 1.8 Reading Physician:06:33 PM
== END ==
PROVIDERS: PCP Physician Assistant
DX: R94.31 Abnormal electrocardiogram [ECG] [EKG] (principal)
CPT/HCPCS: 93306

== ENCOUNTER → 2022-05-04 11:06 | Outpatient (CLI) | payer MEDICARE, OTHER, SELFPAY ==
[2018-07-13 11:43] VITALS: BMI 25.3
--- NOTE | 2022-05-04 | DI.MG.S_ITS ---
BILATERAL DIGITAL SCREENING MAMMOGRAM 3D/2D WITH CAD: 05/04/2022 CLINICAL: Routine screening. Personal history of right breast cancer. Family history of breast cancer. Comparison is made to exams dated: 04/25/2021 mammogram, 12/11/2018 mammogram, 01/18/2018 breast MRI - [facility], and 01/05/2018 mammogram - [facility]. The tissue of both breasts is heterogeneously dense. This may lower the sensitivity of mammography. Current study was also evaluated with a Computer Aided Detection (CAD) system. There is a benign calcification in the right breast. There also are benign calcifications in the left breast. Additionally, there are benign post operative findings in the right breast. No significant masses, calcifications, or other findings are seen in either breast. There has been no significant interval change. IMPRESSION: BENIGN There is no mammographic evidence of malignancy. A 1 year screening mammogram is recommended. This exam was interpreted at Station ID: [id number]. NOTE: For mammograms, a report in lay terms will be sent to the patient. Approximately 15% of breast malignancies will not be visualized mammographically. In the management of a palpable breast mass, a negative mammogram must not discourage biopsy of a clinically suspicious lesion. Electronically Signed By: Errol cm/jay:05/04/2022 12:02:32 copy to: RAFI OLIVEIRA letter sent: Normal Exam ACR BI-RADS Category 2: Benign Finding(s) 3342F
== END ==
PROVIDERS: PCP Physician Assistant; Referring Provider Physician Assistant; Visit Provider Physician Assistant
DX: Z12.31 Encounter for screening mammogram for malignant neoplasm of breast (principal); Z85.3 Personal history of malignant neoplasm of breast; Z80.3 Family history of malignant neoplasm of breast
CPT/HCPCS: 77063; 77067

== ENCOUNTER → 2022-09-13 13:03 | Outpatient (CLI) | payer MEDICARE, OTHER, SELFPAY ==
[2018-07-13 11:43] VITALS: BMI 25.3
--- NOTE | 2022-09-13 13:08 | DI.RAD.S_ITS ---
PROCEDURE: XR CERVICAL SPINE 2V OR 3V INDICATIONS: Dorsalgia, unspecified TECHNIQUE: 3 view(s) of the cervical spine were acquired. COMPARISON: None. FINDINGS: Bones: No fractures or dislocations to the C7 level. The lateral masses of C1 appear intact on the odontoid view. No suspicious bony lesions. Multilevel disc space narrowing and endplate osteophyte formation, as well as facet hypertrophy throughout the cervical spine. Soft tissues: No prevertebral soft tissue swelling. IMPRESSION: Multilevel degenerative disc and facet disease. No acute fracture. No osseous lesion. If symptoms and/or clinical suspicion for pathology persist, further assessment with repeat, or advanced imaging (e.g., CT, MRI, or bone scan) may be helpful for further assessment. Dictated by: Gabrielle Jones M.D. on 09/13/2022 at 13:45 Transcribed by: MANISH on 09/13/2022 at 13:46 Approved by: Gabrielle Jones M.D. on 09/13/2022 at 15:40
--- NOTE | 2022-09-13 13:08 | DI.RAD.S_ITS ---
PROCEDURE: XR LUMBAR SPINE 2-3V INDICATIONS: Dorsalgia, unspecified TECHNIQUE: 3 views of the lumbar spine were acquired. COMPARISON: None. FINDINGS: Bones: 5 fgm-vys-netabbr vertebrae are present. There is normal bony alignment. Multilevel disc space narrowing and endplate osteophyte formation. Facet hypertrophy throughout the lumbar spine. No vertebral body compression fractures. No suspicious bony lesions. Soft tissues: Overlying bowel gas pattern is normal. No suspicious soft tissue calcifications. IMPRESSION: Multilevel degenerative disc and facet disease. No acute fracture. No osseous lesion. If symptoms and/or clinical suspicion for pathology persist, further assessment with repeat, or advanced imaging (e.g., CT, MRI, or bone scan) may be helpful for further assessment. Dictated by: Gabrielle Jones M.D. on 09/13/2022 at 13:46 Transcribed by: MANISH on 09/13/2022 at 13:47 Approved by: Gabrielle Jones M.D. on 09/13/2022 at 15:41
--- NOTE | 2022-09-13 13:08 | DI.RAD.S_ITS ---
PROCEDURE: XR THORACIC SPINE 3V INDICATIONS: Dorsalgia, unspecified TECHNIQUE: 3 views of the thoracic spine were acquired. COMPARISON: None. FINDINGS: Bones: No fractures or dislocations. No suspicious bony lesions. Mild diffuse thoracic kyphosis. Multilevel disc space narrowing and endplate osteophyte formation. Visualized ribs are intact. Soft tissues: No paravertebral stripe thickening. IMPRESSION: Multilevel degenerative disc disease. No acute fracture. No osseous lesion. If symptoms and/or clinical suspicion for pathology persist, further assessment with repeat, or advanced imaging (e.g., CT, MRI, or bone scan) may be helpful for further assessment. Dictated by: Gabrielle Jones M.D. on 09/13/2022 at 13:47 Transcribed by: MANISH on 09/13/2022 at 13:48 Approved by: Gabrielle Jones M.D. on 09/13/2022 at 15:41
== END ==
PROVIDERS: PCP Physician Assistant; Referring Provider Physician Assistant; Visit Provider Physician Assistant
DX: M50.30 Other cervical disc degeneration, unspecified cervical region (principal); M51.34 Other intervertebral disc degeneration, thoracic region; M51.36 Other intervertebral disc degeneration, lumbar region; M40.204 Unspecified kyphosis, thoracic region; M54.9 Dorsalgia, unspecified; M62.838 Other muscle spasm
CPT/HCPCS: 72040; 72072; 72100

== ENCOUNTER → 2022-10-01 16:15 | Outpatient (CLI) | payer MEDICARE, OTHER, SELFPAY ==
[2018-07-13 11:43] VITALS: BMI 25.3
--- NOTE | 2022-10-01 16:17 | DI.MRI.S_ITS ---
PROCEDURE: MR LUMBAR SPINE WO CON INDICATIONS: SPINAL STENOSIS TECHNIQUE: Noncontrast sagittal T1 spin echo and T2 fast echo, sagittal STIR, and T2 fast spin echo through the lumbar spine. In cases with scoliosis, additional coronal T2 fast spin echo may be performed. COMPARISON: None. FINDINGS: Image quality: Excellent. Alignment and Curvature: There is normal bony alignment. Bone Marrow: Marrow is of normal overall signal. No acute vertebral body compression fractures. Spinal Cord: Conus medullaris terminates at the L1 level. Visualized cord demonstrates normal signal and size. Paraspinous Soft Tissues: No paravertebral masses. T12-L1: Normal appearance. L1-L2: Normal appearance. L2-L3: Normal appearance. L3-L4: Normal appearance. L4-L5: Disc space narrowing and circumferential disc bulge combines with hypertrophic facet joints results in mild central stenosis. No foraminal stenosis L5-S1: Disc space is maintained. Hypertrophic facet joints present. No central or foraminal stenosis IMPRESSION: Mild degenerative changes without significant central or foraminal stenosis Dictated by: Zack Perkins M.D. on 10/01/2022 at 17:32 Approved by: Zack Perkins M.D. on 10/01/2022 at 17:33
== END ==
PROVIDERS: PCP Physician Assistant; Referring Provider Physical Medicine & Rehabilitation Pain Medicine; Visit Provider Physical Medicine & Rehabilitation Pain Medicine
DX: M48.061 Spinal stenosis, lumbar region without neurogenic claudication (principal); M47.816 Spondylosis without myelopathy or radiculopathy, lumbar region; M47.817 Spondylosis without myelopathy or radiculopathy, lumbosacral region
CPT/HCPCS: 72148

== ENCOUNTER → 2022-11-14 16:49 | Outpatient (CLI) | payer MEDICARE, OTHER, SELFPAY ==
[2018-07-13 11:43] VITALS: BMI 25.3
--- NOTE | 2022-11-14 16:52 | DI.RAD.S_ITS ---
PROCEDURE: XR LUMBAR SPINE 6V W BENDING INDICATIONS: Lower back pain TECHNIQUE: 7 views of the lumbar spine acquired, including flexion and extension views and bilateral oblique views. COMPARISON: [facility], MR, MR LUMBAR SPINE WO CON, 10/01/2022, 16:29. [facility], CR, XR LUMBAR SPINE 2-3V, 09/13/2022, 13:27. FINDINGS: Bones: 5 nonrib-bearing vertebrae are present. There is normal bony alignment. No vertebral body compression fractures. No suspicious bony lesions. The disc heights are well preserved. Lower lumbar spine facet arthropathy is seen. On oblique images, no pars defects are seen. Left hip arthroplasty hardware is partially seen. Soft tissues: Overlying bowel gas pattern is normal. No suspicious soft tissue calcifications. Soft tissue postoperative clips are seen. Flexion/extension: There is normal range of motion, with preserved normal alignment. IMPRESSION: Mild degenerative changes are seen, with lower lumbar spine facet arthropathy. Normal range of motion, without abnormal subluxation. Additional findings: Right-sided postoperative clips Left hip arthroplasty hardware Dictated by: Wiley Azar M.D. on 11/14/2022 at 17:43 Approved by: Wiley Azar M.D. on 11/14/2022 at 17:45
== END ==
PROVIDERS: PCP Physician Assistant; Referring Provider Internal Medicine Rheumatology; Visit Provider Internal Medicine Rheumatology
DX: M47.816 Spondylosis without myelopathy or radiculopathy, lumbar region (principal); M54.50 Low back pain, unspecified; G62.9 Polyneuropathy, unspecified; M79.7 Fibromyalgia; M25.561 Pain in right knee; M25.562 Pain in left knee; G89.29 Other chronic pain
CPT/HCPCS: 72114

== ENCOUNTER → 2023-01-15 15:30 | Outpatient (CLI) | payer MEDICARE, OTHER, SELFPAY ==
[2018-07-13 11:43] VITALS: BMI 25.3
--- NOTE | 2023-01-15 | DI.RAD.S_ITS ---
PROCEDURE: XR ABDOMEN MIN 2V INDICATIONS: CONSTIPATION TECHNIQUE: 2 views of the abdomen were acquired. COMPARISON: None. FINDINGS: Surgical changes and devices: Surgical clips are seen in right side of abdomen and pelvis. Surgical clips also noted in right breast and right axilla. There is prior left hip arthroplasty. Bowel: No pneumoperitoneum. The bowel gas pattern is nonobstructive. No significant fecal burden. Soft tissues: No masses; visualized solid organ contours appear normal in size. No suspicious abdominal calcifications. Bones: No suspicious bony abnormalities. IMPRESSION: No significant fecal burden. No gross free air. Dictated by: Bubba Mon M.D. on 01/15/2023 at 16:11 Approved by: Bubba Mon M.D. on 01/15/2023 at 16:12
== END ==
PROVIDERS: PCP Physician Assistant; Referring Provider Physician Assistant; Visit Provider Physician Assistant
DX: K59.00 Constipation, unspecified (principal)
CPT/HCPCS: 74019

== ENCOUNTER → 2023-05-30 12:57 | Outpatient (CLI) | payer MEDICARE, OTHER, SELFPAY ==
[2018-07-13 11:43] VITALS: BMI 25.3
--- NOTE | 2023-05-30 12:59 | DI.MG.S_ITS ---
BILATERAL DIGITAL SCREENING MAMMOGRAM 3D/2D WITH CAD POST LUMPECTOMY: 05/30/2023 CLINICAL: Routine screening. Personal history of right breast cancer. Family history of breast cancer. Comparison is made to exams dated: 05/04/2022 mammogram, 12/11/2018 mammogram, 04/25/2021 mammogram, and 02/08/2018 mammogram - [facility]. Both breasts are heterogeneously dense, which may obscure small masses (category c / 51-75% glandular tissue). Current study was also evaluated with a Computer Aided Detection (CAD) system. There is a benign calcification in the right breast. There also are benign calcifications in the left breast. Additionally, there are benign post operative findings in both breasts. No significant masses, calcifications, or other findings are seen in either breast. There has been no significant interval change. IMPRESSION: BENIGN There is no mammographic evidence of malignancy. A 1 year screening mammogram is recommended. This exam was interpreted at Station ID: [id number]. NOTE: For mammograms, a report in lay terms will be sent to the patient. Approximately 15% of breast malignancies will not be visualized mammographically. In the management of a palpable breast mass, a negative mammogram must not discourage biopsy of a clinically suspicious lesion. Electronically Signed By: Errol cm/jay:05/30/2023 13:40:18 letter sent: Normal Exam ACR BI-RADS Category 2: Benign Finding(s) 3342F
== END ==
PROVIDERS: PCP Physician Assistant; Referring Provider Physician Assistant; Visit Provider Physician Assistant
DX: Z12.31 Encounter for screening mammogram for malignant neoplasm of breast (principal); Z85.3 Personal history of malignant neoplasm of breast; Z80.3 Family history of malignant neoplasm of breast
CPT/HCPCS: 77063; 77067

== ENCOUNTER → 2023-07-19 12:48 | Outpatient (CLI) | payer MEDICARE, OTHER, SELFPAY ==
[2018-07-13 11:43] VITALS: BMI 25.3
[2023-07-19 19:59] LABS: Appearance Urine UA CLOUDY; Bilirubin Urine UA NEGATIVE (NEGATIVE); Color Urine UA YELLOW; Glucose Urine UA NEGATIVE (Negative); Ketones Urine UA NEGATIVE (NEGATIVE); Leukocyte Esterase Urine UA 3+ (NEGATIVE); Nitrite Urine UA NEGATIVE (Negative); Occult Blood Urine UA 3+ (Negative); Protein Urine UA TRACE (Negative); Urobilinogen Urine UA 0.2 E.U./dL (0.2)
[2023-07-19 20:43] LABS: Bacteria Urine Many (>30); Culture Indicated Urine Specimen Cultured; RBC Urine 1-5/HPF (0-5/HPF); Squamous Epithelial Cell Urine 1-5 /HPF (0-5/HPF); WBC Urine >100/HPF (0-5/HPF)
== END ==
PROVIDERS: PCP Physician Assistant; Visit Provider Physician Assistant
DX: R30.0 Dysuria (principal)
CPT/HCPCS: 81001; 87086

== ENCOUNTER → 2023-08-01 13:18 | Outpatient (CLI) | payer MEDICARE, OTHER, SELFPAY ==
[2018-07-13 11:43] VITALS: BMI 25.3
--- NOTE | 2023-08-01 13:30 | DI.CT.S_ITS ---
PROCEDURE: CT LUNG LOW DOSE SCREENING INDICATIONS: lung cancer screening TECHNIQUE: Noncontrast 2.0-2.5 mm thick sections acquired from the pulmonary apices to the posterior costophrenic angles. 7 mm thick axial MIP, and 5 mm coronal and sagittal reformats were then acquired. A low radiation dose technique was utilized. COMPARISON: None. FINDINGS: Image quality: Diagnostic, given the low radiation dose technique. Lungs and pleura: No acute airspace opacities. No suspicious pulmonary nodules. No pleural effusion or pneumothorax. Mediastinum: Heart size is normal. No pericardial effusion. No mediastinal adenopathy by size criteria. Thoracic aorta and central pulmonary arteries are normal in size. Esophagus is normal in caliber. No hiatal hernia. Bones and chest wall: No suspicious bony lesions. No vertebral body compression fractures. No axillary or supraclavicular adenopathy by size criteria. Thyroid gland is unremarkable. Abdomen: Visualized upper abdomen solid organs and bowel loops appear normal in the absence of contrast. IMPRESSION: No suspicious pulmonary nodules or acute airspace opacities. LUNG-RADS 1; annual CT surveillance recommended. Dictated by: Dione Conti M.D. on 08/01/2023 at 14:55 Approved by: Dione Conti M.D. on 08/01/2023 at 14:58
== END ==
PROVIDERS: PCP Physician Assistant; Referring Provider Internal Medicine Critical Care Medicine; Visit Provider Internal Medicine Critical Care Medicine
DX: F17.210 Nicotine dependence, cigarettes, uncomplicated (principal); Z12.2 Encounter for screening for malignant neoplasm of respiratory organs
CPT/HCPCS: 71271

== ENCOUNTER → 2023-09-09 13:05 | Outpatient (CLI) | payer MEDICARE, OTHER, SELFPAY ==
[2018-07-13 11:43] VITALS: BMI 25.3
[2023-09-09 14:09] LABS: Add Manual Diff / Slide Review NO; Basophils Absolute Auto 100 /uL (0-100); Basophils Percent Auto 0.5 % (0-2); Eosinophils Absolute Auto 100 /uL (0-450); Eosinophils Percent Auto 0.6 % (2-4); Hematocrit 41.3 % (36-46); Hemoglobin 13.9 g/dL (12.0-16.0); Lymphocytes Absolute Auto 1500 /uL (1100-4500); Lymphocytes Percent Auto 15.3 % (25-40); Mean Corpuscular HGB Conc 33.7 % (30-36); Mean Corpuscular Hemoglobin 33.1 PG (26-34); Mean Corpuscular Volume 98.2 fL (80-100); Monocytes Absolute Auto 900 /uL (0-900); Monocytes Percent Auto 9.3 % (3-14); Neutrophils Absolute Auto 7100 /uL (1500-7000); Neutrophils Percent Auto 74.3 % (50-75); Platelet Count 188 X10^3/uL (150-400); Red Cell Distribution Width 14.1 % (11.6-14.8); White Blood Cell Count 9.5 X10^3/uL (4.5-11.0)
[2023-09-09 14:25] LABS: C-Reactive Protein Quant < 0.5 mg/dL (<1.0)
[2023-09-09 15:07] LABS: Erythrocyte Sedimentation Rate 4 MM/HR (0-20)
== END ==
PROVIDERS: PCP Physician Assistant; Referring Provider Orthopaedic Surgery; Visit Provider Orthopaedic Surgery
DX: M19.072 Primary osteoarthritis, left ankle and foot (principal)
CPT/HCPCS: 36415; 85025; 85651; 86140

== ENCOUNTER → 2023-11-13 14:06 | Outpatient (CLI) | payer MEDICARE, OTHER, SELFPAY ==
[2018-07-13 11:43] VITALS: BMI 25.3
== END ==
PROVIDERS: PCP Physician Assistant; Visit Provider Physician Assistant Surgical
DX: N34.3 Urethral syndrome, unspecified (principal)
CPT/HCPCS: 87086

== ENCOUNTER → 2023-12-01 11:13 | Outpatient (CLI) | payer MEDICARE, OTHER, SELFPAY ==
[2018-07-13 11:43] VITALS: BMI 25.3
--- NOTE | 2023-12-01 | DI.MRI.S_ITS ---
PROCEDURE: MR HEAD/BRAIN WO/W CON INDICATIONS: Disorder of trigeminal nerve, unspecified TECHNIQUE: Noncontrast sagittal T1 spin echo, axial T2 fast spin echo, axial FLAIR, axial gradient echo, axial diffusion and ADC through the brain. Axial/sagittal/coronal 3-D CISS, thin-slice axial T1 spin echo with fat saturation through the skull base. After the administration of contrast, axial and coronal thin-slice T1 spin echo with fat saturation through the skull base, axial and coronal and sagittal T1 spin echo with fat saturation through the brain. COMPARISON: None. FINDINGS: Image quality: Excellent. Trigeminal nerves: In this patient with this given history, scrutiny is given to the trigeminal nerves. The trigeminal nerves demonstrate a normal appearance, without masses or abnormal enhancement seen along their courses, including within the Meckel's caves. CSF spaces: Ventricles are normal in size and shape. No extra-axial fluid collections. Basal cisterns are patent. Brain: No intracranial bleeds or mass effects. No abnormal intracranial enhancement. Diffusion weighted images show no acute ischemic insults. Aceves-white matter interface is intact. Brainstem is normal. Normal intravascular flow voids are present. Skull and face: Calvarial marrow signal is normal. Orbits appear normal. Note is made of bilateral lens replacements. Sinuses: Sinuses and mastoids appear clear. IMPRESSION: No trigeminal nerve abnormality is identified in the study. No masses or abnormal enhancement can be seen. Dictated by: Wiley Azar M.D. on 12/01/2023 at 11:48 Approved by: Wiley Azar M.D. on 12/01/2023 at 11:50
== END ==
LOC: MRI 11:13
PROVIDERS: PCP Physician Assistant; Referring Provider Psychiatry & Neurology Neurology; Visit Provider Psychiatry & Neurology Neurology
DX: G50.8 Other disorders of trigeminal nerve (principal)
CPT/HCPCS: 70553

== ENCOUNTER → 2023-12-21 11:57 | Outpatient (CLI) | payer MEDICARE, OTHER, SELFPAY ==
[2018-07-13 11:43] VITALS: BMI 25.3
[2023-12-21 13:50] LABS: Hemoglobin A1C% w Est Avg Glu 5.1 % (4.0-6.0)
[2023-12-23 16:10] LABS: Albumin 4.3 g/dL (2.9-4.4); Alpha-1-Globulin 0.1 g/dL (0.0-0.4); Alpha-2-Globulin 0.6 g/dL (0.4-1.0); Gamma Globulin 0.9 g/dL (0.4-1.8); Globulin Total 2.7 g/dL (2.2-3.9)
[2023-12-25 16:16] LABS: ANA Screen, IFA Negative (.)
[2023-12-28 01:15] LABS: Vitamin B6 18.5 ug/L (3.4-65.2)
[2023-12-28 12:43] LABS: Vitamin B1 128.4 nmol/L (66.5-200.0)
== END ==
LOC: LAB 12:00
PROVIDERS: PCP Physician Assistant; Referring Provider Psychiatry & Neurology Neurology; Visit Provider Psychiatry & Neurology Neurology
DX: G62.9 Polyneuropathy, unspecified (principal)
CPT/HCPCS: 36415; 83036; 84155; 84165; 84207; 84425; 86038

== ENCOUNTER 2024-02-16 10:21 | Emergency (ER) | payer MEDICARE, OTHER, SELFPAY ==
[2018-07-13 11:43] VITALS: BMI 25.3
--- NOTE | 2024-02-16 10:27 | DI.RAD.S_ITS ---
PROCEDURE: XR HUMERUS LT 2V INDICATIONS: fall,upper arm pain TECHNIQUE: 2 views of the humerus were acquired. COMPARISON: None. FINDINGS: Bones: No fractures or dislocations. No suspicious bony lesions. Soft tissues: No suspicious soft tissue calcifications. IMPRESSION: No visualized acute fracture or dislocation. However, if clinical concern and/or pain persist, short interval imaging followup in 7-10 days is recommended, as occult injury cannot be definitively excluded. Dictated by: Xiomara Montesinos M.D. on 02/16/2024 at 11:00 Approved by: Xiomara Montesinos M.D. on 02/16/2024 at 11:01
[2024-02-16 10:28] VITALS: BP 111/67; PULSE 77; RESP 15; TEMP 36.6; O2SAT 96; BMI 24.1
--- NOTE | 2024-02-16 10:37 | ED_ITS ---
HPI - Fall General Chief Complaint: Fall Stated Complaint: fall, L arm pain Time Seen by Provider: 02/16/24 10:25 Source: patient Mode of arrival: Ambulatory History of Present Illness HPI Narrative: Patient is a 63-year-old female history of chronic arthritis hyperlipidemia COPD a presenting today with left shoulder pain. She reports that she tripped and fell on her slippers 2 days ago. She has been taking Tylenol without any sort of relief. She did not hit her head or lose consciousness she has not on any antiplatelet or anticoagulation medication. She has no other pain or injury. She reports that she is neuropathy in her legs but no new numbness or tingling in her arm Related Data Home Medications Medication Instructions Recorded Confirmed calcium carbonate 600 mg calcium 600 mg PO DAILY 02/01/18 07/21/23 (1,500 mg) tablet (Calcium) cholecalciferol (vitamin D3) 25 1,000 unit PO DAILY 02/01/18 07/21/23 mcg (1,000 unit) capsule (Vitamin D3) omeprazole 20 mg capsule,delayed 20 mg PO DAILY 02/01/18 07/21/23 release spironolactone 25 mg tablet 25 mg PO DAILY 02/01/18 07/21/23 telmisartan 80 mg tablet 80 mg PO DAILY 02/01/18 07/21/23 alprazolam 0.5 mg tablet 0.5 mg PO DAILY PRN Anxiety 06/28/18 07/21/23 anastrozole 1 mg tablet 1 mg PO DAILY 06/28/18 07/21/23 ibuprofen 200 mg capsule 200 mg PO TID-QID PRN pain 06/28/18 07/21/23 trospium 60 mg capsule,extended 60 mg PO BEDTIME Bladder urgency 06/28/18 07/21/23 release 24 hr trazodone 100 mg tablet 200 mg PO BEDTIME 10/10/18 07/21/23 citalopram 40 mg tablet 40 mg PO DAILY 03/20/19 07/21/23 acetaminophen 500 mg tablet 1,000 mg PO Q4-6H PRN Pain 11/25/20 07/21/23 (Tylenol Extra Strength) diclofenac sodium 75 mg 75 mg PO BID 11/25/20 07/21/23 tablet,delayed release gabapentin 300 mg capsule 300 mg PO 4-6XD 11/28/20 07/21/23 Previous Rx's Medication Instructions Recorded metoclopramide HCl 10 mg tablet 10 mg PO Q6H PRN nausea and 08/01/20 vomiting #20 tabs phenazopyridine 200 mg tablet 200 mg PO TID PRN pain 6 doses #6 07/19/23 (Pyridium) tabs hydrocodone 5 mg-acetaminophen 325 1 tab PO Q6H PRN pain #10 tabs 02/16/24 mg tablet Allergies Allergy/AdvReac Type Severity Reaction Status Date / Time ciprofloxacin [From Cipro] Allergy Severe Hives Verified 02/16/24 10:27 naproxen Allergy Severe Hives Verified 02/16/24 10:27 Patient History Medical History Arthritis Anxiety Osteoarthritis Neck pain Low back pain 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 Overactive bladder GERD (gastroesophageal reflux disease) Edema COPD (chronic obstructive pulmonary disease) Hyperlipidemia Primary insomnia Nocturnal hypoxemia Obstructive sleep apnea of adult Excessive daytime sleepiness Tobacco abuse disorder Depression HTN (hypertension) Breast cancer, right Surgical History S/P arthroscopy of right shoulder Status post arthroscopy of hip H/O colonoscopy History of appendectomy History of cholecystectomy Family History Other Family history non-contributory Social History household members: spouse Smoking Status: Smoker, status unknown alcohol intake: current Smoking Status: Smoker, status unknown alcohol intake frequency: 3 or more drinks per day Alcohol type: wine Substance Use Type: marijuana Exam Initial Vital Signs Initial Vital Signs: Vital Signs Temperature 97.8 F 02/16/24 10:28 Pulse Rate 77 02/16/24 10:28 Respiratory Rate 15 02/16/24 10:28 Blood Pressure 111/67 02/16/24 10:28 Pulse Oximetry 96 02/16/24 10:28 Oxygen Delivery Method Room Air 02/16/24 10:28 GENERAL: Alert pleasant 63-year-old female and in no acute distress. HEENT: Head atraumatic,EOMI, pupils reactive, face symmetric, moist mucous membranes CARDIOVASCULAR: Regular rate and rhythm without murmurs, rubs or gallops. RESPIRATORY: Breath sounds equal bilaterally, no wheezes rales or rhonchi. EXTREMITIES: Normal range of motion, no clubbing or edema. Neurovascularly intact Left arm is held in ad duction no clavicle step-off, distal radial pulse intact NEUROLOGICAL: Alert and oriented x4. SKIN: Warm, dry, no laceration, no petechiae, no rashes or lesions. Course Orders Ordered: ED Orders 02/16/24 10:27 XR humerus LT 2V Stat Discontinued Medications Ketorolac Tromethamine (Ketorolac 30 Mg/Ml Vial) 30 mg IM NOW ONE Stop: 02/16/24 11:13 Last Admin: 02/16/24 11:24 Dose: 30 mg Documented By: GABY Vital Signs Vital signs: Vital Signs - 8 hr 02/16/24 10:28 02/16/24 11:39 Temperature 97.8 F Pulse Rate 77 73 Respiratory Rate 15 16 Blood Pressure 111/67 120/71 Pulse Oximetry 96 97 Oxygen Delivery Method Room Air Room Air MDM - Fall Imaging Data Extremity x-ray #1: Radiologist's Impression: PROCEDURE: XR HUMERUS LT 2V INDICATIONS: fall,upper arm pain TECHNIQUE: 2 views of the humerus were acquired. COMPARISON: None. FINDINGS: Bones: No fractures or dislocations. No suspicious bony lesions. Soft tissues: No suspicious soft tissue calcifications. IMPRESSION: No visualized acute fracture or dislocation. However, if clinical concern and/or pain persist, short interval imaging followup in 7-10 days is recommended, as occult injury cannot be definitively excluded. Dictated by: Xiomara Montesinos M.D. on 02/16/2024 at 11:00 [facility] Narrative Medical decision making narrative: Patient 63-year-old female presents today with ongoing left shoulder pain. After mechanical fall a couple days ago. X-rays negative for fracture. She has given a shot of Toradol. She does report that she has hives with naproxen but would like to try she has previously had allergies to medications and now no longer has allergies. She has given a sling recommend outpatient follow-up may require further imaging such as CT and/or MRI She was given Toradol without any sort of reaction Discharge Plan Departure Patient Disposition: Home Clinical Impression: Sprain of left shoulder Instructions: Shoulder Sprain Activity Restrictions/Additional Instructions: *You have been diagnosed with left shoulder sprain *What to do: At this time wear sling as needed. You may need to sleep sitting up. You also may require further imaging such as a CT scan or an MRI if pain is persisting. At this time x-ray does not show any fracture or broken bone. Ice 20-30 minutes at a time. You were given Toradol here in the ED which can be related to naproxen. Continue to monitor for allergic reaction *Continue to take medications as directed [place] 1 tablet every 6 hours if needed for severe pain *Follow up with your primary care provider in 2-3 days or call [phone] *Return to ER if you should have increasing pain numbness tingling weakness lip swelling tongue swelling difficulty breathing or any new, worsening or concerning symptoms CONTROLLED SUBSTANCE DISCHARGE (Narcotoic/benzodiazepine/Flexeril/Phenergan) 1. You have been prescribed narcotic medications, it does have acetaminophen/Tylenol/paracetamol in it, DO NOT TAKE MORE THAN 4,00mg in 24 hours of Tylenol. TRAMADOL DOES NOT CONTAIN TYLENOL 2. Please understand that we cannot provide further refills of narcotics, benzodiazepines or controlled substances through the ED and her pain management will need to be through your provider. 3. While on these medications you cannot drive or operate heavy machinery. 4. You cannot sign legal documents or perform any duties such as this. 5. As long as you're taking opiate pain medications he should also be taking a stool softener such as Colace, Dulcolax, MiraLAX or prune juice, to help avoid constipation. Prescriptions: New hydrocodone-acetaminophen 5-325 mg tablet 1 tab PO Q6H PRN (Reason: pain) Qty: 10 0RF No Action phenazopyridine [Pyridium] 200 mg tablet 200 mg PO TID PRN (Reason: pain) Qty: 6 0RF anastrozole 1 mg Tablet 1 mg PO DAILY ibuprofen 200 mg Capsule 200 mg PO TID-QID PRN (Reason: pain) alprazolam 0.5 mg Tablet 0.5 mg PO DAILY PRN (Reason: Anxiety) trospium 60 mg Capsule,Extended Release 24hr 60 mg PO BEDTIME Patient Comments: pt no longer takes metoclopramide HCl 10 mg tablet 10 mg PO Q6H PRN (Reason: nausea and vomiting) Qty: 20 0RF acetaminophen [Tylenol Extra Strength] 500 mg Tablet 1,000 mg PO Q4-6H PRN (Reason: Pain) Rx Instructions: Not to exceed 8 tablets per 24 hours diclofenac sodium 75 mg tablet,delayed release (DR/EC) 75 mg PO BID gabapentin 300 mg capsule 300 mg PO 4-6XD Rx Instructions: 600 mg at hs, 300 mg in am spironolactone 25 mg Tablet 25 mg PO DAILY calcium carbonate [Calcium 600] 600 mg calcium (1,500 mg) Tablet 600 mg PO DAILY telmisartan 80 mg Tablet 80 mg PO DAILY omeprazole 20 mg Capsule,Delayed Release(Dr/Ec) 20 mg PO DAILY cholecalciferol (vitamin D3) [Vitamin D3] 1,000 unit Capsule 1,000 unit PO DAILY trazodone 100 mg tablet 200 mg PO BEDTIME citalopram 40 mg tablet 40 mg PO DAILY Referrals: Rajwinder Eugene PA-C [Primary Care Provider] - Stand Alone Forms: Patient Portal/API
[2024-02-16] MEDS: KETOROLAC 30 MG/ML VIAL IM (11:24)
[2024-02-16 11:39] VITALS: BP 120/71; PULSE 73; RESP 16; O2SAT 97
== END 2024-02-16 11:45 | disposition home or self-care (01) ==
PROVIDERS: Emergency Provider Emergency Medicine; PCP Physician Assistant
DX: S43.402A Unspecified sprain of left shoulder joint, initial encounter (principal); W01.0XXA Fall on same level from slipping, tripping and stumbling without subsequent striking against object, initial encounter
CPT/HCPCS: 73060; 96372; 99283; J1885

== ENCOUNTER → 2024-03-30 14:48 | Outpatient (CLI) | payer MEDICARE, OTHER, SELFPAY ==
[2018-07-13 11:43] VITALS: BMI 25.3
--- NOTE | 2024-03-30 14:49 | DI.RAD.S_ITS ---
PROCEDURE: XR DEXA AXIAL SKELETON INDICATIONS: Asymptomatic menopausal state COMPARISON: [facility], [place], XR DEXA AXIAL SKELETON, 02/12/2019, 15:41. FINDINGS: Lumbar Spine: Bone mineral density 0.845 g/cm2, T score -1.8. Right Hip: Bone mineral density 0.848 g/cm2, T score -0.8. Right Femoral Neck: Bone mineral density 0.824 g/cm2, T score -0.2. Left Forearm: Bone mineral density 0.670 g/cm2, T score -0.4. Fracture Risk Calculation (when applicable): 10-year fracture risk of a major osteoporotic fracture 7.2% and of a hip fracture 0.3%. (T score greater or equal to -1.0 to: NORMAL) (T score from -1.1 to -2.4: OSTEOPENIA) (T score less than or equal to -2.5: OSTEOPOROSIS) IMPRESSION: Osteopenia. Follow-up guidelines as follows: Osteoporosis: Consider a repeat DEXA and Vertebral Fracture Assessment (VFA) exam in 2 years or sooner if medically necessary, to reassess this patient's status. Osteopenia: Consider a repeat DEXA in 2-3 years to reassess this patient's status, or if there is a new clinical indication. Normal: Consider a repeat DEXA in 5 years or sooner, or if there is a new clinical indication. All treatment decisions require clinical judgment and consideration of individual patient factors, including patient preferences, comorbidities, previous drug use, risk factors not captured in the FRAX model (e.g., frailty, falls, vitamin D deficiency, increased bone turnover, interval significant decline in bone density ) and possible under- or over-estimation of fracture risk by FRAX. In addition, the NOF Guide recommends that FDA-approved medical therapies be considered in postmenopausal women and men age >= 50 years with a: * Hip or vertebral (clinical or morphometric) fracture * T-score of <=-2.5 at the spine or hip * Ten-year fracture probability by FRAX of >= 3% for hip fracture or >=20% for major osteoporotic fracture. People with diagnosed cases of osteoporosis or at high risk for fracture should have regular bone mineral density tests. For patients eligible for Medicare, routine testing is allowed once every 2 years. The testing frequency can be increased to one year for patients who have rapidly progressing disease, those who are receiving or discontinuing medical therapy to restore bone mass, or have additional risk factors. Dictated by: Errol Dawson M.D. on 03/30/2024 at 23:13 Approved by: Errol Dawson M.D. on 03/30/2024 at 23:15
== END ==
PROVIDERS: PCP Physician Assistant; Referring Provider Physician Assistant; Visit Provider Physician Assistant
DX: Z78.0 Asymptomatic menopausal state (principal); M85.88 Other specified disorders of bone density and structure, other site
CPT/HCPCS: 77080

== ENCOUNTER → 2024-04-10 09:07 | Outpatient (CLI) | payer MEDICARE, OTHER, SELFPAY ==
[2018-07-13 11:43] VITALS: BMI 25.3
== END ==
PROVIDERS: PCP Physician Assistant; Referring Provider Nurse Practitioner Family; Visit Provider Nurse Practitioner Family
DX: R30.0 Dysuria (principal)
CPT/HCPCS: 87086

== ENCOUNTER → 2024-05-03 12:33 | Outpatient (CLI) | payer MEDICARE, OTHER, SELFPAY ==
[2018-07-13 11:43] VITALS: BMI 25.3
--- NOTE | 2024-05-03 12:37 | DI.RAD.S_ITS ---
PROCEDURE: XR CERVICAL SPINE 2V OR 3V INDICATIONS: NECK AND BACK PAIN TECHNIQUE: 3 view(s) of the cervical spine were acquired. COMPARISON: [facility], CR, XR CERVICAL SPINE 2V OR 3V, 09/13/2022, 13:27. FINDINGS: Bones: No fractures or dislocations to the C7 level. The lateral masses of C1 appear intact on the odontoid view. No suspicious bony lesions. Mild to moderate degenerative changes are similar. Soft tissues: No prevertebral soft tissue swelling. IMPRESSION: Similar mild to moderate degenerative changes. Consider MRI for further evaluation. Dictated by: Errol Dawson M.D. on 05/03/2024 at 17:53 Approved by: Errol Dawson M.D. on 05/03/2024 at 17:54
--- NOTE | 2024-05-03 12:37 | DI.RAD.S_ITS ---
PROCEDURE: XR THORACIC SPINE 3V INDICATIONS: NECK AND BACK PAIN TECHNIQUE: 3 views of the thoracic spine were acquired. COMPARISON: [facility], CR, XR THORACIC SPINE 3V, 09/13/2022, 13:27. FINDINGS: Bones: No fractures or dislocations. Lumk-ae-wwbdbsze kyphosis is seen centered at T7-8 level. No suspicious bony lesions. Mild degenerative endplate changes are noted throughout mid to lower thoracic spine. 12 pairs of ribs are noted, and appear intact where visualized. Soft tissues: No paravertebral stripe thickening. IMPRESSION: Nkrv-hv-hhnurasc kyphosis. No acute compression fracture or spondylolisthesis. Mild degenerative disc disease throughout mid to lower thoracic spine. Dictated by: Bubba Mon M.D. on 05/03/2024 at 15:14 Approved by: Bubba Mon M.D. on 05/03/2024 at 15:15
--- NOTE | 2024-05-03 12:37 | DI.RAD.S_ITS ---
PROCEDURE: XR LUMBAR SPINE MIN 4V INDICATIONS: NECK AND BACK PAIN TECHNIQUE: 5 views of the lumbar spine were acquired, including bilateral oblique views. COMPARISON: [facility], , XR LUMBAR SPINE 6V W BENDING, 11/14/2022, 16:53. FINDINGS: Bones: 5 nonrib-bearing vertebrae are present. There is normal bony alignment. Degenerative endplate changes are noted throughout lumbar spine. Finding is more notably at L4-5 and L5-S1 levels. No vertebral body compression fractures. No suspicious bony lesions. Soft tissues: Overlying bowel gas pattern is normal. No suspicious soft tissue calcifications. Oblique images: No pars defects. No significant bony foraminal stenosis. IMPRESSION: Mild degenerative disc disease throughout lumbar spine. No acute compression fracture or significant spondylolisthesis. No pars defects or significant bony foraminal stenosis. Dictated by: Bubba Mon M.D. on 05/03/2024 at 15:16 Approved by: Bubba Mon M.D. on 05/03/2024 at 15:17
== END ==
PROVIDERS: PCP Physician Assistant; Referring Provider Physician Assistant; Visit Provider Physician Assistant
DX: M47.812 Spondylosis without myelopathy or radiculopathy, cervical region (principal); M51.34 Other intervertebral disc degeneration, thoracic region; M40.204 Unspecified kyphosis, thoracic region; M51.36 Other intervertebral disc degeneration, lumbar region; M51.37 Other intervertebral disc degeneration, lumbosacral region; M54.2 Cervicalgia; G89.29 Other chronic pain
CPT/HCPCS: 72040; 72072; 72110

== ENCOUNTER → 2024-06-05 12:48 | Outpatient (CLI) | payer MEDICARE, OTHER, SELFPAY ==
[2018-07-13 11:43] VITALS: BMI 25.3
--- NOTE | 2024-06-05 12:50 | DI.MG.S_ITS ---
BILATERAL DIGITAL SCREENING MAMMOGRAM 3D/2D WITH CAD POST LUMPECTOMY: 06/05/2024 CLINICAL: Routine screening. Personal history of right breast cancer. Family history of breast cancer. Comparison is made to exams dated: 05/30/2023 mammogram, 05/04/2022 mammogram, and 04/25/2021 mammogram - [facility]. Both breasts are heterogeneously dense, which may obscure small masses (category c / 51-75% glandular tissue). Current study was also evaluated with a Computer Aided Detection (CAD) system. There are benign calcifications in both breasts. There also are benign post operative findings in both breasts. No significant masses, calcifications, or other findings are seen in either breast. There has been no significant interval change. IMPRESSION: BENIGN There is no mammographic evidence of malignancy. A 1 year screening mammogram is recommended. This exam was interpreted at Station ID: [id number]. NOTE: For mammograms, a report in lay terms will be sent to the patient. Approximately 15% of breast malignancies will not be visualized mammographically. In the management of a palpable breast mass, a negative mammogram must not discourage biopsy of a clinically suspicious lesion. Electronically Signed By: Errol cm/jay:06/05/2024 13:28:57 letter sent: Normal Exam ACR BI-RADS Category 2: Benign Finding(s) 3342F
== END ==
PROVIDERS: Family Provider Physician Assistant; PCP Physician Assistant; Referring Provider Physician Assistant; Visit Provider Physician Assistant
DX: Z12.31 Encounter for screening mammogram for malignant neoplasm of breast (principal); R92.1 Mammographic calcification found on diagnostic imaging of breast; R92.333 Mammographic heterogeneous density, bilateral breasts; Z85.3 Personal history of malignant neoplasm of breast
CPT/HCPCS: 77063; 77067

== ENCOUNTER → 2024-06-11 09:49 | Outpatient (CLI) | payer MEDICARE, OTHER, SELFPAY ==
[2018-07-13 11:43] VITALS: BMI 25.3
--- NOTE | 2024-06-11 09:49 | DI.CT.S_ITS ---
PROCEDURE: CT LUNG LOW DOSE SCREENING INDICATIONS: smoker TECHNIQUE: Noncontrast 2.0-2.5 mm thick sections acquired from the pulmonary apices to the posterior costophrenic angles. 7 mm thick axial MIP, and 5 mm coronal and sagittal reformats were then acquired. For radiation dose reduction, the following was used: automated exposure control, adjustment of mA and/or kV according to patient size. COMPARISON: [facility], CT, CT LUNG LOW DOSE SCREENING, 08/01/2023, 13:33. FINDINGS: Image quality: Diagnostic. Lower Neck: No enlarged lymph nodes. Thyroid: No thyroid nodules which require sonographic follow up, per consensus guidelines. Axillae: Right axillary lymph node dissection. Chest Wall: Right breast lumpectomy. Stable lenticular soft tissue attenuation along the surgical bed, favoring scar. Bones: Unremarkable. Lungs and Pleura: No pneumothorax or pleural effusions. Stable solid pulmonary micro nodules. Index nodule measures 2 millimeters in the right upper lobe, probably calcified (series 3, image 109). Moderate centrilobular emphysema. Heart: Heart size is normal. No pericardial effusion. Moderate to severe LAD calcifications for age. Thoracic Vessels: The aorta and pulmonary arteries demonstrate normal size. Mediastinum and Lisa: No enlarged lymph nodes. Esophagus: No wall thickening. No hiatal hernia. Upper Abdomen: Visualized upper abdomen solid organs and bowel loops appear normal. IMPRESSION: No suspicious pulmonary nodules. LUNG-RADS 2; continued annual screening, if eligible. Clinically Significant Non-pulmonary Findings: None. Dictated by: Al Moore M.D. on 06/11/2024 at 12:22 Approved by: Al Moore M.D. on 06/11/2024 at 12:30
== END ==
PROVIDERS: Family Provider Physician Assistant; PCP Physician Assistant; Referring Provider Internal Medicine Critical Care Medicine; Visit Provider Internal Medicine Critical Care Medicine
DX: F17.210 Nicotine dependence, cigarettes, uncomplicated (principal); Z12.2 Encounter for screening for malignant neoplasm of respiratory organs
CPT/HCPCS: 71271

== ENCOUNTER → 2024-07-04 16:12 | Outpatient (CLI) | payer MEDICARE, OTHER, SELFPAY ==
[2018-07-13 11:43] VITALS: BMI 25.3
--- NOTE | 2024-07-04 16:13 | DI.MRI.S_ITS ---
PROCEDURE: MR CERVICAL SPINE WO CON INDICATIONS: Cervical radiculopathy TECHNIQUE: Noncontrast sagittal T1 spin echo and T2 fast spin echo, sagittal STIR, foraminal oblique sagittal T2 fast spin echo, and axial gradient echo or T2 fast spin echo through the cervical spine. COMPARISON: [facility], CR, XR CERVICAL SPINE 2V OR 3V, 05/03/2024, 12:07. FINDINGS: Image quality: This examination is limited by involuntary motion artifact. Alignment and Curvature: There is minimal retrolisthesis at C3-C4. There is minimal anterolisthesis seen at C5-C6. Bone Marrow: Marrow demonstrates normal overall signal. Spinal Cord: Visualized spinal cord has normal size and signal. No cerebellar tonsillar herniation. Paraspinous Soft Tissues: No paravertebral masses. Prevertebral soft tissues are normal in thickness. C2-C3: No significant abnormality is seen. C3-C4: The disc height and disk signal are relatively well-preserved. A mild degree of generalized disc osteophyte complex is seen. There is moderate right-sided and at least moderate left-sided facet hypertrophy. There is moderate to severe left-sided and at least moderate right-sided neural foraminal narrowing. Mild central canal narrowing is seen. C4-C5: The disc height and disk signal are relatively well-preserved. Moderate generalized disc osteophyte complex is seen. There is at least moderate facet hypertrophy seen, left worse than right. There is moderate to severe bilateral neural foraminal narrowing seen. No significant central canal narrowing is seen. C5-C6: The disc height is well-preserved. Loss of disc signal is seen at this level. Moderate generalized disc osteophyte complex is seen. There is prominent right-sided and moderate left-sided facet hypertrophy. There is moderate to severe right-sided and at least moderate left-sided neural foraminal narrowing. Mild central canal narrowing is seen. C6-C7: Mild loss of disc height is seen. Loss of disc signal is seen. Moderate disc osteophyte complex is seen. There is a central/left disc protrusion seen. At least moderate facet hypertrophy can be seen. There is moderate to severe right-sided and at least moderate left-sided neural foraminal narrowing. Moderate central canal narrowing is seen. There is associated mass effect upon the ventral spinal cord. C7-T1: Mild loss of disc height is seen. Loss of disc signal is seen. Mild to moderate disc osteophyte complex is seen. Mild to moderate facet hypertrophy is seen. There is mild right-sided and moderate left-sided neural foraminal narrowing. No significant central canal narrowing is seen. IMPRESSION: Multiple levels of cervical spine degenerative change can be seen, which are overall worst at the C6-C7 level. Dictated by: Wiley Azar M.D. on 07/04/2024 at 18:01 Approved by: Wiley Azar M.D. on 07/04/2024 at 18:05
== END ==
PROVIDERS: Family Provider Physician Assistant; PCP Physician Assistant; Referring Provider Physical Medicine & Rehabilitation; Visit Provider Physical Medicine & Rehabilitation
DX: M47.12 Other spondylosis with myelopathy, cervical region (principal); M47.22 Other spondylosis with radiculopathy, cervical region
CPT/HCPCS: 72141

== ENCOUNTER 2024-07-08 13:29 | Emergency (ER) | payer MEDICARE, OTHER, SELFPAY ==
[2018-07-13 11:43] VITALS: BMI 25.3
[2024-07-08 13:50] VITALS: BP 122/64; PULSE 84; RESP 16; TEMP 36.9; O2SAT 93; BMI 26.6
--- NOTE | 2024-07-08 14:52 | PC.NURSE ---
Pt asking for cortisone shot in knee; expectations of care discussed
--- NOTE | 2024-07-08 14:53 | PC.NURSE ---
Pt states she comes to ED for cortisone shot; she states the last time she had one was at an ortho doc office. Pt reports ongoing left knee pain.
--- NOTE | 2024-07-08 15:01 | DI.RAD.S_ITS ---
PROCEDURE: XR KNEE LT 3V INDICATIONS: knee pain TECHNIQUE: 3 views of the knee were acquired. COMPARISON: None. FINDINGS: Bones: No fractures or dislocations. No suspicious bony lesions. Mild medial compartment joint space narrowing Soft tissues: No joint effusion. No suspicious soft tissue calcifications. IMPRESSION: Mild medial compartment arthritic joint space narrowing. No joint effusion Approved by: Zack Perkins M.D. on 07/08/2024 at 14:45
--- NOTE | 2024-07-08 15:35 | ED.EXTPRO ---
HPI - Extremity Problem <Jono Carter PA-C - Last Filed: 07/08/24 15:47> General Chief complaint: Extremity Problem,Nontraumatic Stated complaint: wants a shot in her knee Time Seen by Provider: 07/08/24 14:29 Source: patient Mode of arrival: Family Vehicle History of Present Illness HPI Narrative: This patient is a 63-year-old female that has had chronic knee pain for years. She has never been informed that she needs a total knee replacement. The patient apparently has had steroid injections into the knee in the past by her orthopedist. The patient is hoping to get 1 of these in the ER today. The patient states that she is preparing to fly to [place], [place] to see a, ?high school friend? in 2 days. The patient states that she woke up this morning with worsening left knee pain and no treatments have been tried for this. She denies night sweats, fever, chills, calf pain, radiating pain, sensation of weakness in the knee joint itself or instability. The patient also denies any recent illness or blunt force trauma. No near falls. Related Data Home Medications Medication Instructions Recorded Confirmed calcium carbonate (Calcium 600) 600 mg PO DAILY 02/01/18 06/28/24 cholecalciferol (vitamin D3) 25 1,000 unit PO DAILY 02/01/18 06/28/24 mcg (1,000 unit) capsule (Vitamin D3) omeprazole 20 mg capsule,delayed 20 mg PO DAILY 02/01/18 06/28/24 release telmisartan 80 mg tablet 80 mg PO DAILY 02/01/18 06/28/24 alprazolam 0.5 mg tablet 0.5 mg PO DAILY PRN Anxiety 06/28/18 06/28/24 anastrozole 1 mg tablet 1 mg PO DAILY 06/28/18 06/28/24 gabapentin 300 mg capsule 300 mg PO 4-6XD 11/28/20 06/28/24 atorvastatin 10 mg tablet 10 mg PO ONCE PM cholesterol 03/29/24 06/28/24 citalopram 20 mg tablet 20 mg PO BEDTIME 03/29/24 06/28/24 spironolactone 50 mg tablet 50 mg PO DAILY 03/29/24 06/28/24 trazodone 300 mg tablet 300 mg PO ONCE PM 03/29/24 06/28/24 estradiol 0.01% (0.1 mg/gram) 1 appful vaginal DAILY 06/28/24 06/28/24 vaginal cream sulfamethoxazole 800 1 tab PO BID 06/28/24 06/28/24 mg-trimethoprim 160 mg tablet (Bactrim DS) Previous Rx's Medication Instructions Recorded hydrocodone 5 mg-acetaminophen 325 1 tab PO Q6H PRN pain #10 tabs 02/16/24 mg tablet meloxicam 15 mg tablet 15 mg PO DAILY #30 tabs 06/28/24 diclofenac sodium 1 % topical gel 4 g topical QID pain #100 grams 07/08/24 Allergies Allergy/AdvReac Type Severity Reaction Status Date / Time naproxen Allergy Severe Hives Verified 07/08/24 14:03 Sulfa (Sulfonamide AdvReac Intermediate Hives Verified 07/08/24 14:06 Antibiotics) sulfamethoxazole AdvReac Intermediate Verified 07/08/24 14:06 [From Bactrim] trimethoprim [From Bactrim] AdvReac Intermediate Verified 07/08/24 14:06 Review of Systems <Jono Carter PA-C - Last Filed: 07/08/24 15:47> Review of Systems Narrative: General: See HPI MSK: See HPI All other review of systems have been reviewed and are ultimately negative unless otherwise stated in the HPI Patient History <Jono Carter PA-C - Last Filed: 07/08/24 15:47> Medical History (Updated 07/08/24 @ 15:35 by Jono Carter PA-C) Cervical spondylosis with myelopathy and radiculopathy Facet arthropathy, lumbar Arthritis Anxiety Osteoarthritis Neck pain Low back pain 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 Overactive bladder GERD (gastroesophageal reflux disease) Edema COPD (chronic obstructive pulmonary disease) Hyperlipidemia Primary insomnia Nocturnal hypoxemia Obstructive sleep apnea of adult Excessive daytime sleepiness Tobacco abuse disorder Depression HTN (hypertension) Breast cancer, right Surgical History (Updated 06/28/24 @ 10:22 by Ankit Nevarez DO) S/P arthroscopy of right shoulder Status post arthroscopy of hip H/O colonoscopy History of appendectomy History of cholecystectomy Family History Other Family history non-contributory Social History household members: spouse Smoking Status: Current every day smoker alcohol intake: current Smoking Status: Current every day smoker tobacco type: cigarettes alcohol intake frequency: 3 or more drinks per day Alcohol type: wine Substance Use Type: marijuana Exam <Jono Carter PA-C - Last Filed: 07/08/24 15:47> Initial Vital Signs Initial Vital Signs: Vital Signs Temperature 98.4 F 07/08/24 13:50 Pulse Rate 84 07/08/24 13:50 Respiratory Rate 16 07/08/24 13:50 Blood Pressure 122/64 07/08/24 13:50 Pulse Oximetry 93 07/08/24 13:50 Oxygen Delivery Method Room Air 07/08/24 13:50 Const General: cooperative, healthy appearing, comfortable, well developed and well groomed [facility] Head: normal to inspection, normocephalic and atraumatic Ears: hearing grossly normal bilaterally and external ears normal Nose: external nose normal and nares normal Face and sinus: normal facial exam Eyes General: Yes appearance normal, both eyes and all related structures Neck Neck: normal visual inspection, full ROM and no meningeal signs Resp Effort & Inspection: normal respiratory effort and able to speak in complete sentences Auscultation: clear to auscultation bilaterally Cardio Rate: regular rate Rhythm: regular rhythm Heart Sounds: S1 normal and S2 normal Back/Spine/Pelvis Back: normal to inspection Skin General: no rashes or lesions noted, elasticity normal and turgor normal Neuro General: patient alert, patient awake, patient oriented x3 and other (Uses a cane to assist gait) Extrem Other: Patient has subjective tenderness to palpation over the medial and lateral joint lines of the left knee. No gross instability. Neurovascularly distally intact, negative anterior and posterior drawer sign. No crepitus with range of motion. Psych Appearance: grossly normal and well kempt <Cindy Rivers DO - Last Filed: 07/09/24 07:53> Initial Vital Signs Initial Vital Signs: Vital Signs Temperature 98.4 F 07/08/24 13:50 Pulse Rate 84 07/08/24 13:50 Respiratory Rate 16 07/08/24 13:50 Blood Pressure 122/64 07/08/24 13:50 Pulse Oximetry 93 07/08/24 13:50 Oxygen Delivery Method Room Air 07/08/24 13:50 Course <Jono Carter PA-C - Last Filed: 07/08/24 15:47> Course Course Narrative: Patient was seen and examined. A three-view left knee x-ray series was ordered and interpreted by me. This revealed no acute osseous abnormalities. There were early degenerative changes noted on the sunrise view. However, there was no evidence of dislocation, acute fracture or displacement. Patient was notified of the negative findings and then prepped for discharge home. Orders Ordered: ED Orders 07/08/24 15:01 XR knee LT 3V Stat Vital Signs Vital signs: Vital Signs - 8 hr 07/08/24 13:50 Temperature 98.4 F Pulse Rate 84 Respiratory Rate 16 Blood Pressure 122/64 Pulse Oximetry 93 Oxygen Delivery Method Room Air <Cindy Rivers DO - Last Filed: 07/09/24 07:53> Orders Ordered: ED Orders 07/08/24 15:01 XR knee LT 3V Stat Vital Signs Vital signs: Vital Signs - 8 hr 07/08/24 13:50 Temperature 98.4 F Pulse Rate 84 Respiratory Rate 16 Blood Pressure 122/64 Pulse Oximetry 93 Oxygen Delivery Method Room Air MDM - Extremity (Nontraumatic) <Jono Carter PA-C - Last Filed: 07/08/24 15:47> Differential Diagnosis Differential diagnosis: Likely gout, cellulitis, deep venous thrombosis of upper extremity, lower extremity edema and other (Chronic knee pain, knee strain, occult fracture) MDM Narrative Medical decision making narrative: This patient is a 63-year-old female with a history of chronic left knee pain. Patient shows no evidence of gout on examination. In the absence of trauma, I do not believe she is has sustained any type of fracture or dislocation and the x-ray study confirms this. I also do not believe this is a septic joint since patient is not febrile or tachycardic. The patient will be placed on diclofenac gel and she also understands to obtain a knee support as well as contact her orthopedist tomorrow. Patient understands the treatment plan. No additional questions at the time of discharge and she will follow up as requested. Discharge Plan Departure Patient Disposition: Home Clinical Impression: Chronic knee pain Qualifiers: Laterality: left Qualified Code(s): M25.562 - Pain in left knee Instructions: DI for Knee Pain Activity Restrictions/Additional Instructions: Obtain a knee support at the local drug store today Start the medication today as prescribed and use up to 4 times a day as needed Apply moist heat to the affected area 10 minutes at a time 5 times a day Walk as tolerated Contact your orthopedist tomorrow and see if you can be seen before you fly to [place] Your knee x-rays today do not show any gross abnormalities Return here for any new, emergent concerns or if he should worsen in any way Prescriptions: New diclofenac sodium 1 % gel 4 g topical QID Qty: 100 0RF Rx Instructions: apply to single knee, ankle, foot; for foot includes sole/toes/top of foot No Action anastrozole 1 mg Tablet 1 mg PO DAILY alprazolam 0.5 mg Tablet 0.5 mg PO DAILY PRN (Reason: Anxiety) gabapentin 300 mg capsule 300 mg PO 4-6XD Rx Instructions: 600 mg at hs, 300 mg in am calcium carbonate [Calcium 600] 600 mg calcium (1,500 mg) Tablet 600 mg PO DAILY telmisartan 80 mg Tablet 80 mg PO DAILY omeprazole 20 mg Capsule,Delayed Release(Dr/Ec) 20 mg PO DAILY cholecalciferol (vitamin D3) [Vitamin D3] 1,000 unit Capsule 1,000 unit PO DAILY hydrocodone-acetaminophen 5-325 mg tablet 1 tab PO Q6H PRN (Reason: pain) Qty: 10 0RF estradiol 0.01 % (0.1 mg/gram) cream 1 appful vaginal DAILY sulfamethoxazole-trimethoprim [Bactrim DS] 800-160 mg tablet 1 tab PO BID meloxicam 15 mg tablet 15 mg PO DAILY Qty: 30 2RF spironolactone 50 mg tablet 50 mg PO DAILY atorvastatin 10 mg tablet 10 mg PO ONCE PM trazodone 300 mg tablet 300 mg PO ONCE PM citalopram 20 mg tablet 20 mg PO BEDTIME Referrals: Rajwinder Eugene PAErasmo[facility] [Primary Care Provider] - Stand Alone Forms: Patient Portal/API ED Sign-out <Cindy Rivers DO - Last Filed: 07/09/24 07:53> Cosign ED Attending Praveen Attestation: I was available for consultation.
== END 2024-07-08 15:45 | disposition home or self-care (01) ==
PROVIDERS: Emergency Provider Physician Assistant; Family Provider Physician Assistant; PCP Physician Assistant
DX: M25.562 Pain in left knee (principal)
CPT/HCPCS: 73562; 99281; 99283

== ENCOUNTER → 2024-07-31 13:52 | Outpatient (CLI) | payer MEDICARE, OTHER, SELFPAY ==
[2018-07-13 11:43] VITALS: BMI 25.3
[2024-08-05 17:45] LABS: Angiotensin Converting Enzyme 28 U/L (14-82)
[2024-08-06 12:40] LABS: Antimyeloperoxidase Antibodies <0.2 units (0.0-0.9); Antiproteinase 3 Antibodies <0.2 units (0.0-0.9); Cytoplasmic C-ANCA <1:20 titer (Neg:<1:20); Perinuclear P-ANCA <1:20 titer (Neg:<1:20)
== END ==
PROVIDERS: Family Provider Physician Assistant; PCP Physician Assistant; Referring Provider Psychiatry & Neurology Neurology; Visit Provider Psychiatry & Neurology Neurology
DX: G62.9 Polyneuropathy, unspecified (principal)
CPT/HCPCS: 36415; 82164; 86256

== ENCOUNTER → 2024-08-29 15:26 | Outpatient (CLI) | payer MEDICARE, OTHER, SELFPAY ==
[2018-07-13 11:43] VITALS: BMI 25.3
--- NOTE | 2024-08-29 15:28 | DI.MRI.S_ITS ---
PROCEDURE: MR ANKLE LT WO CON INDICATIONS: soft tissue scarr tissue,hx of ankle fracture TECHNIQUE: Noncontrast sagittal T1 spin echo and T2 fast spin echo with fat saturation, axial proton density fast spin echo and T2 fast spin echo with fat saturation, coronal T1 spin echo and T2 fast spin echo with fat saturation through the ankle/hindfoot. COMPARISON: [facility] [place], CR, XR ANKLE 3 VIEWS WEIGHT BEARING LEFT, 06/19/2024, 11:08. FINDINGS: Image quality: Excellent Tendons: Mild tenosynovitis of the posterior tibialis, in the flexor digitorum longus. The flexor hallucis longus is unremarkable. The anterior tibialis and the extensor hallucis longus are unremarkable. Mild tenosynovitis of the extensor digitorum longus, at the level of the tibiotalar joint. Longitudinal split tear of the peroneal brevis. The peroneal longus is intact. Mild tenosynovitis of the peroneal tendons. The distal Achilles tendon is unremarkable. Ligaments: Limited evaluation of the anterior tibiofibular ligament. Full-thickness tear of the anterior tibiofibular ligament at the fibular insertion (03:22). Mild T2 mildly hyperintense and T1 hypointense soft tissue anterior to the lateral compartment predominant tricompartmental osteoarthritis talus dome, likely representing soft tissue scarring. The posterior tibiofibular ligament is intact. Mild sprain of the anterior talofibular ligament. The posterior talofibular ligament is intact. The calcaneofibular ligament is intact. Low-grade tear of the deep portion of the deltoid ligament. Sinus tarsi: No fibrosis. Plantar fascia: Unremarkable Muscles: Normal in signal Bones: Plate and screw fixation of the tibial plafond. Susceptibility artifact in the distal fibula, postprocedural. Mild subchondral marrow edema of the medial malleolus, favor reactive. No acute fracture. Small plantar calcaneal enthesophyte. No significant tibiotalar or posterior subtalar effusion. IMPRESSION: 1. Mild tenosynovitis of the flexor , extensor, and the peroneal tendons. 2. Longitudinal split tear of the peroneal brevis. 3. Full-thickness tear of the anterior tibiofibular ligament. 4. Low-grade tear of the deep portion of the deltoid ligament. 5. Postprocedure changes in the tibial plafond and the distal fibula. Mild soft tissue scarring anterior to the lateral talus dome. Dictated by: Isela Camara M.D. on 08/29/2024 at 17:06 Approved by: Isela Camara M.D. on 08/29/2024 at 17:20
== END ==
PROVIDERS: Family Provider Physician Assistant; PCP Physician Assistant; Referring Provider Podiatrist Foot & Ankle Surgery; Visit Provider Podiatrist Foot & Ankle Surgery
DX: S93.432A Sprain of tibiofibular ligament of left ankle, initial encounter (principal); S96.812A Strain of other specified muscles and tendons at ankle and foot level, left foot, initial encounter; S93.422A Sprain of deltoid ligament of left ankle, initial encounter; M65.872 Other synovitis and tenosynovitis, left ankle and foot; L02.91 Cutaneous abscess, unspecified; Z87.81 Personal history of (healed) traumatic fracture
CPT/HCPCS: 73721

== ENCOUNTER 2024-09-05 13:00 | Outpatient (RCR) | payer MEDICARE, OTHER, SELFPAY ==
[2018-07-13 11:43] VITALS: BMI 25.3
--- NOTE | 2024-06-27 18:14 | PT.OIE ---
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 Depression Edema Excessive daytime sleepiness Facet arthropathy, lumbar GERD (gastroesophageal reflux disease) HTN (hypertension) Hyperlipidemia Low back pain Neck pain Nocturnal hypoxemia Obstructive sleep apnea of adult Osteoarthritis Overactive bladder Primary insomnia Tobacco abuse disorder Past Surgical History (Last Reviewed 06/28/24 @ 10:21 by Ankit Nevarez DO) H/O colonoscopy History of appendectomy History of cholecystectomy S/P arthroscopy of right shoulder Status post arthroscopy of hip Visit Care Team Role Provider Type Rajwinder Eugene PA-C Family Provider Advanced Stave Grader Primary Care Provider Specialty: Medical Address: [address] [place] [address], [id number] Email: Rula Suarez MD Attending Provider Physician Referring Provider Specialty: Orthopedics Orthopedic Surgery Address: [address] [place] [address], [id number] Email: [email or web address] Initial Evaluation PT-OP-A Visit Information Start: 06/21/24 10:02 Freq: Status: Active Protocol: Document 06/27/24 11:20 [facility] (Rec: 06/27/24 12:20 [facility] [id number]) Out-Patient Physical Therapy Visit Information Visit Information Visit Type Initial Evaluation Visit Start Time 11:20 Visit Stop Time 12:05 Visit Number 1 Number of PIPELINE TECHNICIAN Visits 0 PT-OP-B Current Condition Start: 06/21/24 10:02 Freq: Status: Active Protocol: Document 06/27/24 11:20 [facility] (Rec: 06/27/24 12:20 [facility] [id number]) Current Condition History of Current Condition Onset Date chronic Current Complaints neck/back pain,B shoulder pain ,L knee pain,B foot pain,B foot/ankle,B hip History of Current Condition Pt reports she hurts all over. She has numbness, coldness and pain in feet/ankles. This happened after fx of ankle . Has EMG and show just a little nerve damange at L ankle. Has dx of bursitis of L knee. Has infection in L ankle. THey think she must have issues w/ stiches. L hip (replacement) gives little twinges here and there. R hip feels like the other one did and feels like it is almost popping out of joint. B shoulders have been hurting. FEels have lost a lot of body strength. Hurts to lay on either side d/t shoulders. Pt reports neck pain also. Starts care w/Dr. Nevarez tomorrow. Gets spasms down entire back. Gets pain down into R buttock and leg occasionally but not very often. has had falls, pt was trying to pull weed and fell back (was on a slope). Was on opiod and tried to build up per doctors orders and fell d/ t dizziness. Not currently on any opiods. Pt is scared to walk her small dog d/t worried she will pull her over. Treatment Goals Patient/Caregiver Goals Be able to move again, be able to go for a walk and participate in community events , improve balance, Be able to vacuum, be able to stand longer w/o requiring sitting break (with in 15 min needs to sit), be able to carry a load a laundry without shoulder/back pain, be able to dress w/o inc pain. PT-OP-C Subjective Start: 06/21/24 10:02 Freq: Status: Active Protocol: Document 06/27/24 11:20 [facility] (Rec: 06/27/24 12:28 [facility] [id number]) Patient Questionnaires Lower Extremity Functional Scale LEFS Score 19 Quick Dash- Upper Extremity Quick Dash UE Score 45.45 PT-OP-E Functional Tests Start: 06/27/24 12:20 Freq: Status: Active Protocol: Document 06/27/24 11:20 [facility] (Rec: 06/27/24 12:28 [facility] [id number]) Functional Tests 30 Second Sit to Stand Test Score 8 Comments w/UEs pain in B hips, L knee and B shoulders Dynamic Gait Index (DGI) Score 13 PT-OP-G Mobility & Gait Start: 06/21/24 10:02 Freq: Status: Active Protocol: Document 06/27/24 11:20 [facility] (Rec: 06/27/24 12:20 [facility] [id number]) OP Gait Assessment Comments Gait Comments dec LLE stance time and dec trunk movement and UE swing PT-OP-J Posture/Palpation/Skin Start: 06/21/24 10:02 Freq: Status: Active Protocol: Document 06/27/24 11:20 [facility] (Rec: 06/27/24 12:28 [facility] [id number]) Posture Evaluation Comments Posture Comments significant kyhposis and fwd head in sittinga nd standing PT-OP-K Range of Motion Start: 06/21/24 10:02 Freq: Status: Active Protocol: Document 06/27/24 11:20 [facility] (Rec: 06/27/24 12:20 [facility] [id number]) Shoulder Goniometric Range of Motion Shoulder Right Active Testing Position Sitting Flexion 128 Extension 51 Abduction 131 External Rotation at 0 degrees Abduction 16 Internal Rotation Behind Back (text) L1 Comments pain w/range; abd goes into scaption Left Active Flexion 127 Extension 48 Abduction 105 External Rotation at 0 degrees Abduction 36 Internal Rotation Behind Back (text) T10 PT-OP-M Strength Start: 06/21/24 10:02 Freq: Status: Active Protocol: Document 06/27/24 11:20 [facility] (Rec: 06/27/24 12:20 [facility] [id number]) Shoulder Strength Shoulder Manual Muscle Testing Right Flexion 3+ Fair+ Extension 3+ Fair+ Abduction (C5) 3+ Fair+ External Rotation 3 Fair Internal Rotation 4- Good- Left Flexion 4- Good- Extension 3+ Fair+ Abduction (C5) 3+ Fair+ Internal Rotation 3+ Fair+ Elbow/Forearm Strength Elbow and Forearm Manual Muscle Testing Right Flexion (C6) 4- Good- Left Flexion (C6) 4- Good- Hip Strength Hip Manual Muscle Testing Right External Rotation 3+ Fair+ Internal Rotation 3+ Fair+ Left External Rotation 4- Good- Internal Rotation 3+ Fair+ Knee Strength Knee Manual Muscle Testing Right Flexion (S2) 4- Good- Extension (L3) 3+ Fair+ Left Flexion (S2) 3+ Fair+ Extension (L3) 3 Fair Comments pain w/both PT-OP-Q Treatments Start: 06/21/24 10:02 Freq: Status: Active Protocol: Document 06/27/24 11:20 [facility] (Rec: 06/27/24 12:20 [facility] [id number]) Therapeutic Exercises Sitting Exercises march Side bilateral Resistance L2 Reps/Minutes 12 ea abd Sitting Exercise Name hip Side bilateral Resistance L2 Reps/Minutes 1 min; 10 reps Habd Sitting Exercise Name at about 45 deg flex Side bilateral Resistance L1 Reps/Minutes 12 Comments cues posture and scaps curls Sitting Exercise Name elbow flex Side bilateral Resistance L1 Reps/Minutes 15 ea PT-OP-T Assessment and Plan Start: 06/21/24 10:02 Freq: Status: Active Protocol: Document 06/27/24 11:20 [facility] (Rec: 06/27/24 12:20 [facility] [id number]) Physical Therapy Assessment Rehab Potential Rehabilitation Potential Good Evaluation Complexity Number of Personal Factors/Comorbidities 3 or More Number of Body Systems Impaired 4 or More Clinical Presentation at Evaluation Unstable Impairments Impairments Activity Tolerance,Balance, Edema,Functional Activities, Functional Mobility,Gait,Pain, Posture,ROM,Soft Tissue Mobility,Strength,Transfers Goals balance Impairment DGI 13 Seed Corn Manager Production Goal (LTG) Pt will improve DGI score to > 19 to show dec risk for falls LTG Duration 09/20 ADLs Short Term Goal (STG) Pt will be able to dress w/o inc pain STG Duration 08/03 Seed Corn Manager Production Goal (LTG) Pt will be able to carry a load a laundry without shoulder/back pain, LTG Duration 09/20 strength Short Term Goal (STG) Pt will be indep w/HEP STG Duration 08/03 Residential Goal (LTG) Pt will improve all UE and LE MMT to at least 4/5 to show improved strength and stabiltiy. LTG Duration 09/20 activity Short Term Goal (STG) Pt will be able to stand longer with chores before needing to sit (at least 25 min) STG Duration 08/03 Seed Corn Manager Production Goal (LTG) Pt will report being able to start small walks and doing community activities w/friends LTG Duration 09/20 Assessment Summary Assessment Pt presents w/mult area of chronic pain including: neck, back, B hips, L knee, B feet/ ankles and shoulders. She is currently followed by podiatry and is likely to need I and D per pt for L ankle, so limited testing done to this area. She has overall lack of ROM, and weakness throughout her body along w/fwd bent posture, which likely contributes to her pain. She would benefit from skilled PT in order to improve moblity and dec pain. Physical Therapy Plan Frequency and Duration Frequency of Treatment 2x/Week Duration of treatment (weeks) 12 Plan of Care Start Date 06/27/24 Plan of Care End Date 09/20/24 Therapeutic Interventions Therapeutic Interventions Balance Training,Gait Training ,Home Exercise Program,Joint Mobilizations,Manual Therapy, Neuromuscular Re-education, Patient/Caregiver Education, Self-Care/Home Management,Soft Tissue Mobilization,Taping, Therapeutic Activities, Therapeutic Exercises Modalities Cold Pack/Ice Massage,Electric Stimulation,Hot Packs, Infrared Therapy,Ultrasound Next Visit Focus/Plan Next Note Type Treatment Note Next Visit Plan avoid L ankle treatment until further workup by podiatry; review HEP from IE Gentle manual (pt has osteopenia) to hips, back, shoulder, neck, L knee focus on full body exercises: try paloff press, supine pelvic tilts and bridges
--- NOTE | 2024-06-27 18:15 | PT.OPPOC ---
Physical, Occupational & Speech Therapy At [facility] Current Diagnoses Unilateral primary osteoarthritis, right hip (06/27/24) Other enthesopathies, not elsewhere classified (06/27/24) Difficulty in walking, not elsewhere classified (06/27/24) Unsteadiness on feet (06/27/24) Abnormal posture (06/27/24) Presence of left artificial hip joint (06/27/24) Visit Care Team Role Provider Type Rajwinder Eugene PA-C Family Provider Advanced [employer] Experimental Mechanic Primary Care Provider Specialty: Medical Address: [address] [place] [address], [id number] Email: Rula Suarez MD Attending Provider Physician Referring Provider Specialty: Orthopedics Orthopedic Surgery Address: [address] [place] [address], [id number] Email: [email or web address] Plan Of Care PT-OP-B Current Condition Start: 06/21/24 10:02 Freq: Status: Active Protocol: Document 06/27/24 11:20 [facility] (Rec: 06/27/24 12:20 [facility] [id number]) Current Condition History of Current Condition Onset Date chronic Current Complaints neck/back pain,B shoulder pain ,L knee pain,B foot pain,B foot/ankle,B hip History of Current Condition Pt reports she hurts all over. She has numbness, coldness and pain in feet/ankles. This happened after fx of ankle . Has EMG and show just a little nerve damange at L ankle. Has dx of bursitis of L knee. Has infection in L ankle. THey think she must have issues w/ stiches. L hip (replacement) gives little twinges here and there. R hip feels like the other one did and feels like it is almost popping out of joint. B shoulders have been hurting. FEels have lost a lot of body strength. Hurts to lay on either side d/t shoulders. Pt reports neck pain also. Starts care w/Dr. Nevarez tomorrow. Gets spasms down entire back. Gets pain down into R buttock and leg occasionally but not very often. has had falls, pt was trying to pull weed and fell back (was on a slope). Was on opiod and tried to build up per doctors orders and fell d/ t dizziness. Not currently on any opiods. Pt is scared to walk her small dog d/t worried she will pull her over. Treatment Goals Patient/Caregiver Goals Be able to move again, be able to go for a walk and participate in community events , improve balance, Be able to vacuum, be able to stand longer w/o requiring sitting break (with in 15 min needs to sit), be able to carry a load a laundry without shoulder/back pain, be able to dress w/o inc pain. PT-OP-T Assessment and Plan Start: 06/21/24 10:02 Freq: Status: Active Protocol: Document 06/27/24 11:20 [facility] (Rec: 06/27/24 12:20 [facility] [id number]) Physical Therapy Assessment Rehab Potential Rehabilitation Potential Good Evaluation Complexity Number of Personal Factors/Comorbidities 3 or More Number of Body Systems Impaired 4 or More Clinical Presentation at Evaluation Unstable Impairments Impairments Activity Tolerance,Balance, Edema,Functional Activities, Functional Mobility,Gait,Pain, Posture,ROM,Soft Tissue Mobility,Strength,Transfers Goals balance Impairment DGI 13 Restaurant Hospitality Manager Goal (LTG) Pt will improve DGI score to > 19 to show dec risk for falls LTG Duration 09/20 ADLs Short Term Goal (STG) Pt will be able to dress w/o inc pain STG Duration 08/03 Restaurant Hospitality Manager Goal (LTG) Pt will be able to carry a load a laundry without shoulder/back pain, LTG Duration 09/20 strength Short Term Goal (STG) Pt will be indep w/HEP STG Duration 08/03 Longterm Goal (LTG) Pt will improve all UE and LE MMT to at least 4/5 to show improved strength and stabiltiy. LTG Duration 09/20 activity Short Term Goal (STG) Pt will be able to stand longer with chores before needing to sit (at least 25 min) STG Duration 08/03 Restaurant Hospitality Manager Goal (LTG) Pt will report being able to start small walks and doing community activities w/friends LTG Duration 09/20 Assessment Summary Assessment Pt presents w/mult area of chronic pain including: neck, back, B hips, L knee, B feet/ ankles and shoulders. She is currently followed by podiatry and is likely to need I and D per pt for L ankle, so limited testing done to this area. She has overall lack of ROM, and weakness throughout her body along w/fwd bent posture, which likely contributes to her pain. She would benefit from skilled PT in order to improve moblity and dec pain. Physical Therapy Plan Frequency and Duration Frequency of Treatment 2x/Week Duration of treatment (weeks) 12 Plan of Care Start Date 06/27/24 Plan of Care End Date 09/20/24 Therapeutic Interventions Therapeutic Interventions Balance Training,Gait Training ,Home Exercise Program,Joint Mobilizations,Manual Therapy, Neuromuscular Re-education, Patient/Caregiver Education, Self-Care/Home Management,Soft Tissue Mobilization,Taping, Therapeutic Activities, Therapeutic Exercises Modalities Cold Pack/Ice Massage,Electric Stimulation,Hot Packs, Infrared Therapy,Ultrasound Next Visit Focus/Plan Next Note Type Treatment Note Next Visit Plan avoid L ankle treatment until further workup by podiatry; review HEP from IE Gentle manual (pt has osteopenia) to hips, back, shoulder, neck, L knee focus on full body exercises: try paloff press, supine pelvic tilts and bridges Plan of Care Dates Plan of Care Start Date 06/27/24 Plan of Care End Date 09/20/24 Electronically Signed by: Nita Veliz, PT 06/28/24 3844 If you are in agreement with this Plan of Care, please return a signed and dated copy. I have reviewed this Plan of Care and certify that the skilled therapy services above are required to meet the patient?s needs. Physician Signature Date Printed Name and Credentials Clinical Instructor Signature Printed Name and Credentials
--- NOTE | 2024-07-04 13:46 | PT.OTN ---
Current Diagnoses Unilateral primary osteoarthritis, right hip (07/04/24) Other enthesopathies, not elsewhere classified (07/04/24) Difficulty in walking, not elsewhere classified (07/04/24) Unsteadiness on feet (07/04/24) Abnormal posture (07/04/24) Presence of left artificial hip joint (07/04/24) Physical Therapy Treatment Note PT-OP-A Visit Information Start: 06/21/24 10:02 Freq: Status: Active Protocol: Document 07/04/24 13:02 [facility] (Rec: 07/04/24 13:46 [facility] [id number]) Out-Patient Physical Therapy Visit Information Visit Information Visit Type Treatment Note Visit Start Time 13:03 Visit Stop Time 13:43 Visit Number 2 Number of CHIP BIN OPERATOR Visits 0 PT-OP-B Current Condition Start: 06/21/24 10:02 Freq: Status: Active Protocol: Document 06/27/24 11:20 [facility] (Rec: 06/27/24 12:20 [facility] [id number]) Current Condition History of Current Condition Onset Date chronic Current Complaints neck/back pain,B shoulder pain ,L knee pain,B foot pain,B foot/ankle,B hip History of Current Condition Pt reports she hurts all over. She has numbness, coldness and pain in feet/ankles. This happened after fx of ankle . Has EMG and show just a little nerve damange at L ankle. Has dx of bursitis of L knee. Has infection in L ankle. THey think she must have issues w/ stiches. L hip (replacement) gives little twinges here and there. R hip feels like the other one did and feels like it is almost popping out of joint. B shoulders have been hurting. FEels have lost a lot of body strength. Hurts to lay on either side d/t shoulders. Pt reports neck pain also. Starts care w/Dr. Nevarez tomorrow. Gets spasms down entire back. Gets pain down into R buttock and leg occasionally but not very often. has had falls, pt was trying to pull weed and fell back (was on a slope). Was on opiod and tried to build up per doctors orders and fell d/ t dizziness. Not currently on any opiods. Pt is scared to walk her small dog d/t worried she will pull her over. Treatment Goals Patient/Caregiver Goals Be able to move again, be able to go for a walk and participate in community events , improve balance, Be able to vacuum, be able to stand longer w/o requiring sitting break (with in 15 min needs to sit), be able to carry a load a laundry without shoulder/back pain, be able to dress w/o inc pain. PT-OP-C Subjective Start: 06/21/24 10:02 Freq: Status: Active Protocol: Document 07/04/24 13:02 [facility] (Rec: 07/04/24 13:[id number] OP-PT Subjective Patient Comments Patient Comments Pt saw Dr. Nevarez and has MRI scheduled for thoracic later today. Blister broke open this weekend. Waiting to get in for 2nd opinion from parris from foot doctor. should hear back today PT-OP-E Functional Tests Start: 06/27/24 12:20 Freq: Status: Active Protocol: Document 06/27/24 11:20 [facility] (Rec: 06/27/24 12:28 [id number] Functional Tests 30 Second Sit to Stand Test Score 8 Comments w/UEs pain in B hips, L knee and B shoulders Dynamic Gait Index (DGI) Score 13 PT-OP-G Mobility & Gait Start: 06/21/24 10:02 Freq: Status: Active Protocol: Document 06/27/24 11:20 [facility] (Rec: 06/27/24 12:20 [facility] [id number]) OP Gait Assessment Comments Gait Comments dec LLE stance time and dec trunk movement and UE swing PT-OP-J Posture/Palpation/Skin Start: 06/21/24 10:02 Freq: Status: Active Protocol: Document 06/27/24 11:20 [facility] (Rec: 06/27/24 12:28 [facility] [id number]) Posture Evaluation Comments Posture Comments significant kyhposis and fwd head in sittinga nd standing PT-OP-K Range of Motion Start: 06/21/24 10:02 Freq: Status: Active Protocol: Document 06/27/24 11:20 [facility] (Rec: 06/27/24 12:20 [facility] [id number]) Shoulder Goniometric Range of Motion Shoulder Right Active Testing Position Sitting Flexion 128 Extension 51 Abduction 131 External Rotation at 0 degrees Abduction 16 Internal Rotation Behind Back (text) L1 Comments pain w/range; abd goes into scaption Left Active Flexion 127 Extension 48 Abduction 105 External Rotation at 0 degrees Abduction 36 Internal Rotation Behind Back (text) T10 PT-OP-M Strength Start: 06/21/24 10:02 Freq: Status: Active Protocol: Document 06/27/24 11:20 [facility] (Rec: 06/27/24 12:20 [facility] [id number]) Shoulder Strength Shoulder Manual Muscle Testing Right Flexion 3+ Fair+ Extension 3+ Fair+ Abduction (C5) 3+ Fair+ External Rotation 3 Fair Internal Rotation 4- Good- Left Flexion 4- Good- Extension 3+ Fair+ Abduction (C5) 3+ Fair+ Internal Rotation 3+ Fair+ Elbow/Forearm Strength Elbow and Forearm Manual Muscle Testing Right Flexion (C6) 4- Good- Left Flexion (C6) 4- Good- Hip Strength Hip Manual Muscle Testing Right External Rotation 3+ Fair+ Internal Rotation 3+ Fair+ Left External Rotation 4- Good- Internal Rotation 3+ Fair+ Knee Strength Knee Manual Muscle Testing Right Flexion (S2) 4- Good- Extension (L3) 3+ Fair+ Left Flexion (S2) 3+ Fair+ Extension (L3) 3 Fair Comments pain w/both PT-OP-Q Treatments Start: 06/21/24 10:02 Freq: Status: Active Protocol: Document 07/04/24 13:02 [facility] (Rec: 07/04/24 13:46 [facility] [id number]) Therapeutic Exercises Supine Exercises LTR Side bilateral Reps/Minutes 10 Comments comfortable range and cues for core pelvic tilt Reps/Minutes 10 Sidelying Exercises open book Side bilateral Reps/Minutes 8 Comments cues for thoracic rot Sitting Exercises march Side bilateral Resistance L2 Reps/Minutes 15 ea abd Sitting Exercise Name hip Side bilateral Resistance L2 Reps/Minutes 1 min; 10 reps Habd Sitting Exercise Name at about 45 deg flex Side bilateral Resistance L1 Reps/Minutes 15 Comments cues posture and scaps curls Sitting Exercise Name elbow flex Side bilateral Resistance L1 Reps/Minutes 15 ea Standing Exercises row Side bilateral Equipment Used peach band Reps/Minutes 15 Comments cues scap paloff press Side bilateral Equipment Used 1 peach band Reps/Minutes 12 ea Comments cues posture Manual Therapy Treatment Consent Patient gave verbal consent for manual Yes treatment Soft Tissue Mobilization hip Body Location B glutes Mobilization Type Rolling,Sustained Pressure Intensity/Depth Moderate Body Position Sidelying lumbar Body Location B ES lumbar and thoracic & QL Mobilization Type Rolling Intensity/Depth Moderate Body Position Sidelying PT-OP-T Assessment and Plan Start: 06/21/24 10:02 Freq: Status: Active Protocol: Document 07/04/24 13:02 [facility] (Rec: 07/04/24 13:46 [facility] [id number]) Physical Therapy Assessment Goals balance Impairment DGI 13 Pss Delivery Professional Goal (LTG) Pt will improve DGI score to > 19 to show dec risk for falls LTG Duration 09/20 ADLs Short Term Goal (STG) Pt will be able to dress w/o inc pain STG Duration 08/03 Senior Living Goal (LTG) Pt will be able to carry a load a laundry without shoulder/back pain, LTG Duration 09/20 strength Short Term Goal (STG) Pt will be indep w/HEP STG Duration 08/03 Senior Living Goal (LTG) Pt will improve all UE and LE MMT to at least 4/5 to show improved strength and stabiltiy. LTG Duration 09/20 activity Short Term Goal (STG) Pt will be able to stand longer with chores before needing to sit (at least 25 min) STG Duration 08/03 Pss Delivery Professional Goal (LTG) Pt will report being able to start small walks and doing community activities w/friends LTG Duration 09/20 Assessment Summary Assessment Pt did well with exercises today but cues needed for form and posture. She was weak and stuck w/lower level of resistances. Significant tightness in B glutes Physical Therapy Plan Frequency and Duration Frequency of Treatment 2x/Week Duration of treatment (weeks) 12 Plan of Care Start Date 06/27/24 Plan of Care End Date 09/20/24 Next Visit Focus/Plan Next Note Type Treatment Note Next Visit Plan avoid L ankle treatment until further workup by podiatry; review HEP from IE and 2nd visit Gentle manual (pt has osteopenia) to hips, back, shoulder, neck, L knee
--- NOTE | 2024-07-31 13:46 | PT.OTN ---
Current Diagnoses Unilateral primary osteoarthritis, right hip (07/31/24) Other enthesopathies, not elsewhere classified (07/31/24) Difficulty in walking, not elsewhere classified (07/31/24) Unsteadiness on feet (07/31/24) Abnormal posture (07/31/24) Presence of left artificial hip joint (07/31/24) Physical Therapy Treatment Note PT-OP-A Visit Information Start: 06/21/24 10:02 Freq: Status: Active Protocol: Document 07/31/24 13:33 [facility] (Rec: 07/31/24 13:46 [facility] [id number]) Out-Patient Physical Therapy Visit Information Visit Information Visit Type Progress Note Visit Note 10/12 Visit Start Time 13:02 Visit Stop Time 13:42 Visit Number 3 Number of PROFESSOR OF LITERACY Visits 0 PT-OP-B Current Condition Start: 06/21/24 10:02 Freq: Status: Active Protocol: Document 06/27/24 11:20 [facility] (Rec: 06/27/24 12:20 [facility] [id number]) Current Condition History of Current Condition Onset Date chronic Current Complaints neck/back pain,B shoulder pain ,L knee pain,B foot pain,B foot/ankle,B hip History of Current Condition Pt reports she hurts all over. She has numbness, coldness and pain in feet/ankles. This happened after fx of ankle . Has EMG and show just a little nerve damange at L ankle. Has dx of bursitis of L knee. Has infection in L ankle. THey think she must have issues w/ stiches. L hip (replacement) gives little twinges here and there. R hip feels like the other one did and feels like it is almost popping out of joint. B shoulders have been hurting. FEels have lost a lot of body strength. Hurts to lay on either side d/t shoulders. Pt reports neck pain also. Starts care w/Dr. Nevarez tomorrow. Gets spasms down entire back. Gets pain down into R buttock and leg occasionally but not very often. has had falls, pt was trying to pull weed and fell back (was on a slope). Was on opiod and tried to build up per doctors orders and fell d/ t dizziness. Not currently on any opiods. Pt is scared to walk her small dog d/t worried she will pull her over. Treatment Goals Patient/Caregiver Goals Be able to move again, be able to go for a walk and participate in community events , improve balance, Be able to vacuum, be able to stand longer w/o requiring sitting break (with in 15 min needs to sit), be able to carry a load a laundry without shoulder/back pain, be able to dress w/o inc pain. PT-OP-C Subjective Start: 06/21/24 10:02 Freq: Status: Active Protocol: Document 07/31/24 13:33 [facility] (Rec: 07/31/24 13[id number]-PT Subjective Patient Comments Patient Comments had a shot last week in knee and that hasn't helped yet. Has done a lot of walking at a large [email or web address], but L ankle swells up really big. Sees podiatry aug 20. Is seeing neurologist who will do a sweat test in December. waiting to see nack shot. PT-OP-E Functional Tests Start: 06/27/24 12:20 Freq: Status: Active Protocol: Document 07/31/24 13:33 [facility] (Rec: 07/31/24 13:46 [facility] [id number]) Functional Tests Dynamic Gait Index (DGI) Score 17 PT-OP-G Mobility & Gait Start: 06/21/24 10:02 Freq: Status: Active Protocol: Document 06/27/24 11:20 [facility] (Rec: 06/27/24 12:20 [facility] [id number]) OP Gait Assessment Comments Gait Comments dec LLE stance time and dec trunk movement and UE swing PT-OP-J Posture/Palpation/Skin Start: 06/21/24 10:02 Freq: Status: Active Protocol: Document 06/27/24 11:20 [facility] (Rec: 06/27/24 12:28 [facility] [id number]) Posture Evaluation Comments Posture Comments significant kyhposis and fwd head in sittinga nd standing PT-OP-K Range of Motion Start: 06/21/24 10:02 Freq: Status: Active Protocol: Document 06/27/24 11:20 [facility] (Rec: 06/27/24 12:20 [facility] [id number]) Shoulder Goniometric Range of Motion Shoulder Right Active Testing Position Sitting Flexion 128 Extension 51 Abduction 131 External Rotation at 0 degrees Abduction 16 Internal Rotation Behind Back (text) L1 Comments pain w/range; abd goes into scaption Left Active Flexion 127 Extension 48 Abduction 105 External Rotation at 0 degrees Abduction 36 Internal Rotation Behind Back (text) T10 PT-OP-M Strength Start: 06/21/24 10:02 Freq: Status: Active Protocol: Document 07/31/24 13:33 [facility] (Rec: 07/31/24 13:46 [facility] [id number]) Shoulder Strength Shoulder Manual Muscle Testing Right Flexion 4 Good Extension 4- Good- Abduction (C5) 4 Good External Rotation 3+ Fair+ Internal Rotation 3+ Fair+ Left Flexion 4 Good Extension 4- Good- Abduction (C5) 4 Good External Rotation 3+ Fair+ Internal Rotation 3+ Fair+ Elbow/Forearm Strength Elbow and Forearm Manual Muscle Testing Right Flexion (C6) 4+ Good+ Left Flexion (C6) 4+ Good+ Hip Strength Hip Manual Muscle Testing Right Flexion (L2) 4- Good- External Rotation 3+ Fair+ Internal Rotation 4- Good- Left Flexion (L2) 4- Good- External Rotation 3+ Fair+ Internal Rotation 4- Good- Knee Strength Knee Manual Muscle Testing Right Flexion (S2) 4- Good- Extension (L3) 4- Good- Left Flexion (S2) 4- Good- Extension (L3) 4- Good- PT-OP-Q Treatments Start: 06/21/24 10:02 Freq: Status: Active Protocol: Document 07/31/24 13:33 [facility] (Rec: 07/31/24 13:46 [facility] [id number]) Therapeutic Exercises Supine Exercises LTR Side bilateral Reps/Minutes 10 Comments comfortable range and cues for core pelvic tilt Supine Exercise Name ant/post Reps/Minutes 10 Comments comfortable range- cues for movement pattern Sidelying Exercises open book Side bilateral Reps/Minutes 8 Comments cues for thoracic rot Sitting Exercises march Side bilateral Resistance L2 Reps/Minutes 15 ea Comments cues core and posture abd Sitting Exercise Name hip Side bilateral Resistance L2 Reps/Minutes 1 min; 10 reps Habd Sitting Exercise Name at about 45 deg flex Side bilateral Resistance L1 Reps/Minutes 15 Comments cues posture and scaps curls Sitting Exercise Name elbow flex Side bilateral Resistance L2 Reps/Minutes 15 ea Standing Exercises row Side bilateral Equipment Used orange band Reps/Minutes 12 Comments cues scap paloff press Side bilateral Equipment Used 1 peach band Reps/Minutes 12 ea Comments cues posture Manual Therapy Treatment Soft Tissue Mobilization hip Body Location B glutes superior Mobilization Type Rolling,Sustained Pressure Intensity/Depth Moderate Body Position Sidelying lumbar Body Location B ES lumbar and thoracic & QL Mobilization Type Rolling Intensity/Depth Moderate Body Position Sidelying Neuro Re-Education Treatment Other Activities testing Details DGI PT-OP-T Assessment and Plan Start: 06/21/24 10:02 Freq: Status: Active Protocol: Document 07/31/24 13:33 [facility] (Rec: 07/31/24 13:46 [facility] [id number]) Physical Therapy Assessment Goals balance Impairment DGI 13 Assistant Operations Manager Goal (LTG) Pt will improve DGI score to > 19 to show dec risk for falls 07/31- LTG Duration 09/20 ADLs Short Term Goal (STG) Pt will be able to dress w/o inc pain STG Duration achieved 07/31 Assistant Operations Manager Goal (LTG) Pt will be able to carry a load a laundry without shoulder/back pain, 07/31-typicall has carry LTG Duration 09/20 strength Short Term Goal (STG) Pt will be indep w/HEP 07/31-working on compliance STG Duration 08/03 Assistant Operations Manager Goal (LTG) Pt will improve all UE and LE MMT to at least 4/5 to show improved strength and stabiltiy. 07/31-improving LTG Duration 09/20 activity Short Term Goal (STG) Pt will be able to stand longer with chores before needing to sit (at least 25 min) 07/31-15-20 min max now STG Duration 08/03 Retirement Goal (LTG) Pt will report being able to start small walks and doing community activities w/friends 07/31- did some walking at [email or web address] but back did get sore along w/L ankle LTG Duration 09/20 Assessment Summary Assessment Pt has made progress so far but quin[place] has significant pain , weakness and risk for falls so would benefit from cont PT. REviewed HEP and encouraged compliance. Cont PT for strength, balance, mobility and pain management. Physical Therapy Plan Frequency and Duration Frequency of Treatment 2x/Week Duration of treatment (weeks) 12 Plan of Care Start Date 06/27/24 Plan of Care End Date 09/20/24 Therapeutic Interventions Therapeutic Interventions Balance Training,Gait Training ,Home Exercise Program,Joint Mobilizations,Manual Therapy, Neuromuscular Re-education, Patient/Caregiver Education, Self-Care/Home Management,Soft Tissue Mobilization,Taping, Therapeutic Activities, Therapeutic Exercises Modalities Cold Pack/Ice Massage,Electric Stimulation,Hot Packs, Infrared Therapy,Ultrasound Next Visit Focus/Plan Next Note Type Treatment Note Next Visit Plan avoid L ankle treatment until further workup by podiatry mid nov; review Amanuel galicia as able; try leg press later Gentle manual (pt has osteopenia) to hips, back, shoulder, neck, L knee
--- NOTE | 2024-08-02 16:12 | PT.OTN ---
Current Diagnoses Unilateral primary osteoarthritis, right hip (08/02/24) Other enthesopathies, not elsewhere classified (08/02/24) Difficulty in walking, not elsewhere classified (08/02/24) Unsteadiness on feet (08/02/24) Abnormal posture (08/02/24) Presence of left artificial hip joint (08/02/24) Physical Therapy Treatment Note PT-OP-A Visit Information Start: 06/21/24 10:02 Freq: Status: Active Protocol: Document 08/02/24 14:38 (Rec: 08/02/24 15:17 [id number]) Out-Patient Physical Therapy Visit Information Visit Information Visit Type Treatment Note Visit Start Time 14:34 Visit Stop Time 15:14 Visit Number 4 Number of [employer] Visits 1 PT-OP-B Current Condition Start: 06/21/24 10:02 Freq: Status: Active Protocol: Document 06/27/24 11:20 [facility] (Rec: 06/27/24 12:20 [facility] [id number]) Current Condition History of Current Condition Onset Date chronic Current Complaints neck/back pain,B shoulder pain ,L knee pain,B foot pain,B foot/ankle,B hip History of Current Condition Pt reports she hurts all over. She has numbness, coldness and pain in feet/ankles. This happened after fx of ankle . Has EMG and show just a little nerve damange at L ankle. Has dx of bursitis of L knee. Has infection in L ankle. THey think she must have issues w/ stiches. L hip (replacement) gives little twinges here and there. R hip feels like the other one did and feels like it is almost popping out of joint. B shoulders have been hurting. FEels have lost a lot of body strength. Hurts to lay on either side d/t shoulders. Pt reports neck pain also. Starts care w/Dr. Nevarez tomorrow. Gets spasms down entire back. Gets pain down into R buttock and leg occasionally but not very often. has had falls, pt was trying to pull weed and fell back (was on a slope). Was on opiod and tried to build up per doctors orders and fell d/ t dizziness. Not currently on any opiods. Pt is scared to walk her small dog d/t worried she will pull her over. Treatment Goals Patient/Caregiver Goals Be able to move again, be able to go for a walk and participate in community events , improve balance, Be able to vacuum, be able to stand longer w/o requiring sitting break (with in 15 min needs to sit), be able to carry a load a laundry without shoulder/back pain, be able to dress w/o inc pain. PT-OP-C Subjective Start: 06/21/24 10:02 Freq: Status: Active Protocol: Document 08/02/24 14:38 SW (Rec: 08/02/24 15:17 SW [id number]) OP-PT Subjective Patient Comments Patient Comments Pt reports sore after last session, no increase in pain. PT-OP-E Functional Tests Start: 06/27/24 12:20 Freq: Status: Active Protocol: Document 07/31/24 13:33 [facility] (Rec: 07/31/24 13:46 [facility] [id number]) Functional Tests Dynamic Gait Index (DGI) Score 17 PT-OP-G Mobility & Gait Start: 06/21/24 10:02 Freq: Status: Active Protocol: Document 06/27/24 11:20 [facility] (Rec: 06/27/24 12:20 [facility] [id number]) OP Gait Assessment Comments Gait Comments dec LLE stance time and dec trunk movement and UE swing PT-OP-J Posture/Palpation/Skin Start: 06/21/24 10:02 Freq: Status: Active Protocol: Document 06/27/24 11:20 [facility] (Rec: 06/27/24 12:28 [facility] [id number]) Posture Evaluation Comments Posture Comments significant kyhposis and fwd head in sittinga nd standing PT-OP-K Range of Motion Start: 06/21/24 10:02 Freq: Status: Active Protocol: Document 06/27/24 11:20 [facility] (Rec: 06/27/24 12:20 [facility] [id number]) Shoulder Goniometric Range of Motion Shoulder Right Active Testing Position Sitting Flexion 128 Extension 51 Abduction 131 External Rotation at 0 degrees Abduction 16 Internal Rotation Behind Back (text) L1 Comments pain w/range; abd goes into scaption Left Active Flexion 127 Extension 48 Abduction 105 External Rotation at 0 degrees Abduction 36 Internal Rotation Behind Back (text) T10 PT-OP-M Strength Start: 06/21/24 10:02 Freq: Status: Active Protocol: Document 07/31/24 13:33 [facility] (Rec: 07/31/24 13:46 [facility] [id number]) Shoulder Strength Shoulder Manual Muscle Testing Right Flexion 4 Good Extension 4- Good- Abduction (C5) 4 Good External Rotation 3+ Fair+ Internal Rotation 3+ Fair+ Left Flexion 4 Good Extension 4- Good- Abduction (C5) 4 Good External Rotation 3+ Fair+ Internal Rotation 3+ Fair+ Elbow/Forearm Strength Elbow and Forearm Manual Muscle Testing Right Flexion (C6) 4+ Good+ Left Flexion (C6) 4+ Good+ Hip Strength Hip Manual Muscle Testing Right Flexion (L2) 4- Good- External Rotation 3+ Fair+ Internal Rotation 4- Good- Left Flexion (L2) 4- Good- External Rotation 3+ Fair+ Internal Rotation 4- Good- Knee Strength Knee Manual Muscle Testing Right Flexion (S2) 4- Good- Extension (L3) 4- Good- Left Flexion (S2) 4- Good- Extension (L3) 4- Good- PT-OP-Q Treatments Start: 06/21/24 10:02 Freq: Status: Active Protocol: Document 08/02/24 14:38 (Rec: 08/02/24 15:17 [id number]) Therapeutic Exercises Supine Exercises LTR Side bilateral Reps/Minutes 10 Comments comfortable range and cues for core pelvic tilt Supine Exercise Name ant/post Reps/Minutes 10 Comments comfortable range- cues for movement pattern Sidelying Exercises open book Side bilateral Reps/Minutes 10 Comments cues for thoracic rot Sitting Exercises march Side bilateral Resistance L2 Reps/Minutes 15 ea Comments cues core and posture abd Sitting Exercise Name hip Side bilateral Resistance L2 Reps/Minutes 1 min; 10 reps Habd Sitting Exercise Name at about 45 deg flex Side bilateral Resistance L1 Reps/Minutes 15 Comments cues posture and scaps curls Sitting Exercise Name elbow flex Side bilateral Resistance L2 Reps/Minutes 2 x 10 ea Standing Exercises Lat pull down Standing Exercise Name Lat pull down Side bilateral Resistance [place] Comments cues for posture and breath work to dec cervical tension row Side bilateral Equipment Used orange band Reps/Minutes 12 Comments cues scap paloff press Side bilateral Equipment Used 1 peach band Reps/Minutes 12 ea Comments cues posture Self-Care/Home Management Treatment Education Patient Education Home Exercise Program,Pain Management,Posture Other Education Pt education on ice modality post exercise for increased mm soreness and as needed for pain, 15 min at a time. Pt education on Postural alignment. 2' PT-OP-T Assessment and Plan Start: 06/21/24 10:02 Freq: Status: Active Protocol: Document 08/02/24 14:38 SW (Rec: 08/02/24 15:17 SW [id number]) Physical Therapy Assessment Goals balance Impairment DGI 13 [place] Goal (LTG) Pt will improve DGI score to > 19 to show dec risk for falls 07/31- LTG Duration 09/20 ADLs Short Term Goal (STG) Pt will be able to dress w/o inc pain STG Duration achieved 07/31 [facility] Goal (LTG) Pt will be able to carry a load a laundry without shoulder/back pain, 07/31-typicall has carry LTG Duration 09/20 strength Short Term Goal (STG) Pt will be indep w/HEP 07/31-working on compliance STG Duration 08/03 [facility] Goal (LTG) Pt will improve all UE and LE MMT to at least 4/5 to show improved strength and stabiltiy. 07/31-improving LTG Duration 09/20 activity Short Term Goal (STG) Pt will be able to stand longer with chores before needing to sit (at least 25 min) 07/31-15-20 min max now STG Duration 08/03 [place] Goal (LTG) Pt will report being able to start small walks and doing community activities w/friends 07/31- did some walking at [employer] but back did get sore along w/L ankle LTG Duration 09/20 Assessment Summary Assessment Pt reports some soreness after last session, denies increase in pain, educated patient on modalities prn, and for ice post exercises to assist with delayed muscle soreness. Reviewed HEP and progressed reps with some exercises this session. Pt tolerated session well, no increase in pain. Frequent cues throughout session for postural alignment , and to set up with good posture prior to initiation of exercises. Physical Therapy Plan Frequency and Duration Frequency of Treatment 2x/Week Duration of treatment (weeks) 12 Plan of Care Start Date 06/27/24 Plan of Care End Date 09/20/24 Therapeutic Interventions Therapeutic Interventions Balance Training,Gait Training ,Home Exercise Program,Joint Mobilizations,Manual Therapy, Neuromuscular Re-education, Patient/Caregiver Education, Self-Care/Home Management,Soft Tissue Mobilization,Taping, Therapeutic Activities, Therapeutic Exercises Modalities Cold Pack/Ice Massage,Electric Stimulation,Hot Packs, Infrared Therapy,Ultrasound Next Visit Focus/Plan Next Note Type Treatment Note Next Visit Plan avoid L ankle treatment until further workup by podiatry mid nov; review Amanuel galicia as able; try leg press later Gentle manual (pt has osteopenia) to hips, back, shoulder, neck, L knee
--- NOTE | 2024-08-14 15:09 | PT.OTN ---
Current Diagnoses Unilateral primary osteoarthritis, right hip (08/14/24) Other enthesopathies, not elsewhere classified (08/14/24) Difficulty in walking, not elsewhere classified (08/14/24) Unsteadiness on feet (08/14/24) Abnormal posture (08/14/24) Presence of left artificial hip joint (08/14/24) Physical Therapy Treatment Note PT-OP-A Visit Information Start: 06/21/24 10:02 Freq: Status: Active Protocol: Document 08/14/24 13:09 (Rec: 08/14/24 13:51 [id number]) Out-Patient Physical Therapy Visit Information Visit Information Visit Type Treatment Note Visit Note Latanya Visit Start Time 13:04 Visit Stop Time 13:44 Visit Number 5 Number of [employer] Visits 2 PT-OP-B Current Condition Start: 06/21/24 10:02 Freq: Status: Active Protocol: Document 06/27/24 11:20 [facility] (Rec: 06/27/24 12:20 [facility] [id number]) Current Condition History of Current Condition Onset Date chronic Current Complaints neck/back pain,B shoulder pain ,L knee pain,B foot pain,B foot/ankle,B hip History of Current Condition Pt reports she hurts all over. She has numbness, coldness and pain in feet/ankles. This happened after fx of ankle . Has EMG and show just a little nerve damange at L ankle. Has dx of bursitis of L knee. Has infection in L ankle. THey think she must have issues w/ stiches. L hip (replacement) gives little twinges here and there. R hip feels like the other one did and feels like it is almost popping out of joint. B shoulders have been hurting. FEels have lost a lot of body strength. Hurts to lay on either side d/t shoulders. Pt reports neck pain also. Starts care w/Dr. Nevarez tomorrow. Gets spasms down entire back. Gets pain down into R buttock and leg occasionally but not very often. has had falls, pt was trying to pull weed and fell back (was on a slope). Was on opiod and tried to build up per doctors orders and fell d/ t dizziness. Not currently on any opiods. Pt is scared to walk her small dog d/t worried she will pull her over. Treatment Goals Patient/Caregiver Goals Be able to move again, be able to go for a walk and participate in community events , improve balance, Be able to vacuum, be able to stand longer w/o requiring sitting break (with in 15 min needs to sit), be able to carry a load a laundry without shoulder/back pain, be able to dress w/o inc pain. PT-OP-C Subjective Start: 06/21/24 10:02 Freq: Status: Active Protocol: Document 08/14/24 13:09 (Rec: 08/14/24 14:57 [id number]) OP-PT Subjective Patient Comments Patient Comments Pt reports doing ok. Knee has been painful, had a procedure done for pain a couple weeks ago, but has not helped yet. PT-OP-E Functional Tests Start: 06/27/24 12:20 Freq: Status: Active Protocol: Document 07/31/24 13:33 [facility] (Rec: 07/31/24 13:46 [facility] [id number]) Functional Tests Dynamic Gait Index (DGI) Score 17 PT-OP-G Mobility & Gait Start: 06/21/24 10:02 Freq: Status: Active Protocol: Document 06/27/24 11:20 [facility] (Rec: 06/27/24 12:20 [facility] [id number]) OP Gait Assessment Comments Gait Comments dec LLE stance time and dec trunk movement and UE swing PT-OP-J Posture/Palpation/Skin Start: 06/21/24 10:02 Freq: Status: Active Protocol: Document 06/27/24 11:20 [facility] (Rec: 06/27/24 12:28 [facility] [id number]) Posture Evaluation Comments Posture Comments significant kyhposis and fwd head in sittinga nd standing PT-OP-K Range of Motion Start: 06/21/24 10:02 Freq: Status: Active Protocol: Document 06/27/24 11:20 [facility] (Rec: 06/27/24 12:20 [facility] [id number]) Shoulder Goniometric Range of Motion Shoulder Right Active Testing Position Sitting Flexion 128 Extension 51 Abduction 131 External Rotation at 0 degrees Abduction 16 Internal Rotation Behind Back (text) L1 Comments pain w/range; abd goes into scaption Left Active Flexion 127 Extension 48 Abduction 105 External Rotation at 0 degrees Abduction 36 Internal Rotation Behind Back (text) T10 PT-OP-M Strength Start: 06/21/24 10:02 Freq: Status: Active Protocol: Document 07/31/24 13:33 [facility] (Rec: 07/31/24 13:46 [facility] [id number]) Shoulder Strength Shoulder Manual Muscle Testing Right Flexion 4 Good Extension 4- Good- Abduction (C5) 4 Good External Rotation 3+ Fair+ Internal Rotation 3+ Fair+ Left Flexion 4 Good Extension 4- Good- Abduction (C5) 4 Good External Rotation 3+ Fair+ Internal Rotation 3+ Fair+ Elbow/Forearm Strength Elbow and Forearm Manual Muscle Testing Right Flexion (C6) 4+ Good+ Left Flexion (C6) 4+ Good+ Hip Strength Hip Manual Muscle Testing Right Flexion (L2) 4- Good- External Rotation 3+ Fair+ Internal Rotation 4- Good- Left Flexion (L2) 4- Good- External Rotation 3+ Fair+ Internal Rotation 4- Good- Knee Strength Knee Manual Muscle Testing Right Flexion (S2) 4- Good- Extension (L3) 4- Good- Left Flexion (S2) 4- Good- Extension (L3) 4- Good- PT-OP-Q Treatments Start: 06/21/24 10:02 Freq: Status: Active Protocol: Document 08/14/24 13:09 SW (Rec: 08/14/24 13:51 [id number]) Therapeutic Exercises Supine Exercises LTR Side bilateral Reps/Minutes 10 Comments comfortable range and cues for core Sidelying Exercises open book Sidelying Exercise Name Verbal review Sitting Exercises december Sitting Exercise Name Issued HEP HO abd Sitting Exercise Name Supine today (issued updated HEP HO) Side bilateral Resistance L2 Reps/Minutes 1 min; 10 reps Comments supine today for pt comfort ( Updated HEP HO) Habd Sitting Exercise Name at about 45 deg flex Side bilateral Resistance Lv1>L2 Reps/Minutes 15 Comments cues posture and scaps, tactile feedback curls Sitting Exercise Name elbow flex Side bilateral Resistance L2 Reps/Minutes 2 x 10 ea Standing Exercises Lat pull down Standing Exercise Name Lat pull down (issued HEP HO) Side bilateral Resistance Good[place] Comments cues for posture and breath work to dec cervical tension row Standing Exercise Name Reviewed (issued HEP HO) Side bilateral Equipment Used orange band Reps/Minutes 15 Comments cues scap paloff press Side bilateral Equipment Used 1 peach band Reps/Minutes 15 ea Comments cues posture PT-OP-T Assessment and Plan Start: 06/21/24 10:02 Freq: Status: Active Protocol: Document 08/14/24 13:09 (Rec: 08/14/24 13:51 [id number]) Physical Therapy Assessment Goals balance Impairment DGI 13 [facility] Goal (LTG) Pt will improve DGI score to > 19 to show dec risk for falls 07/31-17 LTG Duration 09/20 ADLs Short Term Goal (STG) Pt will be able to dress w/o inc pain STG Duration achieved 07/31 [place] Goal (LTG) Pt will be able to carry a load a laundry without shoulder/back pain, 07/31-typicall has carry LTG Duration 09/20 strength Short Term Goal (STG) Pt will be indep w/HEP 07/31-working on compliance STG Duration 08/03 [facility] Goal (LTG) Pt will improve all UE and LE MMT to at least 4/5 to show improved strength and stabiltiy. 07/31-improving LTG Duration 09/20 activity Short Term Goal (STG) Pt will be able to stand longer with chores before needing to sit (at least 25 min) 07/31-15-20 min max now STG Duration 08/03 [facility] Goal (LTG) Pt will report being able to start small walks and doing community activities w/friends 07/31- did some walking at [place] but back did get sore along w/L ankle LTG Duration 09/20 Assessment Summary Assessment Pt reports podiatry appointment is coming up next week. Pt repots, does not have all exercise printouts at home. Reviewed exercises per pt request and issued hand outs. Pt still requires multiple cues throughout session for correct execution of exercises and for postural alignment prior to initiation of exercises, extended time required on ther ex this session for pt education during. Pt has had knee pain and states that hip abd strenghth exercise is bothering knee so pt has not done that one, changed exercise from seated to supine , pt tolerated well without knee pain. Pt tolerated session well overall today with no increase in symptoms. Plan to assess tolerance to new HEP exercises issued today and progress as able next session. Physical Therapy Plan Frequency and Duration Frequency of Treatment 2x/Week Duration of treatment (weeks) 12 Plan of Care Start Date 06/27/24 Plan of Care End Date 09/20/24 Therapeutic Interventions Therapeutic Interventions Balance Training,Gait Training ,Home Exercise Program,Joint Mobilizations,Manual Therapy, Neuromuscular Re-education, Patient/Caregiver Education, Self-Care/Home Management,Soft Tissue Mobilization,Taping, Therapeutic Activities, Therapeutic Exercises Modalities Cold Pack/Ice Massage,Electric Stimulation,Hot Packs, Infrared Therapy,Ultrasound Next Visit Focus/Plan Next Note Type Treatment Note Next Visit Plan avoid L ankle treatment until further workup by podiatry mid nov; review Amanuel galicia as able; try leg press later Gentle manual (pt has osteopenia) to hips, back, shoulder, neck, L knee
--- NOTE | 2024-08-21 18:26 | PT.OTN ---
Current Diagnoses Unilateral primary osteoarthritis, right hip (08/21/24) Other enthesopathies, not elsewhere classified (08/21/24) Difficulty in walking, not elsewhere classified (08/21/24) Unsteadiness on feet (08/21/24) Abnormal posture (08/21/24) Presence of left artificial hip joint (08/21/24) Physical Therapy Treatment Note PT-OP-A Visit Information Start: 06/21/24 10:02 Freq: Status: Active Protocol: Document 08/21/24 18:14 [facility] (Rec: 08/21/24 18:19 [facility] [id number]) Out-Patient Physical Therapy Visit Information Visit Information Visit Type Treatment Note Visit Start Time 16:20 Visit Stop Time 17:00 Visit Number 6 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 She has numbness, coldness and pain in feet/ankles. This happened after fx of ankle . Has EMG and show just a little nerve damange at L ankle. Has dx of bursitis of L knee. Has infection in L ankle. THey think she must have issues w/ stiches. L hip (replacement) gives little twinges here and there. R hip feels like the other one did and feels like it is almost popping out of joint. B shoulders have been hurting. FEels have lost a lot of body strength. Hurts to lay on either side d/t shoulders. Pt reports neck pain also. Starts care w/Dr. Nevarez tomorrow. Gets spasms down entire back. Gets pain down into R buttock and leg occasionally but not very often. has had falls, pt was trying to pull weed and fell back (was on a slope). Was on opiod and tried to build up per doctors orders and fell d/ t dizziness. Not currently on any opiods. Pt is scared to walk her small dog d/t worried she will pull her over. Treatment Goals Patient/Caregiver Goals Be able to move again, be able to go for a walk and participate in community events , improve balance, Be able to vacuum, be able to stand longer w/o requiring sitting break (with in 15 min needs to sit), be able to carry a load a laundry without shoulder/back pain, be able to dress w/o inc pain. PT-OP-C Subjective Start: 06/21/24 10:02 Freq: Status: Active Protocol: Document 08/21/24 18:14 [facility] (Rec: 08/21/24 18:19 [facility] [id number]) OP-PT Subjective Patient Comments Patient Comments pt reports neck has been really bad PT-OP-E Functional Tests Start: 06/27/24 12:20 Freq: Status: Active Protocol: Document 07/31/24 13:33 [facility] (Rec: 07/31/24 13:46 [facility] [id number]) Functional Tests Dynamic Gait Index (DGI) Score 17 PT-OP-G Mobility & Gait Start: 06/21/24 10:02 Freq: Status: Active Protocol: Document 06/27/24 11:20 [facility] (Rec: 06/27/24 12:20 [facility] [id number]) OP Gait Assessment Comments Gait Comments dec LLE stance time and dec trunk movement and UE swing PT-OP-J Posture/Palpation/Skin Start: 06/21/24 10:02 Freq: Status: Active Protocol: Document 06/27/24 11:20 [facility] (Rec: 06/27/24 12:28 [facility] [id number]) Posture Evaluation Comments Posture Comments significant kyhposis and fwd head in sittinga nd standing PT-OP-K Range of Motion Start: 06/21/24 10:02 Freq: Status: Active Protocol: Document 06/27/24 11:20 [facility] (Rec: 06/27/24 12:20 [facility] [id number]) Shoulder Goniometric Range of Motion Shoulder Right Active Testing Position Sitting Flexion 128 Extension 51 Abduction 131 External Rotation at 0 degrees Abduction 16 Internal Rotation Behind Back (text) L1 Comments pain w/range; abd goes into scaption Left Active Flexion 127 Extension 48 Abduction 105 External Rotation at 0 degrees Abduction 36 Internal Rotation Behind Back (text) T10 PT-OP-M Strength Start: 06/21/24 10:02 Freq: Status: Active Protocol: Document 07/31/24 13:33 [facility] (Rec: 07/31/24 13:46 [facility] [id number]) Shoulder Strength Shoulder Manual Muscle Testing Right Flexion 4 Good Extension 4- Good- Abduction (C5) 4 Good External Rotation 3+ Fair+ Internal Rotation 3+ Fair+ Left Flexion 4 Good Extension 4- Good- Abduction (C5) 4 Good External Rotation 3+ Fair+ Internal Rotation 3+ Fair+ Elbow/Forearm Strength Elbow and Forearm Manual Muscle Testing Right Flexion (C6) 4+ Good+ Left Flexion (C6) 4+ Good+ Hip Strength Hip Manual Muscle Testing Right Flexion (L2) 4- Good- External Rotation 3+ Fair+ Internal Rotation 4- Good- Left Flexion (L2) 4- Good- External Rotation 3+ Fair+ Internal Rotation 4- Good- Knee Strength Knee Manual Muscle Testing Right Flexion (S2) 4- Good- Extension (L3) 4- Good- Left Flexion (S2) 4- Good- Extension (L3) 4- Good- PT-OP-Q Treatments Start: 06/21/24 10:02 Freq: Status: Active Protocol: Document 08/21/24 18:14 [facility] (Rec: 08/21/24 18:19 [facility] [id number]) Therapeutic Exercises Sitting Exercises thoracic ext Sitting Exercise Name hand on chest and abdomen to monitor for thoracic vs lumbar ext Reps/Minutes 15 inversion/eversion Side bilateral Reps/Minutes 20 Comments AROM DF Side bilateral Equipment Used L1 band Reps/Minutes 15 Standing Exercises resisted walk Side bilateral Equipment Used L1 at knees Reps/Minutes 20ft ea sidestep Side bilateral Equipment Used L1 at ankles then L1 at knees Reps/Minutes 20ft ea Comments pain at knees w/band at ankles Lat pull down Standing Exercise Name Lat pull down (reviewd HEP HO) Side bilateral Resistance [place] Reps/Minutes 15 Comments cues for posture and breath work to dec cervical tension row Standing Exercise Name Reviewed (issued HEP HO) Side bilateral Equipment Used orange band Reps/Minutes 15 Comments cues scap paloff press Side bilateral Equipment Used 2 peach band Reps/Minutes 15 ea Comments cues posture Manual Therapy Treatment Consent Patient gave verbal consent for manual Yes treatment Soft Tissue Mobilization cervical Body Location B UT, LS, scalenes Mobilization Type Rolling Intensity/Depth Moderate Body Position Supine thoracic Body Location B paraspinals and lats Mobilization Type Sustained Pressure Intensity/Depth Moderate Body Position Sidelying Joint Mobilizations scap thoracic Comments B sup, inf, med, lat PT-OP-T Assessment and Plan Start: 06/21/24 10:02 Freq: Status: Active Protocol: Document 08/21/24 18:14 [facility] (Rec: 08/21/24 18:19 [facility] [id number]) Physical Therapy Assessment Goals balance Impairment DGI 13 Residential Goal (LTG) Pt will improve DGI score to > 19 to show dec risk for falls 07/31- LTG Duration 09/20 ADLs Short Term Goal (STG) Pt will be able to dress w/o inc pain STG Duration achieved 07/31 Adobe Architect Goal (LTG) Pt will be able to carry a load a laundry without shoulder/back pain, 07/31-typicall has carry LTG Duration 09/20 strength Short Term Goal (STG) Pt will be indep w/HEP 07/31-working on compliance STG Duration 08/03 Adobe Architect Goal (LTG) Pt will improve all UE and LE MMT to at least 4/5 to show improved strength and stabiltiy. 07/31-improving LTG Duration 09/20 activity Short Term Goal (STG) Pt will be able to stand longer with chores before needing to sit (at least 25 min) 07/31-15-20 min max now STG Duration 08/03 Adobe Architect Goal (LTG) Pt will report being able to start small walks and doing community activities w/friends 07/31- did some walking at [employer] but back did get sore along w/L ankle LTG Duration 09/20 Assessment Summary Assessment Pt able to adjust posture w/ cues and did have improved scap dep and retraction after manual. picture used to show pt difference btwn fwd bent position vs upright position for neck. Physical Therapy Plan Frequency and Duration Frequency of Treatment 2x/Week Duration of treatment (weeks) 12 Plan of Care Start Date 06/27/24 Plan of Care End Date 09/20/24 Next Visit Focus/Plan Next Note Type Treatment Note Next Visit Plan can work on L ankle now and progress balance and standing tolerance w/exercises, cont to work on tspine mobility to improve neck posture
--- NOTE | 2024-08-23 16:51 | PT.OTN ---
Current Diagnoses Unilateral primary osteoarthritis, right hip (08/23/24) Other enthesopathies, not elsewhere classified (08/23/24) Difficulty in walking, not elsewhere classified (08/23/24) Unsteadiness on feet (08/23/24) Abnormal posture (08/23/24) Presence of left artificial hip joint (08/23/24) Physical Therapy Treatment Note PT-OP-A Visit Information Start: 06/21/24 10:02 Freq: Status: Active Protocol: Document 08/23/24 14:08 (Rec: 08/23/24 14:30 [id number]) Out-Patient Physical Therapy Visit Information Visit Information Visit Start Time 14:51 Visit Stop Time 15:30 Visit Number 7 PT-OP-B Current Condition Start: 06/21/24 10:02 Freq: Status: Active Protocol: Document 06/27/24 11:20 [facility] (Rec: 06/27/24 12:20 [facility] [id number]) Current Condition History of Current Condition Onset Date chronic Current Complaints neck/back pain,B shoulder pain ,L knee pain,B foot pain,B foot/ankle,B hip History of Current Condition Pt reports she hurts all over. She has numbness, coldness and pain in feet/ankles. This happened after fx of ankle . Has EMG and show just a little nerve damange at L ankle. Has dx of bursitis of L knee. Has infection in L ankle. THey think she must have issues w/ stiches. L hip (replacement) gives little twinges here and there. R hip feels like the other one did and feels like it is almost popping out of joint. B shoulders have been hurting. FEels have lost a lot of body strength. Hurts to lay on either side d/t shoulders. Pt reports neck pain also. Starts care w/Dr. Nevarez tomorrow. Gets spasms down entire back. Gets pain down into R buttock and leg occasionally but not very often. has had falls, pt was trying to pull weed and fell back (was on a slope). Was on opiod and tried to build up per doctors orders and fell d/ t dizziness. Not currently on any opiods. Pt is scared to walk her small dog d/t worried she will pull her over. Treatment Goals Patient/Caregiver Goals Be able to move again, be able to go for a walk and participate in community events , improve balance, Be able to vacuum, be able to stand longer w/o requiring sitting break (with in 15 min needs to sit), be able to carry a load a laundry without shoulder/back pain, be able to dress w/o inc pain. PT-OP-C Subjective Start: 06/21/24 10:02 Freq: Status: Active Protocol: Document 08/23/24 14:08 (Rec: 08/23/24 14:30 [id number]) OP-PT Subjective Patient Comments Patient Comments Pt reports ankle has been bothering her, does not attribute to any exercises. New pain noticed in front of ankle, no known JOYA. Pt reports neck has been painful last few days, difficulty keeping head up due to pain. PT-OP-E Functional Tests Start: 06/27/24 12:20 Freq: Status: Active Protocol: Document 07/31/24 13:33 [facility] (Rec: 07/31/24 13:46 [facility] [id number]) Functional Tests Dynamic Gait Index (DGI) Score 17 PT-OP-G Mobility & Gait Start: 06/21/24 10:02 Freq: Status: Active Protocol: Document 06/27/24 11:20 [facility] (Rec: 06/27/24 12:20 [facility] [id number]) OP Gait Assessment Comments Gait Comments dec LLE stance time and dec trunk movement and UE swing PT-OP-J Posture/Palpation/Skin Start: 06/21/24 10:02 Freq: Status: Active Protocol: Document 06/27/24 11:20 [facility] (Rec: 06/27/24 12:28 [facility] [id number]) Posture Evaluation Comments Posture Comments significant kyhposis and fwd head in sittinga nd standing PT-OP-K Range of Motion Start: 06/21/24 10:02 Freq: Status: Active Protocol: Document 06/27/24 11:20 [facility] (Rec: 06/27/24 12:20 [facility] [id number]) Shoulder Goniometric Range of Motion Shoulder Right Active Testing Position Sitting Flexion 128 Extension 51 Abduction 131 External Rotation at 0 degrees Abduction 16 Internal Rotation Behind Back (text) L1 Comments pain w/range; abd goes into scaption Left Active Flexion 127 Extension 48 Abduction 105 External Rotation at 0 degrees Abduction 36 Internal Rotation Behind Back (text) T10 PT-OP-M Strength Start: 06/21/24 10:02 Freq: Status: Active Protocol: Document 07/31/24 13:33 [facility] (Rec: 07/31/24 13:46 [facility] [id number]) Shoulder Strength Shoulder Manual Muscle Testing Right Flexion 4 Good Extension 4- Good- Abduction (C5) 4 Good External Rotation 3+ Fair+ Internal Rotation 3+ Fair+ Left Flexion 4 Good Extension 4- Good- Abduction (C5) 4 Good External Rotation 3+ Fair+ Internal Rotation 3+ Fair+ Elbow/Forearm Strength Elbow and Forearm Manual Muscle Testing Right Flexion (C6) 4+ Good+ Left Flexion (C6) 4+ Good+ Hip Strength Hip Manual Muscle Testing Right Flexion (L2) 4- Good- External Rotation 3+ Fair+ Internal Rotation 4- Good- Left Flexion (L2) 4- Good- External Rotation 3+ Fair+ Internal Rotation 4- Good- Knee Strength Knee Manual Muscle Testing Right Flexion (S2) 4- Good- Extension (L3) 4- Good- Left Flexion (S2) 4- Good- Extension (L3) 4- Good- PT-OP-Q Treatments Start: 06/21/24 10:02 Freq: Status: Active Protocol: Document 08/23/24 14:08 [facility] (Rec: 08/23/24 14:30 [facility] [id number]) Therapeutic Exercises Sitting Exercises thoracic ext Sitting Exercise Name hand on chest and abdomen to monitor for thoracic vs lumbar ext Reps/Minutes 15 DF Side bilateral Equipment Used L1 band Reps/Minutes 15 Standing Exercises resisted walk Side bilateral Equipment Used L1 at knees Reps/Minutes 20ft ea sidestep Side bilateral Equipment Used L1 at ankles then L1 at knees Reps/Minutes 20ft ea Comments pain at knees w/band at ankles paloff press Side bilateral Equipment Used 2 peach band Reps/Minutes 15 ea Comments cues posture, decreased cervical tension Manual Therapy Treatment Consent Patient gave verbal consent for manual Yes treatment Soft Tissue Mobilization cervical Body Location B UT, LS, scalenes Mobilization Type Rolling Intensity/Depth Moderate Body Position Supine thoracic Body Location B paraspinals and lats Mobilization Type Sustained Pressure Intensity/Depth Moderate Body Position Sidelying Joint Mobilizations scap thoracic Comments B sup, inf, med, lat Neuro Re-Education Treatment Balance Activities SLS Details SLS (issue HEP HO next session Surface stable Equipment @ rail, light ASSET MANAGEMENT ANALYST Reps/Duration multiple trials Comments gait belt donned Tandem Details Partial>tandem (issue HEP HO next session) Surface stable Reps/Duration multiple trials Comments gait belt donned NBOS Details NBOS Surface stable, foam Equipment @ rail Comments gait belt donned PT-OP-T Assessment and Plan Start: 06/21/24 10:02 Freq: Status: Active Protocol: Document 08/23/24 14:08 [facility] (Rec: 08/23/24 14:30 [facility] [id number]) Physical Therapy Assessment Goals balance Impairment DGI 13 Intermediate Goal (LTG) Pt will improve DGI score to > 19 to show dec risk for falls 07/31- LTG Duration 09/20 ADLs Short Term Goal (STG) Pt will be able to dress w/o inc pain STG Duration achieved 07/31 Interim Controller Goal (LTG) Pt will be able to carry a load a laundry without shoulder/back pain, 07/31-typicall has carry LTG Duration 09/20 strength Short Term Goal (STG) Pt will be indep w/HEP 07/31-working on compliance STG Duration 08/03 Interim Controller Goal (LTG) Pt will improve all UE and LE MMT to at least 4/5 to show improved strength and stabiltiy. 07/31-improving LTG Duration 09/20 activity Short Term Goal (STG) Pt will be able to stand longer with chores before needing to sit (at least 25 min) 07/31-15-20 min max now STG Duration 08/03 Intermediate Goal (LTG) Pt will report being able to start small walks and doing community activities w/friends 07/31- did some walking at [employer] but back did get sore along w/L ankle LTG Duration 09/20 Assessment Summary Assessment Started session with manual therapy to decrease tension, improve mobility, and decrease pain. Pt tolerated moderate pressure well, with some tenderness to palpation in R lower trap and left cervical paraspinals. Palpable decrease in tension, patient responded well with cues to breathwork, pt appeared more relaxed post manual with less cervical tension observed. 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 Physical Therapy Plan Frequency and Duration Frequency of Treatment 2x/Week Duration of treatment (weeks) 12 Plan of Care Start Date 06/27/24 Plan of Care End Date 09/20/24 Therapeutic Interventions Therapeutic Interventions Balance Training,Gait Training ,Home Exercise Program,Joint Mobilizations,Manual Therapy, Neuromuscular Re-education, Patient/Caregiver Education, Self-Care/Home Management,Soft Tissue Mobilization,Taping, Therapeutic Activities, Therapeutic Exercises Modalities Cold Pack/Ice Massage,Electric Stimulation,Hot Packs, Infrared Therapy,Ultrasound Next Visit Focus/Plan Next Note Type Treatment Note Next Visit Plan can work on L ankle now and progress balance and standing tolerance w/exercises, cont to work on tspine mobility to improve neck posture
--- NOTE | 2024-08-28 17:41 | PT.OTN ---
Current Diagnoses Unilateral primary osteoarthritis, right hip (08/28/24) Other enthesopathies, not elsewhere classified (08/28/24) Difficulty in walking, not elsewhere classified (08/28/24) Unsteadiness on feet (08/28/24) Abnormal posture (08/28/24) Presence of left artificial hip joint (08/28/24) Physical Therapy Treatment Note PT-OP-A Visit Information Start: 06/21/24 10:02 Freq: Status: Active Protocol: Document 08/28/24 13:04 (Rec: 08/28/24 13:51 [id number]) Out-Patient Physical Therapy Visit Information Visit Information Visit Type Treatment Note Visit Start Time 13:01 Visit Stop Time 13:41 Visit Number 8 Number of REVENUE ACCOUNTANT Visits 2 PT-OP-B Current Condition Start: 06/21/24 10:02 Freq: Status: Active Protocol: Document 06/27/24 11:20 [facility] (Rec: 06/27/24 12:20 [facility] [id number]) Current Condition History of Current Condition Onset Date chronic Current Complaints neck/back pain,B shoulder pain ,L knee pain,B foot pain,B foot/ankle,B hip History of Current Condition Pt reports she hurts all over. She has numbness, coldness and pain in feet/ankles. This happened after fx of ankle . Has EMG and show just a little nerve damange at L ankle. Has dx of bursitis of L knee. Has infection in L ankle. THey think she must have issues w/ stiches. L hip (replacement) gives little twinges here and there. R hip feels like the other one did and feels like it is almost popping out of joint. B shoulders have been hurting. FEels have lost a lot of body strength. Hurts to lay on either side d/t shoulders. Pt reports neck pain also. Starts care w/Dr. Nevarez tomorrow. Gets spasms down entire back. Gets pain down into R buttock and leg occasionally but not very often. has had falls, pt was trying to pull weed and fell back (was on a slope). Was on opiod and tried to build up per doctors orders and fell d/ t dizziness. Not currently on any opiods. Pt is scared to walk her small dog d/t worried she will pull her over. Treatment Goals Patient/Caregiver Goals Be able to move again, be able to go for a walk and participate in community events , improve balance, Be able to vacuum, be able to stand longer w/o requiring sitting break (with in 15 min needs to sit), be able to carry a load a laundry without shoulder/back pain, be able to dress w/o inc pain. PT-OP-C Subjective Start: 06/21/24 10:02 Freq: Status: Active Protocol: Document 08/28/24 13:04 [facility] (Rec: 08/28/24 13:51 [id number]) OP-PT Subjective Patient Comments Patient Comments Pt reports reports tweaked neck putting jacket on. Pt reports L ankle pain has not worsened or got better, about the same. PT-OP-E Functional Tests Start: 06/27/24 12:20 Freq: Status: Active Protocol: Document 07/31/24 13:33 [facility] (Rec: 07/31/24 13:46 [facility] [id number]) Functional Tests Dynamic Gait Index (DGI) Score 17 PT-OP-G Mobility & Gait Start: 06/21/24 10:02 Freq: Status: Active Protocol: Document 06/27/24 11:20 [facility] (Rec: 06/27/24 12:20 [facility] [id number]) OP Gait Assessment Comments Gait Comments dec LLE stance time and dec trunk movement and UE swing PT-OP-J Posture/Palpation/Skin Start: 06/21/24 10:02 Freq: Status: Active Protocol: Document 06/27/24 11:20 [facility] (Rec: 06/27/24 12:28 [facility] [id number]) Posture Evaluation Comments Posture Comments significant kyhposis and fwd head in sittinga nd standing PT-OP-K Range of Motion Start: 06/21/24 10:02 Freq: Status: Active Protocol: Document 06/27/24 11:20 [facility] (Rec: 06/27/24 12:20 [facility] [id number]) Shoulder Goniometric Range of Motion Shoulder Right Active Testing Position Sitting Flexion 128 Extension 51 Abduction 131 External Rotation at 0 degrees Abduction 16 Internal Rotation Behind Back (text) L1 Comments pain w/range; abd goes into scaption Left Active Flexion 127 Extension 48 Abduction 105 External Rotation at 0 degrees Abduction 36 Internal Rotation Behind Back (text) T10 PT-OP-M Strength Start: 06/21/24 10:02 Freq: Status: Active Protocol: Document 07/31/24 13:33 [facility] (Rec: 07/31/24 13:46 [facility] [id number]) Shoulder Strength Shoulder Manual Muscle Testing Right Flexion 4 Good Extension 4- Good- Abduction (C5) 4 Good External Rotation 3+ Fair+ Internal Rotation 3+ Fair+ Left Flexion 4 Good Extension 4- Good- Abduction (C5) 4 Good External Rotation 3+ Fair+ Internal Rotation 3+ Fair+ Elbow/Forearm Strength Elbow and Forearm Manual Muscle Testing Right Flexion (C6) 4+ Good+ Left Flexion (C6) 4+ Good+ Hip Strength Hip Manual Muscle Testing Right Flexion (L2) 4- Good- External Rotation 3+ Fair+ Internal Rotation 4- Good- Left Flexion (L2) 4- Good- External Rotation 3+ Fair+ Internal Rotation 4- Good- Knee Strength Knee Manual Muscle Testing Right Flexion (S2) 4- Good- Extension (L3) 4- Good- Left Flexion (S2) 4- Good- Extension (L3) 4- Good- PT-OP-Q Treatments Start: 06/21/24 10:02 Freq: Status: Active Protocol: Document 08/28/24 13:04 [facility] (Rec: 08/28/24 13:51 [id number]) Therapeutic Exercises Sitting Exercises PF Sitting Exercise Name PF Equipment Used Lvl 1 TB inversion/eversion Side bilateral Resistance AROM, Isometrics Reps/Minutes x20, x5 gilmer Comments minimal motion DF Side bilateral Equipment Used AROM>L1 band Reps/Minutes x10, x15 Standing Exercises Shoulder IR/ER Standing Exercise Name Shoulder IR/ER in PT today, review next session as able Side bilateral Resistance Lvl 1 TB Reps/Minutes x10 each Comments cues for execution, elbow at side, no wrist extension paloff press Standing Exercise Name reviewed, setup Manual Therapy Treatment Consent Patient gave verbal consent for manual Yes treatment Soft Tissue Mobilization cervical Body Location B UT, LS, scalenes Mobilization Type Myofascial Release,Rolling, Sustained Pressure,Trigger Point Release Intensity/Depth Moderate Body Position Supine Comments Multiple trigger points R>L, supine > R sidelying thoracic Body Location B paraspinals Mobilization Type Sustained Pressure Intensity/Depth Moderate Body Position Sidelying Neuro Re-Education Treatment Balance Activities SLS Details SLS (HEP HO issued) Surface stable Equipment @ rail, 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 Reps/Duration multiple trials Comments cued for slowly decreasing UE support to challenge balance, reviewed safe setup at home Tandem Details Tandem (HEP HO issued Surface stable Reps/Duration multiple trials Comments cued for slowly decreasing UE support to challenge balance, reviewed safe setup at home PT-OP-T Assessment and Plan Start: 06/21/24 10:02 Freq: Status: Active Protocol: Document 08/28/24 13:04 (Rec: 08/28/24 13:51 [id number]) Physical Therapy Assessment Goals balance Impairment DGI 13 [facility] Goal (LTG) Pt will improve DGI score to > 19 to show dec risk for falls 07/31- LTG Duration 09/20 ADLs Short Term Goal (STG) Pt will be able to dress w/o inc pain STG Duration achieved 07/31 [facility] Goal (LTG) Pt will be able to carry a load a laundry without shoulder/back pain, 07/31-typicall has carry LTG Duration 09/20 strength Short Term Goal (STG) Pt will be indep w/HEP 07/31-working on compliance STG Duration 08/03 Planer Off Bearer Goal (LTG) Pt will improve all UE and LE MMT to at least 4/5 to show improved strength and stabiltiy. 07/31-improving LTG Duration 09/20 activity Short Term Goal (STG) Pt will be able to stand longer with chores before needing to sit (at least 25 min) 07/31-15-20 min max now STG Duration 08/03 [facility] Goal (LTG) Pt will report being able to start small walks and doing community activities w/friends 07/31- did some walking at [employer] but back did get sore along w/L ankle LTG Duration 09/20 Assessment Summary Assessment Reviewed balance intiated last session, reviewed safe setup at home and issued HEP HO this session. Progressed pt UE strength this session with addition of shoulder IR/ER, pt tolerated well with no increase in symptoms, pt required verbal cues for setup , posture, neutral wrist alignment, and keeping elbow at side, did not issue HEP HO this session, plan to review for carryover next session and issue HEP HO as able next session. Continued manual therapy for cervical spine this session, pt tension L>R, multiple trigger points palpated on L SCM,Levator scap , UT, pt reported good tolerance to STM, with palpable decrease in tension. Instructed pt on self STM w/ tennis ball for carryover at home. Physical Therapy Plan Frequency and Duration Frequency of Treatment 2x/Week Duration of treatment (weeks) 12 Plan of Care Start Date 06/27/24 Plan of Care End Date 09/20/24 Therapeutic Interventions Therapeutic Interventions Balance Training,Gait Training ,Home Exercise Program,Joint Mobilizations,Manual Therapy, Neuromuscular Re-education, Patient/Caregiver Education, Self-Care/Home Management,Soft Tissue Mobilization,Taping, Therapeutic Activities, Therapeutic Exercises Modalities Cold Pack/Ice Massage,Electric Stimulation,Hot Packs, Infrared Therapy,Ultrasound Next Visit Focus/Plan Next Note Type Treatment Note Next Visit Plan next session:Review shoulder IR/ER strength next session and issue HEP HO as able if pt demonstrates good carryover of form, progress balance and standing exercises as able POC: can work on L ankle now and progress balance and standing tolerance w/exercises, cont to work on tspine mobility to improve neck posture
--- NOTE | 2024-09-05 14:34 | PT.OTN ---
Current Diagnoses Unilateral primary osteoarthritis, right hip (09/05/24) Other enthesopathies, not elsewhere classified (09/05/24) Difficulty in walking, not elsewhere classified (09/05/24) Unsteadiness on feet (09/05/24) Abnormal posture (09/05/24) Presence of left artificial hip joint (09/05/24) Physical Therapy Treatment Note PT-OP-A Visit Information Start: 06/21/24 10:02 Freq: Status: Active Protocol: Document 09/05/24 13:03 [facility] (Rec: 09/05/24 14:33 [facility] [id number]) Out-Patient Physical Therapy Visit Information Visit Information Visit Type Discharge Summary Visit Start Time 13:04 Visit Stop Time 13:45 Visit Number 9 Number of SUPERVISOR PERSONNEL CLERKS Visits 0 PT-OP-B Current Condition Start: 06/21/24 10:02 Freq: Status: Active Protocol: Document 06/27/24 11:20 [facility] (Rec: 06/27/24 12:20 [facility] [id number]) Current Condition History of Current Condition Onset Date chronic Current Complaints neck/back pain,B shoulder pain ,L knee pain,B foot pain,B foot/ankle,B hip History of Current Condition Pt reports she hurts all over. She has numbness, coldness and pain in feet/ankles. This happened after fx of ankle . Has EMG and show just a little nerve damange at L ankle. Has dx of bursitis of L knee. Has infection in L ankle. THey think she must have issues w/ stiches. L hip (replacement) gives little twinges here and there. R hip feels like the other one did and feels like it is almost popping out of joint. B shoulders have been hurting. FEels have lost a lot of body strength. Hurts to lay on either side d/t shoulders. Pt reports neck pain also. Starts care w/Dr. Nevarez tomorrow. Gets spasms down entire back. Gets pain down into R buttock and leg occasionally but not very often. has had falls, pt was trying to pull weed and fell back (was on a slope). Was on opiod and tried to build up per doctors orders and fell d/ t dizziness. Not currently on any opiods. Pt is scared to walk her small dog d/t worried she will pull her over. Treatment Goals Patient/Caregiver Goals Be able to move again, be able to go for a walk and participate in community events , improve balance, Be able to vacuum, be able to stand longer w/o requiring sitting break (with in 15 min needs to sit), be able to carry a load a laundry without shoulder/back pain, be able to dress w/o inc pain. PT-OP-C Subjective Start: 06/21/24 10:02 Freq: Status: Active Protocol: Document 09/05/24 13:03 [facility] (Rec: 09/05/24 14:33 [id number] Subjective Patient Comments Patient Comments pt reports gets neck injection next week and follows up w/ ankle ortho after mri PT-OP-E Functional Tests Start: 06/27/24 12:20 Freq: Status: Active Protocol: Document 09/05/24 13:03 [facility] (Rec: 09/05/24 14:33 [id number] Functional Tests Dynamic Gait Index (DGI) Score 17 PT-OP-G Mobility & Gait Start: 06/21/24 10:02 Freq: Status: Active Protocol: Document 06/27/24 11:20 [facility] (Rec: 06/27/24 12:20 [id number] OP Gait Assessment Comments Gait Comments dec LLE stance time and dec trunk movement and UE swing PT-OP-J Posture/Palpation/Skin Start: 06/21/24 10:02 Freq: Status: Active Protocol: Document 06/27/24 11:20 [facility] (Rec: 06/27/24 12:28 [id number]) Posture Evaluation Comments Posture Comments significant kyhposis and fwd head in sittinga nd standing PT-OP-K Range of Motion Start: 06/21/24 10:02 Freq: Status: Active Protocol: Document 06/27/24 11:20 [facility] (Rec: 06/27/24 12:20 [id number]) Shoulder Goniometric Range of Motion Shoulder Right Active Testing Position Sitting Flexion 128 Extension 51 Abduction 131 External Rotation at 0 degrees Abduction 16 Internal Rotation Behind Back (text) L1 Comments pain w/range; abd goes into scaption Left Active Flexion 127 Extension 48 Abduction 105 External Rotation at 0 degrees Abduction 36 Internal Rotation Behind Back (text) T10 PT-OP-M Strength Start: 06/21/24 10:02 Freq: Status: Active Protocol: Document 09/05/24 13:03 [facility] (Rec: 09/05/24 14:33 [facility] [id number]) Shoulder Strength Shoulder Manual Muscle Testing Right Flexion 4- Good- Extension 4 Good Abduction (C5) 4+ Good+ External Rotation 3+ Fair+ Internal Rotation 4 Good Left Flexion 4- Good- Extension 4 Good Abduction (C5) 4+ Good+ External Rotation 3+ Fair+ Internal Rotation 4 Good Elbow/Forearm Strength Elbow and Forearm Manual Muscle Testing Right Flexion (C6) 5 Normal Extension (C7) 5 Normal Left Flexion (C6) 5 Normal Extension (C7) 5 Normal Hip Strength Hip Manual Muscle Testing Right Flexion (L2) 4+ Good+ External Rotation 4+ Good+ Internal Rotation 5 Normal Left Flexion (L2) 4+ Good+ External Rotation 4 Good Internal Rotation 4+ Good+ Knee Strength Knee Manual Muscle Testing Right Flexion (S2) 4+ Good+ Extension (L3) 4 Good Left Flexion (S2) 4+ Good+ Extension (L3) 4 Good PT-OP-Q Treatments Start: 06/21/24 10:02 Freq: Status: Active Protocol: Document 09/05/24 13:03 [facility] (Rec: 09/05/24 14:33 [facility] [id number]) Therapeutic Exercises Supine Exercises pelvic tilt Supine Exercise Name w/ L3 hip clam Side bilateral Reps/Minutes 10 Comments comfortable range- cues for movement pattern Sidelying Exercises open book Sidelying Exercise Name cues for movement pattern Side bilateral Reps/Minutes 6 ea Sitting Exercises march Side bilateral Equipment Used L3 Reps/Minutes 10 Comments cue control and posture abd Side bilateral Resistance L3 Reps/Minutes 1 min; 10 reps Comments supine today for pt comfort ( Updated HEP HO) Habd Sitting Exercise Name at about 45 deg flex Side bilateral Resistance L2 Reps/Minutes 10 Comments cues scap curls Sitting Exercise Name elbow flex Side bilateral Resistance L3 Reps/Minutes x 10 ea Standing Exercises Lat pull down Standing Exercise Name Lat pull down (reviewd HEP HO) Side bilateral Resistance L2 Reps/Minutes 15 Comments cues for posture and breath work to dec cervical tension row Standing Exercise Name Reviewed Side bilateral Equipment Used L2 Reps/Minutes 15 Comments cues scap Neuro Re-Education Treatment Balance Activities DGI Details 17 SLS Comments B trials Tandem Details Tandem (HEP HO issued Surface stable Reps/Duration multiple trials Comments stance w/gradual dec UE use Self-Care/Home Management Treatment Education Other Education 8 min: edu on anatomy of ankle and what words mean in MRI report. Edu on importance of cont HEP and discussed DC to HEP until after done w/trip w/ mom and doing some owrk on own and can discuss w/doc if need to return to PT. PT-OP-T Assessment and Plan Start: 06/21/24 10:02 Freq: Status: Active Protocol: Document 09/05/24 13:03 [facility] (Rec: 09/05/24 14:33 [facility] [id number]) Physical Therapy Assessment Goals balance Impairment DGI 13 [facility] Goal (LTG) Pt will improve DGI score to > 19 to show dec risk for falls 07/31-09/05- LTG Duration 09/20 ADLs Short Term Goal (STG) Pt will be able to dress w/o inc pain STG Duration achieved 07/31 Builder Beam Goal (LTG) Pt will be able to carry a load a laundry without shoulder/back pain, 07/31-typicall has carry 09/05-bugs lower back, occ gets twing in neck LTG Duration 09/20 strength Short Term Goal (STG) Pt will be indep w/HEP 07/31-working on compliance 09/05-dec compliance recently w /mom's TIA STG Duration 08/03 Builder Beam Goal (LTG) Pt will improve all UE and LE MMT to at least 4/5 to show improved strength and stabiltiy. 07/31-improving 09/05-mostly met LTG Duration 09/20 activity Short Term Goal (STG) Pt will be able to stand longer with chores before needing to sit (at least 25 min) 07/31-15-20 min max now 09/05-no change STG Duration 08/03 [facility]pc Goal (LTG) Pt will report being able to start small walks and doing community activities w/friends 07/31- did some walking at [employer] but back did get sore along w/L ankle 09/05-hasn't tried LTG Duration 09/20 Assessment Summary Assessment REviewed HEP and pt feels comfortable w/exercies. did require some cues but overall did well with exercises without c/o inc pain. Has had improved balance and strenght w/PT but is limited d/t dec compliance w/HEP and also multitude of problems. Pt to DC to HEP Physical Therapy Plan Discharge Physical Therapy Discharge Reasons Plateau in Progress
== END 2024-09-27 11:23 | disposition home or self-care (01) ==
LOC: PHYS 13:00
PROVIDERS: Family Provider Physician Assistant; PCP Physician Assistant; Referring Provider Orthopaedic Surgery; Visit Provider Orthopaedic Surgery
DX: M77.8 Other enthesopathies, not elsewhere classified (principal); Z96.642 Presence of left artificial hip joint; M16.11 Unilateral primary osteoarthritis, right hip; R29.3 Abnormal posture; R26.81 Unsteadiness on feet
CPT/HCPCS: 97110; 97112; 97140; 97163; 97535

== ENCOUNTER 2024-09-11 09:00 | Outpatient (CLI) | payer MEDICARE, OTHER, SELFPAY ==
[2018-07-13 11:43] VITALS: BMI 25.3
[2024-09-11] VITALS (9 sets, daily range): BP systolic 98–123; BP diastolic 60–68; PULSE 72–95; RESP 12–22; TEMP 36.1; O2SAT 91–95
--- NOTE | 2024-09-11 09:01 | DI.RAD.S_ITS ---
PROCEDURE: PAIN C/T INTERLAMINAR INJECT INDICATIONS: SPINAL STENOSIS COMPARISON: None. FINDINGS/IMPRESSION: Fluoroscopic spot filming was performed to verify placement of spinal needles at the left translaminar C6-C7 level(s) for cervical translaminar epidural steroid injection, as labeled on the films. Appropriate location(s) of the needle tip(s) was confirmed by injection of iodinated contrast. Dictated by: Jimmy Gavin M.D. on 09/11/2024 at 16:44 Approved by: Jimmy Gavin M.D. on 09/11/2024 at 16:45
[2024-09-11] MEDS: MIDAZOLAM 2 MG/2 ML VIAL IV (09:55)
[2024-09-11] MEDS: DEXAMETHASONE 10 MG/ML VIAL 20 MG INJ (10:01)
[2024-09-11] MEDS: iopamidoL 15 ML VIAL 3 ML INJ (10:01)
[2024-09-11] MEDS: BUPIVACAINE 0.25% (PF) VIAL 2 ML INJ (10:02)
--- NOTE | 2024-09-11 10:17 | P.PCN_ITS ---
Date/Time/Diagnoses Date of procedure: 09/11/24 Time of procedure: 10:17 Pre-procedure diagnosis: 1. CERVICAL STENOSIS, 2. CERVICAL HNP WITH UPPER EXTREMITY RADICULAR FEATURES Post-procedure diagnosis: same Procedure Notes Procedure: 1. FLUORSCOPICALLY GUIDED CONTRAST CONTROLLED INTERLAMINAR EPIDURAL STEROID INJECTION - C6/7 TL YANICK Indications: Kailyn is referred by JULIANNA Eugene for treatment of Cervical HNP with Upper Extremity Paresthesias. Physician: Ankit Nevarez Total Fluoroscopy time (seconds): 24 Total sedation minutes: 18 Complications: none Procedure in detail & Post-procedure care: FINDINGS Cervical Stenosis due to disc deterioration and nerve root irritation and nerve root irritation DESCRIPTION OF PROCEDURE Fluoroscopically guided, contrast-controlled C6/7 translaminar epidural steroid injection with conscious sedation. Following review of allergy and review of potential side effects and complications, including, but not necessarily limited to, infection, allergic reaction, local tissue breakdown, temporary as well as permanent nerve injury, stroke, paralysis, and possible , the patient indicated that patient understood and agreed to proceed. An informed consent document was signed by the patient, witnessed by a nurse, and placed in the patient's chart. Additionally, other treatment options including modalities, medications, and physical therapy were reviewed with the patient. After review of previous anaesthesic history and IV conscious sedation the patient was deemed safe to proceed with today?s procedure with IV conscious sed ation as ASA class II designation. Safety time-out was performed to confirm patient ID, procedure to be performed and site of procedure. IV sedation was accomplished with a combination of 2mg of Versed administered by the RN after DO order, titrated to patient comfort during the course of the procedure while the patient remained responsive to all verbal commands. In the prone position, following sterile prep and drape of the cervical region, the C6/7 translaminar space was identified fluoroscopically. The skin was anesthetized via a 25-gauge 1.5-inch needle with 1% lidocaine solution. At this point, a 25-gauge, 2.5-inch short bevel spinal needle was atraumatically introduced and advanced under fluoroscopic guidance into epidural space at the C6/7 translaminar space. Depth was confirmed on lateral view. Radiological data, including multiple fluoroscopic views of the cervical spine, reveal a spinal needle at the C6/7 translaminar space. Lateral views then show placement of the needle in the epidural space. Subsequent views show contrast material flowing superiorly and inferiorly in the epidural space. DSA fluoroscopy with live contrast injection, once again, confirmed no vascular or intrathecal uptake. At this point, using loss of resistance technique with saline and air, the epidural space was entered. Following negative aspiration, injection of approximately 1.5 cc of Isovue-200 with live fluoroscopy in the AP view confirmed epidural flow in the epidural space without vascular or intrathecal uptake observed. Subsequently, a test dose of 1 cc of 1% lidocaine solution was injected and patient was observed for two minutes without signs or symptoms of complications, including abdominal pain, shortness of breath, bilateral upper or lower extremity weakness, nausea and vomiting, prior to steroid injection. At this point, 2cc or 20mg of dexamethasone was then injected without incident. The patient tolerated the procedure well without signs or symptoms of co mplications prior to being transferred to the recovery area for further monitoring, The patient was then transferred to the recovery area where they were observed for an appropriate period of time after the injection. The patient reported a VAS score of 7 prior to the procedure and a post-procedure VAS of 1. POST OP INSTRUCTIONS The patient was provided a Pain Log to continue to record their response to the target-specific procedure prior to follow-up visit with the referring provider. Additionally, specific post-injection care instructions and a contact number to our office were provided if concerns arise regarding possible complications associated with the procedure are suspected.
== END 2024-09-11 10:45 | disposition home or self-care (01) ==
LOC: RAD 09:01
PROVIDERS: Family Provider Physician Assistant; PCP Physician Assistant; Referring Provider Physical Medicine & Rehabilitation; Visit Provider Physical Medicine & Rehabilitation
DX: M48.02 Spinal stenosis, cervical region (principal); M50.123 Cervical disc disorder at C6-C7 level with radiculopathy
CPT/HCPCS: 62321; 99152; J1100; J2250; J3490

== ENCOUNTER → 2025-03-15 13:33 | Outpatient (CLI) | payer MEDICARE, OTHER, SELFPAY ==
[2018-07-13 11:43] VITALS: BMI 25.3
--- NOTE | 2025-03-15 13:38 | DI.US.S_ITS ---
PROCEDURE: US THYROID INDICATIONS: Hypercalcemia TECHNIQUE: Real-time scanning was performed of the thyroid gland, with image documentation. Twenty-one images COMPARISON: None. FINDINGS: Thyroid: Right lobe measures 4.6 x 1.2 x 1.1 cm. Left lobe measures 4.2 x 1.3 x 1.1 cm. Isthmus is 0.2 cm thick. Echotexture is mildly heterogeneous with multiple less than 1 cm hypoechoic nodular areas. No large nodules to measure. Color Doppler blood flow appears slightly increased on some images which may be an indication of thyroiditis or other process IMPRESSION: Color Doppler flow to both thyroid lobes appears slightly increased may be an indication of thyroiditis or other process. No thyroid nodule greater than 1 cm Dictated by: Juan Kelly M.D. on 03/15/2025 at 16:18 Approved by: Juan Kelly M.D. on 03/15/2025 at 16:31
[2025-03-15 15:41] LABS: Hemoglobin A1C% w Est Avg Glu 4.8 % (4.0-6.0)
[2025-03-19 03:41] LABS: Angiotensin Converting Enzyme 24 U/L (14-82)
[2025-03-19 21:11] LABS: Antimyeloperoxidase Antibodies <0.2 units (0.0-0.9); Antiproteinase 3 Antibodies <0.2 units (0.0-0.9); Cytoplasmic C-ANCA <1:20 titer (Neg:<1:20); Perinuclear P-ANCA <1:20 titer (Neg:<1:20)
== END ==
LOC: US 13:36
PROVIDERS: Psychiatry & Neurology Neurology; Family Provider Physician Assistant; PCP Physician Assistant
DX: E83.52 Hypercalcemia (principal); G62.9 Polyneuropathy, unspecified
CPT/HCPCS: 36415; 76536; 82164; 83036; 86256

== ENCOUNTER → 2025-04-01 12:58 | Outpatient (CLI) | payer MEDICARE, OTHER, SELFPAY ==
[2018-07-13 11:43] VITALS: BMI 25.3
--- NOTE | 2025-04-01 13:00 | DI.NM.S_ITS ---
PROCEDURE: NM PARATHYROID RADIOPHARMACEUTICAL: 25.6 mCi Tc-99m sestamibi IV. INDICATIONS: Hypercalcemia TECHNIQUE: After intravenous administration of Tc-99m sestamibi, anterior planar images of the neck and mediastinum were obtained at approximately 10 minutes and 2-3 hours. SPECT images were acquired after the 10 minute planar images. COMPARISON: None. FINDINGS: On the early images, the thyroid gland is bilobed and has normal size and morphology. There is no focal increased activity in the thyroid bed. The delayed images show no preferential tracer retention in the thyroid bed to suggest parathyroid adenoma. The SPECT images demonstrate no abnormal activity in the neck. IMPRESSION: No findings concerning for parathyroid adenoma. Dictated by: Arpan Morfin M.D. on 04/01/2025 at 16:00 Approved by: Arpan Morfin M.D. on 04/01/2025 at 16:03
== END ==
LOC: NUCM 12:59
PROVIDERS: Family Provider Physician Assistant; PCP Physician Assistant
DX: E83.52 Hypercalcemia (principal)
CPT/HCPCS: 78070; A9500

== ENCOUNTER → 2025-04-20 11:10 | Outpatient (CLI) | payer MEDICARE, OTHER, SELFPAY ==
[2018-07-13 11:43] VITALS: BMI 25.3
--- NOTE | 2025-04-20 11:12 | DI.MRI.S_ITS ---
PROCEDURE: MR SHOULDER RT WO CON INDICATIONS: RIGHT SHOULDER PAIN TECHNIQUE: Noncontrast oblique coronal T2 fast spin echo with fat saturation, oblique sagittal T1 spin echo and T2 fast spin echo with fat saturation, axial T1 spin echo and T2 fast spin echo with fat saturation through the shoulder. COMPARISON: [facility], CR, XR SHOULDER 2+ VIEWS RIGHT, 04/16/2025, 14:31. FINDINGS: Image quality: Excellent. Rotator cuff: Mild tendinosis of the supraspinatus, with low-grade interstitial tear at the mid and posterior footprint. Mild tendinosis of the infraspinatus. No tear of the infraspinatus. The teres minor is unremarkable. The subscapularis is unremarkable. No muscle edema or fatty atrophy. Bones and bursae: Mild degenerative changes of the acromioclavicular joint with small inferior projecting osteophyte. Type 1 acromion. No os acromiale. Mild subacromial/subdeltoid bursitis. Mild subchondral cystic changes at the posterior greater tuberosity, reactive. No acute fracture. Mild to moderate degenerative changes of the glenohumeral articulation. Capsule and soft tissues: Superior labral tear, extending anteriorly to the anterior inferior labrum. No paralabral cyst. Low-grade interstitial tear of the extra- articular biceps tendon. Mild tenosynovitis of the extra-articular biceps tendon. Mild tendinosis of the intra-articular biceps tendon. Small glenohumeral effusion. No intra-articular body. IMPRESSION: 1. Mild degenerative changes of the acromioclavicular joint. 2. [id number] degenerative change of the glenohumeral joint. 3. Low-grade tear of the supraspinatus. 4. Labral tear. 5. Low-grade tear of the extra-articular biceps tendon with mild tenosynovitis. Dictated by: Isela Camara M.D. on 04/22/2025 at 17:11 Approved by: Isela Camara M.D. on 04/22/2025 at 17:20
== END ==
PROVIDERS: Family Provider Physician Assistant; PCP Physician Assistant; Referring Provider Orthopaedic Surgery; Visit Provider Orthopaedic Surgery
DX: M25.811 Other specified joint disorders, right shoulder (principal); M75.111 Incomplete rotator cuff tear or rupture of right shoulder, not specified as traumatic; S43.431A Superior glenoid labrum lesion of right shoulder, initial encounter; S46.211A Strain of muscle, fascia and tendon of other parts of biceps, right arm, initial encounter; M65.921 Unspecified synovitis and tenosynovitis, right upper arm; M25.511 Pain in right shoulder
CPT/HCPCS: 73221

== ENCOUNTER → 2025-07-08 11:59 | Outpatient (CLI) | payer MEDICARE, OTHER, SELFPAY ==
[2018-07-13 11:43] VITALS: BMI 25.3
--- NOTE | 2025-07-08 12:02 | DI.RAD.S_ITS ---
PROCEDURE: XR CHEST 2V INDICATIONS: PRE-OP EXAM TECHNIQUE: 2 views of the chest were acquired. COMPARISON: [facility], CT, CT CHEST WO CON, 06/04/2025, 11:25. [facility], CR, XR CHEST 2V, 08/01/2020, 13:45. FINDINGS: Surgical changes and devices: Surgical clips projected over right chest. Lungs and pleura: The lungs are clear. No pleural effusions or pneumothorax. Mediastinum: Mediastinal contours are normal. Heart size is normal. Bones and chest wall: No suspicious bony abnormalities. Soft tissues appear unremarkable. IMPRESSION: No acute cardiopulmonary pathology. Dictated by: Johanna Renee RR Interpreted: Bubba Mon MD on 07/08/2025 at 13:45 Transcribed by: TORREY on 07/08/2025 at 14:00 Approved by: Bubba Mon M.D. on 07/08/2025 at 17:33
== END ==
PROVIDERS: Family Provider Physician Assistant; PCP Physician Assistant; Referring Provider Family Medicine; Visit Provider Family Medicine
DX: Z01.818 Encounter for other preprocedural examination (principal); I10 Essential (primary) hypertension
CPT/HCPCS: 71046